=== PATIENT | female | born 1935 | race Caucasian/White ===

== ENCOUNTER 2016-12-23 20:51 | Inpatient (IN) | payer MEDICARE, OTHER ==
--- NOTE | 2016-12-23 20:57 | EDM.PDOC ---
ED HPI SEIZURE COMPLAINT - General Chief Complaint: Syncope Stated Complaint: [facility] Time Seen by Provider: 12/23/16 20:56 Source of Information: Reports: Patient History Limitations: Reports: No limitations - History of Present Illness INITIAL COMMENTS - FREE TEXT/NARRATIVE: 81-year-old female presents the ED for evaluation of sudden onset of severe dizziness which I interpret as vertigo associated with nausea. She did not vomit. This occurred sudden onset while she was outside and to the point that she was very off balance he can hardly walk. Her son aged her to the house and laid her down. She continued to feel unwell broke out in a sweat and associated nausea. She denies any changes in her bowel pattern her stool looking different color. She takes no medications after morning. She was outside a good portion a day but not enough to make her sweat. No recent falls or closed head injuries. When she lies still in bed at this time she has no dizziness or vertigo. Her pressure however is low at 95/76. She never fell or passed out completely.She was aided into the house by her son. Even sitting down she continued to feel unwell. Dizzy and nauseated. She needed to use the bathroom as soon as she got to the bathrooom. Had a large BM with no blood. Then vomited bilious material. Symptom Onset Date: 12/23/16 Symptom Onset Time: 19:50 Timing/Duration: Reports: minutes:, sudden onset, improving Event Occurred (Where): home Event (Witnessed/Unwitnessed): witnessed (Was working outside son was by her side.) Location: Reports: generalized (Generalized weak and very dizzy felt like she was going to pass out.) Severity: moderate Context: Denies: recent ETOH, new/change in medications, missed med dose(s), illness, trauma, photo stimulation, activity/exercise, other Pre Event Symptom(s): Reports: malaise, nausea/vomiting, weakness. Denies: premonition, confusion, chest pain, cough, rash (Nausea with no vomiting), shortness of breath, syncope Event Symptoms: Reports: weakness, malaise, nausea/vomiting. Denies: incontinence, tongue biting, confusion, headaches, syncope, chest pain, fever/ chills, loss of appetite, rash, shortness of breath (Nausea but no) Post Event Symptoms: Reports: lethargic. 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: Other (see below) (None.) - Related Data Allergies/ADRs: Allergies Allergy/AdvReac Type Severity Reaction Status Date / Time codeine AdvReac Vomiting Verified 12/23/16 21:35 Home Meds: Home Meds Isosorbide Mononitrate [Isosorbide Mononitrate ER] 30 mg PO DAILY 12/05/13 [ History] Losartan [Cozaar] 100 mg PO DAILY 12/05/13 [History] amLODIPine [Norvasc] 5 mg PO DAILY 08/15/15 [History] Metoprolol Succinate [Toprol XL 50mg] 50 mg PO DAILY 01/01/16 [History] Furosemide [Lasix] 20 mg PO DAILY PRN 12/07/16 [History] Past Medical History HEENT History: Reports: Hard of hearing Other HEENT History: has a hearing aid on right, weras glasses, has top plate Cardiovascular History: Reports: Cardiomyopathy, High cholesterol, Hypertension , Other (see below) Other Cardiovascular History: states needs to have a "defibrillator" AICD Respiratory History: Reports: None Gastrointestinal History: Reports: GERD, PUD Other Gastrointestinal History: states treated with antibiotics for recent gi infection. 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: Other (see below) Other OB/BYN History: hysterectomy Musculoskeletal History: Reports: Osteoporosis, Other (see below) Neurological History: Reports: None Psychiatric History: Reports: None Endocrine/Metabolic History: Reports: None Hematologic History: Reports: Iron deficiency, Other (see below) Other Hematologic History: DVT Immunologic History: Reports: None Oncologic (Cancer) History: Reports: None Dermatologic History: Reports: None - Past Surgical History Head Surgeries/Procedures: Reports: None HEENT Surgical History: Reports: Tonsillectomy Cardiovascular Surgical History: Reports: Other (see below) GI Surgical History: Reports: Other (see below) Other GI Surgeries/Procedures: gastric resection Female Surgical History: Reports: Hysterectomy Musculoskeletal Surgical History: Reports: Knee replacement Social & Family History - Family History Family Medical History: Noncontributory Cardiac: Reports: Other (see below) (brother has HTN, CHF) Neurological: Reports: Other (see below) (mother of stroke) Oncologic: Reports: Other (see below) (throat cancer in twin borther, father had stomache cancer) - Tobacco Use Smoking Status *Q: Never Smoker Used Tobacco, but Quit: No Second Hand Smoke Exposure: Yes - Alcohol Use Days Per Week of Alcohol Use: 0 - Recreational Drug Use Recreational Drug Use: No Drug Use in Last 12 Months: No - Living Situation & Occupation Living situation: Reports: , alone 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 Denies: fever, chills, decreased appetite, weight loss HEENT: Reports: No symptoms Respiratory: Reports: No Symptoms Cardiovascular: Reports: No symptoms, Blood pressure problem, Lightheadedness. Denies: Chest pain, Claudication (Usually runs normal blood pressure.), Dyspnea on exertion, Edema, Orthopnea, Palpitations Endocrine: Reports: fatigue GI/Abdominal: Reports: No symptoms : Reports: frequency Musculoskeletal: Reports: joint pain (Knees and hips sometimes.) Skin: Reports: no symptoms Neurological: Reports: Dizziness, Difficulty Walking, Gait Disturbance. Denies : Headache, Numbness, Paresthesia, Pre-Existing Deficit (Required aid of her son to help her walk.), Seizure, Syncope, Tingling, Tremors, Trouble Speaking, Weakness, Change in Speech Psychiatric: Reports: No symptoms Hematologic/Lymphatic: Reports: no symptoms Immunologic: Reports: no symptoms - Physical Exam Exam: See Below Exam Limited By: No limitations General Appearance: alert, moderate distress Eye Exam: bilateral eye: normal inspection Ears: normal TMs, other Throat/Mouth: Normal inspection, Normal lips, Normal oropharynx Head Exam: atraumatic, normocephalic Neck: normal inspection, supple, non-tender, full range of motion. No: lymphadenopathy (L), lymphadenopathy (R) Respiratory/Chest: lungs clear, normal breath sounds, no accessory muscle use, respiratory distress Cardiovascular: normal peripheral pulses, regular rate, rhythm, no edema, no gallop, no murmur, no rub. No: JVD GI/Abdominal: soft, non tender, no organomegaly, no distention, no abnormal bruit, no mass, abnormal bowel sounds:. No: rigid, rebound, tender Neuro Exam (Abbreviated): alert, oriented, CN II-XII intact, normal cognition Back Exam: normal inspection, full range of motion. No: CVA tenderness (L), CVA tenderness (R) Extremities: normal inspection, normal range of motion, non-tender, no pedal edema, normal capillary refill Psychiatric: normal affect Skin Exam: Warm, Dry, Intact, Pallor EKG INTERPRETATION EKG Date: 01/07/17 Time: 22:00 Rhythm: NSR Rate (beats/min): 82 [place]: LAD-left axis deviation P-wave: present QRS: other (ventricular hypertrophy pattern.) ST-T: other (mildly depressed lead V6.T-wave inversion in leads one aVL and the V5-V6.) Course - Vital Signs Last Recorded V/S: Last Vital Signs Temp 36.2 C 12/23/16 21:00 Pulse 84 12/23/16 23:41 Resp 18 12/23/16 23:41 BP 104/51 L 12/23/16 23:41 Pulse Ox 94 L 12/23/16 23:41 - Orders/Labs/Meds Orders: Active Orders 24 hr Category Date Time Status EKG Documentation Completion [RC] STAT Care 12/23/16 20:57 Active Chest 1V Frontal [CR] Stat Exams 12/23/16 20:57 Taken Venous Doppler Lwr Ext Bi [US] Stat Exams 12/23/16 22:23 Taken CBC W/O DIFF,HEMOGRAM [HEME] MOTH@0700 Lab 12/24/16 07:00 Ordered CBC W/O DIFF,HEMOGRAM [HEME] MOTH@0700 Lab 12/27/16 07:00 Ordered CBC W/O DIFF,HEMOGRAM [HEME] MOTH@0700 Lab 12/31/16 07:00 Ordered CBC W/O DIFF,HEMOGRAM [HEME] MOTH@0700 Lab 01/03/17 07:00 Ordered CBC W/O DIFF,HEMOGRAM [HEME] MOTH@0700 Lab 01/07/17 07:00 Ordered CBC W/O DIFF,HEMOGRAM [HEME] MOTH@0700 Lab 01/10/17 07:00 Ordered URINALYSIS W/MICROSCOPIC [UA W/MICROSCOPIC] [URIN] Stat Lab 12/23/16 21:02 Uncollected Sodium Chloride 0.9% [Normal Saline] 1,000 ml Med 12/23/16 21:00 Active IV ASDIRECTED Medication Orders Sodium Chloride (Normal Saline) 1,000 mls @ 150 mls/hr IV ASDIRECTED CHIKI Last Admin: 12/23/16 21:25 Dose: 150 mls/hr Labs: Laboratory Tests 12/23/16 12/23/16 12/23/16 Range/Units 21:29 21:29 21:29 WBC 16.15 H (3.98-10.04) K/mm3 RBC 4.05 (3.98-5.22) M/mm3 Hgb 10.0 L (11.2-15.7) gm/L Hct 32.3 L (34.1-44.9) % MCV 79.8 (79.4-94.8) fl MCH 24.7 L (25.6-32.2) pg MCHC 31.0 L (32.2-35.5) g/dl RDW Std Deviation 50.1 H (36.4-46.3) fL Plt Count 540 H (182-369) K/mm3 MPV 9.6 (9.4-12.3) fl Neutrophils % (Manual) 78 H (40-60) % Band Neutrophils % 0 (0-10) % Lymphocytes % (Manual) 19 L (20-40) % Atypical Lymphs % 0 % Monocytes % (Manual) 3 (2-10) % Eosinophils % (Manual) 0 L (0.7-5.8) % Basophils % (Manual) 0 L (0.1-1.2) Platelet Estimate Adequate Plt Morphology Comment Normal RBC Morph Comment Normal D-Dimer, Quantitative 9.54 H (0.19-0.59) mg/L Sodium 142 (136-145) mEq/L Potassium 4.3 (3.5-5.1) mEq/L Chloride 106 (98-107) mEq/L Carbon Dioxide 23 (21-32) mEq/L Anion Gap 17.3 H (5-15) BUN 34 H (7-18) mg/dL Creatinine 1.9 H (0.55-1.02) mg/dL Est Cr Clr Drug Dosing 18.68 mL/min Estimated GFR (MDRD) 25 (>60) mL/min BUN/Creatinine Ratio 17.9 (14-18) Glucose 163 H (83-115) mg/dL Calcium 9.2 (8.5-10.1) mg/dL Magnesium 1.9 (1.8-2.4) mg/dl Total Bilirubin 0.4 (0.2-1.0) mg/dL AST 14 L (15-37) U/L ALT 12 L (14-59) U/L Alkaline Phosphatase 131 H (46-116) U/L CK-MB (CK-2) 0.7 (0-3.6) ng/ml Troponin I < 0.017 (0.00-0.056) ng/mL B-Natriuretic Peptide (0-100) pg/mL Total Protein 7.3 (6.4-8.2) g/dl Albumin 2.7 L (3.4-5.0) g/dl Globulin 4.6 gm/dL Albumin/Globulin Ratio 0.6 L (1-2) 12/23/16 Range/Units 21:29 WBC (3.98-10.04) K/mm3 RBC (3.98-5.22) M/mm3 Hgb (11.2-15.7) gm/L Hct (34.1-44.9) % MCV (79.4-94.8) fl MCH (25.6-32.2) pg MCHC (32.2-35.5) g/dl RDW Std Deviation (36.4-46.3) fL Plt Count (182-369) K/mm3 MPV (9.4-12.3) fl Neutrophils % (Manual) (40-60) % Band Neutrophils % (0-10) % Lymphocytes % (Manual) (20-40) % Atypical Lymphs % % Monocytes % (Manual) (2-10) % Eosinophils % (Manual) (0.7-5.8) % Basophils % (Manual) (0.1-1.2) Platelet Estimate Plt Morphology Comment RBC Morph Comment D-Dimer, Quantitative (0.19-0.59) mg/L Sodium (136-145) mEq/L Potassium (3.5-5.1) mEq/L Chloride (98-107) mEq/L Carbon Dioxide (21-32) mEq/L Anion Gap (5-15) BUN (7-18) mg/dL Creatinine (0.55-1.02) mg/dL Est Cr Clr Drug Dosing mL/min Estimated GFR (MDRD) (>60) mL/min BUN/Creatinine Ratio (14-18) Glucose (83-115) mg/dL Calcium (8.5-10.1) mg/dL Magnesium (1.8-2.4) mg/dl Total Bilirubin (0.2-1.0) mg/dL AST (15-37) U/L ALT (14-59) U/L Alkaline Phosphatase (46-116) U/L CK-MB (CK-2) (0-3.6) ng/ml Troponin I (0.00-0.056) ng/mL B-Natriuretic Peptide 115 H (0-100) pg/mL Total Protein (6.4-8.2) g/dl Albumin (3.4-5.0) g/dl Globulin gm/dL Albumin/Globulin Ratio (1-2) Meds: Medications Generic Name Dose Route Start Last Admin Trade Name Freq PRN Reason Stop Dose Admin Sodium Chloride 1,000 mls @ 150 mls/hr 12/23/16 21:00 12/23/16 21:25 Normal Saline IV 150 mls/hr ASDIRECTED CHIKI Administration Discontinued Medications Generic Name Dose Route Start Last Admin Trade Name Freq PRN Reason Stop Dose Admin Enoxaparin Sodium 60 mg 12/23/16 22:22 12/23/16 22:35 Lovenox SUBCUT 12/23/16 22:23 60 mg ONETIME ONE Administration Metoclopramide HCl 7.5 mg 12/23/16 21:02 12/23/16 21:20 Reglan IVPUSH 12/23/16 21:03 7.5 mg ONETIME ONE Administration - Radiology Interpretation Free Text/Narrative:: 81 year old female presents to the ED with sudden onset of dizziness and feeling like she was going to pass out. Was standing when symptoms arose. Some component of vertigo. Aided into the house by her son. Continued to feel unwell while seated. Became nauseated. Did vomit in the ED. BP found to be low at 95 systolic. Minitially start an IV normal saline 150 mils per hour. Because blood pressure remained low in the 95 systolic range given 250 mils liter normal saline bolus.ild hypoxia. Placed on 02 at 2Lmin. plan ECG chest x-ray and routine labs including d-dimer to be done. Neuro exam is negative for any nystagmus to suggest vertigo.Becausea BP remained low given a 250mls bolus of normal saline then to run at 150mls per hoour. - Re-Assessments/Exams Free Text/Narrative Re-Assessment/Exam: 12/23/16 22:21chest x-ray is essentially clear with normal sized heart. No pleural effusions are evident. Labs reveal a total white count of 16.15 with 70 % neutrophils and no bands. Hemoglobin is low at 10.0 she indicated that she is taking iron supplements for anemia. MCV is 79.8. Hematocrit is 32.3. Platelets elevated at 540,000. Chemistry shows a sodium of 142 potassium of 4.3 chloride 106 bicarbonate of 23. Anion gap is elevated at 17.3 confirming that she is volume depleted. BUN is 34 creatinine is 1.9 EGFR is only 25. AST is 14 ALT of 12 and BNP is 1:15. CK-MB fraction is 0.7 troponin is less than 0.017. D-dimer is markedly elevated at 9.54 highly suggestive of likely pulmonary wasn't. Her creatinine and kidney function are too poor to allow CT pulmonary angiogram at this time. Will have Doppler ultrasound performed of both legs but I will go ahead and give her initial dose of Lovenox 1 mg per kilogram. 12/23/16 23:26Doppler ultrasound of both lower extremities did not find any blood clots. However speak to hospitalist with a view to having her admitted to the hospital as there is a high suspicion that she has a pulmonary embolism. BP remains low at 102 / 49. Heart rate is 85 and sinus. O2 sats are 94% on 2 L per minute. 12/24/16 00:13case discussed with personal care service provider hospitalist Dr. Preciado the patient will be admitted to the med surgery floor on telemetry. Would be to try and hydrate her enough so that her renal function improves to allow CT pulmonary angiogram to be carried out. Anion gap is 17.3. Departure - Departure Time of Disposition: 00:14 Disposition: Admitted As Inpatient 67 Condition: fair Clinical Impression: Near syncope, Hypoxemia, Elevated d-dimer, Chronic renal insufficiency, stage IV (severe) Hypotension Qualifiers: Hypotension type: other hypotension type Qualified Code(s): I95.89 - Other hypotension Additional Instructions: visual be admitted to the med surgery floor on telemetry. Goal is to hopefully guest relations associate enough to improve her renal function to allow a CT pulmonary injury and to be completed. Highly suspect that she has expressed a pulmonary embolism. She is of course received initial dose of Lovenox 60 mg subcutaneously in the ED. Ultrasound of both lower extremities did not identify a DVT. She does have an elevated platelet count of 540,000 and therefore concern exist to look for an underlying malignancy. - My Orders Last 24 Hours: My Active Orders 12/23/16 20:57 EKG Documentation Completion [RC] STAT Chest 1V Frontal [CR] Stat 12/23/16 21:00 Sodium Chloride 0.9% [Normal Saline] 1,000 ml IV ASDIRECTED 12/23/16 21:02 URINALYSIS W/MICROSCOPIC [UA W/MICROSCOPIC] [URIN] Stat 12/23/16 22:23 Venous Doppler Lwr Ext Bi [US] Stat 12/24/16 07:00 CBC W/O DIFF,HEMOGRAM [HEME] MOTH@0700 12/27/16 07:00 CBC W/O DIFF,HEMOGRAM [HEME] MOTH@0700 12/31/16 07:00 CBC W/O DIFF,HEMOGRAM [HEME] MOTH@0700 01/03/17 07:00 CBC W/O DIFF,HEMOGRAM [HEME] MOTH@0700 01/07/17 07:00 CBC W/O DIFF,HEMOGRAM [HEME] MOTH@0700 01/10/17 07:00 CBC W/O DIFF,HEMOGRAM [HEME] MOTH@0700 - Assessment/Plan Last 24 Hours: My Active Orders 12/23/16 20:57 EKG Documentation Completion [RC] STAT Chest 1V Frontal [CR] Stat 12/23/16 21:00 Sodium Chloride 0.9% [Normal Saline] 1,000 ml IV ASDIRECTED 12/23/16 21:02 URINALYSIS W/MICROSCOPIC [UA W/MICROSCOPIC] [URIN] Stat 12/23/16 22:23 Venous Doppler Lwr Ext Bi [US] Stat 12/24/16 07:00 CBC W/O DIFF,HEMOGRAM [HEME] MOTH@0700 12/27/16 07:00 CBC W/O DIFF,HEMOGRAM [HEME] MOTH@0700 12/31/16 07:00 CBC W/O DIFF,HEMOGRAM [HEME] MOTH@0700 01/03/17 07:00 CBC W/O DIFF,HEMOGRAM [HEME] MOTH@69901/07/17 07:00 CBC W/O DIFF,HEMOGRAM [HEME] MOTH@69901/10/17 07:00 CBC W/O DIFF,HEMOGRAM [HEME] MOTH@699
[2016-12-23] MEDS ORDERED: Sodium Chloride 0.9% 1,000 ML IV SCH (21:00)
[2016-12-23] MEDS ORDERED: Metoclopramide 10 MG/2 ML SDV IVPUSH ONE (21:02)
[2016-12-23] MEDS ORDERED: Enoxaparin 60 MG/0.6 ML Syringe SUBCUT ONE (22:22)
[2016-12-24] MEDS ORDERED: Temazepam 7.5 MG Cap PO PRN (01:21)
[2016-12-24] MEDS ORDERED: Sodium Chloride 0.9% 1,000 ML IV SCH (01:30)
--- NOTE | 2016-12-24 09:09 | PCM.HP ---
H&P History of Present Illness - General Date of Service: 12/24/16 Admit Problem/Dx: Admission Diagnosis/Problem Admission Diagnosis/Problem Hypotension Source of Information: Patient, Family, Provider History Limitations: Reports: No limitations - History of Present Illness Initial Comments - Free Text/Narative: 89 year old female who participated in her usual Saturday activities was able to attend a Confirmation became dizzy and loss strength in her lower extremities. She felt off balance and had difficulty walking. There was no change in speech , vision comprehension. She denies LOC. Admits to nausea/vomiting (bile) and generalized weakness. The patient has a cardiac history of nonischemic cardiomyopathy. 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 At this time, she has acute renal failure, a CTA will be performed after improvement of her kidney function. A post op complication after a right TKR was a DVT. She was previously taking coumadin, . Onset of Symptoms: Reports: sudden Symptom Onset Date: 12/23/16 Duration of Symptoms: Reports: Hour(s):, Getting worse Location: Reports: generalized Severity: moderate Improves with: Reports: Medication Worsens with: Reports: None Associated Symptoms: Reports: malaise, weakness Abdominal Pain Score (Numeric/FACES): 3 - Related Data Allergies/Adverse Reactions: Allergies Allergy/AdvReac Type Severity Reaction Status Date / Time codeine AdvReac Vomiting Verified 12/24/16 01:59 Home Medications: Home Meds Isosorbide Mononitrate [Isosorbide Mononitrate ER] 30 mg PO DAILY 12/05/13 [ History] Losartan [Cozaar] 100 mg PO DAILY 12/05/13 [History] amLODIPine [Norvasc] 5 mg PO DAILY 08/15/15 [History] Metoprolol Succinate [Toprol XL 50mg] 50 mg PO DAILY 01/01/16 [History] Furosemide [Lasix] 20 mg PO DAILY PRN 12/07/16 [History] Aspirin 81 mg PO DAILY 12/24/16 [History] Past Medical History HEENT History: Reports: Hard of hearing Other HEENT History: has a hearing aid on right, wears glasses, has upper denture Cardiovascular History: Reports: Arrhythmia, Cardiomyopathy, High cholesterol, Hypertension, Other (see below) Other Cardiovascular History: states NEEDS to have a "defibrillator" AICD - not received yet Respiratory History: Reports: None Gastrointestinal History: Reports: GERD, PUD Other Gastrointestinal History: Gastric ulcer Genitourinary History: Reports: Chronic renal insuffiency, Urinary incontinence Other Genitourinary History: possible cystocele, urinary frequency BUNDLE WRAPPER History: Reports: Other (see below) Other OB/BYN History: hysterectomy Musculoskeletal History: Reports: Osteoporosis Neurological History: Reports: None Psychiatric History: Reports: None Endocrine/Metabolic History: Reports: None Hematologic History: Reports: Iron deficiency, Other (see below) Other Hematologic History: DVT Immunologic History: Reports: None Oncologic (Cancer) History: Reports: None Dermatologic History: Reports: None - Infectious Disease History Infectious Disease History: Reports: Chicken pox, Measles, Mumps, Shingles - Past Surgical History Head Surgeries/Procedures: Reports: None HEENT Surgical History: Reports: Tonsillectomy GI Surgical History: Reports: Other (see below) Other GI Surgeries/Procedures: Some Hemmorrhoids removed Female Surgical History: Reports: Hysterectomy Musculoskeletal Surgical History: Reports: Knee replacement Other Musculoskeletal Surgeries/Procedures:: Right side Social & Family History - Family History Family Medical History: Noncontributory Cardiac: Reports: Other (see below) (brother has HTN, CHF) Neurological: Reports: Other (see below) (mother of stroke) Oncologic: Reports: Other (see below) (throat cancer in [place], father had stomache cancer) - Tobacco Use Smoking Status *Q: Never Smoker Used Tobacco, but Quit: No Second Hand Smoke Exposure: Yes - Caffeine Use Caffeine Use: Reports: Coffee Other Caffeine Use: a lot of regular coffee. 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[email or web address]) H&P Review of Systems - Review of Systems: Review Of Systems: See Below General: Reports: malaise, weakness HEENT: Reports: no symptoms Pulmonary: Reports: No Symptoms Cardiovascular: Reports: lightheadedness Gastrointestinal: Reports: No symptoms Genitourinary: Reports: no symptoms Musculoskeletal: Reports: no symptoms Skin: Reports: no symptoms Psychiatric: Reports: confusion Neurological: Reports: Difficulty Walking, Weakness Hematologic/Lymphatic: Reports: no symptoms Immunologic: Reports: no symptoms Exam - Exam Exam: See Below - Vital Signs Vital Signs: Last Vital Signs Temp 36.7 C 12/24/16 07:52 Pulse 72 12/24/16 07:52 Resp 16 12/24/16 07:52 BP 127/91 H 12/24/16 07:52 Pulse Ox 96 12/24/16 07:52 Weight: 61.099 kg - Exam Quality Assessment: DVT prophylaxis General: alert, oriented, cooperative, mild distress HEENT: EACs clear, EOMI, Mucosa moist & pink, Nares patent, Normal nasal septum , Pupils equal, Pupils reactive Neck: supple, trachea midline Lungs: Normal respiratory effort Cardiovascular: regular rate, regular rhythm Abdomen: Normal Bowel Sounds, Soft (Female) Exam: Deferred Rectal (Female) Exam: Deferred Back Exam: normal inspection Extremities: normal inspection Skin: warm Neurological: cranial nerves intact, reflexes equal bilateral Neuro Extensive - Mental Status: alert, oriented x3, normal mood/affect, normal cognition, memory intact Neuro Extensive - Motor, Sensory, Reflexes: CN II-XII intact, normal gait, normal reflexes Psychiatric: alert, normal affect, normal mood - Patient Data Lab Results last 24 hrs: Laboratory Results - last 24 hr 12/24/16 12/24/16 12/24/16 Range/Units 02:00 04:30 04:30 WBC 16.54 H (3.98-10.04) K/mm3 RBC 3.36 L (3.98-5.22) M/mm3 Hgb 8.2 L (11.2-15.7) gm/L Hct 26.9 L (34.1-44.9) % MCV 80.1 (79.4-94.8) fl MCH 24.4 L (25.6-32.2) pg MCHC 30.5 L (32.2-35.5) g/dl RDW Std Deviation 48.9 H (36.4-46.3) fL Plt Count 409 H (182-369) K/mm3 MPV 9.8 (9.4-12.3) fl Neut % (Auto) 83.9 H (34.0-71.1) % Lymph % (Auto) 8.2 L (19.3-51.7) % [place] % (Auto) 4.2 L (4.7-12.5) % Eos % (Auto) 3.4 (0.7-5.8) Baso % (Auto) 0.1 (0.1-1.2) % Neut # (Auto) 13.89 H (1.56-6.13) K/mm3 Lymph # (Auto) 1.35 (1.18-3.74) K/mm3 [place] # (Auto) 0.69 H (0.24-0.36) K/mm3 Eos # (Auto) 0.57 H (0.04-0.36) K/mm3 Baso # (Auto) 0.01 (0.01-0.08) K/mm3 Manual Slide Review Abnormal smear PT (8.0-13.0) SECONDS INR Sodium 142 (136-145) mEq/L Potassium 4.4 (3.5-5.1) mEq/L Chloride 109 H (98-107) mEq/L Carbon Dioxide 22 (21-32) mEq/L Anion Gap 15.4 H (5-15) BUN 35 H (7-18) mg/dL Creatinine 1.5 H (0.55-1.02) mg/dL Est Cr Clr Drug Dosing 23.66 mL/min Estimated GFR (MDRD) 33 (>60) mL/min BUN/Creatinine Ratio 23.3 H (14-18) Glucose 124 H (83-115) mg/dL Calcium 8.1 L (8.5-10.1) mg/dL Urine Color Yellow (Yellow) Urine Appearance Clear (Clear) Urine pH 5.5 (5.0-8.0) Ur Specific [place] 1.025 (1.005-1.030) Urine Protein Negative (Negative) Urine Glucose (UA) Negative (Negative) Urine Ketones Trace H (Negative) Urine Occult Blood Negative (Negative) Urine Nitrite Negative (Negative) Urine Bilirubin Negative (Negative) Urine Urobilinogen 0.2 (0.2-1.0) Ur Leukocyte Esterase Negative (Negative) Urine RBC Not seen (0-5) /hpf Urine WBC 0-5 (0-5) /hpf Urine WBC Clumps Not seen (NOT SEEN) /hpf Ur Epithelial Cells 0-5 (0-5) /hpf Ur Squamous Epith Cells 0-5 (0-5) /hpf Urine Bacteria Not seen (FEW) /hpf Urine Mucus Not seen (FEW) /hpf 12/24/16 Range/Units 04:30 WBC (3.98-10.04) K/mm3 RBC (3.98-5.22) M/mm3 Hgb (11.2-15.7) gm/L Hct (34.1-44.9) % MCV (79.4-94.8) fl MCH (25.6-32.2) pg MCHC (32.2-35.5) g/dl RDW Std Deviation (36.4-46.3) fL Plt Count (182-369) K/mm3 MPV (9.4-12.3) fl Neut % (Auto) (34.0-71.1) % Lymph % (Auto) (19.3-51.7) % [place] % (Auto) (4.7-12.5) % Eos % (Auto) (0.7-5.8) Baso % (Auto) (0.1-1.2) % Neut # (Auto) (1.56-6.13) K/mm3 Lymph # (Auto) (1.18-3.74) K/mm3 [place] # (Auto) (0.24-0.36) K/mm3 Eos # (Auto) (0.04-0.36) K/mm3 Baso # (Auto) (0.01-0.08) K/mm3 Manual Slide Review PT 10.5 (8.0-13.0) SECONDS INR 0.97 Sodium (136-145) mEq/L Potassium (3.5-5.1) mEq/L Chloride (98-107) mEq/L Carbon Dioxide (21-32) mEq/L Anion Gap (5-15) BUN (7-18) mg/dL Creatinine (0.55-1.02) mg/dL Est Cr Clr Drug Dosing mL/min Estimated GFR (MDRD) (>60) mL/min BUN/Creatinine Ratio (14-18) Glucose (83-115) mg/dL Calcium (8.5-10.1) mg/dL Urine Color (Yellow) Urine Appearance (Clear) Urine pH (5.0-8.0) Ur Specific [place] (1.005-1.030) Urine Protein (Negative) Urine Glucose (UA) (Negative) Urine Ketones (Negative) Urine Occult Blood (Negative) Urine Nitrite (Negative) Urine Bilirubin (Negative) Urine Urobilinogen (0.2-1.0) Ur Leukocyte Esterase (Negative) Urine RBC (0-5) /hpf Urine WBC (0-5) /hpf Urine WBC Clumps (NOT SEEN) /hpf Ur Epithelial Cells (0-5) /hpf Ur Squamous Epith Cells (0-5) /hpf Urine Bacteria (FEW) /hpf Urine Mucus (FEW) /hpf Result Diagrams: 12/25/16 04:40 12/25/16 04:40 *Q Meaningful Use (ADM) - VTE *Q VTE Criteria *Q: - Stroke *Q Stroke Criteria *Q: - AMI *Q AMI Criteria *Q: - Problem List (1) Chronic renal insufficiency, stage IV (severe) SNOMED Code(s): 93922852 ICD Code: N18.4 - CHRONIC KIDNEY DISEASE, STAGE 4 (SEVERE) Status: Acute Current Visit: Yes (2) Elevated d-dimer SNOMED Code(s): 911755089 ICD Code: R79.89 - OTHER SPECIFIED ABNORMAL FINDINGS OF BLOOD CHEMISTRY Status: Acute Current Visit: Yes (3) Near syncope SNOMED Code(s): 730521920 ICD Code: R55 - SYNCOPE AND COLLAPSE Status: Acute Current Visit: Yes Problem List Initiated/Reviewed/Updated: Yes Orders Last 24hrs: Active Orders 24 hr Category Date Time Status Oxygen Therapy [RC] ASDIRECTED Care 12/24/16 01:22 Active Up With Assistance [RC] QSHIFT Care 12/24/16 02:46 Active NPO Now [Nothing per Oral Now Diet] [DIET] Diet 12/24/16 Breakfast Active Sodium Chloride 0.9% [Normal Saline] 1,000 ml Med 12/24/16 07:31 Active IV ASDIRECTED Temazepam [Restoril] Med 12/24/16 01:21 Active 7.5 mg PO BEDTIME PRN Code Status [Resuscitation Status] Routine Resus Stat 12/24/16 01:27 Ordered Medication Orders Sodium Chloride (Normal Saline) 1,000 mls @ 70 mls/hr IV ASDIRECTED CHIKI Temazepam (Restoril) 7.5 mg PO BEDTIME PRN PRN Reason: Sleep Assessment/Plan Comment:: Impression: Presyncopal episode, can not exclude PE cf ischemia History of NI-CMP, NYHA I-II Acute renal failure with history of CKD stage IV Query PE, empiric Lovenox, renal dose given History of DVT with previous coumadin 01/2015 Chronic LBBB History of BOOP History of PMR HTN Hyperlipdemia Plan: IVF Decrease BB Hydrate and avoid nephrotoxins CTA of thorax for PE eval, if Cr is too elevated, will VQ scan Check cardiac enzymes CTA of Thorax after hydration DVT prophylaxis with renal dose Lovenox for PE GI prophylaxis Consult SW/PT/OT.
[2016-12-24] MEDS ORDERED: Ondansetron 4 MG/2 ML SDV IVPUSH PRN (09:27)
[2016-12-24] MEDS: Sodium Chloride 0.9% 1,000 ML IV SCH ×3 (09:40→15:14)
--- NOTE | 2016-12-24 10:33 | US ---
Bilateral lower extremity deep venous ultrasound: Duplex and color flow imaging was obtained of the right and left common femoral, proximal greater saphenous, superficial femoral, popliteal, posterior tibial and peroneal veins. Findings: Normal phasic flow, augmentation and compression is seen. Hypoechoic area identified within the left popliteal fossa measuring up to 5.7 cm which likely represents a complicated popliteal cyst. Impression: 1. No findings of deep venous thrombosis seen within either the right or left lower extremity. 2. Complicated popliteal cyst on the left side measuring up to 5.7 cm. Diagnostic code #3 I agree with preliminary report issued by [facility] (preliminary report dictated on 12/24/16, 1:12 AM Central Time)
--- NOTE | 2016-12-24 10:33 | CR ---
Chest: Portable view of the chest was obtained. Comparison: Previous chest CT of 01/17/16 and chest x-ray of 01/01/16. Heart is mildly enlarged. Upper mediastinum is within normal limits for portable technique. Sclerotic lesion is noted within the proximal right humerus which appears old and is benign. Lungs are clear with no acute infiltrates. Minimal scoliosis is noted within the spine. Bony structures are also osteopenic. Impression: 1. Mild cardiomegaly. Other incidental findings. 2. Nothing acute is identified on portable chest x-ray. Diagnostic code #2
[2016-12-24] MEDS ORDERED: Furosemide 20 MG/2 ML VIAL IVPUSH ONE (14:00)
[2016-12-24] MEDS ORDERED: Metoclopramide 10 MG/2 ML SDV IVPUSH PRN (20:42)
[2016-12-24] MEDS ORDERED: Enoxaparin 60 MG/0.6 ML Syringe SUBCUT ONE (21:00)
[2016-12-25] MEDS: Sodium Chloride 0.9% 1,000 ML IV SCH ×2 (02:54→14:28)
[2016-12-25] MEDS ORDERED: Furosemide 20 MG/2 ML VIAL IVPUSH ONE (07:00)
[2016-12-25] MEDS ORDERED: Sodium Chloride 0.9% 10 ML Syringe FLUSH PRN (08:17)
[2016-12-25] MEDS ORDERED: Iopamidol 755 Mg/ML 100 ML Bottle IVPUSH ONE (08:17)
[2016-12-25] MEDS ORDERED: Sodium Chloride 0.9% 100 ML IV SCH (08:30)
[2016-12-25] MEDS: Isosorbide Mononitrate 30 MG Tab.ER PO SCH (09:37)
[2016-12-25] MEDS: Aspirin 81 MG Tab.Chew PO SCH (09:38)
[2016-12-25] MEDS: Metoprolol Succinate 50 MG Tab.ER PO SCH (09:39)
--- NOTE | 2016-12-25 09:42 | PCM.PN ---
- General Info Date of Service: 12/25/16 Functional Status: Reports: tolerating diet, ambulating, urinating - Review of Systems General: Reports: No Symptoms HEENT: Reports: no symptoms Pulmonary: Reports: no symptoms Cardiovascular: Reports: No Symptoms Gastrointestinal: Reports: No symptoms Genitourinary: Reports: no symptoms Musculoskeletal: Reports: no symptoms Skin: Reports: no symptoms Neurological: Reports: No Symptoms Psychiatric: Reports: no symptoms - Patient Data Vitals - most recent: Last Vital Signs Temp 36.5 C 12/25/16 08:33 Pulse 75 12/25/16 09:39 Resp 16 12/25/16 08:33 BP 135/52 L 12/25/16 09:39 Pulse Ox 99 12/25/16 08:33 Weight - most recent: 60.691 kg I&O - last 24 hours: Intake & Output 12/24/16 12/25/16 12/25/16 22:59 06:59 14:59 Intake Total 1842 1434 Output Total 1300 1325 Balance 542 109 Lab Results last 24 hrs: Laboratory Results - last 24 hr 12/24/16 12/24/16 12/24/16 Range/Units 07:22 14:08 14:08 WBC 13.27 H (3.98-10.04) K/mm3 RBC 3.52 L (3.98-5.22) M/mm3 Hgb 8.7 L (11.2-15.7) gm/L Hct 28.2 L (34.1-44.9) % MCV 80.1 (79.4-94.8) fl MCH 24.7 L (25.6-32.2) pg MCHC 30.9 L (32.2-35.5) g/dl RDW Std Deviation 49.3 H (36.4-46.3) fL Plt Count 432 H (182-369) K/mm3 MPV 9.5 (9.4-12.3) fl Neut % (Auto) 66.2 (34.0-71.1) % Lymph % (Auto) 17.7 L (19.3-51.7) % [place] % (Auto) 3.0 L (4.7-12.5) % Eos % (Auto) 12.7 H (0.7-5.8) Baso % (Auto) 0.2 (0.1-1.2) % Neut # (Auto) 8.79 H (1.56-6.13) K/mm3 Lymph # (Auto) 2.35 (1.18-3.74) K/mm3 [place] # (Auto) 0.40 H (0.24-0.36) K/mm3 Eos # (Auto) 1.68 H (0.04-0.36) K/mm3 Baso # (Auto) 0.03 (0.01-0.08) K/mm3 Manual Slide Review Sodium 144 (136-145) mEq/L Potassium 4.1 (3.5-5.1) mEq/L Chloride 112 H (98-107) mEq/L Carbon Dioxide 22 (21-32) mEq/L Anion Gap 14.1 (5-15) BUN 32 H (7-18) mg/dL Creatinine 1.5 H (0.55-1.02) mg/dL Est Cr Clr Drug Dosing 23.66 mL/min Estimated GFR (MDRD) 33 (>60) mL/min BUN/Creatinine Ratio 21.3 H (14-18) Glucose 85 (83-115) mg/dL Calcium 8.7 (8.5-10.1) mg/dL Magnesium 2.0 (1.8-2.4) mg/dl Troponin I < 0.017 (0.00-0.056) ng/mL B-Natriuretic Peptide (0-100) pg/mL C.difficile [id number] Presumptive negative C. difficile Tox (PCR) Negative Mycoplasma pneumon IgM (NEGATIVE) 12/25/16 12/25/16 12/25/16 Range/Units 04:40 04:40 04:40 WBC 10.83 H (3.98-10.04) K/mm3 RBC 3.35 L (3.98-5.22) M/mm3 Hgb 8.3 L (11.2-15.7) gm/L Hct 27.0 L (34.1-44.9) % MCV 80.6 (79.4-94.8) fl MCH 24.8 L (25.6-32.2) pg MCHC 30.7 L (32.2-35.5) g/dl RDW Std Deviation 49.9 H (36.4-46.3) fL Plt Count 403 H (182-369) K/mm3 MPV 9.9 (9.4-12.3) fl Neut % (Auto) 56.4 (34.0-71.1) % Lymph % (Auto) 20.1 (19.3-51.7) % [place] % (Auto) 5.3 (4.7-12.5) % Eos % (Auto) 17.9 H (0.7-5.8) Baso % (Auto) 0.2 (0.1-1.2) % Neut # (Auto) 6.11 (1.56-6.13) K/mm3 Lymph # (Auto) 2.18 (1.18-3.74) K/mm3 [place] # (Auto) 0.57 H (0.24-0.36) K/mm3 Eos # (Auto) 1.94 H (0.04-0.36) K/mm3 Baso # (Auto) 0.02 (0.01-0.08) K/mm3 Manual Slide Review Abnormal smear Sodium 145 (136-145) mEq/L Potassium 3.6 (3.5-5.1) mEq/L Chloride 112 H (98-107) mEq/L Carbon Dioxide 21 (21-32) mEq/L Anion Gap 15.6 H (5-15) BUN 22 H (7-18) mg/dL Creatinine 1.2 H (0.55-1.02) mg/dL Est Cr Clr Drug Dosing 29.57 mL/min Estimated GFR (MDRD) 43 (>60) mL/min BUN/Creatinine Ratio 18.3 H (14-18) Glucose 83 (83-115) mg/dL Calcium 8.7 (8.5-10.1) mg/dL Magnesium 1.8 (1.8-2.4) mg/dl Troponin I < 0.017 (0.00-0.056) ng/mL B-Natriuretic Peptide 149 H (0-100) pg/mL C.difficile [id number] C. difficile Tox (PCR) Mycoplasma pneumon IgM Negative (NEGATIVE) Med Orders - Current: Current Medications Aspirin (Aspirin) 81 mg PO DAILY [facility] Last Admin: 12/25/16 09:38 Dose: 81 mg Sodium Chloride (Normal Saline) 1,000 mls @ 70 mls/hr IV ASDIRECTED [facility] Last Admin: 12/25/16 02:54 Dose: 70 mls/hr Sodium Chloride (Normal Saline) 100 mls @ 80 mls/hr IV ASDIRECTED [facility] Last Admin: 12/25/16 08:57 Dose: 80 mls/hr Isosorbide Mononitrate (Imdur) 30 mg PO DAILY [facility] Last Admin: 12/25/16 09:37 Dose: 30 mg Metoclopramide HCl (Reglan) 5 mg IVPUSH Q6H PRN PRN Reason: Nausea/Vomiting Metoprolol Succinate (Toprol Xl) 25 mg PO DAILY [facility] Last Admin: 12/25/16 09:39 Dose: 25 mg Ondansetron HCl (Zofran) 4 mg IVPUSH Q8H PRN PRN Reason: Nausea/Vomiting Sodium Chloride (Saline Flush) 10 ml FLUSH ONETIME PRN PRN Reason: IV FLUSH Last Admin: 12/25/16 08:57 Dose: 10 ml Temazepam (Restoril) 7.5 mg PO BEDTIME PRN PRN Reason: Sleep Discontinued Medications Enoxaparin Sodium (Lovenox) 60 mg SUBCUT ONETIME ONE Stop: 12/23/16 22:23 Last Admin: 12/23/16 22:35 Dose: 60 mg Enoxaparin Sodium (Lovenox) 60 mg SUBCUT ONETIME ONE Stop: 12/24/16 21:01 Last Admin: 12/24/16 21:59 Dose: 60 mg Furosemide (Lasix) 20 mg IVPUSH NOW ONE Stop: 12/24/16 14:01 Last Admin: 12/24/16 13:27 Dose: 20 mg Furosemide (Lasix) 20 mg IVPUSH ONETIME ONE Stop: 12/25/16 07:01 Last Admin: 12/25/16 06:32 Dose: 20 mg Sodium Chloride (Normal Saline) 1,000 mls @ 150 mls/hr IV ASDIRECTED [facility] Last Admin: 12/23/16 21:25 Dose: 150 mls/hr Sodium Chloride (Normal Saline) 1,000 mls @ 100 mls/hr IV ASDIRECTED [facility] Stop: 12/24/16 07:31 Last Admin: 12/24/16 02:17 Dose: 100 mls/hr Iopamidol (Isovue-370 (76%)) 100 ml IVPUSH ONETIME ONE Stop: 12/25/16 08:18 Last Admin: 12/25/16 08:57 Dose: 100 ml Metoclopramide HCl (Reglan) 7.5 mg IVPUSH ONETIME ONE Stop: 12/23/16 21:03 Last Admin: 12/23/16 21:20 Dose: 7.5 mg - Exam Quality Assessment: DVT prophylaxis General: alert, oriented, cooperative HEENT: Pupils equal, Pupils reactive, EOMI Neck: supple, trachea midline Lungs: Normal respiratory effort Cardiovascular: Regular Rate, Regular Rhythm Abdomen: bowel sounds present, soft, no tenderness, no distension (Female) Exam: Deferred Back Exam: normal inspection Extremities: normal pulses Skin: warm Neurological: no new focal deficit Psy/Mental Status: alert - Problem List & Annotations (1) Chronic renal insufficiency, stage IV (severe) SNOMED Code(s): 30197726 Code(s): N18.4 - CHRONIC KIDNEY DISEASE, STAGE 4 (SEVERE) Status: Acute Current Visit: Yes (2) Elevated d-dimer SNOMED Code(s): 474561501 Code(s): R79.89 - OTHER SPECIFIED ABNORMAL FINDINGS OF BLOOD CHEMISTRY Status: Acute Current Visit: Yes (3) Near syncope SNOMED Code(s): 476226517 Code(s): R55 - SYNCOPE AND COLLAPSE Status: Acute Current Visit: Yes - Problem List Review Problem List Initiated/Reviewed/Updated: Yes - My Orders Last 24 Hours: My Active Orders 12/24/16 09:26 Bedrest Bathroom Privileges [RC] ASDIRECTED Vital Signs [RC] Q4HR 12/24/16 09:27 Ondansetron [Zofran] 4 mg IVPUSH Q8H PRN 12/24/16 10:22 Antiembolic Devices [RC] DAILY DARWIN Hose [Antiembolic Hose] [OM.PC] Routine 12/24/16 20:42 Metoclopramide [Reglan] 5 mg IVPUSH Q6H PRN 12/24/16 Lunch Clear Liquid Diet [DIET] 12/25/16 08:17 Sodium Chloride 0.9% [Saline Flush] 10 ml FLUSH ONETIME PRN 12/25/16 08:30 Sodium Chloride 0.9% [Normal Saline] 100 ml IV ASDIRECTED 12/25/16 09:00 CTA Chest W WO Contrast [Ang Chest] [CT] Routine Aspirin 81 mg PO DAILY Isosorbide Mononitrate [Imdur] 30 mg PO DAILY Metoprolol Succinate [Toprol XL] 25 mg PO DAILY 12/26/16 05:00 B-TYPE NATRIURETIC PEPTIDE,BNP [CHEM] DAILY BASIC METABOLIC PANEL,BMP [CHEM] DAILY CBC WITH AUTO DIFF [HEME] DAILY MAGNESIUM [CHEM] DAILY 12/27/16 05:00 BASIC METABOLIC PANEL,BMP [CHEM] DAILY CBC WITH AUTO DIFF [HEME] DAILY MAGNESIUM [CHEM] DAILY 12/28/16 05:00 BASIC METABOLIC PANEL,BMP [CHEM] DAILY CBC WITH AUTO DIFF [HEME] DAILY MAGNESIUM [CHEM] DAILY 12/29/16 05:00 MAGNESIUM [CHEM] DAILY - Plan Plan:: Impression: Presyncopal episode, probable PE cf ischemia, reassessed has had negative work up. Infectious source unlikely, probable dehydration. History of NI-CMP, NYHA I-II Acute renal failure with history of CKD stage IV Query PE, empiric Lovenox, renal dose given History of DVT with previous coumadin 01/2015 Chronic LBBB History of BOOP History of PMR HTN Hyperlipdemia Plan: IVF Decrease BB Hydrate and avoid nephrotoxins CTA of thorax for PE eval, if Cr is too elevated, will VQ scan Check cardiac enzymes
[2016-12-25] MEDS ORDERED: Saccharomyces Boulardii (Probiotic) 250 MG Cap PO SCH (09:45)
--- NOTE | 2016-12-25 12:17 | CT ---
CT chest Technique: Multiple axial sections through the chest were obtained. Intravenous contrast was utilized. Study was performed as a pulmonary angiogram protocol. Comparison: Previous CT chest study of 01/01/16. Findings: Pulmonary arteries are well-opacified. No filling defects are seen to indicate pulmonary embolism. Goitrous enlargement noted of the thyroid gland. Mediastinum and hilar regions show no adenopathy or mass. Multiple axillary lymph nodes are seen which appear fairly similar to previous exam. Mild coronary artery calcification is seen. Heart is mildly enlarged. Small portion of the visualized upper abdominal structures shows several minimal cortical cysts within the right kidney. Lungs are clear. No pleural effusions are seen. Bone window settings shows scattered degenerative change within the spine. Sclerotic lesion noted within the right humeral head which appears stable from previous exam. This is felt to be benign. Impression: 1. Incidental findings as noted above. 2. No findings of pulmonary embolism. Diagnostic code #2
[2016-12-25] MEDS: Saccharomyces Boulardii (Probiotic) 250 MG Cap PO SCH (20:44)
[2016-12-26] MEDS: Sodium Chloride 0.9% 1,000 ML IV SCH (05:19)
[2016-12-26] MEDS: Saccharomyces Boulardii (Probiotic) 250 MG Cap PO SCH (08:34)
[2016-12-26] MEDS: Isosorbide Mononitrate 30 MG Tab.ER PO SCH (08:35)
[2016-12-26] MEDS: Aspirin 81 MG Tab.Chew PO SCH (08:36)
[2016-12-26] MEDS: Metoprolol Succinate 50 MG Tab.ER PO SCH (08:36)
[2016-12-26 08:46] VITALS: BP 123/46
[2016-12-26] MEDS ORDERED: Magnesium Oxide 400 MG Tab PO ONE (09:19)
[2016-12-26] MEDS ORDERED: Potassium Chloride 20 MEQ Tab.ER PO ONE (09:19)
[2016-12-26] MEDS ORDERED: Benzocaine/Cetylpyridinium/Menthol Lozenge MUCMEM PRN (09:50)
[2016-12-26] MEDS ORDERED: Furosemide 20 MG Tab PO ONE (09:50)
--- NOTE | 2016-12-26 10:15 | PCM.DCSUM1 ---
<Lynne Villalobos M - Last Filed: 12/26/16 10:05> Discharge Summary - Hospital Course Free Text/Narrative:: 89 year old female who participated in her usual Saturday activities was able to attend a Confirmation became dizzy and loss strength in her lower extremities. She felt off balance and had difficulty walking. There was no change in speech , vision comprehension. She denies LOC. Admits to nausea/vomiting (bile) and generalized weakness. The patient has a cardiac history of nonischemic cardiomyopathy. She has had a LBBB, and will be scheduled for [facility]CESSION MANAGER. At this time, she has acute renal failure, a CTA will be performed after improvement of her kidney function. A post op complication after a right TKR was a DVT. She was previously taking coumadin, . Currently not on anticoagulation. Patient is admitted to med/surg with telemetry, hydrated. Labs followed daily with improvement in creatinine and GFR. She had elevated d-dimer, venous doppler of LE was negative, CTA was performed after adequate hydration and improvement of renal functions with negative results for PE. Antihypertensive medications were adjusted, ACEI discontinued. B/P was stable, she was up ambulatory without dizziness, doing well. She will be discharged home today with follow up with follow up with PCP, Dr. Pretty within 5-7 days and with Cardiology as scheduled early next week. - Discharge Data Discharge Date: 12/26/16 (admit date 12/24/16) Discharge Disposition: Home, Self-Care 01 Condition: Good - Patient Summary/Data Operative Procedure(s) Performed: None Complications: None Consults: None Labs Pending at D/C: None Recommended Follow-up Testing/Procedures: Follow up with Dr. Pretyt in 5-7 days Follow up with Miter Operator next week as scheduled; 01/01/17 Planned Operative Procedure(s) after DC: None Hospital Course: None - Patient Instructions Diet: Heart Healthy Diet Activity: As Tolerated Showering/Bathing: December Shower Notify Provider of: Fever, Increased Pain, Swelling and Redness, Nausea and/or Vomiting - Discharge Plan Prescriptions/Med Rec: Bifidobacter. Bifidum/B.Longum [Florajen Bifidoblend] 460 mg PO DAILY #30 capsule Magnesium Oxide 400 mg PO DAILY #30 tablet Metoprolol Succinate [Toprol XL] 25 mg PO BEDTIME #30 tab.er Potassium Chloride 20 meq PO DAILY #30 tablet.er Home Medications: Home Meds Isosorbide Mononitrate [Isosorbide Mononitrate ER] 30 mg PO DAILY 12/05/13 [ History] Furosemide [Lasix] 20 mg PO DAILY PRN 12/07/16 [History] Aspirin 81 mg PO DAILY 12/24/16 [History] Bifidobacter. Bifidum/B.Longum [Florajen Bifidoblend] 460 mg PO DAILY #30 capsule 12/26/16 [Rx] Magnesium Oxide 400 mg PO DAILY #30 tablet 12/26/16 [Rx] Metoprolol Succinate [Toprol XL] 25 mg PO BEDTIME #30 tab.er 12/26/16 [Rx] Potassium Chloride 20 meq PO DAILY #30 tablet.er 12/26/16 [Rx] Patient Handouts: Hypotension, [id number], Nausea, Adult, [id number] Forms: ED Department Discharge Referrals: Ko Pretty MD [Primary Care Provider] - (Please see Dr. Pretty on Saturday at 1:15 PM 01/02/17 at [facility].) - Discharge Summary/Plan Comment DC Time >30 min.: Yes (40 min) - General Info Date of Service: 12/26/16 Admission Dx/Problem (Free Text: Admission Diagnosis/Problem Admission Diagnosis/Problem Hypotension Doing well this morning; feels stronger. Mild cough but overall denies SOB, CP, palpitations, dizziness. Voiding without problems, BM this morning, no n/v. Good appetite. Anxious for DC home with family today Functional Status: Reports: tolerating diet, ambulating, urinating. Denies: new symptoms - Review of Systems General: Reports: No Symptoms HEENT: Reports: no symptoms Pulmonary: Reports: no symptoms, cough (dry, hacky). Denies: shortness of breath, sputum Cardiovascular: Reports: No Symptoms. Denies: Chest Pain, Palpitations, Dyspnea on Exertion Gastrointestinal: Reports: No symptoms Genitourinary: Reports: no symptoms Musculoskeletal: Reports: no symptoms Skin: Reports: no symptoms Neurological: Reports: No Symptoms. Denies: Dizziness Psychiatric: Reports: no symptoms - Patient Data Vitals - Most Recent: Last Vital Signs Temp 98.1 F 12/26/16 08:05 Pulse 88 12/26/16 08:36 Resp 16 12/26/16 08:05 BP 123/46 L 12/26/16 08:36 Pulse Ox 98 12/26/16 08:05 Weight - Most Recent: 60.373 kg I&O - Last 24 hours: Intake & Output 12/25/16 12/26/16 12/26/16 22:59 06:59 14:59 Intake Total 2766 1087 Output Total 1850 1300 Balance 916 -213 Lab Results - Last 24 hrs: Laboratory Results - last 24 hr 12/26/16 12/26/16 12/26/16 Range/Units 04:20 04:20 04:20 WBC 11.83 H (3.98-10.04) K/mm3 RBC 3.46 L (3.98-5.22) M/mm3 Hgb 8.5 L (11.2-15.7) gm/L Hct 27.6 L (34.1-44.9) % MCV 79.8 (79.4-94.8) fl MCH 24.6 L (25.6-32.2) pg MCHC 30.8 L (32.2-35.5) g/dl RDW Std Deviation 48.5 H (36.4-46.3) fL Plt Count 409 H (182-369) K/mm3 MPV 9.6 (9.4-12.3) fl Neut % (Auto) 75.3 H (34.0-71.1) % Lymph % (Auto) 9.0 L (19.3-51.7) % Elk % (Auto) 4.5 L (4.7-12.5) % Eos % (Auto) 10.9 H (0.7-5.8) Baso % (Auto) 0.2 (0.1-1.2) % Neut # (Auto) 8.92 H (1.56-6.13) K/mm3 Lymph # (Auto) 1.06 L (1.18-3.74) K/mm3 Elk # (Auto) 0.53 H (0.24-0.36) K/mm3 Eos # (Auto) 1.29 H (0.04-0.36) K/mm3 Baso # (Auto) 0.02 (0.01-0.08) K/mm3 Manual Slide Review Abnormal smear Sodium 141 (136-145) mEq/L Potassium 3.3 L (3.5-5.1) mEq/L Chloride 109 H (98-107) mEq/L Carbon Dioxide 23 (21-32) mEq/L Anion Gap 12.3 (5-15) BUN 13 (7-18) mg/dL Creatinine 1.2 H (0.55-1.02) mg/dL Est Cr Clr Drug Dosing 29.57 mL/min Estimated GFR (MDRD) 43 (>60) mL/min BUN/Creatinine Ratio 10.8 L (14-18) Glucose 81 L (83-115) mg/dL Calcium 8.7 (8.5-10.1) mg/dL Magnesium 1.7 L (1.8-2.4) mg/dl B-Natriuretic Peptide 212 H (0-100) pg/mL ROBERT Results - Last 24 hrs: Microbiology 12/24/16 07:30 Streptococcus pneumoniae Antigen (M - Final Urine Med Orders - Current: Current Medications Aspirin (Aspirin) 81 mg PO DAILY [facility] Last Admin: 12/26/16 08:36 Dose: 81 mg Benzocaine/Menthol (Cepacol Sore Throat) 1 lozenge MUCMEM Q2H PRN PRN Reason: Cough Sodium Chloride (Normal Saline) 1,000 mls @ 70 mls/hr IV ASDIRECTED [facility] Last Admin: 12/26/16 05:19 Dose: 70 mls/hr Isosorbide Mononitrate (Imdur) 30 mg PO DAILY [facility] Last Admin: 12/26/16 08:35 Dose: 30 mg Metoclopramide HCl (Reglan) 5 mg IVPUSH Q6H PRN PRN Reason: Nausea/Vomiting Metoprolol Succinate (Toprol Xl) 25 mg PO DAILY [facility] Last Admin: 12/26/16 08:36 Dose: 25 mg Ondansetron HCl (Zofran) 4 mg IVPUSH Q8H PRN PRN Reason: Nausea/Vomiting Saccharomyces Boulardii (Florastor) 250 mg PO BID [facility] Last Admin: 12/26/16 08:34 Dose: 250 mg Sodium Chloride (Saline Flush) 10 ml FLUSH ONETIME PRN PRN Reason: IV FLUSH Last Admin: 12/25/16 08:57 Dose: 10 ml Temazepam (Restoril) 7.5 mg PO BEDTIME PRN PRN Reason: Sleep Discontinued Medications Enoxaparin Sodium (Lovenox) 60 mg SUBCUT ONETIME ONE Stop: 12/23/16 22:23 Last Admin: 12/23/16 22:35 Dose: 60 mg Enoxaparin Sodium (Lovenox) 60 mg SUBCUT ONETIME ONE Stop: 12/24/16 21:01 Last Admin: 12/24/16 21:59 Dose: 60 mg Furosemide (Lasix) 20 mg IVPUSH NOW ONE Stop: 12/24/16 14:01 Last Admin: 12/24/16 13:27 Dose: 20 mg Furosemide (Lasix) 20 mg IVPUSH ONETIME ONE Stop: 12/25/16 07:01 Last Admin: 12/25/16 06:32 Dose: 20 mg Furosemide (Lasix) 20 mg PO ONETIME ONE Stop: 12/26/16 09:51 Sodium Chloride (Normal Saline) 1,000 mls @ 150 mls/hr IV ASDIRECTED [facility] Last Admin: 12/23/16 21:25 Dose: 150 mls/hr Sodium Chloride (Normal Saline) 1,000 mls @ 100 mls/hr IV ASDIRECTED [facility] Stop: 12/24/16 07:31 Last Admin: 12/24/16 02:17 Dose: 100 mls/hr Sodium Chloride (Normal Saline) 100 mls @ 80 mls/hr IV ASDIRECTED [facility] Last Admin: 12/25/16 08:57 Dose: 80 mls/hr Iopamidol (Isovue-370 (76%)) 100 ml IVPUSH ONETIME ONE Stop: 12/25/16 08:18 Last Admin: 12/25/16 08:57 Dose: 100 ml Magnesium Oxide (Magnesium Oxide) 400 mg PO ONETIME ONE Stop: 12/26/16 09:20 Metoclopramide HCl (Reglan) 7.5 mg IVPUSH ONETIME ONE Stop: 12/23/16 21:03 Last Admin: 12/23/16 21:20 Dose: 7.5 mg Potassium Chloride (Klor-Con M20) 40 meq PO ONETIME ONE Stop: 12/26/16 09:20 Saccharomyces Boulardii (Florastor) 500 mg PO BID [facility] Last Admin: 12/25/16 11:44 Dose: 500 mg - Exam Quality Assessment: Reports: DVT prophylaxis General: Reports: alert, oriented, cooperative, no acute distress (very pleasant , talkative) HEENT: Reports: Pupils equal, Pupils reactive, EOMI, Mucous membr. moist/pink Neck: Reports: supple Lungs: Reports: Clear to auscultation, Normal respiratory effort, Other (dry hacky cough but no adventitious lung sounds) Cardiovascular: Reports: Regular Rate, Regular Rhythm Abdomen: Reports: bowel sounds present, soft, no tenderness, no distension (Female) Exam: Deferred Rectal (Female) Exam: Deferred Back Exam: Reports: Normal Inspection Extremities: Reports: no calf tenderness, other (varicosities noted to LE; bilat scars to knees from prior TKA's) Neurological: Reports: no new focal deficit Psy/Mental Status: Reports: alert, normal affect, normal mood *Q Meaningful Use (DIS) - VTE *Q VTE Criteria *Q: - Stroke *Q Stroke Criteria *Q: - AMI *Q AMI Criteria *Q: <Brenda Preciado - Last Filed: 12/27/16 19:49> Discharge Summary - Hospital Course Free Text/Narrative:: See above, negative PE work up. - Discharge Diagnosis/Problem(s) (1) Chronic renal insufficiency, stage IV (severe) SNOMED Code(s): 74503821 ICD Code: N18.4 - CHRONIC KIDNEY DISEASE, STAGE 4 (SEVERE) Status: Acute (2) Elevated d-dimer SNOMED Code(s): 571452503 ICD Code: R79.89 - OTHER SPECIFIED ABNORMAL FINDINGS OF BLOOD CHEMISTRY Status: Acute (3) Near syncope SNOMED Code(s): 334506762 ICD Code: R55 - SYNCOPE AND COLLAPSE Status: Acute - Patient Data Vitals - Most Recent: Last Vital Signs Temp 36.7 C 12/26/16 08:05 Pulse 88 12/26/16 08:36 Resp 16 12/26/16 08:05 BP 123/46 L 12/26/16 08:36 Pulse Ox 98 12/26/16 08:05 Med Orders - Current: Current Medications Discontinued Medications Aspirin (Aspirin) 81 mg PO DAILY [facility] Last Admin: 12/26/16 08:36 Dose: 81 mg Benzocaine/Menthol (Cepacol Sore Throat) 1 lozenge MUCMEM Q2H PRN PRN Reason: Cough Last Admin: 12/26/16 11:29 Dose: 1 lozenge Enoxaparin Sodium (Lovenox) 60 mg SUBCUT ONETIME ONE Stop: 12/23/16 22:23 Last Admin: 12/23/16 22:35 Dose: 60 mg Enoxaparin Sodium (Lovenox) 60 mg SUBCUT ONETIME ONE Stop: 12/24/16 21:01 Last Admin: 12/24/16 21:59 Dose: 60 mg Furosemide (Lasix) 20 mg IVPUSH NOW ONE Stop: 12/24/16 14:01 Last Admin: 12/24/16 13:27 Dose: 20 mg Furosemide (Lasix) 20 mg IVPUSH ONETIME ONE Stop: 12/25/16 07:01 Last Admin: 12/25/16 06:32 Dose: 20 mg Furosemide (Lasix) 20 mg PO ONETIME ONE Stop: 12/26/16 09:51 Last Admin: 12/26/16 11:23 Dose: 20 mg Sodium Chloride (Normal Saline) 1,000 mls @ 150 mls/hr IV ASDIRECTED [facility] Last Admin: 12/23/16 21:25 Dose: 150 mls/hr Sodium Chloride (Normal Saline) 1,000 mls @ 100 mls/hr IV ASDIRECTED [facility] Stop: 12/24/16 07:31 Last Admin: 12/24/16 02:17 Dose: 100 mls/hr Sodium Chloride (Normal Saline) 1,000 mls @ 70 mls/hr IV ASDIRECTED [facility] Last Admin: 12/26/16 05:19 Dose: 70 mls/hr Sodium Chloride (Normal Saline) 100 mls @ 80 mls/hr IV ASDIRECTED [facility] Last Admin: 12/25/16 08:57 Dose: 80 mls/hr Iopamidol (Isovue-370 (76%)) 100 ml IVPUSH ONETIME ONE Stop: 12/25/16 08:18 Last Admin: 12/25/16 08:57 Dose: 100 ml Isosorbide Mononitrate (Imdur) 30 mg PO DAILY [facility] Last Admin: 12/26/16 08:35 Dose: 30 mg Magnesium Oxide (Magnesium Oxide) 400 mg PO ONETIME ONE Stop: 12/26/16 09:20 Last Admin: 12/26/16 11:24 Dose: 400 mg Metoclopramide HCl (Reglan) 7.5 mg IVPUSH ONETIME ONE Stop: 12/23/16 21:03 Last Admin: 12/23/16 21:20 Dose: 7.5 mg Metoclopramide HCl (Reglan) 5 mg IVPUSH Q6H PRN PRN Reason: Nausea/Vomiting Metoprolol Succinate (Toprol Xl) 25 mg PO DAILY [facility] Last Admin: 12/26/16 08:36 Dose: 25 mg Ondansetron HCl (Zofran) 4 mg IVPUSH Q8H PRN PRN Reason: Nausea/Vomiting Potassium Chloride (Klor-Con M20) 40 meq PO ONETIME ONE Stop: 12/26/16 09:20 Last Admin: 12/26/16 11:23 Dose: 40 meq Saccharomyces Boulardii (Florastor) 500 mg PO BID [facility] Last Admin: 12/25/16 11:44 Dose: 500 mg Saccharomyces Boulardii (Florastor) 250 mg PO BID [facility] Last Admin: 12/26/16 08:34 Dose: 250 mg Sodium Chloride (Saline Flush) 10 ml FLUSH ONETIME PRN PRN Reason: IV FLUSH Last Admin: 12/25/16 08:57 Dose: 10 ml Temazepam (Restoril) 7.5 mg PO BEDTIME PRN PRN Reason: Sleep *Q Meaningful Use (DIS) - VTE *Q VTE Criteria *Q: - Stroke *Q Stroke Criteria *Q: - AMI *Q AMI Criteria *Q:
== END 2016-12-26 11:55 | disposition home or self-care (01) | DRG 312 ==
LOC: JD.ED 20:51 → JD.MS 12-24 00:34
PROVIDERS: ADMIT Internal Medicine Cardiovascular Disease; ATTEND Internal Medicine Cardiovascular Disease
DX: R55 Syncope and collapse (principal); I95.89 Other hypotension; R09.02 Hypoxemia; Z79.1 Long term (current) use of non-steroidal anti-inflammatories (NSAID); N18.4 Chronic kidney disease, stage 4 (severe); N17.9 Acute kidney failure, unspecified; I13.10 Hypertensive heart and chronic kidney disease without heart failure, with stage 1 through stage 4 chronic kidney disease, or unspecified chronic kidney disease; E78.5 Hyperlipidemia, unspecified; R79.1 Abnormal coagulation profile; Z86.718 Personal history of other venous thrombosis and embolism; K21.9 Gastro-esophageal reflux disease without esophagitis; R32 Unspecified urinary incontinence; M81.0 Age-related osteoporosis without current pathological fracture; Z96.659 Presence of unspecified artificial knee joint; E61.1 Iron deficiency; Z95.810 Presence of automatic (implantable) cardiac defibrillator; Z96.651 Presence of right artificial knee joint; H91.91 Unspecified hearing loss, right ear; Z79.899 Other long term (current) drug therapy; Z88.8 Allergy status to other drugs, medicaments and biological substances; I44.7 Left bundle-branch block, unspecified; R53.1 Weakness
CPT/HCPCS: 36415; 71010; 80053; 82553; 83735; 83880; 84484; 85025; 85379; 93005; 93970; 96361; 96372; 96374; 99285; J1650; J2765; J7040; 71275; 71275-26; 80048; 81001; 85610; 86738; 87493; 87899; A9270-GY; J7030; J7050; Q9967

== ENCOUNTER 2017-01-21 17:29 | Inpatient (IN) | payer MEDICARE, OTHER ==
--- NOTE | 2017-01-21 17:55 | EDM.PDOC ---
<Louis Neal - Last Filed: 01/21/17 19:27> ED HPI GENERAL MEDICAL PROBLEM - General Chief Complaint: Abdominal Pain Stated Complaint: ABDOMINAL PAIN Time Seen by Provider: 01/21/17 17:45 Source of Information: Reports: Patient History Limitations: Reports: No Limitations - History of Present Illness INITIAL COMMENTS - FREE TEXT/NARRATIVE: 81-year-old female presents the ED due to gradually increasing diffuse lower bowel pain particularly left lower quadrant and suprapubically over the last 3-1 /2 days. Patient was started on Saturday, January 18 and seemed to be somewhat better the following day January 19. Yesterday was intermittent but much worse this morning when she awoke. It has persisted throughout the day today. She's not aware of any fever or chills. She thought she might be constipated has been taking large portions of prune juice without any effect. She's not eating all that well. No definitive chills. Has had a history of diverticulitis. She's had laparotomy for perforated duodenal ulcer and she's had total abdominal hysterectomy she believes her appendix was left intact. She is unsure about her ovaries. No blood per rectum. . Intermittent her lower abdominal cramping pain. No nausea or vomiting. pain remains in her lower abdomen and is not referred to her back. No dysuria urgency or frequency. Onset: Gradual Onset Date: 01/18/17 Duration: Day(s): Location: Reports: Abdomen Quality: Reports: Ache (See history of present illness), Sharp, Stabbing Severity: Moderate Improves with: Reports: Rest Worsens with: Reports: Other (Eating), Movement Context: Denies: Activity, Exercise, Lifting, Sick Contact, Trauma, Other Associated Symptoms: Reports: Loss of Appetite, Malaise. Denies: No Other Symptoms, Confusion, Chest Pain, Cough, cough w sputum, Diaphoresis, Fever/ Chills, Headaches, Nausea/Vomiting, Rash, Seizure, Shortness of Breath (Poor appetite), Syncope, Weakness Treatments PREVOCATIONAL/REHABILITATION COUNSELOR: Reports: Other (see below) (None) Lower Abdominal Pain Score (Numeric/FACES): 5 - Related Data Allergies Allergy/AdvReac Type Severity Reaction Status Date / Time codeine AdvReac Vomiting Verified 12/24/16 01:59 Home Meds: Home Meds Isosorbide Mononitrate [Isosorbide Mononitrate ER] 30 mg PO DAILY 12/05/13 [ History] Furosemide [Lasix] 20 mg PO DAILY PRN 12/07/16 [History] Aspirin 81 mg PO DAILY 12/24/16 [History] Bifidobacter. Bifidum/B.Longum [Florajen Bifidoblend] 460 mg PO DAILY #30 capsule 12/26/16 [Rx] Magnesium Oxide 400 mg PO DAILY #30 tablet 12/26/16 [Rx] Acetaminophen 500 mg PO Q4H PRN 01/21/17 [History] Ascorbic Acid [Vitamin C] 1,000 mg PO DAILY 01/21/17 [History] Calcium Carbonate [Calcium] 600 mg PO DAILY 01/21/17 [History] Cholecalciferol (Vitamin D3) [Vitamin D3] 5,000 units PO DAILY 01/21/17 [History ] Cyanocobalamin (Vitamin B-12) [Vitamin B-12] 1,000 mcg PO DAILY 01/21/17 [ History] Losartan [Cozaar] 50 mg PO DAILY 01/21/17 [History] Metoprolol Succinate [Toprol XL] 50 mg PO DAILY 01/21/17 [History] Past Medical History HEENT History: Reports: Hard of Hearing Other HEENT History: has a hearing aid on right, wears glasses, has upper denture Cardiovascular History: Reports: Arrhythmia, Cardiomyopathy, High Cholesterol, Hypertension, Other (See Below) Other Cardiovascular History: states NEEDS to have a "defibrillator" AICD - not received yet Respiratory History: Reports: None Gastrointestinal History: Reports: GERD, PUD Other Gastrointestinal History: Gastric ulcer Genitourinary History: Reports: Chronic Renal Insuffiency, Urinary Incontinence Other Genitourinary History: possible cystocele, urinary frequency HIDE INSPECTOR History: Reports: Other (See Below) Other OB/BYN History: hysterectomy Musculoskeletal History: Reports: Osteoporosis Neurological History: Reports: None Psychiatric History: Reports: None Endocrine/Metabolic History: Reports: None Hematologic History: Reports: Iron Deficiency, Other (See Below) Other Hematologic History: DVT Immunologic History: Reports: None Oncologic (Cancer) History: Reports: None Dermatologic History: Reports: None - Infectious Disease History Infectious Disease History: Reports: Chicken Pox, Measles, Mumps, Shingles - Past Surgical History Cardiovascular Surgical History: Reports: Other (See Below) GI Surgical History: Reports: Other (See Below) (Laparotomy for a ruptured duodenal ulcer.) Female Surgical History: Reports: Hysterectomy (Sure if her ovaries are arrived at the same time) Musculoskeletal Surgical History: Reports: Knee Replacement (Right) Social & Family History - Family History Family Medical History: Noncontributory Cardiac: Reports: Other (See Below) Neurological: Reports: Other (See Below) Oncologic: Reports: Other (See Below) - Tobacco Use Smoking Status *Q: Never Smoker Used Tobacco, but Quit: No Second Hand Smoke Exposure: Yes - Caffeine Use Caffeine Use: Reports: Coffee Other Caffeine Use: a lot of regular coffee. Caffeine Use Comment: "i drink 4 cups in the morning and then 2 in afternoon" - Alcohol Use Days Per Week of Alcohol Use: 0 - Recreational Drug Use Recreational Drug Use: No Drug Use in Last 12 Months: No - Living Situation & Occupation Living situation: Reports: , Alone Occupation: Retired ED ROS GENERAL - Review of Systems Review Of Systems: See Below Constitutional: Reports: Malaise, Weakness, Fatigue, Decreased Appetite. Denies : Fever, Chills, Weight Loss HEENT: Reports: No Symptoms, Glasses Respiratory: Reports: No Symptoms Cardiovascular: Reports: Blood Pressure Problem, Dyspnea on Exertion. Denies: Chest Pain, Claudication, Edema, Lightheadedness, Orthopnea (Controlled with medication), Palpitations (chronically) Endocrine: Reports: Fatigue GI/Abdominal: Reports: Abdominal Pain (See history present illness), Decreased Appetite. Denies: Black Stool, Bloody Stool, Difficulty Swallowing, Distension , Hematemesis, Hematochezia, Melena, Mucous in Stool, Nausea, Stool Incontinence : Reports: Frequency. Denies: Dysuria, Urgency Musculoskeletal: Reports: Neck Pain, Shoulder Pain, Back Pain, Joint Pain (Pain and hip pain.) Skin: Reports: Pallor (Tends to be anemic.) Neurological: Reports: Dizziness (At times.) Psychiatric: Reports: No Symptoms Hematologic/Lymphatic: Reports: Anemia (Fairly is scheduled for an iron dextran infusion in the next week or so.) Immunologic: Reports: No Symptoms ED EXAM, GI/ABD - Physical Exam Exam: See Below Exam Limited By: No Limitations General Appearance: Alert, Mild Distress Eyes: Bilateral: Pale Conjunctiva (Mild bilaterally.) Throat/Mouth: Normal Inspection, Normal Lips, Normal Oropharynx Head: Atraumatic, Normocephalic Neck: Normal Inspection, Supple, Non-Tender, Full Range of Motion. No: Lymphadenopathy (L), Lymphadenopathy (R) Respiratory/Chest: Lungs Clear, Normal Breath Sounds (Mildly decreased to the lower 20% of lung hester bilaterally.), Decreased Breath Sounds. No: Chest Non- Tender, Respiratory Distress Cardiovascular: Normal Peripheral Pulses, Regular Rate, Rhythm, No Edema, No Murmur GI/Abdominal: Normal Bowel Sounds, Soft, Non-Tender, No Organomegaly, No Distention, No Abnormal Bruit, No Mass, Pelvis Stable, Tenderness (Particularly left lower quadrant to percussion and palpation with mild guarding. No rebound tenderness. She's also tender to palpation suprapubically with guarding.). No: Distention, Psoas Sign, Obturator Sign, Rovsing's Sign Back Exam: Normal Inspection, Decreased Range of Motion (Both hips have decreased range of motion as do her lower back.). 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 R-wave progression with development of Q waves in V3 V4 S1 anteroseptal myocardial infarction in the past. It will left ventricular hypertrophy pattern) QT: prolonged Course - Vital Signs Last Recorded V/S: Last Vital Signs Temp 97.8 F 01/21/17 17:30 Pulse 89 01/21/17 17:30 Resp 18 01/21/17 17:30 BP 140/61 01/21/17 17:30 Pulse Ox 98 01/21/17 17:30 - Orders/Labs/Meds Orders: Active Orders 24 hr Category Date Time Status EKG 12 Lead [EKG Documentation Completion] [RC] STAT Care 01/21/17 20:47 Active EKG Documentation Completion [RC] STAT Care 01/21/17 17:55 Active CULTURE BLOOD [BC] Stat Lab 01/21/17 18:08 Received CULTURE BLOOD [BC] Stat Lab 01/21/17 18:33 Received Dextrose 5%-0.45% NaCl [Dextrose 5%-1/2 NS] 500 ml Med 01/21/17 20:45 Active IV ASDIRECTED Dextrose 5%-0.9% NaCl [Dextrose 5%-Normal Saline] 1,000 Med 01/21/17 18:00 Active ml IV ASDIRECTED Diltiazem 125 mg Med 01/21/17 21:15 Active Sodium Chloride 0.9% [Normal Saline] 100 ml IV TITRATE Sodium Chloride 0.9% [Normal Saline] 500 ml Med 01/21/17 21:18 Active IV .BOLUS Sodium Chloride 0.9% [Saline Flush] Med 01/21/17 19:20 Active 10 ml FLUSH ONETIME PRN metroNIDAZOLE/Normal Saline [Flagyl 500 MG in NS 100 ML Med 01/21/17 21:18 Active ] 500 mg Premix Bag 1 bag IV ONETIME Blood Culture x2 Reflex Set [OM.PC] Stat Oth 01/21/17 17:55 Ordered Medication Orders Dextrose/Sodium Chloride (Dextrose 5%-Normal Saline) 1,000 mls @ 250 mls/hr IV ASDIRECTED CHIKI Last Infusion: 01/21/17 19:37 Dose: 250 mls/hr Admin: 01/21/17 18:43 Dose: 100 mls/hr Dextrose/Sodium Chloride (Dextrose 5%-1/2 Ns) 500 mls @ 1,000 mls/hr IV ASDIRECTED CHIKI Last Admin: 01/21/17 20:47 Dose: 1,000 mls/hr Diltiazem HCl 125 mg/ Sodium (Chloride) 125 mls @ 5 mls/hr IV TITRATE CHIKI; 5 MG /HR PRN Reason: Protocol Last Admin: 01/21/17 21:19 Dose: 5 mg/hr, 5 mls/hr Sodium Chloride (Normal Saline) 500 mls @ 1,000 mls/hr IV .BOLUS ONE Stop: 01/21/17 21:47 Last Admin: 01/21/17 21:29 Dose: 1,000 mls/hr Metronidazole 500 mg/ Premix 100 mls @ 100 mls/hr IV ONETIME ONE Stop: 01/21/17 22:17 Last Admin: 01/21/17 21:27 Dose: 100 mls/hr Sodium Chloride (Saline Flush) 10 ml FLUSH ONETIME PRN PRN Reason: IV FLUSH Last Admin: 01/21/17 20:15 Dose: 10 ml Labs: Laboratory Tests 01/21/17 01/21/17 01/21/17 Range/Units 18:08 18:08 18:08 WBC 11.62 H (3.98-10.04) K/mm3 RBC 3.33 L (3.98-5.22) M/mm3 Hgb 8.2 L (11.2-15.7) gm/L Hct 26.4 L (34.1-44.9) % MCV 79.3 L (79.4-94.8) fl MCH 24.6 L (25.6-32.2) pg MCHC 31.1 L (32.2-35.5) g/dl RDW Std Deviation 48.0 H (36.4-46.3) fL Plt Count 305 (182-369) K/mm3 MPV 10.2 (9.4-12.3) fl Neutrophils % (Manual) 68 H (40-60) % Band Neutrophils % 0 (0-10) % Lymphocytes % (Manual) 23 (20-40) % Atypical Lymphs % 0 % Monocytes % (Manual) 5 (2-10) % Eosinophils % (Manual) 2 (0.7-5.8) % Basophils % (Manual) 2 H (0.1-1.2) Platelet Estimate Adequate Plt Morphology Comment Normal RBC Morph Comment Normal PT 10.0 (8.0-13.0) SECONDS INR 0.92 Sodium 133 L (136-145) mEq/L Potassium 3.9 (3.5-5.1) mEq/L Chloride 101 (98-107) mEq/L Carbon Dioxide 19 L (21-32) mEq/L Anion Gap 16.9 H (5-15) BUN 26 H (7-18) mg/dL Creatinine 1.3 H (0.55-1.02) mg/dL Est Cr Clr Drug Dosing 27.30 mL/min Estimated GFR (MDRD) 39 (>60) mL/min BUN/Creatinine Ratio 20.0 H (14-18) Glucose 167 H (83-115) mg/dL Lactic Acid (0.4-2.0) mmol/L Calcium 8.8 (8.5-10.1) mg/dL Magnesium 1.8 (1.8-2.4) mg/dl Total Bilirubin 0.2 (0.2-1.0) mg/dL AST 21 (15-37) U/L ALT 16 (14-59) U/L Alkaline Phosphatase 145 H (46-116) U/L Troponin I 0.036 (0.00-0.056) ng/mL C-Reactive Protein 11.1 H* (<1.0) mg/dL B-Natriuretic Peptide (0-100) pg/mL Total Protein 6.8 (6.4-8.2) g/dl Albumin 2.5 L (3.4-5.0) g/dl Globulin 4.3 gm/dL Albumin/Globulin Ratio 0.6 L (1-2) Lipase (73-393) U/L Urine Color (Yellow) Urine Appearance (Clear) Urine pH (5.0-8.0) Ur Specific [place] (1.005-1.030) Urine Protein (Negative) Urine Glucose (UA) (Negative) Urine Ketones (Negative) Urine Occult Blood (Negative) Urine Nitrite (Negative) Urine Bilirubin (Negative) Urine Urobilinogen (0.2-1.0) Ur Leukocyte Esterase (Negative) Urine RBC (0-5) /hpf Urine WBC (0-5) /hpf Ur Epithelial Cells (0-5) /hpf Urine Bacteria (FEW) /hpf Hyaline Casts (0-5) /lpf Urine Mucus (FEW) /hpf 01/21/17 01/21/17 01/21/17 Range/Units 18:08 18:08 18:08 WBC (3.98-10.04) K/mm3 RBC (3.98-5.22) M/mm3 Hgb (11.2-15.7) gm/L Hct (34.1-44.9) % MCV (79.4-94.8) fl MCH (25.6-32.2) pg MCHC (32.2-35.5) g/dl RDW Std Deviation (36.4-46.3) fL Plt Count (182-369) K/mm3 MPV (9.4-12.3) fl Neutrophils % (Manual) (40-60) % Band Neutrophils % (0-10) % Lymphocytes % (Manual) (20-40) % Atypical Lymphs % % Monocytes % (Manual) (2-10) % Eosinophils % (Manual) (0.7-5.8) % Basophils % (Manual) (0.1-1.2) Platelet Estimate Plt Morphology Comment RBC Morph Comment PT (8.0-13.0) SECONDS INR Sodium (136-145) mEq/L Potassium (3.5-5.1) mEq/L Chloride (98-107) mEq/L Carbon Dioxide (21-32) mEq/L Anion Gap (5-15) BUN (7-18) mg/dL Creatinine (0.55-1.02) mg/dL Est Cr Clr Drug Dosing mL/min Estimated GFR (MDRD) (>60) mL/min BUN/Creatinine Ratio (14-18) Glucose (83-115) mg/dL Lactic Acid 1.5 (0.4-2.0) mmol/L Calcium (8.5-10.1) mg/dL Magnesium (1.8-2.4) mg/dl Total Bilirubin (0.2-1.0) mg/dL AST (15-37) U/L ALT (14-59) U/L Alkaline Phosphatase (46-116) U/L Troponin I (0.00-0.056) ng/mL C-Reactive Protein (<1.0) mg/dL B-Natriuretic Peptide 149 H (0-100) pg/mL Total Protein (6.4-8.2) g/dl Albumin (3.4-5.0) g/dl Globulin gm/dL Albumin/Globulin Ratio (1-2) Lipase 94 (73-393) U/L Urine Color (Yellow) Urine Appearance (Clear) Urine pH (5.0-8.0) Ur Specific [place] (1.005-1.030) Urine Protein (Negative) Urine Glucose (UA) (Negative) Urine Ketones (Negative) Urine Occult Blood (Negative) Urine Nitrite (Negative) Urine Bilirubin (Negative) Urine Urobilinogen (0.2-1.0) Ur Leukocyte Esterase (Negative) Urine RBC (0-5) /hpf Urine WBC (0-5) /hpf Ur Epithelial Cells (0-5) /hpf Urine Bacteria (FEW) /hpf Hyaline Casts (0-5) /lpf Urine Mucus (FEW) /hpf 01/21/ Range/Units 18:20 WBC (3.98-10.04) K/mm3 RBC (3.98-5.22) M/mm3 Hgb (11.2-15.7) gm/L Hct (34.1-44.9) % MCV (79.4-94.8) fl MCH (25.6-32.2) pg MCHC (32.2-35.5) g/dl RDW Std Deviation (36.4-46.3) fL Plt Count (182-369) K/mm3 MPV (9.4-12.3) fl Neutrophils % (Manual) (40-60) % Band Neutrophils % (0-10) % Lymphocytes % (Manual) (20-40) % Atypical Lymphs % % Monocytes % (Manual) (2-10) % Eosinophils % (Manual) (0.7-5.8) % Basophils % (Manual) (0.1-1.2) Platelet Estimate Plt Morphology Comment RBC Morph Comment PT (8.0-13.0) SECONDS INR Sodium (136-145) mEq/L Potassium (3.5-5.1) mEq/L Chloride (98-107) mEq/L Carbon Dioxide (21-32) mEq/L Anion Gap (5-15) BUN (7-18) mg/dL Creatinine (0.55-1.02) mg/dL Est Cr Clr Drug Dosing mL/min Estimated GFR (MDRD) (>60) mL/min BUN/Creatinine Ratio (14-18) Glucose (83-115) mg/dL Lactic Acid (0.4-2.0) mmol/L Calcium (8.5-10.1) mg/dL Magnesium (1.8-2.4) mg/dl Total Bilirubin (0.2-1.0) mg/dL AST (15-37) U/L ALT (14-59) U/L Alkaline Phosphatase (46-116) U/L Troponin I (0.00-0.056) ng/mL C-Reactive Protein (<1.0) mg/dL B-Natriuretic Peptide (0-100) pg/mL Total Protein (6.4-8.2) g/dl Albumin (3.4-5.0) g/dl Globulin gm/dL Albumin/Globulin Ratio (1-2) Lipase (73-393) U/L Urine Color Yellow (Yellow) Urine Appearance Clear (Clear) Urine pH 6.0 (5.0-8.0) Ur Specific [place] 1.015 (1.005-1.030) Urine Protein Negative (Negative) Urine Glucose (UA) Negative (Negative) Urine Ketones Negative (Negative) Urine Occult Blood Negative (Negative) Urine Nitrite Negative (Negative) Urine Bilirubin Negative (Negative) Urine Urobilinogen 0.2 (0.2-1.0) Ur Leukocyte Esterase Negative (Negative) Urine RBC 0-5 (0-5) /hpf Urine WBC 0-5 (0-5) /hpf Ur Epithelial Cells 5-10 H (0-5) /hpf Urine Bacteria Few (FEW) /hpf Hyaline Casts 0-5 (0-5) /lpf Urine Mucus Not seen (FEW) /hpf Meds: Medications Generic Name Dose Route Start Last Admin Trade Name Freq PRN Reason Stop Dose Admin Dextrose/Sodium Chloride 1,000 mls @ 250 mls/hr 01/21/17 18:00 01/21/17 19:37 Dextrose 5%-Normal Saline IV 250 mls/hr ASDIRECTED CHIKI Infusion Dextrose/Sodium Chloride 500 mls @ 1,000 mls/hr 01/21/17 20:45 01/21/17 20:47 Dextrose 5%-1/2 Ns IV 1,000 mls/hr ASDIRECTED CHIKI Administration Diltiazem HCl 125 mg/ Sodium 125 mls @ 5 mls/hr 01/21/17 21:15 01/21/17 21:19 Chloride IV 5 mg/hr TITRATE CHIKI 5 mls/hr Protocol Administration 5 MG/HR Sodium Chloride 500 mls @ 1,000 mls/hr 01/21/17 21:18 01/21/17 21:29 Normal Saline IV 01/21/17 21:47 1,000 mls/hr .BOLUS ONE Administration Metronidazole 500 mg/ Premix 100 mls @ 100 mls/hr 01/21/17 21:18 01/21/17 21: 27 IV 01/21/17 22:17 100 mls/hr ONETIME ONE Administration Sodium Chloride 10 ml 01/21/17 19:20 01/21/17 20:15 Saline Flush FLUSH 10 ml ONETIME PRN Administration IV FLUSH Discontinued Medications Generic Name Dose Route Start Last Admin Trade Name Mona PRN Reason Stop Dose Admin Diatrizoate Meglum/Diatrizoate Sod 90 ml 01/21/17 19:24 01/21/17 20:15 Gastrografin 37% PO 01/21/17 19:25 90 ml ONETIME ONE Administration Diltiazem HCl Confirm 01/21/17 21:08 01/21/17 21:28 Diltiazem Administered 01/21/17 21:09 Not Given Dose 25 mg .ROUTE .STK-MED ONE Hydromorphone HCl 0.5 mg 01/21/17 17:58 01/21/17 18:41 Dilaudid IVPUSH 01/21/17 17:59 0.5 mg ONETIME ONE Administration Levofloxacin/Dextrose 750 mg/ 150 mls @ 100 mls/hr 01/21/17 19:34 01/21/17 19 :44 Premix IV 01/21/17 21:03 100 mls/hr ONETIME ONE Administration Sodium Chloride 500 mls @ 1,000 mls/hr 01/21/17 21:03 01/21/17 21:08 Normal Saline IV 01/21/17 21:32 1,000 mls/hr .BOLUS ONE Administration Sodium Chloride Confirm 01/21/17 21:07 01/21/17 21:28 Normal Saline Administered 01/21/17 21:08 Not Given Dose 1,000 mls @ as directed .ROUTE .STK-MED ONE Iopamidol 100 ml 01/21/17 19:20 01/21/17 20:15 Isovue-370 (76%) IVPUSH 01/21/17 19:21 100 ml ONETIME ONE Administration Metoclopramide HCl 10 mg 01/21/17 20:28 01/21/17 20:32 Reglan IVPUSH 01/21/17 20:29 10 mg ONETIME ONE Administration Ondansetron HCl 4 mg 01/21/17 17:58 01/21/17 18:39 Zofran IVPUSH 01/21/17 17:59 4 mg ONETIME ONE Administration - Radiology Interpretation Free Text/Narrative:: 81-year-old female presents the ED with diffuse lower abdominal pain that is gradually getting worse over the last 3 days. No associated nausea vomiting or diarrhea. She been taking good deal prune juice in hopes that this would relieve her abdominal pain and she felt might be constipated but to no avail. Unaware of any fever or chills. She does have a history of diverticulitis in the past. Does not report any blood noted per rectum. Examination reveals marked tenderness to palpation left lower quadrant and suprapubically with guarding suspicious for diverticular disease. Previous abdominal surgery has been laparotomy for perforated duodenal ulcer and also for total abdominal hysterectomy. Suspect diverticulitis. Plan routine labs including blood cultures x2 and a urinalysis. I did order CT of abdomen with contrast she can start oral contrast will see how her kidney function is whether or not she would be up to take IV contrast. She is known to have poor cardiac function with known coronary disease previous NV. She has a pacemaker defibrillator as well left upper anterior chest - Re-Assessments/Exams Free Text/Narrative Re-Assessment/Exam: 01/21/17 19:27 Ирина back. White count is elevated at 11.62 with a 60% neutrophils differential and normal red cell hemoglobin is low at 8.2. Hematocrit is 26.4 MCV is low at 79.3 apparently she has known iron deficiency anemia chronically. Platelets are 305,000. Coags are normal. Sodium is low at 133 potassium normal 3.9. Chloride 101 bicarbonate 19. Anion gap is elevated at 16.9 BUN is 26. Protein is 1.3 within the GFR of 39. Glucose 167 CRP is markedly elevated at 11.1 BP was 149 troponin 0.036. Urine shows 5-10 epithelial cells only no signs of infection. Therefore it will be okay for her to have IV contrast with CT exam of the abdomen to try and confirm diverticulitis. She is receiving fluids and we will ensure that she remains hydrated. I will bump her current IV rate up to 250 mils per hour. She is feeling quite nauseated this time it but she has managed to both bottles of contrast. I will turn her care over to Dr. Mccartney as it is change of shift. She will be going to CT in about a half an hour. I strongly suspect she has diverticulitis and I will start her on Levaquin 750 mg IV at this time. Departure - Departure Disposition: Admitted As Inpatient 67 Clinical Impression: Chronic renal insufficiency, stage IV (severe) Diverticulitis Qualifiers: Diverticulitis site: large intestine Diverticulitis bleeding: without bleeding Diverticulitis complication: without perforation or abscess Qualified Code(s): K57.32 - Diverticulitis of large intestine without perforation or abscess without bleeding Atrial fibrillation Qualifiers: Atrial fibrillation type: unspecified Qualified Code(s): I48.91 - Unspecified atrial fibrillation - Discharge Information Forms: ED Department Discharge - My Orders Last 24 Hours: My Active Orders 01/21/17 20:45 Dextrose 5%-0.45% NaCl [Dextrose 5%-1/2 NS] 500 ml IV ASDIRECTED 01/21/17 20:47 EKG 12 Lead [EKG Documentation Completion] [RC] STAT 01/21/17 21:15 Diltiazem 125 mg Sodium Chloride 0.9% [Normal Saline] 100 ml IV TITRATE 01/21/17 21:18 Sodium Chloride 0.9% [Normal Saline] 500 ml IV .BOLUS metroNIDAZOLE/Normal Saline [Flagyl 500 MG in NS 100 ML] 500 mg Premix Bag 1 bag IV ONETIME - Assessment/Plan Last 24 Hours: My Active Orders 01/21/17 20:45 Dextrose 5%-0.45% NaCl [Dextrose 5%-1/2 NS] 500 ml IV ASDIRECTED 01/21/17 20:47 EKG 12 Lead [EKG Documentation Completion] [RC] STAT 01/21/17 21:15 Diltiazem 125 mg Sodium Chloride 0.9% [Normal Saline] 100 ml IV TITRATE 01/21/17 21:18 Sodium Chloride 0.9% [Normal Saline] 500 ml IV .BOLUS metroNIDAZOLE/Normal Saline [Flagyl 500 MG in NS 100 ML] 500 mg Premix Bag 1 bag IV ONETIME <Marc Mccartney A - Last Filed: 01/21/17 21:49> Course - Re-Assessments/Exams Free Text/Narrative Re-Assessment/Exam: 01/21/17 21:[address] shows diverticuli within the colon most prominent within the sigmoid region. Bowel wall thickening is seen within the sigmoid colon as well as surrounding inflammatory change compatible with moderately severe diverticulitis. No fluid collections of abscess are seen at this time. When she came back from CT her heart rate went up into the 140s and it was irregular. I ordered an EKG and it showed new onset A-fib. I ordered a fluid bolus of 500mg IV and a low dose cardizem drip at 5mg/hr. I called Dr Preciado and she agreed to the admission. She waned another bolus of 500ml. I also ordered some flagyl 500mg IV. She was nauseated again so I gave her some reglan 10mg IV. Departure - Departure Time of Disposition: 21:50 Condition: fair
[2017-01-21] MEDS ORDERED: HYDROmorphone 0.5 MG/0.5 ML Syringe IVPUSH ONE (17:58)
[2017-01-21] MEDS ORDERED: Ondansetron 4 MG/2 ML SDV IVPUSH ONE (17:58)
[2017-01-21] MEDS ORDERED: Dextrose 5%-0.9% NaCl 1,000 ML IV SCH (18:00)
[2017-01-21] MEDS ORDERED: Sodium Chloride 0.9% 10 ML Syringe FLUSH PRN (19:20)
[2017-01-21] MEDS ORDERED: Iopamidol 755 Mg/ML 100 ML Bottle IVPUSH ONE (19:20)
[2017-01-21] MEDS ORDERED: Diatrizoate Meglumine/Diatrizoate Sodium 37% 120 ML Bottle PO ONE (19:24)
[2017-01-21] MEDS ORDERED: Levofloxacin/Dextrose 5%-Water 750 MG in Premix Bag 1 BAG IV ONE (19:34)
[2017-01-21] MEDS ORDERED: Metoclopramide 10 MG/2 ML SDV IVPUSH ONE (20:28)
[2017-01-21] MEDS ORDERED: Dextrose 5%-0.45% NaCl 500 ML IV SCH (20:45)
--- NOTE | 2017-01-21 20:45 | CT ---
CT abdomen and pelvis Technique: Multiple axial sections were obtained from above the dome of the diaphragm inferiorly through the pubic symphysis. Intravenous and oral contrast was utilized. Delayed images were also obtained through the bladder. Comparison: Previous CT abdomen and pelvis exam of 12/23/12 is available. Findings: Visualized lung bases shows nothing acute. Heart is mildly enlarged. Liver shows no focal abnormality. Gallbladder shows several small calcified gallstones. Spleen appears within normal limits. Small hiatal hernia is seen. Kidneys show symmetric contrast enhancement. Multiple small cortical lesions are seen within the right kidney as well as single cortical lesion within the left kidney which are felt compatible with minimal cysts. Adrenal glands on the left side shows a minimal nodule within the mark which is stable from prior exam and therefore incidental. Pancreas is within normal limits. Aorta shows no aneurysmal dilatation. No retroperitoneal adenopathy or mesenteric abnormalities are seen. Inflammatory change is seen around the sigmoid colon. Bowel wall thickening is seen within the sigmoid colon. Diverticuli are also seen involving the sigmoid colon and descending colon. Findings are compatible with moderately severe diverticulitis. No focal fluid collection is seen at this time to indicate discrete abscess. Delayed images shows contrast within the distal ureters and within the bladder. Bone window settings were reviewed which appear within normal limits for the patient's age. Impression: 1. Diverticuli within the colon most prominent within the sigmoid region. Bowel wall thickening is seen within the sigmoid colon as well as surrounding inflammatory change compatible with moderately severe diverticulitis. No fluid collections of abscess are seen at this time. 2. Other incidental findings as noted above. Diagnostic code #3
[2017-01-21] MEDS ORDERED: Sodium Chloride 0.9% 500 ML IV ONE ×2 (21:03→21:18)
[2017-01-21] MEDS ORDERED: Sodium Chloride 0.9% 1,000 ML ONE (21:07)
[2017-01-21] MEDS ORDERED: Diltiazem 25 MG/5 ML SDV ONE (21:08)
[2017-01-21] MEDS ORDERED: Diltiazem 125 MG in Sodium Chloride 0.9% 100 ML IV SCH (21:15)
[2017-01-21] MEDS ORDERED: metroNIDAZOLE/Normal Saline 500 MG in Premix Bag 1 BAG IV ONE (21:18)
[2017-01-21] MEDS ORDERED: Metoprolol Tartrate 5 MG/5 ML SDV IVPUSH PRN (22:37)
[2017-01-21] MEDS ORDERED: Morphine 2 MG/ML Syringe IVPUSH PRN (22:37)
[2017-01-21] MEDS: Sodium Chloride 0.9% 1,000 ML IV SCH (23:11)
[2017-01-22] MEDS: Ondansetron 4 MG/2 ML SDV IVPUSH PRN ×2 (04:18→17:28)
[2017-01-22] MEDS ORDERED: Haloperidol Lactate 5 MG/ML SDV IVPUSH PRN (06:55)
[2017-01-22] MEDS ORDERED: Metoprolol Tartrate 5 MG/5 ML SDV IVPUSH PRN (06:55)
[2017-01-22] MEDS ORDERED: LORazepam 2 MG/ML MDV IVPUSH PRN (06:55)
[2017-01-22] MEDS ORDERED: cloNIDine 0.1 MG Tab PO SCH (07:00)
[2017-01-22] MEDS: Metoprolol Succinate 50 MG Tab.ER PO SCH ×2 (08:36→20:45)
[2017-01-22] MEDS ORDERED: chlordiazePOXIDE 25 MG Cap PO SCH (09:00)
--- NOTE | 2017-01-22 10:24 | PCM.HP ---
H&P History of Present Illness - General Date of Service: 01/21/17 Admit Problem/Dx: Admission Diagnosis/Problem Admission Diagnosis/Problem Atrial fibrillation Source of Information: Patient, Family, Provider History Limitations: Reports: No Limitations - History of Present Illness Initial Comments - Free Text/Narative: 81 year old female who developed abdominal discomfort associated without N/V. It has been intermittent, not associated with fever or chills. There has been a decrease in appetite. She has had previous abdominal surgery including a laparotomy for a perforated duodenum. A CT of abdomen/pelvis was performed; the CT documented diverticuli predominately in the sigmoid colon. The patient went into A Fib with RVR, IVF as well as Cardizem was started before transfer to the ICU. Onset of Symptoms: Reports: Sudden Symptom Onset Date: 01/21/17 Duration of Symptoms: Reports: Hour(s):, Getting Worse Location: Reports: Generalized Quality: Reports: Same as Previous Episode Severity: Moderate Improves with: Reports: Medication Worsens with: Reports: None Associated Symptoms: Reports: Loss of Appetite, Nausea/Vomiting, Weakness Lower Abdominal Pain Score (Numeric/FACES): 5 - Related Data Allergies/Adverse Reactions: Allergies Allergy/AdvReac Type Severity Reaction Status Date / Time codeine AdvReac Vomiting Verified 12/24/16 01:59 Home Medications: Home Meds Isosorbide Mononitrate [Isosorbide Mononitrate ER] 30 mg PO DAILY 12/05/13 [ History] Furosemide [Lasix] 20 mg PO DAILY PRN 12/07/16 [History] Aspirin 81 mg PO DAILY 12/24/16 [History] Bifidobacter. Bifidum/B.Longum [Florajen Bifidoblend] 460 mg PO DAILY #30 capsule 12/26/16 [Rx] Magnesium Oxide 400 mg PO DAILY #30 tablet 12/26/16 [Rx] Acetaminophen 500 mg PO Q4H PRN 01/21/17 [History] Ascorbic Acid [Vitamin C] 1,000 mg PO DAILY 01/21/17 [History] Calcium Carbonate [Calcium] 600 mg PO DAILY 01/21/17 [History] Cholecalciferol (Vitamin D3) [Vitamin D3] 5,000 units PO DAILY 01/21/17 [History ] Cyanocobalamin (Vitamin B-12) [Vitamin B-12] 1,000 mcg PO DAILY 01/21/17 [ History] Losartan [Cozaar] 50 mg PO DAILY 01/21/17 [History] Metoprolol Succinate [Toprol XL] 50 mg PO DAILY 01/21/17 [History] Past Medical History HEENT History: Reports: Hard of Hearing Other HEENT History: has a hearing aid on right, wears glasses, has upper denture Cardiovascular History: Reports: Arrhythmia, Cardiomyopathy, High Cholesterol, Hypertension, Other (See Below) Other Cardiovascular History: pacer and AICD placed 01/08/17 Respiratory History: Reports: None Gastrointestinal History: Reports: GERD, PUD Other Gastrointestinal History: Gastric ulcer Genitourinary History: Reports: Chronic Renal Insuffiency, Urinary Incontinence Other Genitourinary History: possible cystocele, urinary frequency 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 (See Below) Other OB/BYN History: hysterectomy Musculoskeletal History: Reports: Osteoporosis Neurological History: Reports: None Psychiatric History: Reports: None Endocrine/Metabolic History: Reports: None Hematologic History: Reports: Iron Deficiency, Other (See Below) Other Hematologic History: DVT Immunologic History: Reports: None Oncologic (Cancer) History: Reports: None Dermatologic History: Reports: None - Infectious Disease History Infectious Disease History: Reports: Chicken Pox, Measles, Mumps, Shingles - Past Surgical History Head Surgeries/Procedures: Reports: None Cardiovascular Surgical History: Reports: AICD, Pacer, Other (See Below) GI Surgical History: Reports: Other (See Below) Female Surgical History: Reports: Hysterectomy Musculoskeletal Surgical History: Reports: Knee Replacement Social & Family History - Family History Family Medical History: Noncontributory Cardiac: Reports: Other (See Below) Neurological: Reports: Other (See Below) Oncologic: Reports: Other (See Below) - Tobacco Use Smoking Status *Q: Never Smoker Used Tobacco, but Quit: No Second Hand Smoke Exposure: No - Caffeine Use Caffeine Use: Reports: Coffee Other Caffeine Use: a lot of regular coffee. Caffeine Use Comment: "i drink 4 cups in the morning and then 2 in afternoon" - Alcohol Use Days Per Week of Alcohol Use: 0 - Recreational Drug Use Recreational Drug Use: No Drug Use in Last 12 Months: No - Living Situation & Occupation Living situation: Reports: , Alone Occupation: Retired H&P Review of Systems - Review of Systems: Review Of Systems: See Below General: Reports: Weakness, Decreased Appetite HEENT: Reports: No Symptoms Pulmonary: Reports: No Symptoms Cardiovascular: Reports: Palpitations Gastrointestinal: Reports: Abdominal Pain, Decreased Appetite, Nausea Genitourinary: Reports: No Symptoms Musculoskeletal: Reports: No Symptoms Skin: Reports: No Symptoms Psychiatric: Reports: No Symptoms Neurological: Reports: No Symptoms Hematologic/Lymphatic: Reports: No Symptoms Immunologic: Reports: No Symptoms Exam - Exam Exam: See Below - Vital Signs Vital Signs: Last Vital Signs Temp 37.1 C 01/22/17 07:54 Pulse 67 01/22/17 09:00 Resp 20 01/22/17 09:00 BP 115/43 L 01/22/17 09:00 Pulse Ox 100 01/22/17 07:54 Weight: 63.684 kg - Exam Quality Assessment: Supplemental Oxygen, DVT Prophylaxis General: Alert, Oriented, Cooperative, Mild Distress HEENT: Conjunctiva Clear, EACs Clear, EOMI, Nares Patent, Normal Nasal Septum, Pupils Equal, Pupils Reactive, PERRLA Neck: Supple, Trachea Midline Lungs: Normal Respiratory Effort Cardiovascular: Regular Rate, Tachycardia Abdomen: Normal Bowel Sounds, Soft, Rebound, Tenderness (Female) Exam: Deferred Rectal (Female) Exam: Deferred Back Exam: Normal Inspection Extremities: Normal Inspection Skin: Warm Neurological: Cranial Nerves Intact, Normal Speech Neuro Extensive - Mental Status: Alert, Oriented x3, Normal Mood/Affect, Normal Cognition, Memory Intact Neuro Extensive - Motor, Sensory, Reflexes: CN II-XII Intact Psychiatric: Alert, Normal Affect, Normal Mood - Patient Data Lab Results last 24 hrs: Laboratory Results - last 24 hr 01/22/17 01/22/17 Range/Units 07:07 07:07 WBC 20.68 H (3.98-10.04) K/mm3 RBC 3.42 L (3.98-5.22) M/mm3 Hgb 8.7 L (11.2-15.7) gm/L Hct 26.9 L (34.1-44.9) % MCV 78.7 L (79.4-94.8) fl MCH 25.4 L (25.6-32.2) pg MCHC 32.3 (32.2-35.5) g/dl RDW Std Deviation 46.7 H (36.4-46.3) fL Plt Count 288 (182-369) K/mm3 MPV 10.1 (9.4-12.3) fl Neut % (Auto) 94.8 H (34.0-71.1) % Lymph % (Auto) 1.9 L (19.3-51.7) % [place] % (Auto) 2.6 L (4.7-12.5) % Eos % (Auto) 0.4 L (0.7-5.8) Baso % (Auto) 0.1 (0.1-1.2) % Neut # (Auto) 19.61 H (1.56-6.13) K/mm3 Lymph # (Auto) 0.39 L (1.18-3.74) K/mm3 [place] # (Auto) 0.53 H (0.24-0.36) K/mm3 Eos # (Auto) 0.08 (0.04-0.36) K/mm3 Baso # (Auto) 0.02 (0.01-0.08) K/mm3 Manual Slide Review Abnormal smear Sodium 134 L (136-145) mEq/L Potassium 3.9 (3.5-5.1) mEq/L Chloride 103 (98-107) mEq/L Carbon Dioxide 18 L (21-32) mEq/L Anion Gap 16.9 H (5-15) BUN 16 (7-18) mg/dL Creatinine 1.1 H (0.55-1.02) mg/dL Est Cr Clr Drug Dosing 32.26 mL/min Estimated GFR (MDRD) 48 (>60) mL/min BUN/Creatinine Ratio 14.5 (14-18) Glucose 104 (83-115) mg/dL Calcium 8.4 L (8.5-10.1) mg/dL Magnesium 1.4 L (1.8-2.4) mg/dl Troponin I 0.092 H* (0.00-0.056) ng/mL Result Diagrams: 01/22/17 07:07 01/22/17 07:07 *Q Meaningful Use (ADM) - VTE *Q VTE Criteria *Q: - Stroke *Q Stroke Criteria *Q: - AMI *Q AMI Criteria *Q: - Problem List (1) Atrial fibrillation SNOMED Code(s): 99344079 ICD Code: I48.91 - UNSPECIFIED ATRIAL FIBRILLATION Status: Acute Current Visit: Yes Qualifiers: Atrial fibrillation type: unspecified Qualified Code(s): I48.91 - Unspecified atrial fibrillation (2) Chronic renal insufficiency, stage IV (severe) SNOMED Code(s): 22867313 ICD Code: N18.4 - CHRONIC KIDNEY DISEASE, STAGE 4 (SEVERE) Status: Acute Current Visit: Yes (3) Diverticulitis SNOMED Code(s): 596936435 ICD Code: K57.92 - DVTRCLI OF INTEST, PART UNSP, W/O PERF OR ABSCESS W/O BLEED Status: Acute Current Visit: Yes Qualifiers: Diverticulitis site: large intestine Diverticulitis bleeding: without bleeding Diverticulitis complication: without perforation or abscess Qualified Code(s): K57.32 - Diverticulitis of large intestine without perforation or abscess without bleeding (4) Abdominal pain SNOMED Code(s): 45007026 ICD Code: R10.9 - UNSPECIFIED ABDOMINAL PAIN Status: Acute Current Visit : No Problem List Initiated/Reviewed/Updated: Yes Orders Last 24hrs: Active Orders 24 hr Category Date Time Status Bedrest Bathroom Privileges [RC] ASDIRECTED Care 01/21/17 22:37 Active Notify Provider Consults [RC] ASDIRECTED Care 01/22/17 07:02 Inactive NPO [Nothing Per Oral Diet] [DIET] Diet 01/22/17 Breakfast Active Chest 2V [CR] Routine Exams 01/22/17 08:00 Taken BASIC METABOLIC PANEL,BMP [CHEM] Routine Lab 01/22/17 07:07 Received CBC WITH AUTO DIFF [HEME] Routine Lab 01/22/17 07:07 Received MAGNESIUM [CHEM] Routine Lab 01/22/17 07:07 Received Metoprolol Succinate [Toprol XL] Med 01/22/17 09:00 Active 50 mg PO BID Morphine Med 01/21/17 22:37 Active 1 mg IVPUSH Q4H PRN Ondansetron [Zofran] Med 01/21/17 22:37 Active 4 mg IVPUSH Q8H PRN Sodium Chloride 0.9% [Normal Saline] 1,000 ml Med 01/21/17 22:30 Active IV ASDIRECTED Code Status [Resuscitation Status] Routine Resus Stat 01/21/17 22:41 Ordered Medication Orders Diltiazem HCl 125 mg/ Sodium (Chloride) 125 mls @ 5 mls/hr IV TITRATE CHIKI; 5 MG /HR PRN Reason: Protocol Last Admin: 01/21/17 21:19 Dose: 5 mg/hr, 5 mls/hr Sodium Chloride (Normal Saline) 1,000 mls @ 70 mls/hr IV ASDIRECTED CHIKI Last Admin: 01/21/17 23:11 Dose: 70 mls/hr Metoprolol Succinate (Toprol Xl) 50 mg PO BID CHIKI Last Admin: 01/22/17 08:36 Dose: 50 mg Morphine Sulfate (Morphine) 1 mg IVPUSH Q4H PRN PRN Reason: Pain Ondansetron HCl (Zofran) 4 mg IVPUSH Q8H PRN PRN Reason: Nausea Last Admin: 01/22/17 04:18 Dose: 4 mg Assessment/Plan Comment:: Impression: S/P BiV AICD, 10 days 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 Diverticulitis with abdominal pain, received Levoquin/Flagyl Chronic HTN CKD IV Hyperlipidemia GERD Anemia Plan: NPO except meds/ice chips IV ATBs Pain meds Antiemetics IV hydration GI/DVT prophylaxis
[2017-01-22] MEDS ORDERED: Magnesium Sulfate/Water 2 GM in Premix Bag 1 BAG IV ONE (10:40)
[2017-01-22] MEDS ORDERED: Promethazine 12.5 MG in Sodium Chloride 0.9% 50 ML IV PRN (10:43)
--- NOTE | 2017-01-22 10:48 | CR ---
Chest: Two views of the chest were obtained. Comparison: Previous chest x-ray of 12/23/16. Heart size is mildly enlarged. Upper mediastinum is within normal limits. Lungs are clear. AICD is present. Scattered degenerative change within the spine. Several mild compression deformities are seen within the spine which are felt to be chronic. Mild scoliosis is also seen. Impression: 1. Findings as noted above. Nothing acute is appreciated on two-view chest x-ray. Diagnostic code #2
[2017-01-22] MEDS: metroNIDAZOLE/Normal Saline 500 MG in Premix Bag 1 BAG IV SCH ×2 (11:57→20:44)
[2017-01-22] MEDS: Losartan 25 MG Tab PO SCH (17:00)
[2017-01-22] MEDS: Sodium Chloride 0.9% 1,000 ML IV SCH (17:03)
[2017-01-22] MEDS ORDERED: Temazepam 7.5 MG Cap PO PRN (18:04)
[2017-01-22] MEDS ORDERED: Morphine 2 MG/ML Syringe IVPUSH PRN (18:19)
[2017-01-23] MEDS: metroNIDAZOLE/Normal Saline 500 MG in Premix Bag 1 BAG IV SCH ×3 (04:22→21:21)
[2017-01-23] MEDS ORDERED: Temazepam 15 MG Cap PO PRN (06:49)
[2017-01-23] MEDS: Isosorbide Mononitrate 30 MG Tab.ER PO SCH (08:43)
[2017-01-23] MEDS: Aspirin 81 MG Tab.Chew PO SCH (08:43)
[2017-01-23] MEDS: Metoprolol Succinate 50 MG Tab.ER PO SCH ×2 (08:44→21:21)
[2017-01-23] MEDS: Enoxaparin 30 MG/0.3 ML Syringe SUBCUT SCH (08:44)
[2017-01-23] MEDS: Losartan 25 MG Tab PO SCH ×2 (08:44→17:42)
[2017-01-23] MEDS: Pantoprazole 40 MG Vial IVPUSH SCH (08:44)
[2017-01-23] MEDS: Sodium Chloride 0.9% 1,000 ML IV SCH (08:48)
[2017-01-23] MEDS ORDERED: Dexamethasone 4 MG Tab PO ONE (11:15)
[2017-01-23] MEDS ORDERED: diphenhydrAMINE 12.5 MG/5 ML Liquid 5 ML UD Cup PO ONE (11:15)
[2017-01-23] MEDS: Dicyclomine 10 MG Cap PO SCH ×3 (11:55→21:22)
--- NOTE | 2017-01-23 11:57 | PCM.PN ---
- General Info Date of Service: 01/23/17 Admission Dx/Problem (Free Text): Admission Diagnosis/Problem Admission Diagnosis/Problem Atrial fibrillation Subjective Update: Follow Up Functional Status: Reports: pain controlled, ambulating, urinating. Denies: tolerating diet, new symptoms - Review of Systems General: Denies: Fever, Chills HEENT: Reports: no symptoms Pulmonary: Reports: shortness of breath Cardiovascular: Denies: Chest Pain Gastrointestinal: Reports: Abdominal pain, Flatus. Denies: Difficulty swallowing, Nausea, Vomiting Genitourinary: Reports: no symptoms Musculoskeletal: Reports: no symptoms Skin: Reports: no symptoms Neurological: Denies: Confusion, Difficulty Walking, Weakness, Gait Disturbance Psychiatric: Denies: confusion, depression, anxiety, agitation, hallucinations Systems Review Comment:: No overnight or acute issues. She seems to be doing just fine. She is still on clear liquids. She gets abdominal cramps with each meal. She is afebrile w/o leukocytosis this am. She has no new complaints. - Patient Data Vitals - most recent: Last Vital Signs Temp 36.7 C 01/23/17 07:26 Pulse 70 01/23/17 08:44 Resp 20 01/23/17 07:26 BP 145/71 H 01/23/17 08:44 Pulse Ox 98 01/23/17 07:26 Weight - most recent: 61.915 kg I&O - last 24 hours: Intake & Output 01/22/17 01/23/17 01/23/17 22:59 06:59 14:59 Intake Total 963 1738 Output Total 600 1050 Balance 363 688 Lab Results last 24 hrs: Laboratory Results - last 24 hr 01/23/17 01/23/17 Range/Units 05:23 05:23 WBC 8.56 (3.98-10.04) K/mm3 RBC 3.20 L (3.98-5.22) M/mm3 Hgb 8.1 L (11.2-15.7) gm/L Hct 25.6 L (34.1-44.9) % MCV 80.0 (79.4-94.8) fl MCH 25.3 L (25.6-32.2) pg MCHC 31.6 L (32.2-35.5) g/dl RDW Std Deviation 48.9 H (36.4-46.3) fL Plt Count 305 (182-369) K/mm3 MPV 9.9 (9.4-12.3) fl Neut % (Auto) 75.8 H (34.0-71.1) % Lymph % (Auto) 11.2 L (19.3-51.7) % [place] % (Auto) 5.3 (4.7-12.5) % Eos % (Auto) 7.2 H (0.7-5.8) Baso % (Auto) 0.4 (0.1-1.2) % Neut # (Auto) 6.49 H (1.56-6.13) K/mm3 Lymph # (Auto) 0.96 L (1.18-3.74) K/mm3 [place] # (Auto) 0.45 H (0.24-0.36) K/mm3 Eos # (Auto) 0.62 H (0.04-0.36) K/mm3 Baso # (Auto) 0.03 (0.01-0.08) K/mm3 Sodium 143 (136-145) mEq/L Potassium 3.8 (3.5-5.1) mEq/L Chloride 111 H (98-107) mEq/L Carbon Dioxide 21 (21-32) mEq/L Anion Gap 14.8 (5-15) BUN 12 (7-18) mg/dL Creatinine 1.2 H (0.55-1.02) mg/dL Est Cr Clr Drug Dosing 29.57 mL/min Estimated GFR (MDRD) 43 (>60) mL/min BUN/Creatinine Ratio 10.0 L (14-18) Glucose 91 (83-115) mg/dL Calcium 8.5 (8.5-10.1) mg/dL Magnesium 1.9 (1.8-2.4) mg/dl C-Reactive Protein 11.0 H* (<1.0) mg/dL Med Orders - Current: Current Medications Aspirin (Aspirin) 81 mg PO DAILY [facility] Last Admin: 01/23/17 08:43 Dose: 81 mg Dicyclomine HCl (Bentyl) 10 mg PO QIDACANDBED [facility] Last Admin: 01/23/17 11:55 Dose: 10 mg Enoxaparin Sodium (Lovenox) 30 mg SUBCUT DAILY [facility] Last Admin: 01/23/17 08:44 Dose: 30 mg Sodium Chloride (Normal Saline) 1,000 mls @ 70 mls/hr IV ASDIRECTED [facility] Last Admin: 01/23/17 08:48 Dose: 70 mls/hr Levofloxacin/Dextrose 750 mg/ (Premix) 150 mls @ 100 mls/hr IV Q48H [facility] Promethazine HCl 12.5 mg/ (Sodium Chloride) 50.5 mls @ 100 mls/hr IV Q6H PRN PRN Reason: Nausea/Vomiting Metronidazole 500 mg/ Premix 100 mls @ 100 mls/hr IV Q8H [facility] Last Admin: 01/23/17 11:54 Dose: 100 mls/hr Sodium Ferric Gluconat/Sucrose (250 mg/ Sodium Chloride) 120 mls @ 60 mls/hr IV ONETIME ONE Stop: 01/23/17 13:14 Isosorbide Mononitrate (Imdur) 30 mg PO DAILY [facility] Last Admin: 01/23/17 08:43 Dose: 30 mg Losartan [facility]) [facility] Admin: 01/23/17 08:44 Dose: 25 mg Metoprolol Succinate (Toprol Xl) 50 mg PO BID [facility] Last Admin: 01/23/17 08:44 Dose: 50 mg Morphine Sulfate (Morphine) 1 mg IVPUSH Q4H PRN PRN Reason: Pain Ondansetron HCl (Zofran) 4 mg IVPUSH Q8H PRN PRN Reason: Nausea Last Admin: 01/22/17 17:28 Dose: 4 mg Pantoprazole Sodium (Protonix Iv) 40 mg IVPUSH DAILY [facility] Last Admin: 01/23/17 08:44 Dose: 40 mg Saccharomyces Boulardii (Florastor) 250 mg PO DAILY@1999 [facility] Temazepam (Restoril) 15 mg PO BEDTIME PRN PRN Reason: Sleep Discontinued Medications Chlordiazepoxide HCl (Librium) 25 mg PO TID [facility] Clonidine HCl (Catapres) 0.1 mg PO Q8H [facility] Last Admin: 01/22/17 19:55 Dose: Not Given Dexamethasone (Dexamethasone) 4 mg PO ONETIME ONE Stop: 01/23/17 11:16 Diatrizoate Meglum/Diatrizoate Sod (Gastrografin 37%) 90 ml PO ONETIME ONE Stop: 01/21/17 19:25 Last Admin: 01/21/17 20:15 Dose: 90 ml Diltiazem HCl (Diltiazem) Confirm Administered Dose 25 mg .ROUTE .STK-MED ONE Stop: 01/21/17 21:09 Last Admin: 01/21/17 21:28 Dose: Not Given Diphenhydramine HCl (Benadryl) 12.5 mg PO ONETIME ONE Stop: 01/23/17 11:16 Haloperidol Lactate (Haldol) 1 mg IVPUSH Q8H PRN PRN Reason: restless Hydromorphone HCl (Dilaudid) 0.5 mg IVPUSH ONETIME ONE Stop: 01/21/17 17:59 Last Admin: 01/21/17 18:41 Dose: 0.5 mg Dextrose/Sodium Chloride (Dextrose 5%-Normal Saline) 1,000 mls @ 250 mls/hr IV ASDIRECTED CHIKI Last Infusion: 01/21/17 19:37 Dose: 250 mls/hr Levofloxacin/Dextrose 750 mg/ (Premix) 150 mls @ 100 mls/hr IV ONETIME ONE Stop: 01/21/17 21:03 Last Admin: 01/21/17 19:44 Dose: 100 mls/hr Dextrose/Sodium Chloride (Dextrose 5%-1/2 Ns) 500 mls @ 1,000 mls/hr IV ASDIRECTED [facility] Last Admin: 01/21/17 20:47 Dose: 1,000 mls/hr Diltiazem HCl 125 mg/ Sodium (Chloride) 125 mls @ 5 mls/hr IV TITRATE CHIKI; 5 MG /HR PRN Reason: Protocol Last Admin: 01/21/17 21:19 Dose: 5 mg/hr, 5 mls/hr Sodium Chloride (Normal Saline) 500 mls @ 1,000 mls/hr IV .BOLUS ONE Stop: 01/21/17 21:32 Last Admin: 01/21/17 21:08 Dose: 1,000 mls/hr Sodium Chloride (Normal Saline) Confirm Administered Dose 1,000 mls @ as directed .ROUTE .STK-MED ONE Stop: 01/21/17 21:08 Last Admin: 01/21/17 21:28 Dose: Not Given Sodium Chloride (Normal Saline) 500 mls @ 1,000 mls/hr IV .BOLUS ONE Stop: 01/21/17 21:47 Last Admin: 01/21/17 21:29 Dose: 1,000 mls/hr Metronidazole 500 mg/ Premix 100 mls @ 100 mls/hr IV ONETIME ONE Stop: 01/21/17 22:17 Last Admin: 01/21/17 21:27 Dose: 100 mls/hr Magnesium Sulfate 2 gm/ Premix 50 mls @ 25 mls/hr IV ONETIME ONE Stop: 01/22/17 12:39 Last Admin: 01/22/17 11:48 Dose: 25 mls/hr Iopamidol (Isovue-370 (76%)) 100 ml IVPUSH ONETIME ONE Stop: 01/21/17 19:21 Last Admin: 01/21/17 20:15 Dose: 100 ml Lorazepam (Ativan) 2 mg IVPUSH Q2H PRN PRN Reason: Anxiety Metoclopramide HCl (Reglan) 10 mg IVPUSH ONETIME ONE Stop: 01/21/17 20:29 Last Admin: 01/21/17 20:32 Dose: 10 mg Metoprolol Tartrate (Lopressor) 5 mg IVPUSH Q6H PRN PRN Reason: Tachycardia Morphine Sulfate (Morphine) 1 mg IVPUSH Q4H PRN PRN Reason: Pain Ondansetron HCl (Zofran) 4 mg IVPUSH ONETIME ONE Stop: 01/21/17 17:59 Last Admin: 01/21/17 18:39 Dose: 4 mg Sodium Chloride (Saline Flush) 10 ml FLUSH ONETIME PRN PRN Reason: IV FLUSH Last Admin: 01/21/17 20:15 Dose: 10 ml Temazepam (Restoril) 7.5 mg PO BEDTIME PRN PRN Reason: Anxiety Last Admin: 01/22/17 20:46 Dose: 7.5 mg - Exam General: alert, oriented, cooperative, no acute distress HEENT: Pupils equal, Pupils reactive, EOMI, Mucous membr. moist/pink Neck: supple, trachea midline, no JVD, no thyromegaly Lungs: Clear to auscultation, Normal respiratory effort Cardiovascular: Regular Rate, Regular Rhythm Abdomen: bowel sounds present, soft, no tenderness, no distension (Female) Exam: Deferred Back Exam: Normal Inspection, Decreased Range of Motion Extremities: no edema, normal pulses, no tenderness/swelling, no clubbing, no cyanosis, no calf tenderness Peripheral Pulses: 2+: Dorsalis Pedis (L), Dorsalis Pedis (R) Skin: warm, dry, intact Neurological: no new focal deficit Psy/Mental Status: alert, normal affect, normal mood - Problem List Review Problem List Initiated/Reviewed/Updated: Yes - My Orders Last 24 Hours: My Active Orders 01/23/17 10:15 EKG Documentation Completion [RC] STAT 01/23/17 11:00 Dicyclomine [Bentyl] 10 mg PO QIDACANDBED 01/23/17 11:15 Sodium Ferric Gluconat/Sucrose [Sodium Ferric Gluc Cplx 62.5 MG/5 ML] 250 mg Sodium Chloride 0.9% [Normal Saline] 100 ml IV ONETIME 01/23/17 Lunch Full Liquid Diet [DIET] - Plan Plan:: Assessment/Plan: Acute: Abdominal Cramps after Eating - Consider Intestinal Angina vs Hypersensitivity - Trial of low dose Bentyl po with meals - Advanced diet (non-greasy) as tolerated Moderately Severe Diverticulitis with Abdominal Pain - She is scheduled to see Dr. Abbott outpatient for colonoscopy - Last colonoscopy long time ago - WBC resolved, CRP unchanged at 11 - Continue IV Levaquin/Flagyl Iron Deficiency Anemia - Hgb today 8.1 - She is scheduled to received IV infusion at [place] - Patient agreeable to receive it here, pharmacy to dose, - Resume oral iron pills - Guaiac test negative at the clinic per daughter Paroxysmal Atrial Fibrillation - History of previous PAF, roughly 10 days ago when she was getting her AICD - Would defer anticoagulation after discharge since she is scheduled for outpatient colonoscopy - Also may worsen her Anemia if she has an underlying GI abnormality e.g PUD - She is Sinus Rhythm at this time - Consider calling her Nursery Supervisor, Dr. 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
[2017-01-23] MEDS: Levofloxacin/Dextrose 5%-Water 750 MG in Premix Bag 1 BAG IV SCH (17:43)
[2017-01-23] MEDS: Saccharomyces Boulardii (Probiotic) 250 MG Cap PO SCH (21:21)
[2017-01-24] MEDS: metroNIDAZOLE/Normal Saline 500 MG in Premix Bag 1 BAG IV SCH ×3 (03:58→21:01)
--- NOTE | 2017-01-24 05:10 | PCM.PN ---
- General Info Date of Service: 01/24/17 Admission Dx/Problem (Free Text): Admission Diagnosis/Problem Admission Diagnosis/Problem Atrial fibrillation Subjective Update: Follow Up Functional Status: Reports: pain controlled, tolerating diet, ambulating, urinating. Denies: new symptoms - Review of Systems General: Denies: Fever, Weakness, Fatigue, Malaise, Chills HEENT: Reports: no symptoms Pulmonary: Denies: shortness of breath Cardiovascular: Denies: Chest Pain, Dyspnea on Exertion Gastrointestinal: Denies: Abdominal pain, Decreased appetite, Difficulty swallowing, Nausea, Vomiting Genitourinary: Reports: no symptoms Musculoskeletal: Reports: no symptoms Skin: Reports: no symptoms Neurological: Reports: Gait Disturbance Psychiatric: Denies: confusion, depression, anxiety, agitation, hallucinations Systems Review Comment:: No overnight or acute issues. She is tolerating her diet. She had a small bowel movement this am that is loose and dark in color. She reports not new complaints. - Patient Data Vitals - most recent: Last Vital Signs Temp 36.7 C 01/24/17 03:59 Pulse 71 01/24/17 03:59 Resp 18 01/24/17 03:59 BP 141/79 H 01/24/17 03:59 Pulse Ox 97 01/24/17 03:59 Weight - most recent: 60.98 kg I&O - last 24 hours: Intake & Output 01/23/17 01/23/17 01/24/17 14:59 22:59 06:59 Intake Total 075 983 1990 Output Total 1500 Balance 620 570 -240 Lab Results last 24 hrs: Laboratory Results - last 24 hr 01/23/17 01/23/17 Range/Units 05:23 05:23 WBC 8.56 (3.98-10.04) K/mm3 RBC 3.20 L (3.98-5.22) M/mm3 Hgb 8.1 L (11.2-15.7) gm/L Hct 25.6 L (34.1-44.9) % MCV 80.0 (79.4-94.8) fl MCH 25.3 L (25.6-32.2) pg MCHC 31.6 L (32.2-35.5) g/dl RDW Std Deviation 48.9 H (36.4-46.3) fL Plt Count 305 (182-369) K/mm3 MPV 9.9 (9.4-12.3) fl Neut % (Auto) 75.8 H (34.0-71.1) % Lymph % (Auto) 11.2 L (19.3-51.7) % [place] % (Auto) 5.3 (4.7-12.5) % Eos % (Auto) 7.2 H (0.7-5.8) Baso % (Auto) 0.4 (0.1-1.2) % Neut # (Auto) 6.49 H (1.56-6.13) K/mm3 Lymph # (Auto) 0.96 L (1.18-3.74) K/mm3 [place] # (Auto) 0.45 H (0.24-0.36) K/mm3 Eos # (Auto) 0.62 H (0.04-0.36) K/mm3 Baso # (Auto) 0.03 (0.01-0.08) K/mm3 Sodium 143 (136-145) mEq/L Potassium 3.8 (3.5-5.1) mEq/L Chloride 111 H (98-107) mEq/L Carbon Dioxide 21 (21-32) mEq/L Anion Gap 14.8 (5-15) BUN 12 (7-18) mg/dL Creatinine 1.2 H (0.55-1.02) mg/dL Est Cr Clr Drug Dosing 29.57 mL/min Estimated GFR (MDRD) 43 (>60) mL/min BUN/Creatinine Ratio 10.0 L (14-18) Glucose 91 (83-115) mg/dL Calcium 8.5 (8.5-10.1) mg/dL Magnesium 1.9 (1.8-2.4) mg/dl C-Reactive Protein 11.0 H* (<1.0) mg/dL Med Orders - Current: Current Medications Aspirin (Aspirin) 81 mg PO DAILY [facility] Last Admin: 01/23/17 08:43 Dose: 81 mg Dicyclomine HCl (Bentyl) 10 mg PO QIDACANDBED [facility] Last Admin: 01/23/17 21:22 Dose: 10 mg Enoxaparin Sodium (Lovenox) 30 mg SUBCUT DAILY [facility] Last Admin: 01/23/17 08:44 Dose: 30 mg Sodium Chloride (Normal Saline) 1,000 mls @ 70 mls/hr IV ASDIRECTED [facility] Last Admin: 01/23/17 08:48 Dose: 70 mls/hr Levofloxacin/Dextrose 750 mg/ (Premix) 150 mls @ 100 mls/hr IV Q48H [facility] Last Admin: 01/23/17 17:43 Dose: 100 mls/hr Promethazine HCl 12.5 mg/ (Sodium Chloride) 50.5 mls @ 100 mls/hr IV Q6H PRN PRN Reason: Nausea/Vomiting Metronidazole 500 mg/ Premix 100 mls @ 100 mls/hr IV Q8H [facility] Last Admin: 01/24/17 03:58 Dose: 100 mls/hr Isosorbide Mononitrate (Imdur) 30 mg PO DAILY [facility] Last Admin: 01/23/17 08:43 Dose: 30 mg Losartan [facility]) [facility] Last Admin: 01/23/17 17:42 Dose: 25 mg Metoprolol Succinate (Toprol Xl) 50 mg PO BID [facility] Last Admin: 01/23/17 21:21 Dose: 50 mg Morphine Sulfate (Morphine) 1 mg IVPUSH Q4H PRN PRN Reason: Pain Ondansetron HCl (Zofran) 4 mg IVPUSH Q8H PRN PRN Reason: Nausea Last Admin: 01/22/17 17:28 Dose: 4 mg Pantoprazole Sodium (Protonix Iv) 40 mg IVPUSH DAILY [facility] Last Admin: 01/23/17 08:44 Dose: 40 mg Saccharomyces Boulardii (Florastor) 250 mg PO DAILY@1999 [facility] Last Admin: 01/23/17 21:21 Dose: 250 mg Temazepam (Restoril) 15 mg PO BEDTIME PRN PRN Reason: Sleep Discontinued Medications Chlordiazepoxide HCl (Librium) 25 mg PO TID [facility] Clonidine HCl (Catapres) 0.1 mg PO Q8H [facility] Last Admin: 01/22/17 19:55 Dose: Not Given Dexamethasone (Dexamethasone) 4 mg PO ONETIME ONE Stop: 01/23/17 11:16 Last Admin: 01/23/17 12:58 Dose: 4 mg Diatrizoate Meglum/Diatrizoate Sod (Gastrografin 37%) 90 ml PO ONETIME ONE Stop: 01/21/17 19:25 Last Admin: 01/21/17 20:15 Dose: 90 ml Diltiazem HCl (Diltiazem) Confirm Administered Dose 25 mg .ROUTE .STK-MED ONE Stop: 01/21/17 21:09 Last Admin: 01/21/17 21:28 Dose: Not Given Diphenhydramine HCl (Benadryl) 12.5 mg PO ONETIME ONE Stop: 01/23/17 11:16 Last Admin: 01/23/17 12:58 Dose: 12.5 mg Haloperidol Lactate (Haldol) 1 mg IVPUSH Q8H PRN PRN Reason: restless Hydromorphone HCl (Dilaudid) 0.5 mg IVPUSH ONETIME ONE Stop: 01/21/17 17:59 Last Admin: 01/21/17 18:41 Dose: 0.5 mg Dextrose/Sodium Chloride (Dextrose 5%-Normal Saline) 1,000 mls @ 250 mls/hr IV ASDIRECTED [facility] Last Infusion: 01/21/17 19:37 Dose: 250 mls/hr Levofloxacin/Dextrose 750 mg/ (Premix) 150 mls @ 100 mls/hr IV ONETIME ONE Stop: 01/21/17 21:03 Last Admin: 01/21/17 19:44 Dose: 100 mls/hr Dextrose/Sodium Chloride (Dextrose 5%-1/2 Ns) 500 mls @ 1,000 mls/hr IV ASDIRECTED [facility] Last Admin: 01/21/17 20:47 Dose: 1,000 mls/hr Diltiazem HCl 125 mg/ Sodium (Chloride) 125 mls @ 5 mls/hr IV TITRATE [facility]; 5 MG /HR PRN Reason: Protocol Last Admin: 01/21/17 21:19 Dose: 5 mg/hr, 5 mls/hr Sodium Chloride (Normal Saline) 500 mls @ 1,000 mls/hr IV .BOLUS ONE Stop: 01/21/17 21:32 Last Admin: 01/21/17 21:08 Dose: 1,000 mls/hr Sodium Chloride (Normal Saline) Confirm Administered Dose 1,000 mls @ as directed .ROUTE .STK-MED ONE Stop: 01/21/17 21:08 Last Admin: 01/21/17 21:28 Dose: Not Given Sodium Chloride (Normal Saline) 500 mls @ 1,000 mls/hr IV .BOLUS ONE Stop: 01/21/17 21:47 Last Admin: 01/21/17 21:29 Dose: 1,000 mls/hr Metronidazole 500 mg/ Premix 100 mls @ 100 mls/hr IV ONETIME ONE Stop: 01/21/17 22:17 Last Admin: 01/21/17 21:27 Dose: 100 mls/hr Magnesium Sulfate 2 gm/ Premix 50 mls @ 25 mls/hr IV ONETIME ONE Stop: 01/22/17 12:39 Last Admin: 01/22/17 11:48 Dose: 25 mls/hr Sodium Ferric Gluconat/Sucrose (250 mg/ Sodium Chloride) 120 mls @ 60 mls/hr IV ONETIME ONE Stop: 01/23/17 13:14 Last Admin: 01/23/17 13:02 Dose: 60 mls/hr Iopamidol (Isovue-370 (76%)) 100 ml IVPUSH ONETIME ONE Stop: 01/21/17 19:21 Last Admin: 01/21/17 20:15 Dose: 100 ml Lorazepam (Ativan) 2 mg IVPUSH Q2H PRN PRN Reason: Anxiety Metoclopramide HCl (Reglan) 10 mg IVPUSH ONETIME ONE Stop: 01/21/17 20:29 Last Admin: 01/21/17 20:32 Dose: 10 mg Metoprolol Tartrate (Lopressor) 5 mg IVPUSH Q6H PRN PRN Reason: Tachycardia Morphine Sulfate (Morphine) 1 mg IVPUSH Q4H PRN PRN Reason: Pain Ondansetron HCl (Zofran) 4 mg IVPUSH ONETIME ONE Stop: 01/21/17 17:59 Last Admin: 01/21/17 18:39 Dose: 4 mg Sodium Chloride (Saline Flush) 10 ml FLUSH ONETIME PRN PRN Reason: IV FLUSH Last Admin: 01/21/17 20:15 Dose: 10 ml Temazepam (Restoril) 7.5 mg PO BEDTIME PRN PRN Reason: Anxiety Last Admin: 01/22/17 20:46 Dose: 7.5 mg - Exam General: alert, oriented, cooperative, no acute distress HEENT: Pupils equal, Pupils reactive, EOMI, Mucous membr. moist/pink Neck: supple, trachea midline, no JVD, no thyromegaly Lungs: Clear to auscultation, Normal respiratory effort Cardiovascular: Irregular Rhythm Abdomen: bowel sounds present, soft, no tenderness, no distension (Female) Exam: Deferred Back Exam: Normal Inspection, Decreased Range of Motion Extremities: normal pulses, no tenderness/swelling, no clubbing, no cyanosis, no calf tenderness Peripheral Pulses: 2+: Dorsalis Pedis (L), Dorsalis Pedis (R) Skin: warm, dry, intact Neurological: no new focal deficit Psy/Mental Status: alert, normal affect, normal mood - Problem List Review Problem List Initiated/Reviewed/Updated: Yes - My Orders Last 24 Hours: My Active Orders 01/23/17 11:00 Dicyclomine [Bentyl] 10 mg PO QIDACANDBED 01/23/17 12:18 Ambulate [RC] PER UNIT ROUTINE 01/23/17 Dinner Soft Diet [DIET] - Plan Plan:: Assessment/Plan: Acute: S/p Abdominal Cramps after Eating - Consider Intestinal Angina vs Hypersensitivity - Trial of low dose Bentyl po with meals - Advanced diet (non-greasy) as tolerated - She is now tolerating regular diet Moderately Severe Diverticulitis with Abdominal Pain, Improving - She is scheduled to see Dr. Abbott outpatient for colonoscopy - Last colonoscopy long time ago - WBC resolved, CRP 11---> 6 - Continue IV Levaquin/Flagyl - Consulted Dr. Abbott, spoke with him personally - Plan for EGD in am - Will hold blood thinner Anemia with Chronic Iron Deficiency Anemia - Hgb today 8.1 ---> 7.9 (not indicated for blood transfusion at this time) - S/p Iron Infusion - Continue oral iron pills - Hgb in the 9 range when she went and got her A1C per Dr. Velazquez Paroxysmal Atrial Fibrillation - History of previous PAF, roughly 10 days ago when she was getting her AICD - Would defer anticoagulation after discharge since she is scheduled for outpatient colonoscopy - Also may worsen her Anemia if she has an underlying GI abnormality e.g PUD - She is Sinus Rhythm at this time - Her CHA2D2 VASc Score is 4+. She carries 6.7% risk of stroke yearly w/o anticoagulation - Was able to get a hold of Dr. Velazquez today, he confirmed patient developed a-fib during her AICD procedure and that she was cardioverted out of it - Expressed my concern with him about patient being on anticoags in the setting of active anemia. He agreed just to keep her on ASA for now then start anticoags once Anemia work up is over - Info relayed to family - Hold Lovenox SubQ daily tonight for planned EGD in AM Hypomagnesemia - Mg is 1.6 - Pharmacy to replete and monitor Chronic: HTN CKD IV Hyperlipidemia GERD Anemia S/P BiV AICD, 10 days [employer] LVEF, unknown, Probable ICMP Plan: She remains clinically stable SCDs for DVT ppx for now Routine AM Labs Continue PT/OT Ambulate TID-QID as tolerated Repeat H/H at 1800 today GI/DVT prophylaxis Code status:1 Additional orders as above LOS anticipate > 96 hrs due to slow response to treatment
[2017-01-24] MEDS: Dicyclomine 10 MG Cap PO SCH ×4 (06:36→21:03)
[2017-01-24] MEDS: Losartan 25 MG Tab PO SCH ×2 (08:19→17:46)
[2017-01-24] MEDS: Aspirin 81 MG Tab.Chew PO SCH (08:20)
[2017-01-24] MEDS: Isosorbide Mononitrate 30 MG Tab.ER PO SCH (08:20)
[2017-01-24] MEDS: Pantoprazole 40 MG Vial IVPUSH SCH (08:20)
[2017-01-24] MEDS: Metoprolol Succinate 50 MG Tab.ER PO SCH ×2 (08:21→21:02)
[2017-01-24] MEDS: Enoxaparin 30 MG/0.3 ML Syringe SUBCUT SCH ×2 (08:22→10:03)
[2017-01-24] MEDS ORDERED: Magnesium Sulfate/Water 2 GM in Premix Bag 1 BAG IV ONE (09:00)
--- NOTE | 2017-01-24 13:15 | PCM.CONSN ---
- General Info Date of Service: 01/24/17 - Patient Data Vitals - most recent: Last Vital Signs Temp 98.6 F 01/24/17 07:58 Pulse 85 01/24/17 08:21 Resp 16 01/24/17 07:58 BP 119/78 01/24/17 08:21 Pulse Ox 100 01/24/17 07:58 Weight - most recent: 60.98 kg I&O - last 24 hours: Intake & Output 01/23/17 01/24/17 01/24/17 23:59 07:59 15:59 Intake Total 570 1260 0 Output Total 1500 Balance 570 -240 0 Lab Results last 24 hrs: Laboratory Results - last 24 hr 01/24/17 01/24/17 Range/Units 05:54 05:54 WBC 6.44 (3.98-10.04) K/mm3 RBC 3.25 L (3.98-5.22) M/mm3 Hgb 7.9 L (11.2-15.7) gm/L Hct 25.6 L (34.1-44.9) % MCV 78.8 L (79.4-94.8) fl MCH 24.3 L (25.6-32.2) pg MCHC 30.9 L (32.2-35.5) g/dl RDW Std Deviation 47.3 H (36.4-46.3) fL Plt Count 329 (182-369) K/mm3 MPV 10.0 (9.4-12.3) fl Neut % (Auto) 79.5 H (34.0-71.1) % Lymph % (Auto) 15.2 L (19.3-51.7) % [place] % (Auto) 4.8 (4.7-12.5) % Eos % (Auto) 0 L (0.7-5.8) Baso % (Auto) 0.2 (0.1-1.2) % Neut # (Auto) 5.12 (1.56-6.13) K/mm3 Lymph # (Auto) 0.98 L (1.18-3.74) K/mm3 [place] # (Auto) 0.31 (0.24-0.36) K/mm3 Eos # (Auto) 0.00 L (0.04-0.36) K/mm3 Baso # (Auto) 0.01 (0.01-0.08) K/mm3 Manual Slide Review Abnormal smear Sodium 143 (136-145) mEq/L Potassium 3.8 (3.5-5.1) mEq/L Chloride 111 H (98-107) mEq/L Carbon Dioxide 20 L (21-32) mEq/L Anion Gap 15.8 H (5-15) BUN 14 (7-18) mg/dL Creatinine 1.2 H (0.55-1.02) mg/dL Est Cr Clr Drug Dosing 29.57 mL/min Estimated GFR (MDRD) 43 (>60) mL/min BUN/Creatinine Ratio 11.7 L (14-18) Glucose 111 (83-115) mg/dL Calcium 8.9 (8.5-10.1) mg/dL Magnesium 1.6 L (1.8-2.4) mg/dl C-Reactive Protein 6.0 H* (<1.0) mg/dL Med Orders - Current: Current Medications Aspirin (Aspirin) 81 mg PO DAILY [facility] Last Admin: 01/24/17 08:20 Dose: 81 mg Dicyclomine HCl (Bentyl) 10 mg PO QIDACANDBED [facility] Last Admin: 01/24/17 10:03 Dose: 10 mg Enoxaparin Sodium (Lovenox) 30 mg SUBCUT DAILY [facility] Last Admin: 01/24/17 10:03 Dose: 30 mg Levofloxacin/Dextrose 750 mg/ (Premix) 150 mls @ 100 mls/hr IV Q48H [facility] Last Admin: 01/23/17 17:43 Dose: 100 mls/hr Promethazine HCl 12.5 mg/ (Sodium Chloride) 50.5 mls @ 100 mls/hr IV Q6H PRN PRN Reason: Nausea/Vomiting Metronidazole 500 mg/ Premix 100 mls @ 100 mls/hr IV Q8H [facility] Last Admin: 01/24/17 03:58 Dose: 100 mls/hr Isosorbide Mononitrate (Imdur) 30 mg PO DAILY [facility] Last Admin: 01/24/17 08:20 Dose: 30 mg Losartan Potassium (Cozaar) 25 mg PO BIDPC [facility] Last Admin: 01/24/17 08:19 Dose: 25 mg Magnesium Sulfate (Pharmacy To Dose - Magnesium Replacement) 1 dose .XX ASDIRECTED [facility] Metoprolol Succinate (Toprol Xl) 50 mg PO BID [facility] Last Admin: 01/24/17 08:21 Dose: 50 mg Morphine Sulfate (Morphine) 1 mg IVPUSH Q4H PRN PRN Reason: Pain Ondansetron HCl (Zofran) 4 mg IVPUSH Q8H PRN PRN Reason: Nausea Last Admin: 01/22/17 17:28 Dose: 4 mg Pantoprazole Sodium (Protonix Iv) 40 mg IVPUSH DAILY [facility] Last Admin: 01/24/17 08:20 Dose: 40 mg Potassium Chloride (Pharmacy To Dose - Potassium Replacement) 1 dose .XX ASDIRECTED [facility] Saccharomyces Boulardii (Florastor) 250 mg PO DAILY@1999 [facility] Last Admin: 01/23/17 21:21 Dose: 250 mg Temazepam (Restoril) 15 mg PO BEDTIME PRN PRN Reason: Sleep Discontinued Medications Chlordiazepoxide HCl (Librium) 25 mg PO TID [facility] Clonidine HCl (Catapres) 0.1 mg PO Q8H [facility] Last Admin: 01/22/17 19:55 Dose: Not Given Dexamethasone (Dexamethasone) 4 mg PO ONETIME ONE Stop: 01/23/17 11:16 Last Admin: 01/23/17 12:58 Dose: 4 mg Diatrizoate Meglum/Diatrizoate Sod (Gastrografin 37%) 90 ml PO ONETIME ONE Stop: 01/21/17 19:25 Last Admin: 01/21/17 20:15 Dose: 90 ml Diltiazem HCl (Diltiazem) Confirm Administered Dose 25 mg .ROUTE .STK-MED ONE Stop: 01/21/17 21:09 Last Admin: 01/21/17 21:28 Dose: Not Given Diphenhydramine HCl (Benadryl) 12.5 mg PO ONETIME ONE Stop: 01/23/17 11:16 Last Admin: 01/23/17 12:58 Dose: 12.5 mg Haloperidol Lactate (Haldol) 1 mg IVPUSH Q8H PRN PRN Reason: restless Hydromorphone HCl (Dilaudid) 0.5 mg IVPUSH ONETIME ONE Stop: 01/21/17 17:59 Last Admin: 01/21/17 18:41 Dose: 0.5 mg Dextrose/Sodium Chloride (Dextrose 5%-Normal Saline) 1,000 mls @ 250 mls/hr IV ASDIRECTED [facility] Last Infusion: 01/21/17 19:37 Dose: 250 mls/hr Levofloxacin/Dextrose 750 mg/ (Premix) 150 mls @ 100 mls/hr IV ONETIME ONE Stop: 01/21/17 21:03 Last Admin: 01/21/17 19:44 Dose: 100 mls/hr Dextrose/Sodium Chloride (Dextrose 5%-1/2 Ns) 500 mls @ 1,000 mls/hr IV ASDIRECTED [facility] Last Admin: 01/21/17 20:47 Dose: 1,000 mls/hr Diltiazem HCl 125 mg/ Sodium (Chloride) 125 mls @ 5 mls/hr IV TITRATE [facility]; 5 MG /HR PRN Reason: Protocol Last Admin: 01/21/17 21:19 Dose: 5 mg/hr, 5 mls/hr Sodium Chloride (Normal Saline) 500 mls @ 1,000 mls/hr IV .BOLUS ONE Stop: 01/21/17 21:32 Last Admin: 01/21/17 21:08 Dose: 1,000 mls/hr Sodium Chloride (Normal Saline) Confirm Administered Dose 1,000 mls @ as directed .ROUTE .STK-MED ONE Stop: 01/21/17 21:08 Last Admin: 01/21/17 21:28 Dose: Not Given Sodium Chloride (Normal Saline) 500 mls @ 1,000 mls/hr IV .BOLUS ONE Stop: 01/21/17 21:47 Last Admin: 01/21/17 21:29 Dose: 1,000 mls/hr Metronidazole 500 mg/ Premix 100 mls @ 100 mls/hr IV ONETIME ONE Stop: 01/21/17 22:17 Last Admin: 01/21/17 21:27 Dose: 100 mls/hr Sodium Chloride (Normal Saline) 1,000 mls @ 70 mls/hr IV ASDIRECTED [facility] Last Admin: 01/23/17 08:48 Dose: 70 mls/hr Magnesium Sulfate 2 gm/ Premix 50 mls @ 25 mls/hr IV ONETIME ONE Stop: 01/22/17 12:39 Last Admin: 01/22/17 11:48 Dose: 25 mls/hr Sodium Ferric Gluconat/Sucrose (250 mg/ Sodium Chloride) 120 mls @ 60 mls/hr IV ONETIME ONE Stop: 01/23/17 13:14 Last Admin: 01/23/17 13:02 Dose: 60 mls/hr Magnesium Sulfate 2 gm/ Premix 50 mls @ 25 mls/hr IV ONETIME ONE Stop: 01/24/17 10:59 Last Admin: 01/24/17 10:01 Dose: 25 mls/hr Iopamidol (Isovue-370 (76%)) 100 ml IVPUSH ONETIME ONE Stop: 01/21/17 19:21 Last Admin: 01/21/17 20:15 Dose: 100 ml Lorazepam (Ativan) 2 mg IVPUSH Q2H PRN PRN Reason: Anxiety Metoclopramide HCl (Reglan) 10 mg IVPUSH ONETIME ONE Stop: 01/21/17 20:29 Last Admin: 01/21/17 20:32 Dose: 10 mg Metoprolol Tartrate (Lopressor) 5 mg IVPUSH Q6H PRN PRN Reason: Tachycardia Morphine Sulfate (Morphine) 1 mg IVPUSH Q4H PRN PRN Reason: Pain Ondansetron HCl (Zofran) 4 mg IVPUSH ONETIME ONE Stop: 01/21/17 17:59 Last Admin: 01/21/17 18:39 Dose: 4 mg Sodium Chloride (Saline Flush) 10 ml FLUSH ONETIME PRN PRN Reason: IV FLUSH Last Admin: 01/21/17 20:15 Dose: 10 ml Temazepam (Restoril) 7.5 mg PO BEDTIME PRN PRN Reason: Anxiety Last Admin: 01/22/17 20:46 Dose: 7.5 mg Consult PN Assessment/Plan Procedures: Procedures AGENT NOS ASSAY W/OPTIC (12/24/16) ANTINUCLEAR ANTIBODIES (11/24/13) ASSAY OF FERRITIN (12/05/13) ASSAY OF IRON (12/05/13) ASSAY OF MAGNESIUM (12/24/16) ASSAY OF NATRIURETIC PEPTIDE (12/24/16) ASSAY OF PARATHORMONE (11/17/13) ASSAY OF PHOSPHORUS (08/16/15) ASSAY OF TROPONIN QUANT (12/24/16) ASSAY THYROID STIM HORMONE (12/05/13) AUTOMATED RETICULOCYTE COUNT (12/05/13) BLOOD CULTURE FOR BACTERIA (08/16/15) BLOOD TYPING SEROLOGIC ABO (02/07/15) BLOOD TYPING SEROLOGIC RH(D) (02/07/15) C DIFF AMPLIFIED PROBE (12/24/16) C-REACTIVE PROTEIN (03/17/15) CARDIOVASCULAR STRESS TEST (12/22/13) CHEST X-RAY 1 VIEW FRONTAL (12/24/16) CHEST X-RAY 2VW FRONTAL&LATL (01/01/16) COMPLETE CBC AUTOMATED (02/07/15) COMPLETE CBC W/AUTO DIFF WBC (12/24/16) COMPREHEN METABOLIC PANEL (12/24/16) CREATINE MB FRACTION (12/24/16) CT ABD & PELVIS W/O CONTRAST (12/23/14) CT ANGIOGRAPHY CHEST (12/24/16) CT THORAX W/O DYE (01/17/16) DXA BONE DENSITY AXIAL (11/17/13) ELECTROCARDIOGRAM TRACING (12/24/16) EMERGENCY DEPT VISIT (12/24/16) EMERGENCY DEPT VISIT (03/06/15) EMERGENCY DEPT VISIT (12/05/13) EXTREMITY STUDY (12/24/16) EXTREMITY STUDY (08/16/15) FIBRIN DEGRADATION QUANT (12/24/16) GAIT TRAINING THERAPY (02/11/15) HT MUSCLE IMAGE SPECT MULT (12/22/13) HYDRATE IV INFUSION ADD-ON (12/24/16) HYDRATION IV INFUSION INIT (01/01/16) LACTATE (LD) (LDH) ENZYME (12/05/13) LIPID PANEL (12/05/13) MEASURE BLOOD OXYGEN LEVEL (02/07/15) METABOLIC PANEL TOTAL CA (12/24/16) MR-STAPH DNA AMP PROBE (05/23/16) MYCOPLASMA ANTIBODY (12/24/16) NEUROMUSCULAR REEDUCATION (03/10/15) OT EVALUATION (02/11/15) PROTHROMBIN TIME (12/24/16) PT EVALUATION (03/10/15) RBC ANTIBODY SCREEN (02/07/15) RBC SED RATE AUTOMATED (03/17/15) ROUTINE VENIPUNCTURE (12/24/16) SELF CARE MNGMENT TRAINING (02/11/15) THER/PROPH/DIAG INJ IV PUSH (12/24/16) THER/PROPH/DIAG INJ SC/IM (12/24/16) THER/PROPH/DIAG IV INF INIT (08/16/15) THERAPEUTIC ACTIVITIES (02/07/15) THERAPEUTIC EXERCISES (03/10/15) THROMBOPLASTIN TIME PARTIAL (01/01/16) TX/PRO/DX INJ NEW DRUG ADDON (08/16/15) TX/PRO/DX INJ SAME DRUG MOLD TOOLING TECHNICIAN (08/16/15) URINALYSIS AUTO W/SCOPE (12/24/16) VANOMYCIN DNA AMP PROBE (03/06/15) VITAMIN B-12 (02/07/15) VITAMIN D 25 HYDROXY (11/17/13) X-RAY EXAM OF ABDOMEN (02/19/15) X-RAY EXAM OF ANKLE (08/16/15) X-RAY EXAM OF KNEE 1 OR 2 (02/07/15) X-RAY EXAM OF LOWER LEG (08/16/15) Problem List Initiated/Reviewed/Updated: Yes My Orders last 24 hours: My Active Orders 01/24/17 13:14 Verify Patient Consent Obtain [RC] ASDIRECTED 01/25/17 13:14 Schedule Procedure [COMM] Urgent Plan: consent dictated NIXON
[2017-01-24] MEDS: Saccharomyces Boulardii (Probiotic) 250 MG Cap PO SCH (21:03)
[2017-01-25] MEDS: metroNIDAZOLE/Normal Saline 500 MG in Premix Bag 1 BAG IV SCH ×3 (04:58→22:47)
[2017-01-25] MEDS: Dicyclomine 10 MG Cap PO SCH ×4 (06:04→22:49)
--- NOTE | 2017-01-25 07:05 | CONS ---
CONSULTING PHYSICIAN: Jonh Abbott MD DATE OF CONSULTATION: 01/24/2017 HISTORY OF PRESENT ILLNESS: This is an 81-year-old, who had abdominal pain in the lower abdomen especially in the left lower quadrant on Saturday. She came in on Saturday to the hospital where CT scan documented inflammation in the diverticulum of the sigmoid colon. She was placed on antibiotics and the pain has resolved. She also was noted on coming into the hospital that she had a hemoglobin that was 8.2. It is associated with a high white count. The white count has gone down to normal, but the hemoglobin has continued to slowly drift down to about 7.9. She states that she has had an ulcer in the stomach in the past and has had a gastric resection by years ago. 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 The patient at the moment says that the pain in the stomach is gone and she is feeling good. Her microbiology from the venous cultures does not show any growth. I was asked to see the patient concerning workup for anemia. PAST MEDICAL HISTORY: Need for pacer and AICD placed on 01/08/2017, she states it has not gone off, history of peptic ulcer disease and gastric ulcer. Chronic renal failure with a creatinine of 1.3 and a BUN of 26, estimated glomerular filtration rate is about 39. She has intermittent atrial fib. MEDICATIONS: Reviewed. REVIEW OF SYSTEMS: No chest pain, shortness of breath, cough, hoarseness, wheezing, fainting, weakness, numbness, convulsions, nausea, vomiting, indigestion, has a little abdominal distention in the left lower quadrant with palpation. FAMILY HISTORY: Negative. SOCIAL HISTORY: The patient never smoked. No use of drugs or alcohol. PHYSICAL EXAMINATION: GENERAL: Reveals an alert cooperative female. HEENT: Eyes, sclerae white. Extraocular muscle motion normal. Oral cavity, healthy mucous membrane with mouth and tongue. NECK: Supple. No nodes. No thyromegaly. Trachea midline. LUNGS: Clear. No rales, rhonchi, fremitus, or dullness. HEART: Tones are regular rate. No S3, S4, jugular venous distention. ABDOMEN: Shows a lower midline scar and upper midline scar. Abdomen shows mild tenderness on deep palpation in the left lower quadrant. EXTREMITIES: Upper and lower extremities, no angulation deformities. SKIN: Normal. NEUROLOGIC: Normal. Alert. No sensorineural deficit. Moves all 4 extremities. ASSESSMENT: 1. Diverticulitis recovery. 2. Anemia. 3. History of gastric resection. 4. History of recent placement of an ICD pacer. PLAN: Proceed with upper GI endoscopy and wait 2 weeks before doing a colonoscopy. We will see her in the clinic for that because of the risk of perforation. Discussed the risks, and complications of EGD. She understands and consents. We will schedule her. MMODAL /[id number]
[2017-01-25] MEDS: Pantoprazole 40 MG Vial IVPUSH SCH (08:20)
[2017-01-25] MEDS: Metoprolol Succinate 50 MG Tab.ER PO SCH ×2 (08:20→22:48)
[2017-01-25] MEDS ORDERED: Magnesium Oxide 400 MG Tab PO ONE ×2 (08:30→14:00)
--- NOTE | 2017-01-25 10:14 | PCM.PREANE ---
Preanesthetic Assessment - Anesthesia/Transfusion/Family Hx Anesthesia History: Prior Anesthesia Without Reaction Family History of Anesthesia Reaction: No Transfusion History: No Prior Transfusion(s) Type of Transfusion Reactions: Reports: Unknown - Review of Systems General: No Symptoms Pulmonary: No Symptoms Cardiovascular: Other (afib, pacer placed 2 weeks ago, hyperlipidemia, HTN, ) Gastrointestinal: No symptoms Neurological: No Symptoms Other: Reports: Easy Bleeding (takes baby aspirin), Easy Bruising - Physical Assessment NPO Status Date: 01/24/17 NPO Status Time: 22:00 Pulse: 62 O2 Sat by Pulse Oximetry: 97 Respiratory Rate: 20 Blood Pressure: 146/71 Temperature: 37.1 C Vital Signs: Last Vital Signs Temp 37.1 C 01/25/17 02:44 Pulse 62 01/25/17 08:20 Resp 20 01/25/17 02:44 BP 146/71 H 01/25/17 08:20 Pulse Ox 97 01/25/17 02:44 Height: 1.57 m Weight: 61.054 kg Mental Status: Alert & Oriented x3 Airway Class: Mallampati = 1 Dentition: Reports: Dentures (upper) Thyro-Mental Finger Breadths: 3 Mouth Opening Finger Breadths: 3 ROM/Head Extension: Full Lungs: Clear to auscultation, Normal respiratory effort Cardiovascular: Regular Rate (paced 60), Regular Rhythm - Lab Values: Laboratory Last Values WBC 9.92 K/mm3 (3.98-10.04) 01/25/17 05:24 RBC 3.38 M/mm3 (3.98-5.22) L 01/25/17 05:24 Hgb 8.5 gm/L (11.2-15.7) L 01/25/17 05:24 Hct 26.7 % (34.1-44.9) L 01/25/17 05:24 MCV 79.0 fl (79.4-94.8) L 01/25/17 05:24 MCH 25.1 pg (25.6-32.2) L 01/25/17 05:24 MCHC 31.8 g/dl (32.2-35.5) L 01/25/17 05:24 RDW Std Deviation 48.2 fL (36.4-46.3) H 01/25/17 05:24 Plt Count 344 K/mm3 (182-369) 01/25/17 05:24 MPV 10.1 fl (9.4-12.3) 01/25/17 05:24 Neut % (Auto) 63.1 % (34.0-71.1) 01/25/17 05:24 Lymph % (Auto) 26.1 % (19.3-51.7) 01/25/17 05:24 [place] % (Auto) 7.2 % (4.7-12.5) 01/25/17 05:24 Eos % (Auto) 2.8 (0.7-5.8) 01/25/17 05:24 Baso % (Auto) 0.6 % (0.1-1.2) 01/25/17 05:24 Neut # (Auto) 6.26 K/mm3 (1.56-6.13) H 01/25/17 05:24 Lymph # (Auto) 2.59 K/mm3 (1.18-3.74) 01/25/17 05:24 Morton # (Auto) 0.71 K/mm3 (0.24-0.36) H 01/25/17 05:24 Eos # (Auto) 0.28 K/mm3 (0.04-0.36) 01/25/17 05:24 Baso # (Auto) 0.06 K/mm3 (0.01-0.08) 01/25/17 05:24 Neutrophils % (Manual) 68 % (40-60) H 01/21/17 18:08 Band Neutrophils % 0 % (0-10) 01/21/17 18:08 Lymphocytes % (Manual) 23 % (20-40) 01/21/17 18:08 Atypical Lymphs % 0 % 01/21/17 18:08 Monocytes % (Manual) 5 % (2-10) 01/21/17 18:08 Eosinophils % (Manual) 2 % (0.7-5.8) 01/21/17 18:08 Basophils % (Manual) 2 (0.1-1.2) H 01/21/17 18:08 Manual Slide Review Abnormal smear 01/24/17 05:54 Platelet Estimate Adequate 01/21/17 18:08 Plt Morphology Comment Normal 01/21/17 18:08 RBC Morph Comment Normal 01/21/17 18:08 PT 10.0 SECONDS (8.0-13.0) 01/21/17 18:08 INR 0.92 01/21/17 18:08 Sodium 142 mEq/L (136-145) 01/25/17 05:24 Potassium 3.8 mEq/L (3.5-5.1) 01/25/17 05:24 Chloride 110 mEq/L (98-107) H 01/25/17 05:24 Carbon Dioxide 21 mEq/L (21-32) 01/25/17 05:24 Anion Gap 14.8 (5-15) 01/25/17 05:24 BUN 18 mg/dL (7-18) 01/25/17 05:24 Creatinine 1.5 mg/dL (0.55-1.02) H 01/25/17 05:24 Est Cr Clr Drug Dosing 23.66 mL/min 01/25/17 05:24 Estimated GFR (MDRD) 33 mL/min (>60) 01/25/17 05:24 BUN/Creatinine Ratio 12.0 (14-18) L 01/25/17 05:24 Glucose 85 mg/dL (83-115) 01/25/17 05:24 Lactic Acid 1.5 mmol/L (0.4-2.0) 01/21/17 18:08 Calcium 9.0 mg/dL (8.5-10.1) 01/25/17 05:24 Magnesium 1.8 mg/dl (1.8-2.4) 01/25/17 05:24 Total Bilirubin 0.2 mg/dL (0.2-1.0) 01/21/17 18:08 AST 21 U/L (15-37) 01/21/17 18:08 ALT 16 U/L (14-59) 01/21/17 18:08 Alkaline Phosphatase 145 U/L (46-116) H 01/21/17 18:08 Troponin I 0.092 ng/mL (0.00-0.056) H* 01/22/17 07:07 C-Reactive Protein 3.4 mg/dL (<1.0) H* 01/25/17 05:24 B-Natriuretic Peptide 149 pg/mL (0-100) H 01/21/17 18:08 Total Protein 6.8 g/dl (6.4-8.2) 01/21/17 18:08 Albumin 2.5 g/dl (3.4-5.0) L 01/21/17 18:08 Globulin 4.3 gm/dL 01/21/17 18:08 Albumin/Globulin Ratio 0.6 (1-2) L 01/21/17 18:08 Lipase 94 U/L (73-393) 01/21/17 18:08 Urine Color Yellow (Yellow) 01/21/17 18:20 Urine Appearance Clear (Clear) 01/21/17 18:20 Urine pH 6.0 (5.0-8.0) 01/21/17 18:20 Ur Specific [place] 1.015 (1.005-1.030) 01/21/17 18:20 Urine Protein Negative (Negative) 01/21/17 18:20 Urine Glucose (UA) Negative (Negative) 01/21/17 18:20 Urine Ketones Negative (Negative) 01/21/17 18:20 Urine Occult Blood Negative (Negative) 01/21/17 18:20 Urine Nitrite Negative (Negative) 01/21/17 18:20 Urine Bilirubin Negative (Negative) 01/21/17 18:20 Urine Urobilinogen 0.2 (0.2-1.0) 01/21/17 18:20 Ur Leukocyte Esterase Negative (Negative) 01/21/17 18:20 Urine RBC 0-5 /hpf (0-5) 01/21/17 18:20 Urine WBC 0-5 /hpf (0-5) 01/21/17 18:20 Ur Epithelial Cells 5-10 /hpf (0-5) H 01/21/17 18:20 Urine Bacteria Few /hpf (FEW) 01/21/17 18:20 Hyaline Casts 0-5 /lpf (0-5) 01/21/17 18:20 Urine Mucus Not seen /hpf (FEW) 01/21/17 18:20 - Allergies Allergies/Adverse Reactions: Allergies Allergy/AdvReac Type Severity Reaction Status Date / Time codeine AdvReac Vomiting Verified 12/24/16 01:59 - Blood Blood Available: No Product(s) Available: None - Anesthesia Plan Pre-Op Medication Ordered: None Beta Alessia: Metoprolol Med Last Dose Date: 01/25/17 Med Last Dose Time: 08:30 - Acknowledgements Anesthesia Type Planned: MAC Pt an Appropriate Candidate for the Planned Anesthesia: Yes Alternatives and Risks of Anesthesia Discussed w Pt/Guardian: Yes Pt/Guardian Understands and Agrees with Anesthesia Plan: Yes PreAnesthesia Questionnaire HEENT History: Reports: Hard of Hearing Other HEENT History: has a hearing aid on right, wears glasses, has upper denture Cardiovascular History: Reports: Arrhythmia, Cardiomyopathy, High Cholesterol, Hypertension, Other (See Below) Other Cardiovascular History: pacer and AICD placed 01/08/17 Respiratory History: Reports: None Gastrointestinal History: Reports: GERD, PUD Other Gastrointestinal History: Gastric ulcer Genitourinary History: Reports: Chronic Renal Insuffiency, Urinary Incontinence Other Genitourinary History: possible cystocele, urinary frequency [employer] History: Reports: Other (See Below) Other OB/BYN History: hysterectomy Musculoskeletal History: Reports: Osteoporosis Neurological History: Reports: None Psychiatric History: Reports: None Endocrine/Metabolic History: Reports: None Hematologic History: Reports: Iron Deficiency, Other (See Below) Other Hematologic History: DVT Immunologic History: Reports: None Oncologic (Cancer) History: Reports: None Dermatologic History: Reports: None - Infectious Disease History Infectious Disease History: Reports: Chicken Pox, Measles, Mumps, Shingles - Past Surgical History Head Surgeries/Procedures: Reports: None Cardiovascular Surgical History: Reports: AICD, Pacer, Other (See Below) GI Surgical History: Reports: Other (See Below) Female Surgical History: Reports: Hysterectomy Musculoskeletal Surgical History: Reports: Knee Replacement - SUBSTANCE USE Smoking Status *Q: Never Smoker Tobacco Use Within Last Twelve Months: No Second Hand Smoke Exposure: No Days Per Week of Alcohol Use: 0 Recreational Drug Use History: No - HOME MEDS Home Medications: Home Meds Isosorbide Mononitrate [Isosorbide Mononitrate ER] 30 mg PO DAILY 12/05/13 [ History] Furosemide [Lasix] 20 mg PO DAILY PRN 12/07/16 [History] Aspirin 81 mg PO DAILY 12/24/16 [History] Bifidobacter. Bifidum/B.Longum [Florajen Bifidoblend] 460 mg PO DAILY #30 capsule 12/26/16 [Rx] Magnesium Oxide 400 mg PO DAILY #30 tablet 12/26/16 [Rx] Acetaminophen 500 mg PO Q4H PRN 01/21/17 [History] Ascorbic Acid [Vitamin C] 1,000 mg PO DAILY 01/21/17 [History] Calcium Carbonate [Calcium] 600 mg PO DAILY 01/21/17 [History] Cholecalciferol (Vitamin D3) [Vitamin D3] 5,000 units PO DAILY 01/21/17 [History ] Cyanocobalamin (Vitamin B-12) [Vitamin B-12] 1,000 mcg PO DAILY 01/21/17 [ History] Losartan [Cozaar] 50 mg PO DAILY 01/21/17 [History] Metoprolol Succinate [Toprol XL] 50 mg PO DAILY 01/21/17 [History] - CURRENT (IN HOUSE) MEDS Current Meds: Current Medications Aspirin (Aspirin) 81 mg PO DAILY [facility] Dicyclomine HCl (Bentyl) 10 mg PO QIDACANDBED [facility] Last Admin: 01/25/17 06:04 Dose: Not Given Enoxaparin Sodium (Lovenox) 30 mg SUBCUT DAILY [facility] Levofloxacin/Dextrose 750 mg/ (Premix) 150 mls @ 100 mls/hr IV Q48H [facility] Last Admin: 01/23/17 17:43 Dose: 100 mls/hr Promethazine HCl 12.5 mg/ (Sodium Chloride) 50.5 mls @ 100 mls/hr IV Q6H PRN PRN Reason: Nausea/Vomiting Metronidazole 500 mg/ Premix 100 mls @ 100 mls/hr IV Q8H [facility] Last Admin: 01/25/17 04:58 Dose: 100 mls/hr Isosorbide Mononitrate (Imdur) 30 mg PO DAILY [facility] Last Admin: 01/24/17 08:20 Dose: 30 mg Losartan Potassium (Cozaar) 25 mg PO BIDPC [facility] Last Admin: 01/24/17 17:46 Dose: 25 mg Magnesium Oxide (Magnesium Oxide) 400 mg PO ONETIME ONE Stop: 01/25/17 14:01 Magnesium Sulfate (Pharmacy To Dose - Magnesium Replacement) 1 dose .XX ASDIRECTED [facility] Metoprolol Succinate (Toprol Xl) 50 mg PO BID [facility] Last Admin: 01/25/17 08:20 Dose: 50 mg Morphine Sulfate (Morphine) 1 mg IVPUSH Q4H PRN PRN Reason: Pain Ondansetron HCl (Zofran) 4 mg IVPUSH Q8H PRN PRN Reason: Nausea Last Admin: 01/22/17 17:28 Dose: 4 mg Pantoprazole Sodium (Protonix Iv) 40 mg IVPUSH DAILY [facility] Last Admin: 01/25/17 08:20 Dose: 40 mg Potassium Chloride (Pharmacy To Dose - Potassium Replacement) 1 dose .XX ASDIRECTED [facility] Saccharomyces Boulardii (Florastor) 250 mg PO DAILY@1999 [facility] Last Admin: 01/24/17 21:03 Dose: 250 mg Temazepam (Restoril) 15 mg PO BEDTIME PRN PRN Reason: Sleep Discontinued Medications Aspirin (Aspirin) 81 mg PO DAILY [facility] Last Admin: 01/24/17 08:20 Dose: 81 mg Chlordiazepoxide HCl (Librium) 25 mg PO TID [facility] Clonidine HCl (Catapres) 0.1 mg PO Q8H [facility] Last Admin: 01/22/17 19:55 Dose: Not Given Dexamethasone (Dexamethasone) 4 mg PO ONETIME ONE Stop: 01/23/17 11:16 Last Admin: 01/23/17 12:58 Dose: 4 mg Diatrizoate Meglum/Diatrizoate Sod (Gastrografin 37%) 90 ml PO ONETIME ONE Stop: 01/21/17 19:25 Last Admin: 01/21/17 20:15 Dose: 90 ml Diltiazem HCl (Diltiazem) Confirm Administered Dose 25 mg .ROUTE .STK-MED ONE Stop: 01/21/17 21:09 Last Admin: 01/21/17 21:28 Dose: Not Given Diphenhydramine HCl (Benadryl) 12.5 mg PO ONETIME ONE Stop: 01/23/17 11:16 Last Admin: 01/23/17 12:58 Dose: 12.5 mg Enoxaparin Sodium (Lovenox) 30 mg SUBCUT DAILY [facility] Last Admin: 01/24/17 10:03 Dose: 30 mg Haloperidol Lactate (Haldol) 1 mg IVPUSH Q8H PRN PRN Reason: restless Hydromorphone HCl (Dilaudid) 0.5 mg IVPUSH ONETIME ONE Stop: 01/21/17 17:59 Last Admin: 01/21/17 18:41 Dose: 0.5 mg Dextrose/Sodium Chloride (Dextrose 5%-Normal Saline) 1,000 mls @ 250 mls/hr IV ASDIRECTED [facility] Last Infusion: 01/21/17 19:37 Dose: 250 mls/hr Levofloxacin/Dextrose 750 mg/ (Premix) 150 mls @ 100 mls/hr IV ONETIME ONE Stop: 01/21/17 21:03 Last Admin: 01/21/17 19:44 Dose: 100 mls/hr Dextrose/Sodium Chloride (Dextrose 5%-1/2 Ns) 500 mls @ 1,000 mls/hr IV ASDIRECTED [facility] Last Admin: 01/21/17 20:47 Dose: 1,000 mls/hr Diltiazem HCl 125 mg/ Sodium (Chloride) 125 mls @ 5 mls/hr IV TITRATE [facility]; 5 MG /HR PRN Reason: Protocol Last Admin: 01/21/17 21:19 Dose: 5 mg/hr, 5 mls/hr Sodium Chloride (Normal Saline) 500 mls @ 1,000 mls/hr IV .BOLUS ONE Stop: 01/21/17 21:32 Last Admin: 01/21/17 21:08 Dose: 1,000 mls/hr Sodium Chloride (Normal Saline) Confirm Administered Dose 1,000 mls @ as directed .ROUTE .STK-MED ONE Stop: 01/21/17 21:08 Last Admin: 01/21/17 21:28 Dose: Not Given Sodium Chloride (Normal Saline) 500 mls @ 1,000 mls/hr IV .BOLUS ONE Stop: 01/21/17 21:47 Last Admin: 01/21/17 21:29 Dose: 1,000 mls/hr Metronidazole 500 mg/ Premix 100 mls @ 100 mls/hr IV ONETIME ONE Stop: 01/21/17 22:17 Last Admin: 01/21/17 21:27 Dose: 100 mls/hr Sodium Chloride (Normal Saline) 1,000 mls @ 70 mls/hr IV ASDIRECTED [facility] Last Admin: 01/23/17 08:48 Dose: 70 mls/hr Magnesium Sulfate 2 gm/ Premix 50 mls @ 25 mls/hr IV ONETIME ONE Stop: 01/22/17 12:39 Last Admin: 01/22/17 11:48 Dose: 25 mls/hr Sodium Ferric Gluconat/Sucrose (250 mg/ Sodium Chloride) 120 mls @ 60 mls/hr IV ONETIME ONE Stop: 01/23/17 13:14 Last Admin: 01/23/17 13:02 Dose: 60 mls/hr Magnesium Sulfate 2 gm/ Premix 50 mls @ 25 mls/hr IV ONETIME ONE Stop: 01/24/17 10:59 Last Admin: 01/24/17 10:01 Dose: 25 mls/hr Iopamidol (Isovue-370 (76%)) 100 ml IVPUSH ONETIME ONE Stop: 01/21/17 19:21 Last Admin: 01/21/17 20:15 Dose: 100 ml Lorazepam (Ativan) 2 mg IVPUSH Q2H PRN PRN Reason: Anxiety Magnesium Oxide (Magnesium Oxide) 400 mg PO ONETIME ONE Stop: 01/25/17 08:31 Metoclopramide HCl (Reglan) 10 mg IVPUSH ONETIME ONE Stop: 01/21/17 20:29 Last Admin: 01/21/17 20:32 Dose: 10 mg Metoprolol Tartrate (Lopressor) 5 mg IVPUSH Q6H PRN PRN Reason: Tachycardia Morphine Sulfate (Morphine) 1 mg IVPUSH Q4H PRN PRN Reason: Pain Ondansetron HCl (Zofran) 4 mg IVPUSH ONETIME ONE Stop: 01/21/17 17:59 Last Admin: 01/21/17 18:39 Dose: 4 mg Sodium Chloride (Saline Flush) 10 ml FLUSH ONETIME PRN PRN Reason: IV FLUSH Last Admin: 01/21/17 20:15 Dose: 10 ml Temazepam (Restoril) 7.5 mg PO BEDTIME PRN PRN Reason: Anxiety Last Admin: 01/22/17 20:46 Dose: 7.5 mg
--- NOTE | 2017-01-25 10:25 | PCM.PN ---
- General Info Date of Service: 01/25/17 Admission Dx/Problem (Free Text): Admission Diagnosis/Problem Admission Diagnosis/Problem Atrial fibrillation Subjective Update: Follow Up Functional Status: Reports: pain controlled, tolerating diet, ambulating, urinating. Denies: new symptoms - Review of Systems General: Denies: Fever, Weakness, Fatigue, Malaise, Chills HEENT: Reports: no symptoms Pulmonary: Denies: shortness of breath Cardiovascular: Denies: Chest Pain Gastrointestinal: Denies: Abdominal pain, Nausea, Vomiting Genitourinary: Reports: no symptoms Musculoskeletal: Reports: no symptoms Skin: Reports: no symptoms Neurological: Denies: Confusion, Difficulty Walking, Weakness Psychiatric: Denies: depression, anxiety, agitation, hallucinations Systems Review Comment:: No overnight or acute issues. She is doing relatively well. No active bleeding reported. Her Hgb is 8.5 this morning. She is scheduled for EGD sometime this afternoon. - Patient Data Vitals - most recent: Last Vital Signs Temp 36.7 C 01/25/17 10:17 Pulse 56 L 01/25/17 10:17 Resp 12 01/25/17 10:17 BP 154/60 H 01/25/17 10:17 Pulse Ox 100 01/25/17 10:17 Weight - most recent: 61.054 kg I&O - last 24 hours: Intake & Output 01/24/17 01/25/17 01/25/17 22:59 06:59 14:59 Intake Total 1120 1000 Output Total 400 Balance 720 1000 Lab Results last 24 hrs: Laboratory Results - last 24 hr 01/24/17 01/25/17 01/25/17 Range/Units 17:59 05:24 05:24 WBC 9.92 (3.98-10.04) K/mm3 RBC 3.38 L (3.98-5.22) M/mm3 Hgb 8.4 L 8.5 L (11.2-15.7) gm/L Hct 26.6 L 26.7 L (34.1-44.9) % MCV 79.0 L (79.4-94.8) fl MCH 25.1 L (25.6-32.2) pg MCHC 31.8 L (32.2-35.5) g/dl RDW Std Deviation 48.2 H (36.4-46.3) fL Plt Count 344 (182-369) K/mm3 MPV 10.1 (9.4-12.3) fl Neut % (Auto) 63.1 (34.0-71.1) % Lymph % (Auto) 26.1 (19.3-51.7) % Glascock % (Auto) 7.2 (4.7-12.5) % Eos % (Auto) 2.8 (0.7-5.8) Baso % (Auto) 0.6 (0.1-1.2) % Neut # (Auto) 6.26 H (1.56-6.13) K/mm3 Lymph # (Auto) 2.59 (1.18-3.74) K/mm3 [place]ascock # (Auto) 0.71 H (0.24-0.36) K/mm3 Eos # (Auto) 0.28 (0.04-0.36) K/mm3 Baso # (Auto) 0.06 (0.01-0.08) K/mm3 Sodium 142 (136-145) mEq/L Potassium 3.8 (3.5-5.1) mEq/L Chloride 110 H (98-107) mEq/L Carbon Dioxide 21 (21-32) mEq/L Anion Gap 14.8 (5-15) BUN 18 (7-18) mg/dL Creatinine 1.5 H (0.55-1.02) mg/dL Est Cr Clr Drug Dosing 23.66 mL/min Estimated GFR (MDRD) 33 (>60) mL/min BUN/Creatinine Ratio 12.0 L (14-18) Glucose 85 (83-115) mg/dL Calcium 9.0 (8.5-10.1) mg/dL Magnesium 1.8 (1.8-2.4) mg/dl C-Reactive Protein 3.4 H* (<1.0) mg/dL Med Orders - Current: Current Medications Aspirin (Aspirin) 81 mg PO DAILY [facility] Dicyclomine HCl (Bentyl) 10 mg PO QIDACANDBED [facility] Last Admin: 01/25/17 06:04 Dose: Not Given Enoxaparin Sodium (Lovenox) 30 mg SUBCUT DAILY [facility] Levofloxacin/Dextrose 750 mg/ (Premix) 150 mls @ 100 mls/hr IV Q48H [facility] Last Admin: 01/23/17 17:43 Dose: 100 mls/hr Promethazine HCl 12.5 mg/ (Sodium Chloride) 50.5 mls @ 100 mls/hr IV Q6H PRN PRN Reason: Nausea/Vomiting Metronidazole 500 mg/ Premix 100 mls @ 100 mls/hr IV Q8H [facility] Last Admin: 01/25/17 04:58 Dose: 100 mls/hr Isosorbide Mononitrate (Imdur) 30 mg PO DAILY [facility] Last Admin: 01/24/17 08:20 Dose: 30 mg [facility] Last Admin: 01/24/17 17:46 Dose: 25 mg Magnesium Oxide (Magnesium Oxide) 400 mg PO ONETIME ONE Stop: 01/25/17 14:01 Magnesium Sulfate (Pharmacy To Dose - Magnesium Replacement) 1 dose .XX ASDIRECTED [facility] Metoprolol Succinate (Toprol Xl) 50 mg PO BID [facility] Last Admin: 01/25/17 08:20 Dose: 50 mg Morphine Sulfate (Morphine) 1 mg IVPUSH Q4H PRN PRN Reason: Pain Ondansetron HCl (Zofran) 4 mg IVPUSH Q8H PRN PRN Reason: Nausea Last Admin: 01/22/17 17:28 Dose: 4 mg Pantoprazole Sodium (Protonix Iv) 40 mg IVPUSH DAILY [facility] Last Admin: 01/25/17 08:20 Dose: 40 mg Potassium Chloride (Pharmacy To Dose - Potassium Replacement) 1 dose .XX ASDIRECTED [facility] Saccharomyces Boulardii (Florastor) 250 mg PO DAILY@1999 [facility] Last Admin: 01/24/17 21:03 Dose: 250 mg Temazepam (Restoril) 15 mg PO BEDTIME PRN PRN Reason: Sleep Discontinued Medications Aspirin (Aspirin) 81 mg PO DAILY [facility] Last Admin: 01/24/17 08:20 Dose: 81 mg Chlordiazepoxide HCl (Librium) 25 mg PO TID [facility] Clonidine HCl (Catapres) 0.1 mg PO Q8H [facility] Last Admin: 01/22/17 19:55 Dose: Not Given Dexamethasone (Dexamethasone) 4 mg PO ONETIME ONE Stop: 01/23/17 11:16 Last Admin: 01/23/17 12:58 Dose: 4 mg Diatrizoate Meglum/Diatrizoate Sod (Gastrografin 37%) 90 ml PO ONETIME ONE Stop: 01/21/17 19:25 Last Admin: 01/21/17 20:15 Dose: 90 ml Diltiazem HCl (Diltiazem) Confirm Administered Dose 25 mg .ROUTE .STK-MED ONE Stop: 01/21/17 21:09 Last Admin: 01/21/17 21:28 Dose: Not Given Diphenhydramine HCl (Benadryl) 12.5 mg PO ONETIME ONE Stop: 01/23/17 11:16 Last Admin: 01/23/17 12:58 Dose: 12.5 mg Enoxaparin Sodium (Lovenox) 30 mg SUBCUT DAILY [facility] Last Admin: 01/24/17 10:03 Dose: 30 mg Haloperidol Lactate (Haldol) 1 mg IVPUSH Q8H PRN PRN Reason: restless Hydromorphone HCl (Dilaudid) 0.5 mg IVPUSH ONETIME ONE Stop: 01/21/17 17:59 Last Admin: 01/21/17 18:41 Dose: 0.5 mg Dextrose/Sodium Chloride (Dextrose 5%-Normal Saline) 1,000 mls @ 250 mls/hr IV ASDIRECTED [facility] Last Infusion: 01/21/17 19:37 Dose: 250 mls/hr Levofloxacin/Dextrose 750 mg/ (Premix) 150 mls @ 100 mls/hr IV ONETIME ONE Stop: 01/21/17 21:03 Last Admin: 01/21/17 19:44 Dose: 100 mls/hr Dextrose/Sodium Chloride (Dextrose 5%-1/2 Ns) 500 mls @ 1,000 mls/hr IV ASDIRECTED [facility] Last Admin: 01/21/17 20:47 Dose: 1,000 mls/hr Diltiazem HCl 125 mg/ Sodium (Chloride) 125 mls @ 5 mls/hr IV TITRATE [facility]; 5 MG /HR PRN Reason: Protocol Last Admin: 01/21/17 21:19 Dose: 5 mg/hr, 5 mls/hr Sodium Chloride (Normal Saline) 500 mls @ 1,000 mls/hr IV .BOLUS ONE Stop: 01/21/17 21:32 Last Admin: 01/21/17 21:08 Dose: 1,000 mls/hr Sodium Chloride (Normal Saline) Confirm Administered Dose 1,000 mls @ as directed .ROUTE .STK-MED ONE Stop: 01/21/17 21:08 Last Admin: 01/21/17 21:28 Dose: Not Given Sodium Chloride (Normal Saline) 500 mls @ 1,000 mls/hr IV .BOLUS ONE Stop: 01/21/17 21:47 Last Admin: 01/21/17 21:29 Dose: 1,000 mls/hr Metronidazole 500 mg/ Premix 100 mls @ 100 mls/hr IV ONETIME ONE Stop: 01/21/17 22:17 Last Admin: 01/21/17 21:27 Dose: 100 mls/hr Sodium Chloride (Normal Saline) 1,000 mls @ 70 mls/hr IV ASDIRECTED [facility] Last Admin: 01/23/17 08:48 Dose: 70 mls/hr Magnesium Sulfate 2 gm/ Premix 50 mls @ 25 mls/hr IV ONETIME ONE Stop: 01/22/17 12:39 Last Admin: 01/22/17 11:48 Dose: 25 mls/hr Sodium Ferric Gluconat/Sucrose (250 mg/ Sodium Chloride) 120 mls @ 60 mls/hr IV ONETIME ONE Stop: 01/23/17 13:14 Last Admin: 01/23/17 13:02 Dose: 60 mls/hr Magnesium Sulfate 2 gm/ Premix 50 mls @ 25 mls/hr IV ONETIME ONE Stop: 01/24/17 10:59 Last Admin: 01/24/17 10:01 Dose: 25 mls/hr Iopamidol (Isovue-370 (76%)) 100 ml IVPUSH ONETIME ONE Stop: 01/21/17 19:21 Last Admin: 01/21/17 20:15 Dose: 100 ml Lorazepam (Ativan) 2 mg IVPUSH Q2H PRN PRN Reason: Anxiety Magnesium Oxide (Magnesium Oxide) 400 mg PO ONETIME ONE Stop: 01/25/17 08:31 Metoclopramide HCl (Reglan) 10 mg IVPUSH ONETIME ONE Stop: 01/21/17 20:29 Last Admin: 01/21/17 20:32 Dose: 10 mg Metoprolol Tartrate (Lopressor) 5 mg IVPUSH Q6H PRN PRN Reason: Tachycardia Morphine Sulfate (Morphine) 1 mg IVPUSH Q4H PRN PRN Reason: Pain Ondansetron HCl (Zofran) 4 mg IVPUSH ONETIME ONE Stop: 01/21/17 17:59 Last Admin: 01/21/17 18:39 Dose: 4 mg Sodium Chloride (Saline Flush) 10 ml FLUSH ONETIME PRN PRN Reason: IV FLUSH Last Admin: 01/21/17 20:15 Dose: 10 ml Temazepam (Restoril) 7.5 mg PO BEDTIME PRN PRN Reason: Anxiety Last Admin: 01/22/17 20:46 Dose: 7.5 mg - Exam General: alert, oriented, cooperative, no acute distress HEENT: Pupils equal, Pupils reactive, EOMI, Mucous membr. moist/pink Neck: supple, trachea midline, no JVD, no thyromegaly Lungs: Clear to auscultation, Normal respiratory effort Cardiovascular: Regular Rate, Regular Rhythm Abdomen: bowel sounds present, soft, no tenderness, no distension (Female) Exam: Deferred Back Exam: Normal Inspection, Decreased Range of Motion Extremities: no edema, normal pulses, no tenderness/swelling, no clubbing, no cyanosis, no calf tenderness Peripheral Pulses: 2+: Dorsalis Pedis (L), Dorsalis Pedis (R) Skin: warm, dry, intact Neurological: no new focal deficit Psy/Mental Status: alert, normal affect, normal mood - Problem List Review Problem List Initiated/Reviewed/Updated: Yes - My Orders Last 24 Hours: My Active Orders 01/25/17 14:00 Magnesium Oxide 400 mg PO ONETIME ONE - Plan Plan:: Assessment/Plan: Acute: Moderately Severe Diverticulitis with Abdominal Pain, Continues to Improve - She is scheduled to see Dr. Abbott outpatient for colonoscopy - Last colonoscopy long time ago - WBC resolved, CRP 11---> 6 ---> 3.4 - Continue IV Levaquin/Flagyl - Dr. Abbott following Anemia with Chronic Iron Deficiency Anemia - Hgb today 8.1 ---> 7.9 ---> 8.5 - S/p Iron Infusion - Continue oral iron pill - Hgb in the 9 range when she went and got her AICD per Dr. Velazquez - EGD sometime this after with Dr. Abbott Paroxysmal Atrial Fibrillation, HR controlled - History of previous PAF, roughly 10 days ago when she was getting her AICD - Would defer anticoagulation after discharge since she is scheduled for outpatient colonoscopy - Also may worsen her Anemia if she has an underlying GI abnormality e.g PUD - She is Sinus Rhythm at this time - Her CHA2D2 VASc Score is 4+. She carries 6.7% risk of stroke yearly w/o anticoagulation - Was able to get a hold of Dr. Velazquez today, he confirmed patient developed a-fib during her AICD procedure and that she was cardioverted out of it - Expressed my concern with him about patient being on anticoags in the setting of active anemia. He agreed just to keep her on ASA for now then start anticoags once Anemia work up is over - Info relayed to family - Hold Lovenox SubQ daily tonight for planned EGD in AM Resolved: Hypomagnesemia - Mg is 1.6 ---> 1.8 - Pharmacy to replete and monitor Abdominal Cramps after Eating - Consider Intestinal Angina vs Hypersensitivity - Trial of low dose Bentyl po with meals - Advanced diet (non-greasy) as tolerated - She is now tolerating regular diet Chronic: HTN CKD IV Hyperlipidemia GERD Anemia S/P BiV AICD, 10 days [employer] LVEF, unknown, Probable ICMP Plan: She remains clinically stable SCDs for DVT ppx for now Routine AM Labs Continue PT/OT Ambulate TID-QID as tolerated GI/DVT prophylaxis Code status:1 Additional orders as above LOS anticipate > 96 hrs due to slow response to treatment
[2017-01-25] MEDS ORDERED: Propofol 200 MG/20 ML SDV ONE (10:54)
[2017-01-25] MEDS ORDERED: Lidocaine 1% 2 ML ONE (10:55)
[2017-01-25] MEDS: Losartan 25 MG Tab PO SCH ×2 (11:33→17:11)
[2017-01-25] MEDS ORDERED: Pantoprazole 40 MG Tab.CR PO SCH (11:33)
[2017-01-25] MEDS: Isosorbide Mononitrate 30 MG Tab.ER PO SCH (11:34)
--- NOTE | 2017-01-25 13:49 | PCM.OPNOTE ---
- General Post-Op/Procedure Note Date of Surgery/Procedure: 01/25/17 Operative Procedure(s): EGD Findings: no source of anemia found Post-Op Diagnosis: anemia Anesthesia Technique: MAC Primary Surgeon: Jonh Abbott EBL in mLs: 0 Complications: None Condition: Good Free Text/Narrative:: Intake & Output 01/24/17 01/25/17 01/25/17 23:59 07:59 15:59 Intake Total 870 1000 Balance 870 1000
--- NOTE | 2017-01-25 14:06 | PCM48HPAN ---
Post Anesthesia Note - EVALUATION WITHIN 48HRS OF ANESTHETIC Vital Signs in Normal Range: Yes Patient Participated in Evaluation: Yes Respiratory Function Stable: Yes Airway Patent: Yes Cardiovascular Function Stable: Yes Hydration Status Stable: Yes Pain Control Satisfactory: Yes Nausea and Vomiting Control Satisfactory: Yes Mental Status Recovered: Yes
[2017-01-25] MEDS: Enoxaparin 30 MG/0.3 ML Syringe SUBCUT SCH (15:08)
[2017-01-25] MEDS: Aspirin 81 MG Tab.Chew PO SCH (15:08)
[2017-01-25] MEDS: Levofloxacin/Dextrose 5%-Water 750 MG in Premix Bag 1 BAG IV SCH (17:10)
[2017-01-25] MEDS: Saccharomyces Boulardii (Probiotic) 250 MG Cap PO SCH (22:47)
[2017-01-26] MEDS: metroNIDAZOLE/Normal Saline 500 MG in Premix Bag 1 BAG IV SCH ×2 (04:45→08:04)
[2017-01-26] MEDS: Dicyclomine 10 MG Cap PO SCH (06:57)
[2017-01-26] MEDS: Enoxaparin 30 MG/0.3 ML Syringe SUBCUT SCH (08:04)
[2017-01-26] MEDS: Losartan 25 MG Tab PO SCH (08:04)
[2017-01-26] MEDS: Isosorbide Mononitrate 30 MG Tab.ER PO SCH (08:05)
[2017-01-26] MEDS: Metoprolol Succinate 50 MG Tab.ER PO SCH (08:05)
[2017-01-26 08:06] VITALS: BP 119/55
[2017-01-26] MEDS: Aspirin 81 MG Tab.Chew PO SCH (08:11)
[2017-01-26] MEDS ORDERED: Magnesium Sulfate/Water 2 GM in Premix Bag 1 BAG IV ONE (08:54)
--- NOTE | 2017-01-26 09:13 | PCM.DCSUM1 ---
Discharge Summary - Hospital Course Brief History: This is an 81 year old elderly pleasant white female with past medical history of impaired hearing, history of arrhythmia, history of cardiomyopathy status post AICD placement on 01/08/2017, GERD, PUD, chronic renal insufficiency, urinary incontinence, osteoporosis, iron deficiency anemia and history of DVT who comes in for evaluation of increasing abdominal pain and was admitted for medical management of colonic diverticulitis and paroxysmal atrial fibrillations with RVR. - Discharge Data Discharge Date: 01/26/17 Discharge Disposition: Home, Self-Care 01 Condition: Good - Discharge Diagnosis/Problem(s) (1) Diverticulitis SNOMED Code(s): 848607309 ICD Code: K57.92 - DVTRCLI OF INTEST, PART UNSP, W/O PERF OR ABSCESS W/O BLEED Status: Acute Qualifiers: Diverticulitis site: large intestine Diverticulitis bleeding: without bleeding Diverticulitis complication: without perforation or abscess Qualified Code(s): K57.32 - Diverticulitis of large intestine without perforation or abscess without bleeding (2) Paroxysmal atrial fibrillation with RVR SNOMED Code(s): 262145156, 581520866764920 ICD Code: I48.0 - PAROXYSMAL ATRIAL FIBRILLATION Status: Resolved (3) EVELYN (iron deficiency anemia) SNOMED Code(s): 65216595 ICD Code: D50.9 - IRON DEFICIENCY ANEMIA, UNSPECIFIED Status: Chronic Qualifiers: Iron deficiency anemia type: chronic blood loss Qualified Code(s): D50.0 - Iron deficiency anemia secondary to blood loss (chronic) (4) Hypomagnesemia syndrome SNOMED Code(s): 679277315 ICD Code: E83.42 - HYPOMAGNESEMIA Status: Acute (5) Abdominal pain SNOMED Code(s): 67284024 ICD Code: R10.9 - UNSPECIFIED ABDOMINAL PAIN Status: Acute - Patient Summary/Data Operative Procedure(s) Performed: EGD Complications: None Consults: Consultations 01/23/17 07:46 OT Evaluation and Treatment [CONS] Routine PT Evaluation and Treatment [CONS] Routine 01/24/17 08:12 Consult to Physician [CONS] Routine Recommended Follow-up Testing/Procedures: CBC, BMP and Mg next week Hospital Course: Discharge summary per problem list: Colonic Diverticulitis: Patient was primarily admitted for medical management of moderately severe diverticulitis. She had a history of it in the past. She was provided supportive care along with intravenous Levaquin and Flagyl for antibiotic treatment. She slowly improved on this regimen. Dr. Browne was consulted for further evaluation. He recommended resolution of her ongoing diverticulitis before further invasive workup can be done. Patient has an scheduled appointment to see Dr. Abbott next couple weeks. She was advised to keep this appointment as already scheduled. She will have non-greasy/fatty/ fried diet for a week and she is to take additional course of oral antibiotics to complete her treatment. Iron Deficiency Anemia: Acute on Chronic. She presented on admission with a hemoglobin level of 8.1. She was 9.7 at that time she had her AICD in [facility]. On this admission, she received iron infusion and underwent EGD performed by Dr. Abbott. The procedure revealed no abnormal findings. Her hemoglobin remained stable (9 today) until the day of discharge. No active bleeding noted or reported during this admission. Patient is to continue her oral iron pill and her low-dose aspirin per her welfare investigator, Dr. Lior Velazquez. Paroxysmal atrial fibrillation with history of RVR. Patient developed atrial fibrillation at the time was she had her AICD placed in [facility]. However she was cardioverted out of it according to Dr. Velazquez, electro-nursery teacher. On this admission, she again developed atrial fibrillation with RVR but she chemically converted to sinus rhythm. Patient carried a high CHA2Ds VASc Score which would warrant anticoagulation. However after discussing my concerns with Dr. Velazquez, he agreed with me that it would be in her best interest to hold off on anticoagulation until she completes anemia workup. For now, low-dose aspirin would be sufficient for stroke prophylaxis. This plan was communicated to the patient along with her family and they all agreed with it. This information was also relayed to her primary care doctor at the time of discharge. Overall Mrs. oTwnsend has done well since admission. Her hospital course was fairly uncomplicated. The rest of her chronic medical illness remained stable during admission. Patient is now ready for discharge. She is now able to eat regular meal without any GI symptoms. Again, no GI bleed noted since admission. She is to take additional course of oral antibiotics to complete her treatment. She is to follow up with Dr. Browne as scheduled. She was advised to avoid non-greasy, fried and fatty meal for a week. And lastly, she was advised to come back or seek immediate care should her symptoms persist or get worse. The patient expressed understanding and in agreement with the plans as discussed above. All questions were answered. - Patient Instructions Diet: Usual Diet as Tolerated Activity: As Tolerated Driving: Do Not Drive Showering/Bathing: May Shower Notify Provider of: Fever, Increased Pain, Nausea and/or Vomiting Other/Special Instructions: - Please take all medications as directed. - Avoid greasy meal for at least one week. - Keep all your follow up appointments as scheduled. - If your symptoms persist or get worse, call your family doctor or seek immediate care at the nearest medical facility - Discharge Plan Prescriptions/Med Rec: Levofloxacin [Levaquin] 750 mg PO ASDIRECTED #5 tablet metroNIDAZOLE [Flagyl] 500 mg PO Q8H #15 tablet Home Medications: Home Meds Isosorbide Mononitrate [Isosorbide Mononitrate ER] 30 mg PO DAILY 12/05/13 [ History] Furosemide [Lasix] 20 mg PO DAILY PRN 12/07/16 [History] Aspirin 81 mg PO DAILY 12/24/16 [History] Bifidobacter. Bifidum/B.Longum [Florajen Bifidoblend] 460 mg PO DAILY #30 capsule 12/26/16 [Rx] Acetaminophen 500 mg PO Q4H PRN 01/21/17 [History] Ascorbic Acid [Vitamin C] 1,000 mg PO DAILY 01/21/17 [History] Calcium Carbonate [Calcium] 600 mg PO DAILY 01/21/17 [History] Cholecalciferol (Vitamin D3) [Vitamin D3] 5,000 units PO DAILY 01/21/17 [History ] Cyanocobalamin (Vitamin B-12) [Vitamin B-12] 1,000 mcg PO DAILY 01/21/17 [ History] Losartan [Cozaar] 50 mg PO DAILY 01/21/17 [History] Metoprolol Succinate [Toprol XL] 50 mg PO DAILY 01/21/17 [History] Levofloxacin [Levaquin] 750 mg PO ASDIRECTED #5 tablet 01/26/17 [Rx] Magnesium Oxide 400 mg PO BID #30 tablet 01/26/17 [Rx] metroNIDAZOLE [Flagyl] 500 mg PO Q8H #15 tablet 01/26/17 [Rx] Patient Handouts: Diverticulitis, [id number], Atrial Fibrillation, Easy-to- Read Referrals: Ko Pretty MD [Primary Care Provider] - - Discharge Summary/Plan Comment DC Time >30 min.: Yes (45 mins) Discharge Summary/Plan Comment: Discharge to Home - General Info Date of Service: 01/26/17 Admission Dx/Problem (Free Text: Admission Diagnosis/Problem Admission Diagnosis/Problem Atrial fibrillation Subjective Update: Follow Up Functional Status: Reports: pain controlled, tolerating diet, ambulating, urinating. Denies: new symptoms - Review of Systems General: Denies: Fever, Weakness, Fatigue, Malaise, Chills HEENT: Reports: no symptoms Pulmonary: Denies: shortness of breath Cardiovascular: Denies: Chest Pain, Dyspnea on Exertion, Edema, Lightheadedness Gastrointestinal: Denies: Abdominal pain, Nausea, Vomiting Genitourinary: Reports: no symptoms Musculoskeletal: Reports: no symptoms Skin: Denies: cyanosis, pruritis Neurological: Denies: Confusion, Weakness Psychiatric: Denies: depression, anxiety, agitation, hallucinations Systems Review Comment: No overnight or acute issues. She is doing relatively well. She is very excited to go home today. She has no new complaints. - Patient Data Vitals - Most Recent: Last Vital Signs Temp 36.4 C 01/26/17 04:47 Pulse 66 01/26/17 08:05 Resp 16 01/26/17 04:47 BP 119/55 L 01/26/17 08:05 Pulse Ox 98 01/26/17 04:47 Weight - Most Recent: 59.511 kg I&O - Last 24 hours: Intake & Output 01/25/17 01/26/17 01/26/17 22:59 06:59 14:59 Intake Total 320 1050 Output Total 800 Balance -480 1050 Lab Results - Last 24 hrs: Laboratory Results - last 24 hr 01/26/17 01/26/17 Range/Units 05:38 05:58 WBC 7.39 (3.98-10.04) K/mm3 RBC 3.53 L (3.98-5.22) M/mm3 Hgb 9.0 L (11.2-15.7) gm/L Hct 27.9 L (34.1-44.9) % MCV 79.0 L (79.4-94.8) fl MCH 25.5 L (25.6-32.2) pg MCHC 32.3 (32.2-35.5) g/dl RDW Std Deviation 48.6 H (36.4-46.3) fL Plt Count 327 (182-369) K/mm3 MPV 9.5 (9.4-12.3) fl Neut % (Auto) 64.3 (34.0-71.1) % Lymph % (Auto) 23.1 (19.3-51.7) % Gaines % (Auto) 8.7 (4.7-12.5) % Eos % (Auto) 2.8 (0.7-5.8) Baso % (Auto) 0.7 (0.1-1.2) % Neut # (Auto) 4.75 (1.56-6.13) K/mm3 Lymph # (Auto) 1.71 (1.18-3.74) K/mm3 Gaines # (Auto) 0.64 H (0.24-0.36) K/mm3 Eos # (Auto) 0.21 (0.04-0.36) K/mm3 Baso # (Auto) 0.05 (0.01-0.08) K/mm3 Manual Slide Review Abnormal smear Sodium 143 (136-145) mEq/L Potassium 3.5 (3.5-5.1) mEq/L Chloride 109 H (98-107) mEq/L Carbon Dioxide 22 (21-32) mEq/L Anion Gap 15.5 H (5-15) BUN 19 H (7-18) mg/dL Creatinine 1.3 H (0.55-1.02) mg/dL Est Cr Clr Drug Dosing 27.30 mL/min Estimated GFR (MDRD) 39 (>60) mL/min BUN/Creatinine Ratio 14.6 (14-18) Glucose 90 (83-115) mg/dL Calcium 8.9 (8.5-10.1) mg/dL Magnesium 1.6 L (1.8-2.4) mg/dl C-Reactive Protein 3.0 H* (<1.0) mg/dL Med Orders - Current: Current Medications Aspirin (Aspirin) 81 mg PO DAILY [facility] Last Admin: 01/26/17 08:11 Dose: 81 mg Dicyclomine HCl (Bentyl) 10 mg PO QIDACANDBED [facility] Last Admin: 01/26/17 06:57 Dose: 10 mg Enoxaparin Sodium (Lovenox) 30 mg SUBCUT DAILY [facility] Last Admin: 01/26/17 08:04 Dose: 30 mg Levofloxacin/Dextrose 750 mg/ (Premix) 150 mls @ 100 mls/hr IV Q48H [facility] Last Admin: 01/25/17 17:10 Dose: 100 mls/hr Promethazine HCl 12.5 mg/ (Sodium Chloride) 50.5 mls @ 100 mls/hr IV Q6H PRN PRN Reason: Nausea/Vomiting Metronidazole 500 mg/ Premix 100 mls @ 100 mls/hr IV Q8H [facility] Last Admin: 01/26/17 08:04 Dose: 100 mls/hr Magnesium Sulfate 2 gm/ Premix 50 mls @ 25 mls/hr IV ONETIME ONE Stop: 01/26/17 10:53 Isosorbide Mononitrate (Imdur) 30 mg PO DAILY [facility] Last Admin: 01/26/17 08:05 Dose: 30 mg Losartan [facility]) [facility] Last Admin: 01/26/17 08:04 Dose: 25 mg Magnesium Sulfate (Pharmacy To Dose - Magnesium Replacement) 1 dose .XX ASDIRECTED [facility] Metoprolol Succinate (Toprol Xl) 50 mg PO BID [facility] Last Admin: 01/26/17 08:05 Dose: 50 mg Morphine Sulfate (Morphine) 1 mg IVPUSH Q4H PRN PRN Reason: Pain Ondansetron HCl (Zofran) 4 mg IVPUSH Q8H PRN PRN Reason: Nausea Last Admin: 01/22/17 17:28 Dose: 4 mg Pantoprazole Sodium (Protonix) 40 mg PO DAILY [facility] Last Admin: 01/26/17 08:04 Dose: 40 mg Potassium Chloride (Pharmacy To Dose - Potassium Replacement) 1 dose .XX ASDIRECTED [facility] Saccharomyces Boulardii (Florastor) 250 mg PO DAILY@1999 [facility] Last Admin: 01/25/17 22:47 Dose: 250 mg Temazepam (Restoril) 15 mg PO BEDTIME PRN PRN Reason: Sleep Discontinued Medications Aspirin (Aspirin) 81 mg PO DAILY [facility] Last Admin: 01/24/17 08:20 Dose: 81 mg Chlordiazepoxide HCl (Librium) 25 mg PO TID [facility] Clonidine HCl (Catapres) 0.1 mg PO Q8H [facility] Last Admin: 01/22/17 19:55 Dose: Not Given Dexamethasone (Dexamethasone) 4 mg PO ONETIME ONE Stop: 01/23/17 11:16 Last Admin: 01/23/17 12:58 Dose: 4 mg Diatrizoate Meglum/Diatrizoate Sod (Gastrografin 37%) 90 ml PO ONETIME ONE Stop: 01/21/17 19:25 Last Admin: 01/21/17 20:15 Dose: 90 ml Diltiazem HCl (Diltiazem) Confirm Administered Dose 25 mg .ROUTE .STK-MED ONE Stop: 01/21/17 21:09 Last Admin: 01/21/17 21:28 Dose: Not Given Diphenhydramine HCl (Benadryl) 12.5 mg PO ONETIME ONE Stop: 01/23/17 11:16 Last Admin: 01/23/17 12:58 Dose: 12.5 mg Enoxaparin Sodium (Lovenox) 30 mg SUBCUT DAILY [facility] Last Admin: 01/24/17 10:03 Dose: 30 mg Haloperidol Lactate (Haldol) 1 mg IVPUSH Q8H PRN PRN Reason: restless Hydromorphone HCl (Dilaudid) 0.5 mg IVPUSH ONETIME ONE Stop: 01/21/17 17:59 Last Admin: 01/21/17 18:41 Dose: 0.5 mg Dextrose/Sodium Chloride (Dextrose 5%-Normal Saline) 1,000 mls @ 250 mls/hr IV ASDIRECTED [facility] Last Infusion: 01/21/17 19:37 Dose: 250 mls/hr Levofloxacin/Dextrose 750 mg/ (Premix) 150 mls @ 100 mls/hr IV ONETIME ONE Stop: 01/21/17 21:03 Last Admin: 01/21/17 19:44 Dose: 100 mls/hr Dextrose/Sodium Chloride (Dextrose 5%-1/2 Ns) 500 mls @ 1,000 mls/hr IV ASDIRECTED [facility] Last Admin: 01/21/17 20:47 Dose: 1,000 mls/hr Diltiazem HCl 125 mg/ Sodium (Chloride) 125 mls @ 5 mls/hr IV TITRATE [facility]; 5 MG /HR PRN Reason: Protocol Last Admin: 01/21/17 21:19 Dose: 5 mg/hr, 5 mls/hr Sodium Chloride (Normal Saline) 500 mls @ 1,000 mls/hr IV .BOLUS ONE Stop: 01/21/17 21:32 Last Admin: 01/21/17 21:08 Dose: 1,000 mls/hr Sodium Chloride (Normal Saline) Confirm Administered Dose 1,000 mls @ as directed .ROUTE .STK-MED ONE Stop: 01/21/17 21:08 Last Admin: 01/21/17 21:28 Dose: Not Given Sodium Chloride (Normal Saline) 500 mls @ 1,000 mls/hr IV .BOLUS ONE Stop: 01/21/17 21:47 Last Admin: 01/21/17 21:29 Dose: 1,000 mls/hr Metronidazole 500 mg/ Premix 100 mls @ 100 mls/hr IV ONETIME ONE Stop: 01/21/17 22:17 Last Admin: 01/21/17 21:27 Dose: 100 mls/hr Sodium Chloride (Normal Saline) 1,000 mls @ 70 mls/hr IV ASDIRECTED [facility] Last Admin: 01/23/17 08:48 Dose: 70 mls/hr Magnesium Sulfate 2 gm/ Premix 50 mls @ 25 mls/hr IV ONETIME ONE Stop: 01/22/17 12:39 Last Admin: 01/22/17 11:48 Dose: 25 mls/hr Sodium Ferric Gluconat/Sucrose (250 mg/ Sodium Chloride) 120 mls @ 60 mls/hr IV ONETIME ONE Stop: 01/23/17 13:14 Last Admin: 01/23/17 13:02 Dose: 60 mls/hr Magnesium Sulfate 2 gm/ Premix 50 mls @ 25 mls/hr IV ONETIME ONE Stop: 01/24/17 10:59 Last Admin: 01/24/17 10:01 Dose: 25 mls/hr Lidocaine HCl (Xylocaine-Mpf 1%) Confirm Administered Dose 2 mls @ as directed .ROUTE .STK-MED ONE Stop: 01/25/17 10:56 Iopamidol (Isovue-370 (76%)) 100 ml IVPUSH ONETIME ONE Stop: 01/21/17 19:21 Last Admin: 01/21/17 20:15 Dose: 100 ml Lorazepam (Ativan) 2 mg IVPUSH Q2H PRN PRN Reason: Anxiety Magnesium Oxide (Magnesium Oxide) 400 mg PO ONETIME ONE Stop: 01/25/17 08:31 Last Admin: 01/25/17 10:57 Dose: Not Given Magnesium Oxide (Magnesium Oxide) 400 mg PO ONETIME ONE Stop: 01/25/17 14:01 Last Admin: 01/25/17 15:08 Dose: 400 mg Metoclopramide HCl (Reglan) 10 mg IVPUSH ONETIME ONE Stop: 01/21/17 20:29 Last Admin: 01/21/17 20:32 Dose: 10 mg Metoprolol Tartrate (Lopressor) 5 mg IVPUSH Q6H PRN PRN Reason: Tachycardia Morphine Sulfate (Morphine) 1 mg IVPUSH Q4H PRN PRN Reason: Pain Ondansetron HCl (Zofran) 4 mg IVPUSH ONETIME ONE Stop: 01/21/17 17:59 Last Admin: 01/21/17 18:39 Dose: 4 mg Pantoprazole Sodium (Protonix Iv) 40 mg IVPUSH DAILY [facility] Last Admin: 01/25/17 08:20 Dose: 40 mg Propofol (Diprivan 20 Ml) Confirm Administered Dose 200 mg .ROUTE .STK-MED ONE Stop: 01/25/17 10:55 Sodium Chloride (Saline Flush) 10 ml FLUSH ONETIME PRN PRN Reason: IV FLUSH Last Admin: 01/21/17 20:15 Dose: 10 ml Temazepam (Restoril) 7.5 mg PO BEDTIME PRN PRN Reason: Anxiety Last Admin: 01/22/17 20:46 Dose: 7.5 mg - Exam General: Reports: alert, oriented, cooperative, no acute distress HEENT: Reports: Pupils equal, Pupils reactive, EOMI, Mucous membr. moist/pink Neck: Reports: supple, trachea midline, no JVD, no thyromegaly Lungs: Reports: Clear to auscultation, Normal respiratory effort Cardiovascular: Reports: Regular Rate, Regular Rhythm Abdomen: Reports: bowel sounds present, soft, no tenderness, no distension (Female) Exam: Deferred Rectal (Female) Exam: Deferred Back Exam: Reports: Normal Inspection, Decreased Range of Motion Extremities: Reports: no edema, normal pulses, no tenderness/swelling, no clubbing, no cyanosis, no calf tenderness, edema Skin: Reports: warm, dry, intact Neurological: Reports: no new focal deficit Psy/Mental Status: Reports: alert, normal affect, normal mood *Q Meaningful Use (DIS) - VTE *Q VTE Criteria *Q: - Stroke *Q Stroke Criteria *Q: - AMI *Q AMI Criteria *Q:
--- NOTE | 2017-01-28 08:44 | OR ---
DATE OF OPERATION: 01/25/2017 SURGEON: Jonh Abbott MD PREOPERATIVE DIAGNOSIS: Anemia. POSTOPERATIVE DIAGNOSIS: Anemia. OPERATION PERFORMED: Esophagogastroduodenoscopy. FINDINGS: Agastric resection, Billroth 1 anastomosis of the duodenum. Remaining portion of the duodenum, antrum body, fundus, and stomach is unremarkable. There is permanent hiatal hernia with GE junction located 35 cm in the presence of a Schatzki's ring. Some evidence of chronic esophagitis. The rest of the esophagus was free of any acute disease. ANESTHESIA: Procedure done under IV sedation EGD. DESCRIPTION OF PROCEDURE: The patient was taken to the operating room, placed in a supine position, connected to monitoring equipment, given IV sedation. Bite block was inserted and video Olympus gastroscope placed in a posterior oropharynx under direct vision, threaded past the cricopharyngeus, down the esophagus and into the stomach. The gastric remnant was insufflated and the scope passed through into the duodenum and it was slowly withdrawn showing no specific pathology. The gastroduodenal anastomosis was intact and the antrum portion of the stomach above this was unremarkable. There were no marginal ulcers. J-maneuver showed hiatal hernia which appeared to be fixed. Fundus was unremarkable as was the body. Scope withdrawn to the GE junction which showed a Schatzki's ring, located 35 cm, did not see any acute pathology or ulcerations. Rest of the esophagus was viewed, the scope withdrawn was normal. The patient tolerated the procedure, sent to recovery room in a stable condition to be followed up as needed in the clinic. ESTIMATED BLOOD LOSS: MMODAL /[id number]
== END 2017-01-26 11:50 | disposition home or self-care (01) | DRG 392 ==
LOC: JD.ED 17:29 → JD.ICU 21:54 → JD.MS 01-23 14:23
PROVIDERS: ADMIT Internal Medicine Cardiovascular Disease; ATTEND Internal Medicine Cardiovascular Disease
PROC: 0DJ08ZZ Inspection of Upper Intestinal Tract, Via Natural or Artificial Opening Endoscopic (ICD-10-PCS; principal; 2017-01-25)
DX: K57.32 Diverticulitis of large intestine without perforation or abscess without bleeding (principal); I42.9 Cardiomyopathy, unspecified; I48.91 Unspecified atrial fibrillation; N18.4 Chronic kidney disease, stage 4 (severe); I48.0 Paroxysmal atrial fibrillation; D50.0 Iron deficiency anemia secondary to blood loss (chronic); E83.42 Hypomagnesemia; Z95.810 Presence of automatic (implantable) cardiac defibrillator; K21.9 Gastro-esophageal reflux disease without esophagitis; R32 Unspecified urinary incontinence; M81.0 Age-related osteoporosis without current pathological fracture; Z86.718 Personal history of other venous thrombosis and embolism; Z79.82 Long term (current) use of aspirin; E78.5 Hyperlipidemia, unspecified; Z87.11 Personal history of peptic ulcer disease
CPT/HCPCS: 36415; 74177; 80053; 81001; 83605; 83690; 83735; 83880; 84484; 85025; 85610; 86140; 87040 ×2; 93005 ×2; 96361; 96365; 96366; 96367; 96368; 96375; 99285; J1170; J1956; J2405; J2765; J7030; J7040 ×2; J7042 ×2; J7050; Q9963; Q9967; 71020; 71020-26; 80048; 85014; 85018; 97110-GP; 97161-GP; 97165-GO; 97530-GO; A9270-GY; C9113; J1650; J2704; J2916; J3475; J8540

== ENCOUNTER 2017-04-02 19:46 | Emergency (ER) | payer MEDICARE, OTHER ==
[2017-04-02 19:58] VITALS: BP 162/58
[2017-04-02] MEDS ORDERED: Sodium Chloride 0.9% 10 ML Syringe FLUSH PRN (20:24)
[2017-04-02] MEDS ORDERED: Aspirin 81 MG Tab.Chew PO ONE (20:25)
[2017-04-02] MEDS ORDERED: Cyclobenzaprine 10 MG Tab PO ONE (20:26)
--- NOTE | 2017-04-02 20:27 | EDM.PDOC ---
ED HPI GENERAL MEDICAL PROBLEM - General Chief Complaint: Chest Pain Stated Complaint: SOB Time Seen by Provider: 04/02/17 20:00 Source of Information: Reports: Patient History Limitations: Reports: No Limitations - History of Present Illness INITIAL COMMENTS - FREE TEXT/NARRATIVE: Patient is a 82 y/o female who presents to the E.D. complaining pain to her back. Patient states this morning she was awokened to bilateral lateral rib pain that localized to the right mid back over the course of the day. Pain is constant in nature worsened with palpation, deep breathing, and moving. She has had similar pain in the past that self resolved. At rest pain is a 2/10. She has history of cardiomyopathy with pacemaker in place due to paroxymal A-fib. She is not anticoagulated. Has no history of cardiac stent placement and or bypass. States she has a history of DVT following surgery. Denies any history of PE. Denies any increased swelling to her lower legs, increased weight, PND, orthopnea, abdominal pain, nausea vomiting, diaphoresis, dysuria, or any additional complaints. Chest Pain Score (Numeric/FACES): 9 - Related Data Allergies Allergy/AdvReac Type Severity Reaction Status Date / Time codeine AdvReac Vomiting Verified 12/24/16 01:59 Home Meds: Home Meds Isosorbide Mononitrate [Isosorbide Mononitrate ER] 30 mg PO DAILY 12/05/13 [ History] Furosemide [Lasix] 20 mg PO DAILY PRN 12/07/16 [History] Aspirin 81 mg PO DAILY 12/24/16 [History] Bifidobacter. Bifidum/B.Longum [Florajen Bifidoblend] 460 mg PO DAILY #30 capsule 12/26/16 [Rx] Acetaminophen 500 mg PO Q4H PRN 01/21/17 [History] Ascorbic Acid [Vitamin C] 1,000 mg PO DAILY 01/21/17 [History] Calcium Carbonate [Calcium] 600 mg PO DAILY 01/21/17 [History] Cholecalciferol (Vitamin D3) [Vitamin D3] 5,000 units PO DAILY 01/21/17 [History ] Cyanocobalamin (Vitamin B-12) [Vitamin B-12] 1,000 mcg PO DAILY 01/21/17 [ History] Losartan [Cozaar] 50 mg PO DAILY 01/21/17 [History] Metoprolol Succinate [Toprol XL] 50 mg PO DAILY 01/21/17 [History] Levofloxacin [Levaquin] 750 mg PO ASDIRECTED #5 tablet 01/26/17 [Rx] Magnesium Oxide 400 mg PO BID #30 tablet 01/26/17 [Rx] metroNIDAZOLE [Flagyl] 500 mg PO Q8H #15 tablet 01/26/17 [Rx] Past Medical History HEENT History: Reports: Hard of Hearing Other HEENT History: has a hearing aid on right, wears glasses, has upper denture Cardiovascular History: Reports: Arrhythmia, Cardiomyopathy, High Cholesterol, Hypertension, Other (See Below) Other Cardiovascular History: pacer and AICD placed 01/08/17 Respiratory History: Reports: None Gastrointestinal History: Reports: GERD, PUD Other Gastrointestinal History: Gastric ulcer Genitourinary History: Reports: Chronic Renal Insuffiency, Urinary Incontinence Other Genitourinary History: possible cystocele, urinary frequency EDGE CUTTER History: Reports: Other (See Below) Other OB/BYN History: hysterectomy Musculoskeletal History: Reports: Osteoporosis Neurological History: Reports: None Psychiatric History: Reports: None Endocrine/Metabolic History: Reports: None Hematologic History: Reports: Iron Deficiency, Other (See Below) Other Hematologic History: DVT Immunologic History: Reports: None Oncologic (Cancer) History: Reports: None Dermatologic History: Reports: None - Infectious Disease History Infectious Disease History: Reports: Chicken Pox, Measles, Mumps, Shingles - Past Surgical History Head Surgeries/Procedures: Reports: None Cardiovascular Surgical History: Reports: AICD, Pacer GI Surgical History: Reports: Other (See Below) Female Surgical History: Reports: Hysterectomy Musculoskeletal Surgical History: Reports: Knee Replacement Social & Family History - Family History Family Medical History: Noncontributory Cardiac: Reports: Other (See Below) Neurological: Reports: Other (See Below) Oncologic: Reports: Other (See Below) - Tobacco Use Smoking Status *Q: Never Smoker Used Tobacco, but Quit: No Second Hand Smoke Exposure: No - Caffeine Use Caffeine Use: Reports: Coffee Other Caffeine Use: a lot of regular coffee. Caffeine Use Comment: "i drink 4 cups in the morning and then 2 in afternoon" - Alcohol Use Days Per Week of Alcohol Use: 0 - Recreational Drug Use Recreational Drug Use: No Drug Use in Last 12 Months: No - Living Situation & Occupation Living situation: Reports: , Alone Occupation: Retired ED ROS GENERAL - Review of Systems Review Of Systems: ROS reveals no pertinent complaints other than HPI. ED EXAM, GENERAL - Physical Exam Exam: See Below Exam Limited By: No Limitations General Appearance: Alert, WD/WN, No Apparent Distress Ears: Hearing Grossly Normal Nose: Normal Inspection Throat/Mouth: Normal Voice, No Airway Compromise Head: Atraumatic, Normocephalic Neck: Normal Inspection, Supple Respiratory/Chest: No Respiratory Distress, Lungs Clear, Normal Breath Sounds, No Accessory Muscle Use, Chest Non-Tender Cardiovascular: Normal Peripheral Pulses, Regular Rate, Rhythm, Systolic Murmur Peripheral Pulses: 2+: Radial (L), Radial (R) GI/Abdominal: Normal Bowel Sounds, Soft, Non-Tender, No Organomegaly, No Distention Back Exam: Normal Inspection, Full Range of Motion, Other (Pin point tenderness along the inferior border of the right scapula. no bruising, bony abnormalities , swelling, rash, or wounds present. ). No: Vertebral Tenderness Extremities: Normal Inspection, Normal Range of Motion, Non-Tender, Normal Capillary Refill, Pedal Edema (trace bilaterally) Neurological: Alert, Oriented, CN II-XII Intact, Normal Cognition Psychiatric: Normal Affect, Normal Mood Skin Exam: Warm, Dry, Intact, Normal Color Course - Vital Signs Last Recorded V/S: Last Vital Signs Temp 97.4 F 04/02/17 19:54 Pulse 75 04/02/17 19:54 Resp 25 H 04/02/17 19:54 BP 162/58 H 04/02/17 19:54 Pulse Ox 100 04/02/17 19:54 - Orders/Labs/Meds Labs: Laboratory Tests 04/02/17 04/02/17 04/02/17 Range/Units 20:28 20:28 20:28 WBC 9.34 (3.98-10.04) K/mm3 RBC 4.16 (3.98-5.22) M/mm3 Hgb 11.2 (11.2-15.7) gm/L Hct 34.9 (34.1-44.9) % MCV 83.9 (79.4-94.8) fl MCH 26.9 (25.6-32.2) pg MCHC 32.1 L (32.2-35.5) g/dl RDW Std Deviation 54.2 H (36.4-46.3) fL Plt Count 328 (182-369) K/mm3 MPV 10.4 (9.4-12.3) fl Neut % (Auto) 64.6 (34.0-71.1) % Lymph % (Auto) 25.4 (19.3-51.7) % [place] % (Auto) 7.4 (4.7-12.5) % Eos % (Auto) 2.2 (0.7-5.8) Baso % (Auto) 0.3 (0.1-1.2) % Neut # (Auto) 6.03 (1.56-6.13) K/mm3 Lymph # (Auto) 2.37 (1.18-3.74) K/mm3 [place] # (Auto) 0.69 H (0.24-0.36) K/mm3 Eos # (Auto) 0.21 (0.04-0.36) K/mm3 Baso # (Auto) 0.03 (0.01-0.08) K/mm3 D-Dimer, Quantitative 3.87 H (0.19-0.59) mg/L Sodium 141 (136-145) mEq/L Potassium 4.0 (3.5-5.1) mEq/L Chloride 107 (98-107) mEq/L Carbon Dioxide 22 (21-32) mEq/L Anion Gap 16.0 H (5-15) BUN 29 H (7-18) mg/dL Creatinine 1.5 H (0.55-1.02) mg/dL Est Cr Clr Drug Dosing 23.26 mL/min Estimated GFR (MDRD) 33 (>60) mL/min BUN/Creatinine Ratio 19.3 H (14-18) Glucose 129 H (83-115) mg/dL Calcium 9.4 (8.5-10.1) mg/dL Total Bilirubin 0.2 (0.2-1.0) mg/dL AST 15 (15-37) U/L ALT 12 L (14-59) U/L Alkaline Phosphatase 134 H (46-116) U/L Troponin I < 0.017 (0.00-0.056) ng/mL C-Reactive Protein 6.8 H* (<1.0) mg/dL Total Protein 7.7 (6.4-8.2) g/dl Albumin 3.3 L (3.4-5.0) g/dl Globulin 4.4 gm/dL Albumin/Globulin Ratio 0.8 L (1-2) Meds: Medications Discontinued Medications Generic Name Dose Route Start Last Admin Trade Name Juanq PRN Reason Stop Dose Admin Aspirin 243 mg 04/02/17 20:25 04/02/17 20:31 Aspirin PO 04/02/17 20:26 243 mg ONETIME ONE Administration Cyclobenzaprine HCl 10 mg 04/02/17 20:26 04/02/17 20:31 Flexeril PO 04/02/17 20:27 10 mg ONETIME ONE Administration Sodium Chloride 1,000 mls @ 250 mls/hr 04/02/17 20:49 04/02/17 21:17 Normal Saline IV 04/03/17 00:48 250 mls/hr ONETIME ONE Administration Sodium Chloride 10 ml 04/02/17 20:24 04/02/17 20:32 Saline Flush FLUSH 10 ml ASDIRECTED PRN Administration Keep Vein Open - Re-Assessments/Exams Free Text/Narrative Re-Assessment/Exam: IV established. Initial labs and studies include CBC, chem 14, CRP, d-dimer, troponin 1, chest x-ray one view. Ordered aspirin to 243 mg by mouth and also Flexeril 10 mg by mouth. EKG: Sinus rhythm at a rate of 76 with IVCD and LAD. No acute ST changes noted. Compared with previous EKG obtained 01/23/2017. CXR revealed: AICD in place. Cardiomegaly. No acute findings noted. Reviewed with Dr. Mccartney. Labs reviewed: White blood cell count 9.34, hemoglobin 11.2, d-dimer elevated at 3.7, potassium 4.0, sodium 141, creatinine 1.5, glucose 129, alk phosphatase 134, troponin less than 0.017, CRP is 6.8. Ordered NS 250 mls/hr to prehydrate for CTA Chest PE protocol. 04/02/17 23:27 CTA chest impression: Minimal dependent atelectasis. Otherwise no acute findings. No evidence of pulmonary emboli. Reassessment, has no pain to her lower legs with palpation, redness, increased warmth, or swelling. Unknown etilogy of elevated D-Dimer. Will have patient followup with PCP within the next week for reevaluation. Patient will be discharged home with instructions as documented. Departure - Departure Time of Disposition: 23:29 Disposition: Home, Self-Care 01 Condition: Good Clinical Impression: Elevated d-dimer, Chest wall pain Back pain Qualifiers: Back pain location: thoracic back pain Chronicity: acute Back pain laterality: right Qualified Code(s): M54.6 - Pain in thoracic spine Instructions: Back Pain, Adult, Nonspecific Chest Pain, [id number], D-Dimer Test Referrals: Ko Pretty MD [Primary Care Provider] - Forms: ED Department Discharge Additional Instructions: Followup with PCP within the next week. Apply warm compresses and utilize gentle massage as needed to the affected area. Can apply biofreeze OTC topical pain control as well. For pain take tylenol as needed for pain. Refrain from any activities that cause worsening pain. Return to the E.D. as needed for any new or worsening symptoms. Continue to take all home medications as prescribed.
[2017-04-02] MEDS ORDERED: Sodium Chloride 0.9% 1,000 ML IV ONE (20:49)
--- NOTE | 2017-04-03 07:01 | CR ---
Chest: Portable view of the chest was obtained. Comparison: Previous chest x-ray of 01/22/17. Heart is enlarged. Pacemaker is noted. Lungs are clear. Bony structures are osteopenic. Mild scoliosis is incidentally noted. Impression: 1. Findings as noted above. Nothing acute is seen. Diagnostic code #2
--- NOTE | 2017-04-03 07:01 | CT ---
CT chest Technique: Multiple axial sections through the chest were obtained. Intravenous contrast was utilized. Study has been performed as a pulmonary angiogram protocol. Comparison: Previous chest CT study of 01/04/17. Findings: Goitrous enlargement again noted within the thyroid gland mostly on the left side. Mediastinum and hilar regions show no adenopathy or mass. Pulmonary arteries are well-opacified. No filling defects are identified to indicate pulmonary embolism. Heart shows generalized enlargement. No pericardial effusion is seen. Artifact noted from AICD. Visualized upper abdominal structures appear within normal limits. Mild basilar atelectasis is seen. No acute infiltrates are noted. No pleural effusions are seen. Bone window settings were reviewed which show degenerative spurring within the spine. Small sclerotic lesion noted within the right humerus compatible with incidental bone island. Impression: 1. No findings of pulmonary embolism. 2. Other incidental findings as noted above which are stable from prior exam. Diagnostic code #2 I agree with preliminary report issued by [facility] ([facility] preliminary report dictated on 04/03/17, 12:24 AM Central Time)
== END 2017-04-02 23:45 | disposition home or self-care (01) ==
LOC: JD.ED 19:46
DX: R07.89 Other chest pain (principal); M54.6 Pain in thoracic spine; R79.1 Abnormal coagulation profile; I13.10 Hypertensive heart and chronic kidney disease without heart failure, with stage 1 through stage 4 chronic kidney disease, or unspecified chronic kidney disease; N18.9 Chronic kidney disease, unspecified; K21.9 Gastro-esophageal reflux disease without esophagitis; M81.0 Age-related osteoporosis without current pathological fracture; Z86.718 Personal history of other venous thrombosis and embolism; Z95.0 Presence of cardiac pacemaker; Z95.810 Presence of automatic (implantable) cardiac defibrillator; Z90.710 Acquired absence of both cervix and uterus; Z96.659 Presence of unspecified artificial knee joint; Z79.899 Other long term (current) drug therapy; Z79.82 Long term (current) use of aspirin; Z88.5 Allergy status to narcotic agent
CPT/HCPCS: 36415; 71010; 71275; 80053; 84484; 85025; 85379; 86140; 93005; 96360; 96361; 99285; A9270; J7040; J7050; 99284

== ENCOUNTER 2017-05-13 07:01 | Day surgery (SDC) | payer MEDICARE, OTHER ==
[~2017-05-13 07:01] MED LIST: Lactated Ringers 1,000 ML IV SCH; Lidocaine 1%/Sod Bicarbonate in NS 8.4% 1 ML Syringe PRN; Sodium Chloride 0.9% 10 ML Syringe FLUSH PRN
[2017-05-13] MEDS ORDERED: Propofol 200 MG/20 ML SDV ONE (07:05)
[2017-05-13] MEDS ORDERED: fentaNYL 100 MCG/2 ML SDV ONE (07:05)
[2017-05-13] MEDS ORDERED: Lidocaine 1% 4 ML ONE (07:05)
--- NOTE | 2017-05-13 07:13 | PCM.PREANE ---
Preanesthetic Assessment - Procedure Proposed Procedure: Colonoscopy. - Anesthesia/Transfusion/Family Hx Anesthesia History: Prior Anesthesia Without Reaction Family History of Anesthesia Reaction: No Transfusion History: No Prior Transfusion(s) Type of Transfusion Reactions: Reports: Unknown Intubation History: Unknown - Review of Systems General: No Symptoms Pulmonary: Shortness of Breath (Exertional) Cardiovascular: No Symptoms Gastrointestinal: No Symptoms (GERD once in a while.) Neurological: Tingling (Patients states her legs are tingling at night sometimes.) Other: Reports: None - Physical Assessment NPO Status Date: 05/13/17 NPO Status Time: 19:30 Pulse: 80 O2 Sat by Pulse Oximetry: 99 Respiratory Rate: 16 Blood Pressure: 144/44 Temperature: 36.6 C Vital Signs: Entered. Height: 1.57 m Weight: 57.153 kg ASA Class: 3 Mental Status: Alert & Oriented x3 Airway Class: Mallampati = 2 Dentition: Reports: Dentures (Top dentures.) Thyro-Mental Finger Breadths: 3 Mouth Opening Finger Breadths: 3 ROM/Head Extension: Full Lungs: Clear to Auscultation, Normal Respiratory Effort Cardiovascular: Regular Rate, Regular Rhythm - Lab Values: Reviewed from 05/06/17. - Imaging/EKG Impressions: Reviewed from 04/02/17. - Allergies Allergies/Adverse Reactions: Allergies Allergy/AdvReac Type Severity Reaction Status Date / Time codeine AdvReac Vomiting Verified 05/12/17 15:14 - Blood Blood Available: No - Anesthesia Plan Pre-Op Medication Ordered: Beta Alessia Beta Alessia: Metoprolol Med Last Dose Date: 05/13/17 Med Last Dose Time: 06:30 - Acknowledgements Anesthesia Type Planned: MAC Pt an Appropriate Candidate for the Planned Anesthesia: Yes Alternatives and Risks of Anesthesia Discussed w Pt/Guardian: Yes Pt/Guardian Understands and Agrees with Anesthesia Plan: Yes PreAnesthesia Questionnaire HEENT History: Reports: Hard of Hearing Other HEENT History: has a hearing aid on right, wears glasses, has upper denture Cardiovascular History: Reports: Afib, Arrhythmia, Cardiomyopathy, High Cholesterol, Hypertension, Other (See Below) Other Cardiovascular History: pacer and AICD placed 01/08/17 Respiratory History: Reports: None, SOB Gastrointestinal History: Reports: GERD, PUD Other Gastrointestinal History: Gastric ulcer Genitourinary History: Reports: Chronic Renal Insuffiency, Urinary Incontinence Other Genitourinary History: possible cystocele, urinary frequency [employer]RA[employer]IER History: Reports: Other (See Below) Other OB/BYN History: hysterectomy Musculoskeletal History: Reports: Osteoporosis Neurological History: Reports: None Psychiatric History: Reports: None Endocrine/Metabolic History: Reports: None Hematologic History: Reports: Anemia, Iron Deficiency, Other (See Below) Other Hematologic History: DVT Immunologic History: Reports: None Oncologic (Cancer) History: Reports: None Dermatologic History: Reports: None - Infectious Disease History Infectious Disease History: Reports: Chicken Pox, Measles, Mumps, Shingles - Past Surgical History Head Surgeries/Procedures: Reports: None HEENT Surgical History: Reports: Tonsillectomy Cardiovascular Surgical History: Reports: AICD, Pacer GI Surgical History: Reports: Colonoscopy, EGD, Other (See Below) Other GI Surgeries/Procedures: Some Hemmorrhoids removed, gastric resection Female Surgical History: Reports: Hysterectomy Endocrine Surgical History: Reports: None Neurological Surgical History: Reports: None Musculoskeletal Surgical History: Reports: Knee Replacement Other Musculoskeletal Surgeries/Procedures:: right total knee replacement Dermatological Surgical History: Reports: None - SUBSTANCE USE Smoking Status *Q: Never Smoker Tobacco Use Within Last Twelve Months: No Second Hand Smoke Exposure: No Days Per Week of Alcohol Use: 0 Recreational Drug Use History: No - HOME MEDS Home Medications: Home Meds Isosorbide Mononitrate [Isosorbide Mononitrate ER] 30 mg PO DAILY 12/05/13 [ History] Furosemide [Lasix] 20 mg PO DAILY PRN 12/07/16 [History] Aspirin 81 mg PO DAILY 12/24/16 [History] Bifidobacter. Bifidum/B.Longum [Florajen Bifidoblend] 460 mg PO DAILY #30 capsule 12/26/16 [Rx] Ascorbic Acid [Vitamin C] 1,000 mg PO DAILY 01/21/17 [History] Calcium Carbonate [Calcium] 600 mg PO DAILY 01/21/17 [History] Cholecalciferol (Vitamin D3) [Vitamin D3] 5,000 units PO DAILY 01/21/17 [History ] Cyanocobalamin (Vitamin B-12) [Vitamin B-12] 1,000 mcg PO DAILY 01/21/17 [ History] Metoprolol Succinate [Toprol XL] 50 mg PO DAILY 01/21/17 [History] Magnesium Oxide 400 mg PO BID #30 tablet 01/26/17 [Rx] Potassium Chloride 20 meq PO DAILY 05/12/17 [History] - CURRENT (IN HOUSE) MEDS Current Meds: Current Medications Lactated Ringer's (Ringers, Lactated) 1,000 mls @ 125 mls/hr IV ASDIRECTED CHIKI Stop: 05/13/17 23:00 Lidocaine/Sodium Bicarbonate (Buffered Lidocaine 1% In Ns 8.4%) 0.25 ml .XX ONETIME PRN PRN Reason: Prior to IV Start Stop: 05/13/17 18:00 Sodium Chloride (Saline Flush) 10 ml FLUSH ASDIRECTED PRN PRN Reason: Keep Vein Open Stop: 05/13/17 18:00 Discontinued Medications Fentanyl (Sublimaze) Confirm Administered Dose 100 mcg .ROUTE .STK-MED ONE Stop: 05/13/17 07:06 Lidocaine HCl (Xylocaine-Mpf 1%) Confirm Administered Dose 4 mls @ as directed .ROUTE .STK-MED ONE Stop: 05/13/17 07:06 Propofol (Diprivan 20 Ml) Confirm Administered Dose 200 mg .ROUTE .STK-MED ONE Stop: 05/13/17 07:06
[2017-05-13 08:35] VITALS: BP 144/54
--- NOTE | 2017-05-13 08:35 | PCM.OPNOTE ---
- General Post-Op/Procedure Note Date of Surgery/Procedure: 05/13/17 Operative Procedure(s): colonoscopy to cecum Findings: internal hemorrhoids and diverticulosis in the sigmoind Pre Op Diagnosis: rectal bleeding Post-Op Diagnosis: Same Anesthesia Technique: MAC Primary Surgeon: Jonh Abbott EBL in mLs: 0 Complications: None Condition: Good
--- NOTE | 2017-05-13 09:58 | PCM.OPNOTE ---
- General Post-Op/Procedure Note Date of Surgery/Procedure: 05/13/17 Operative Procedure(s): colonosocopy to cecum Findings: sigmoid diverticulosis and internal hemorrhoids Pre Op Diagnosis: anemai Post-Op Diagnosis: Same Anesthesia Technique: MAC Primary Surgeon: Jonh Abbott EBL in mLs: 0 Complications: None Condition: Good
--- NOTE | 2017-05-14 08:34 | OR ---
DATE OF OPERATION: 05/13/2017 SURGEON: Jonh Abbott MD PREOPERATIVE DIAGNOSIS: Rectal bleeding. POSTOPERATIVE DIAGNOSIS: Rectal bleeding. OPERATION PERFORMED: Colonoscopy to cecum. FINDINGS: Sigmoid diverticulosis moderate in number and internal hemorrhoid source of bleeding. There were no angiodysplasias, neoplasias, large tumor, masses or ulcerations noted. ANESTHESIA: Procedure done under IV sedation. DESCRIPTION OF PROCEDURE: The patient was taken to the operating room, placed in a supine position, connected to monitoring equipment, given IV sedation, placed in left lateral position. Perianal area was inspected and was normal outside of pouting hemorrhoids. Rectal exam showed good sphincter tone. A video Olympus colonoscope was then introduced into the rectum and threaded up without problem to the cecum, where the appendicular orifice, ileocecal valve was noted. Prep was excellent. [place] cleansing score grade A and the scope was slowly withdrawn showing the cecum, ascending colon, transverse colon, descending colon, sigmoid colon, and the rectum. Retroflexed view demonstrated hemorrhoids. The patient tolerated the procedure and sent to recovery room in a stable condition and will be followed up as needed in the clinic. ESTIMATED BLOOD LOSS: MMODAL /[id number]
== END 2017-05-13 09:19 | disposition home or self-care (01) ==
LOC: JD.SDS 07:01
PROVIDERS: ATTEND Surgery
DX: K57.30 Diverticulosis of large intestine without perforation or abscess without bleeding (principal); K64.8 Other hemorrhoids; D50.9 Iron deficiency anemia, unspecified; K21.9 Gastro-esophageal reflux disease without esophagitis; I42.9 Cardiomyopathy, unspecified; I48.91 Unspecified atrial fibrillation; E78.00 Pure hypercholesterolemia, unspecified; I12.9 Hypertensive chronic kidney disease with stage 1 through stage 4 chronic kidney disease, or unspecified chronic kidney disease; N18.9 Chronic kidney disease, unspecified; M81.0 Age-related osteoporosis without current pathological fracture; Z96.651 Presence of right artificial knee joint; Z98.0 Intestinal bypass and anastomosis status; Z90.710 Acquired absence of both cervix and uterus; Z90.89 Acquired absence of other organs; Z98.890 Other specified postprocedural states; Z79.82 Long term (current) use of aspirin; Z79.899 Other long term (current) drug therapy; Z88.5 Allergy status to narcotic agent; Z95.810 Presence of automatic (implantable) cardiac defibrillator; Z86.718 Personal history of other venous thrombosis and embolism
CPT/HCPCS: 45378; J7120; 00810; J2704; J3010

== ENCOUNTER 2017-05-15 07:36 | Emergency (ER) | payer MEDICARE, OTHER ==
[2017-05-15] MEDS ORDERED: Sodium Chloride 0.9% 10 ML Syringe FLUSH PRN (07:47)
[2017-05-15 07:53] VITALS: BP 158/67
[2017-05-15] MEDS ORDERED: Amiodarone 150 MG in Dextrose 5% in Water 100 ML IV ONE ×2 (07:59)
--- NOTE | 2017-05-15 08:11 | EDM.PDOC ---
ED HPI GENERAL MEDICAL PROBLEM - General Chief Complaint: Chest Pain Stated Complaint: [facility] Time Seen by Provider: 05/15/17 07:47 Source of Information: Reports: Patient, EMS, Family, RN Notes Reviewed - History of Present Illness INITIAL COMMENTS - FREE TEXT/NARRATIVE: 82-year-old female has been brought here by [place] ambulance after her internal defibrillator discharged about 10 times this morning in the past 1-1/2- 2 hours. Patient was awake most of the night due to left flank discomfort that made it difficult for her to sleep. she's been having left flank and left lower abdominal discomfort for the past 2 days since having colonoscopy performed outpatient clinic 2 days ago. She did get up to go to the bathroom about 2 hours ago and then felt a strong shock of her internal defibrillator discharging. It went off again very short time later. There was somewhat of a pause and then it went off about 7 more times over a very short period of time. There than was some delay and then it did go off one more time. She has had the internal pacer defibrillator for about 8 months. The internal defibrillator has never discharged before to the best of her knowledge. She states she was having some mild anterior chest discomfort prior to discharge. She was having moderate chest discomfort upon EMS arrival and is reported to have been mildly diaphoretic with a good BP, regular paced rythm. She was given 50 g fentanyl, 4 mg Zofran and 1 mg Versed IV. On arrival her chest discomfort is very mild. When the pain was more severe there was radiation to the left shoulder and left arm. She continues to have mild left lower abdominal and flank discomfort. She currently does not feel short of breath. She has not been running fever and also has not been vomiting. Treatments [employer] OFFICER: Reports: Aspirin, IV/IO, Other Medication(s), Oxygen Middle Chest Pain Score (Numeric/FACES): 5 - Related Data Allergies Allergy/AdvReac Type Severity Reaction Status Date / Time codeine AdvReac Vomiting Verified 05/15/17 07:43 Home Meds: Home Meds Furosemide [Lasix] 20 mg PO DAILY PRN 12/07/16 [History] Aspirin 81 mg PO DAILY 12/24/16 [History] Bifidobacter. Bifidum/B.Longum [Florajen Bifidoblend] 460 mg PO DAILY #30 capsule 12/26/16 [Rx] Ascorbic Acid [Vitamin C] 1,000 mg PO DAILY 01/21/17 [History] Calcium Carbonate [Calcium] 600 mg PO DAILY 01/21/17 [History] Cholecalciferol (Vitamin D3) [Vitamin D3] 5,000 units PO DAILY 01/21/17 [History ] Cyanocobalamin (Vitamin B-12) [Vitamin B-12] 1,000 mcg PO DAILY 01/21/17 [ History] Metoprolol Succinate [Toprol XL] 50 mg PO DAILY 01/21/17 [History] Magnesium Oxide 400 mg PO BID #30 tablet 01/26/17 [Rx] Potassium Chloride 20 meq PO DAILY 05/12/17 [History] Past Medical History HEENT History: Reports: Hard of Hearing, Impaired Vision Other HEENT History: has a hearing aid on right, wears glasses, has upper denture Cardiovascular History: Reports: Afib, Arrhythmia, Cardiomyopathy, High Cholesterol, Hypertension, Other (See Below) Other Cardiovascular History: pacer and AICD placed 01/08/17 Respiratory History: Reports: None, SOB Gastrointestinal History: Reports: GERD, PUD Other Gastrointestinal History: Gastric ulcer Genitourinary History: Reports: Chronic Renal Insuffiency, Urinary Incontinence Other Genitourinary History: possible cystocele, 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: Other (See Below) Other OB/BYN History: hysterectomy Musculoskeletal History: Reports: Osteoporosis Neurological History: Reports: None Psychiatric History: Reports: None Endocrine/Metabolic History: Reports: None Hematologic History: Reports: Anemia, Iron Deficiency, Other (See Below) Other Hematologic History: DVT Immunologic History: Reports: None Oncologic (Cancer) History: Reports: None Dermatologic History: Reports: None - Infectious Disease History Infectious Disease History: Reports: Chicken Pox, Measles, Mumps, Shingles - Past Surgical History Head Surgeries/Procedures: Reports: None HEENT Surgical History: Reports: Tonsillectomy Cardiovascular Surgical History: Reports: AICD, Pacer GI Surgical History: Reports: Colonoscopy, EGD, Other (See Below) Other GI Surgeries/Procedures: Some Hemmorrhoids removed, gastric resection Female Surgical History: Reports: Hysterectomy Endocrine Surgical History: Reports: None Neurological Surgical History: Reports: None Musculoskeletal Surgical History: Reports: Knee Replacement Other Musculoskeletal Surgeries/Procedures:: right total knee replacement Dermatological Surgical History: Reports: None Social & Family History - Family History Family Medical History: Noncontributory Cardiac: Reports: Other (See Below) Neurological: Reports: Other (See Below) Oncologic: Reports: Other (See Below) - Tobacco Use Smoking Status *Q: Never Smoker Used Tobacco, but Quit: No Second Hand Smoke Exposure: No - Caffeine Use Caffeine Use: Reports: Coffee Other Caffeine Use: a lot of regular coffee. Caffeine Use Comment: "i drink 4 cups in the morning and then 2 in afternoon" - Alcohol Use Days Per Week of Alcohol Use: 0 - Recreational Drug Use Recreational Drug Use: No Drug Use in Last 12 Months: No - Living Situation & Occupation Living situation: Reports: , Alone Occupation: Retired ED ROS GENERAL - Review of Systems Review Of Systems: See Below Constitutional: Reports: Chills. Denies: Fever HEENT: Denies: Throat Pain, Vision Change Respiratory: Reports: Shortness of Breath (patient feels she may have been short of breath during these episodes but no longer short of breath). Denies: Pleuritic Chest Pain, Cough Cardiovascular: Reports: Chest Pain (she was having moderately severe chest discomfort during the time the defibrillator was discharging and for a period of time thereafter until fentanyl given IV), Lightheadedness. Denies: Syncope ( patient does not believe that she ever did "pass out") GI/Abdominal: Denies: Abdominal Pain, Nausea, Vomiting Musculoskeletal: Reports: Shoulder Pain, Arm Pain (gonegone). Denies: Neck Pain , Back Pain Skin: Reports: Diaphoresis (gone) Neurological: Reports: Dizziness (now better) ED EXAM, GENERAL - Physical Exam Exam: See Below General Appearance: Alert, No Apparent Distress Eye Exam: Bilateral Eye: PERRL Throat/Mouth: Normal Inspection, Normal Oropharynx Head: Atraumatic. No: Facial Swelling Neck: Supple, Other (no JVD) Respiratory/Chest: No Respiratory Distress, Lungs Clear, Normal Breath Sounds Cardiovascular: Regular Rate, Rhythm GI/Abdominal: Soft, Non-Tender. No: Guarding Back Exam: No: CVA Tenderness (L), CVA Tenderness (R) Extremities: Normal Inspection, Normal Range of Motion. No: Pedal Edema, Leg Pain Neurological: Alert, Oriented, No Motor/Sensory Deficits Skin Exam: Warm, Dry, Normal Color EKG INTERPRETATION EKG Date: 05/15/17 Rhythm: Other (paced rhythm, rate 104) Course - Vital Signs Last Recorded V/S: Last Vital Signs Temp 97.2 F 05/15/17 07:51 Pulse 103 H 05/15/17 07:51 Resp 13 05/15/17 07:51 BP 158/67 H 05/15/17 07:51 Pulse Ox 97 05/15/17 07:51 - Orders/Labs/Meds Orders: Active Orders 24 hr Category Date Time Status EKG 12 Lead [EKG Documentation Completion] [RC] STAT Care 05/15/17 07:48 Active Peripheral IV Care [RC] . DIRECTED Care 05/15/17 07:48 Active Peripheral IV Insertion Adult [OM.PC] Stat Oth 05/15/17 07:48 Ordered Labs: Laboratory Tests 05/15/17 05/15/17 05/15/17 Range/Units 08:07 08:07 08:07 WBC 8.56 (3.98-10.04) K/mm3 RBC 3.87 L (3.98-5.22) M/mm3 Hgb 11.0 L (11.2-15.7) gm/L Hct 33.5 L (34.1-44.9) % MCV 86.6 (79.4-94.8) fl MCH 28.4 (25.6-32.2) pg MCHC 32.8 (32.2-35.5) g/dl RDW Std Deviation 51.8 H (36.4-46.3) fL Plt Count 256 (182-369) K/mm3 MPV 10.5 (9.4-12.3) fl Neut % (Auto) 72.2 H (34.0-71.1) % Lymph % (Auto) 18.2 L (19.3-51.7) % [place] % (Auto) 7.5 (4.7-12.5) % Eos % (Auto) 1.5 (0.7-5.8) Baso % (Auto) 0.5 (0.1-1.2) % Neut # (Auto) 6.18 H (1.56-6.13) K/mm3 Lymph # (Auto) 1.56 (1.18-3.74) K/mm3 [place] # (Auto) 0.64 H (0.24-0.36) K/mm3 Eos # (Auto) 0.13 (0.04-0.36) K/mm3 Baso # (Auto) 0.04 (0.01-0.08) K/mm3 Sodium 143 (136-145) mEq/L Potassium 4.1 (3.5-5.1) mEq/L Chloride 108 H (98-107) mEq/L Carbon Dioxide 25 (21-32) mEq/L Anion Gap 14.1 (5-15) BUN 22 H (7-18) mg/dL Creatinine 1.3 H (0.55-1.02) mg/dL Est Cr Clr Drug Dosing 26.84 mL/min Estimated GFR (MDRD) 39 (>60) mL/min BUN/Creatinine Ratio 16.9 (14-18) Glucose 107 (83-115) mg/dL Calcium 9.1 (8.5-10.1) mg/dL Magnesium 1.9 (1.8-2.4) mg/dl Total Bilirubin 0.4 (0.2-1.0) mg/dL AST 20 (15-37) U/L ALT 12 L (14-59) U/L Alkaline Phosphatase 117 H (46-116) U/L Troponin I (0.00-0.056) ng/mL C-Reactive Protein 4.7 H* (<1.0) mg/dL Total Protein 7.0 (6.4-8.2) g/dl Albumin 3.0 L (3.4-5.0) g/dl Globulin 4.0 gm/dL Albumin/Globulin Ratio 0.8 L (1-2) 05/15/17 Range/Units 08:57 WBC (3.98-10.04) K/mm3 RBC (3.98-5.22) M/mm3 Hgb (11.2-15.7) gm/L Hct (34.1-44.9) % MCV (79.4-94.8) fl MCH (25.6-32.2) pg MCHC (32.2-35.5) g/dl RDW Std Deviation (36.4-46.3) fL Plt Count (182-369) K/mm3 MPV (9.4-12.3) fl Neut % (Auto) (34.0-71.1) % Lymph % (Auto) (19.3-51.7) % [place] % (Auto) (4.7-12.5) % Eos % (Auto) (0.7-5.8) Baso % (Auto) (0.1-1.2) % Neut # (Auto) (1.56-6.13) K/mm3 Lymph # (Auto) (1.18-3.74) K/mm3 [place] # (Auto) (0.24-0.36) K/mm3 Eos # (Auto) (0.04-0.36) K/mm3 Baso # (Auto) (0.01-0.08) K/mm3 Sodium (136-145) mEq/L Potassium (3.5-5.1) mEq/L Chloride (98-107) mEq/L Carbon Dioxide (21-32) mEq/L Anion Gap (5-15) BUN (7-18) mg/dL Creatinine (0.55-1.02) mg/dL Est Cr Clr Drug Dosing mL/min Estimated GFR (MDRD) (>60) mL/min BUN/Creatinine Ratio (14-18) Glucose (83-115) mg/dL Calcium (8.5-10.1) mg/dL Magnesium (1.8-2.4) mg/dl Total Bilirubin (0.2-1.0) mg/dL AST (15-37) U/L ALT (14-59) U/L Alkaline Phosphatase (46-116) U/L Troponin I 0.411 H* (0.00-0.056) ng/mL C-Reactive Protein (<1.0) mg/dL Total Protein (6.4-8.2) g/dl Albumin (3.4-5.0) g/dl Globulin gm/dL Albumin/Globulin Ratio (1-2) Meds: Medications Discontinued Medications Generic Name Dose Route Start Last Admin Trade Name Freq PRN Reason Stop Dose Admin Amiodarone HCl 150 mg/ 103 mls @ 600 mls/hr 05/15/17 07:59 05/15/17 08:20 Dextrose/Water IV 05/15/17 08:09 Not Given .[facility] ONE Amiodarone HCl/Dextrose Confirm 05/15/17 08:03 05/15/17 08:11 Nexterone In Dextrose 150 Mg/100 Ml Administered 05/15/17 08:04 150 mg Dose Administration 100 mls @ as directed IV .[facility] ONE Amiodarone HCl/Dextrose Confirm 05/15/17 08:03 05/15/17 08:19 Nexterone In Dextrose 360 Mg/200 Ml Administered 05/15/17 08:04 Not Given Dose 360 mg in 200 mls @ as directed .R[facility]TE .[facility] ONE Sodium Chloride 10 ml 05/15/17 07:47 05/15/17 08:11 Saline Flush FLUSH 10 ml ASDIRECTED PRN Administration Keep Vein Open - Re-Assessments/Exams Free Text/Narrative Re-Assessment/Exam: 05/15/17 08:30. No further defibrillator discharge since time of EMS arrival and transport about 1 hr [employer] OFFICER. she continues to have very mild achy discomfort left anterior chest and also continues to have mild to moderate left lower abdominal and flank discomfort. The fentanyl, Zofran and Versed given by EMS continues to help her. Monitor continues to show paced rhythm, rate running about 105. Blood pressure has been good in the 140-150 systolic range. Family expressed their desire very early on for rapid transfer and transport to [facility]. That is very reasonable with consideration of what has happened over the past 2 hours. Being a resident of [facility] there is [facility] coverage for emergency transport by [facility] helicopter service. I have discussed transfer with Dr Schwab, resolution manager for Cardiology, [facility] who does accept patient in transfer. We have given amiodarone 150 mg over 10 minutes and started her on a amiodarone drip 1 mg/minute. Vitals and rythm remainded stable up to time of transport by [facility]. Departure - Departure Time of Disposition: 08:30 Disposition: DC/Tfer to Acute Hospital 02 Reason for Transfer *Q: Other Condition: Fair Clinical Impression: Cardiac arrhythmia Qualifiers: Arrhythmia type: ventricular tachycardia Qualified Code(s): I47.2 - Ventricular tachycardia Referrals: Ko Pretty MD [Primary Care Provider] - Forms: ED Department Discharge - My Orders Last 24 Hours: My Active Orders 05/15/17 07:48 EKG 12 Lead [EKG Documentation Completion] [RC] STAT Peripheral IV Care [RC] . DIRECTED Peripheral IV Insertion Adult [OM.PC] Stat - Assessment/Plan Last 24 Hours: My Active Orders 05/15/17 07:48 EKG 12 Lead [EKG Documentation Completion] [RC] STAT Peripheral IV Care [RC] . DIRECTED Peripheral IV Insertion Adult [OM.PC] Stat
--- NOTE | 2017-05-15 10:26 | CR ---
Chest: Frontal view of the chest was obtained. Comparison: Previous chest CT of 04/02/17 and chest x-ray of 04/02/17. Heart size is slightly enlarged. Upper mediastinum is normal. AICD is present. Lungs are clear. Scoliosis is noted within the spine. Stable sclerotic lesion is seen within the proximal right humerus. Bony structures are osteopenic. Impression: 1. Incidental findings. Nothing acute is appreciated on frontal chest x-ray. Diagnostic code #2
== END 2017-05-15 08:30 ==
LOC: JD.ED 07:36
DX: I47.2 Ventricular tachycardia (principal); I48.91 Unspecified atrial fibrillation; I13.10 Hypertensive heart and chronic kidney disease without heart failure, with stage 1 through stage 4 chronic kidney disease, or unspecified chronic kidney disease; N18.9 Chronic kidney disease, unspecified; E78.00 Pure hypercholesterolemia, unspecified; K21.9 Gastro-esophageal reflux disease without esophagitis; M81.0 Age-related osteoporosis without current pathological fracture; Z90.710 Acquired absence of both cervix and uterus; Z86.2 Personal history of diseases of the blood and blood-forming organs and certain disorders involving the immune mechanism; Z86.718 Personal history of other venous thrombosis and embolism; Z98.890 Other specified postprocedural states; Z96.651 Presence of right artificial knee joint; Z79.82 Long term (current) use of aspirin; Z79.899 Other long term (current) drug therapy; Z95.810 Presence of automatic (implantable) cardiac defibrillator; Z88.5 Allergy status to narcotic agent
CPT/HCPCS: 36415; 71010; 80053; 83735; 84484; 85025; 86140; 93005; 96374; 99285; J0282; J7050

== ENCOUNTER 2017-05-18 10:31 | Emergency (ER) | payer MEDICARE, OTHER ==
[2017-05-18] MEDS ORDERED: Sodium Chloride 0.9% 10 ML Syringe FLUSH PRN (10:55)
[2017-05-18] MEDS ORDERED: Sodium Chloride 0.9% 1,000 ML IV SCH (11:00)
[2017-05-18] MEDS: Ondansetron 4 MG/2 ML SDV IVPUSH ONE ×2 (11:15→16:16)
--- NOTE | 2017-05-18 13:56 | EDM.PDOC ---
ED HPI GENERAL MEDICAL PROBLEM - General Chief Complaint: Cardiovascular Problem Stated Complaint: VOMITING/RACING HEART/WEAK Time Seen by Provider: 05/18/17 10:36 Source of Information: Reports: Patient, RN Notes Reviewed - History of Present Illness INITIAL COMMENTS - FREE TEXT/NARRATIVE: 82-year-old female comes in by ambulance with history of abdominal cramps, nausea, vomiting, generalized weakness. she was just released from a [facility] last evening after having been sent there with episodes of V. tach and possible internal defibrillator oversensitivity. Shocked 10 or 11 times Saturday morning 3 days ago. She was evaluated briefly here at this ED and then transferred to [facility]. Her daughter tells me that she was having episodes of V. tach but that they also reduce the sensitivity of the internal defibrillator and lower the pacemaker rate sensitivity as well. Patient was feeling well yesterday not having any unusual symptoms. She had a hamburger last evening along with the rest of the family and then eggs and toast for breakfast. Shortly after eating breakfast this morning she became nauseated, had some abdominal cramps and then vomited and also had an episode or 2 of watery diarrhea. No major abdominal discomfort on arrival to ED. She still feels nauseated, weak, tired and dizzy. No chest pain or difficulty breathing. Abdominal Pain Score (Numeric/FACES): 6 - Related Data Allergies Allergy/AdvReac Type Severity Reaction Status Date / Time codeine AdvReac Vomiting Verified 05/18/17 10:42 Home Meds: Home Meds Furosemide [Lasix] 20 mg PO DAILY PRN 12/07/16 [History] Aspirin 81 mg PO DAILY 12/24/16 [History] Ascorbic Acid [Vitamin C] 500 mg PO DAILY 01/21/17 [History] Calcium Carbonate [Calcium] 600 mg PO DAILY 01/21/17 [History] Cholecalciferol (Vitamin D3) [Vitamin D3] 5,000 units PO DAILY 01/21/17 [History ] Cyanocobalamin (Vitamin B-12) [Vitamin B-12] 1,000 mcg PO DAILY 01/21/17 [ History] Metoprolol Succinate [Toprol XL] 50 mg PO DAILY 01/21/17 [History] Magnesium Oxide 400 mg PO BID #30 tablet 01/26/17 [Rx] Potassium Chloride 20 meq PO DAILY 05/12/17 [History] Acetaminophen [Tylenol Extra Strength] 500 mg PO Q6H PRN 05/18/17 [History] Amiodarone [Cordarone] 400 mg PO BID 05/18/17 [History] Isosorbide Mononitrate [Imdur] 30 mg PO DAILY 05/18/17 [History] L. Acidophilus/Pectin, [place] [Acidophilus Capsule] 1 tab PO DAILY 05/18/17 [ History] Losartan [Cozaar] 50 mg PO DAILY 05/18/17 [History] Metoprolol Succinate 25 mg PO BEDTIME 05/18/17 [History] Past Medical History HEENT History: Reports: Hard of Hearing, Impaired Vision Other HEENT History: has a hearing aid on right, wears glasses, has upper denture Cardiovascular History: Reports: Afib, Arrhythmia, Cardiomyopathy, High Cholesterol, Hypertension, Other (See Below) Other Cardiovascular History: pacer and AICD placed 01/08/17 Respiratory History: Reports: None, SOB Gastrointestinal History: Reports: GERD, PUD Other Gastrointestinal History: Gastric ulcer Genitourinary History: Reports: Chronic Renal Insuffiency, Urinary Incontinence Other Genitourinary History: possible cystocele, urinary frequency 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 (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) Other OB/BYN History: hysterectomy Musculoskeletal History: Reports: Osteoporosis Neurological History: Reports: None Psychiatric History: Reports: None Endocrine/Metabolic History: Reports: None Hematologic History: Reports: Anemia, Iron Deficiency, Other (See Below) Other Hematologic History: DVT Immunologic History: Reports: None Oncologic (Cancer) History: Reports: None Dermatologic History: Reports: None - Infectious Disease History Infectious Disease History: Reports: Chicken Pox, Measles, Mumps, Shingles - Past Surgical History Head Surgeries/Procedures: Reports: None HEENT Surgical History: Reports: Tonsillectomy Cardiovascular Surgical History: Reports: AICD, Pacer GI Surgical History: Reports: Colonoscopy, EGD, Other (See Below) Other GI Surgeries/Procedures: Some Hemmorrhoids removed, gastric resection Female Surgical History: Reports: Hysterectomy Endocrine Surgical History: Reports: None Neurological Surgical History: Reports: None Musculoskeletal Surgical History: Reports: Knee Replacement Other Musculoskeletal Surgeries/Procedures:: right total knee replacement Dermatological Surgical History: Reports: None Social & Family History - Family History Family Medical History: Noncontributory Cardiac: Reports: Other (See Below) Neurological: Reports: Other (See Below) Oncologic: Reports: Other (See Below) - Tobacco Use Smoking Status *Q: Never Smoker Used Tobacco, but Quit: No Second Hand Smoke Exposure: No - Caffeine Use Caffeine Use: Reports: Coffee Other Caffeine Use: a lot of regular coffee. Caffeine Use Comment: "i drink 4 cups in the morning and then 2 in afternoon" - Alcohol Use Days Per Week of Alcohol Use: 0 - Recreational Drug Use Recreational Drug Use: No Drug Use in Last 12 Months: No - Living Situation & Occupation Living situation: Reports: , Alone Occupation: Retired ED ROS GENERAL - Review of Systems Review Of Systems: See Below Constitutional: Denies: Fever, Chills, Diaphoresis HEENT: Denies: Throat Pain Respiratory: Denies: Shortness of Breath, Wheezing, Pleuritic Chest Pain Cardiovascular: Denies: Chest Pain Endocrine: Reports: Fatigue GI/Abdominal: Reports: Abdominal Pain (intermittent upper abdominal cramps), Diarrhea (watery), Nausea, Vomiting (at least one set home prior to arrival) Musculoskeletal: Reports: Other (generalized achiness) Skin: Denies: Rash Neurological: Reports: Weakness (mild generalized). Denies: Trouble Speaking ED EXAM, GENERAL - Physical Exam Exam: See Below General Appearance: Alert, Mild Distress Eye Exam: Bilateral Eye: PERRL Throat/Mouth: Normal Inspection, Normal Oropharynx, Other (oral mucosa is mildly dry) Head: Atraumatic. No: Facial Swelling Neck: Supple, Full Range of Motion Respiratory/Chest: No Respiratory Distress, Lungs Clear, Normal Breath Sounds Cardiovascular: Regular Rate, Rhythm GI/Abdominal: Soft, Non-Tender. No: Guarding, Rebound Back Exam: No: CVA Tenderness (L), CVA Tenderness (R) Extremities: Normal Inspection. No: Pedal Edema, Leg Pain Neurological: Alert, Oriented, No Motor/Sensory Deficits Skin Exam: Warm, Dry, Normal Color Course - Vital Signs Last Recorded V/S: Last Vital Signs Temp 97.3 F 05/18/17 10:36 Pulse 64 05/18/17 16:19 Resp 20 05/18/17 16:19 BP 162/71 H 05/18/17 16:19 Pulse Ox 98 05/18/17 16:19 - Orders/Labs/Meds Orders: Active Orders 24 hr Category Date Time Status EKG 12 Lead [EKG Documentation Completion] [RC] STAT Care 05/18/17 10:55 Active Peripheral IV Care [RC] . DIRECTED Care 05/18/17 10:56 Active Abdomen 2V AP Flat Upright [CR] Stat Exams 05/18/17 11:31 Taken Chest 1V Frontal [CR] Stat Exams 05/18/17 11:33 Taken Peripheral IV Insertion Adult [OM.PC] Stat Oth 05/18/17 10:55 Ordered Labs: Laboratory Tests 05/18/17 05/18/17 05/18/17 Range/Units 11:05 11:05 13:10 WBC 11.57 H (3.98-10.04) K/mm3 RBC 4.21 (3.98-5.22) M/mm3 Hgb 11.8 (11.2-15.7) gm/L Hct 36.6 (34.1-44.9) % MCV 86.9 (79.4-94.8) fl MCH 28.0 (25.6-32.2) pg MCHC 32.2 (32.2-35.5) g/dl RDW Std Deviation 52.1 H (36.4-46.3) fL Plt Count 295 (182-369) K/mm3 MPV 10.4 (9.4-12.3) fl Neut % (Auto) 85.0 H (34.0-71.1) % Lymph % (Auto) 8.4 L (19.3-51.7) % [place] % (Auto) 5.5 (4.7-12.5) % Eos % (Auto) 0.6 L (0.7-5.8) Baso % (Auto) 0.2 (0.1-1.2) % Neut # (Auto) 9.84 H (1.56-6.13) K/mm3 Lymph # (Auto) 0.97 L (1.18-3.74) K/mm3 [place] # (Auto) 0.64 H (0.24-0.36) K/mm3 Eos # (Auto) 0.07 (0.04-0.36) K/mm3 Baso # (Auto) 0.02 (0.01-0.08) K/mm3 Sodium 143 (136-145) mEq/L Potassium 4.0 (3.5-5.1) mEq/L Chloride 107 (98-107) mEq/L Carbon Dioxide 27 (21-32) mEq/L Anion Gap 13.0 (5-15) BUN 27 H (7-18) mg/dL Creatinine 1.4 H (0.55-1.02) mg/dL Est Cr Clr Drug Dosing TNP Estimated GFR (MDRD) 36 (>60) mL/min BUN/Creatinine Ratio 19.3 H (14-18) Glucose 139 H (83-115) mg/dL Calcium 9.6 (8.5-10.1) mg/dL Total Bilirubin 0.6 (0.2-1.0) mg/dL AST 33 (15-37) U/L ALT 13 L (14-59) U/L Alkaline Phosphatase 111 (46-116) U/L Troponin I 0.109 H* 0.089 H* (0.00-0.056) ng/mL Total Protein 7.1 (6.4-8.2) g/dl Albumin 3.0 L (3.4-5.0) g/dl Globulin 4.1 gm/dL Albumin/Globulin Ratio 0.7 L (1-2) Meds: Medications Discontinued Medications Generic Name Dose Route Start Last Admin Trade Name Freq PRN Reason Stop Dose Admin Sodium Chloride 1,000 mls @ 150 mls/hr 05/18/17 11:00 05/18/17 15:46 Normal Saline IV 999 mls/hr ASDIRECTED CHIKI Infusion Sodium Chloride 500 mls @ 999 mls/hr 05/18/17 15:39 05/18/17 16:15 Normal Saline IV 05/18/17 16:09 999 mls/hr .BOLUS ONE Administration Ondansetron HCl 4 mg 05/18/17 10:58 05/18/17 16:16 Zofran IVPUSH 05/18/17 10:59 Not Given ONETIME ONE Sodium Chloride 10 ml 05/18/17 10:55 05/18/17 11:24 Saline Flush FLUSH 10 ml ASDIRECTED PRN Administration Keep Vein Open - Re-Assessments/Exams Free Text/Narrative Re-Assessment/Exam: 05/18/17 15:43. Her initial trop was mildly elevated, likely relatedto sx of tachycardia and internal defibrillater discharging multiple times 3 days ago. Repeat trop has come lower than the initial. patient had multiple episodes of diarrhea shortly after arrival to the ED. She also did have at least one episode of watery diarrhea at home prior to arrival. She also vomited at least once prior to arrival. Intermittent abdominal cramps fairly well gone at time of initial exam. Family ate the same food as her last evening and again this morning. No one else is ill. We've treated her with IV fluid and also IV Zofran. She did sleep for a while resulting in prolonged length of stay. Family wanted to give her some time to see how her sx progressed. She did eat some Jell -O a short time ago after awakening and then had diarrhea fairly quickly after that. However in general she feels and looks much improvedfrom arrival. she does feel Up to going home on clear liquids. Her daughter will run right now, fill a prescription for Zofran and get probiotic. We then will discharge her home on clear liquids. Departure - Departure Time of Disposition: 16:30 Disposition: Home, Self-Care 01 Condition: Fair Clinical Impression: Vomiting Qualifiers: Vomiting type: unspecified Vomiting Intractability: non-intractable Nausea presence: with nausea Qualified Code(s): R11.2 - Nausea with vomiting, unspecified Diarrhea Qualifiers: Diarrhea type: unspecified type Qualified Code(s): R19.7 - Diarrhea, unspecified Instructions: Nausea and Vomiting, Adult Referrals: Ko Pretty MD [Primary Care Provider] - Forms: ED Department Discharge Additional Instructions: rest, clear liquids only until tomorrow afternoon then very careful bland diet as tolerated if diarrhea and vomiting resolving as expected, Zofran every 6-8 hours if needed for severe nausea or vomiting, probiotic 2-3 times daily until after diarrhea has completely resolved, the diarrhea may take 1-3 days or longer to completely resolve. However symptoms should gradually be getting better a by day. Return to ED if you feel that you're becoming dehydrated or if symptoms otherwise worsening in any way. Follow-up clinic next week as needed. - My Orders Last 24 Hours: My Active Orders 05/18/17 10:55 EKG 12 Lead [EKG Documentation Completion] [RC] STAT Peripheral IV Insertion Adult [OM.PC] Stat 05/18/17 10:56 Peripheral IV Care [] . DIRECTED 05/18/17 11:31 Abdomen 2V AP Flat Upright [CR] Stat 05/18/17 11:33 Chest 1V Frontal [CR] Stat - Assessment/Plan Last 24 Hours: My Active Orders 05/18/17 10:55 EKG 12 Lead [EKG Documentation Completion] [RC] STAT Peripheral IV Insertion Adult [OM.PC] Stat 05/18/17 10:56 Peripheral IV Care [RC] . DIRECTED 05/18/17 11:31 Abdomen 2V AP Flat Upright [CR] Stat 05/18/17 11:33 Chest 1V Frontal [CR] Stat
[2017-05-18] MEDS ORDERED: Sodium Chloride 0.9% 500 ML IV ONE (15:39)
[2017-05-18 16:19] VITALS: BP 162/71
--- NOTE | 2017-05-19 18:06 | CR ---
Abdomen: Supine and upright views of the abdomen were obtained. Comparison: Previous CT abdomen and pelvis exam of 01/21/17 and abdominal x-ray of 02/19/15. Calcifications noted within the upper right abdomen. This most likely represents gallstones. These are seen on prior CT exam. Bowel gas pattern appears within normal limits. Bony structures appear within normal limits for the patient's age. No free air is identified. Impression: 1. Gallstones. 2. Other portions of the abdominal x-ray show nothing acute. Diagnostic code #2
--- NOTE | 2017-05-19 18:06 | CR ---
Chest: Frontal view of the chest was obtained. Comparison: Previous chest x-ray of 05/15/17. Heart size is slightly enlarged. AICD is noted. Lungs are clear. Mild scoliosis and degenerative change are seen within the spine. Sclerotic lesion is seen within the proximal right humerus which is incidental. Impression: 1. Stable findings as described above. Nothing acute is identified. Diagnostic code #2
== END 2017-05-18 16:40 | disposition home or self-care (01) ==
LOC: JD.ED 10:31
DX: R11.2 Nausea with vomiting, unspecified (principal); R19.7 Diarrhea, unspecified; E78.00 Pure hypercholesterolemia, unspecified; K21.9 Gastro-esophageal reflux disease without esophagitis; Z88.5 Allergy status to narcotic agent; Z79.899 Other long term (current) drug therapy; Z79.82 Long term (current) use of aspirin; Z86.2 Personal history of diseases of the blood and blood-forming organs and certain disorders involving the immune mechanism
CPT/HCPCS: 36415; 71010; 74020; 80053; 84484; 85025; 93005; 96361; 96374; 99284; J2405; J7040; J7050

== ENCOUNTER 2017-06-03 19:58 | Emergency (ER) | payer MEDICARE, OTHER ==
[2017-06-03] MEDS ORDERED: Sodium Chloride 0.9% 10 ML Syringe FLUSH PRN (20:07)
[2017-06-03] MEDS ORDERED: Nitroglycerin 2% Oint 1 GM UD Packet TOP ONE (20:14)
[2017-06-03] MEDS ORDERED: Ondansetron 4 MG/2 ML SDV IVPUSH ONE (20:14)
[2017-06-03] MEDS ORDERED: Aspirin 81 MG Tab.Chew PO ONE (20:15)
--- NOTE | 2017-06-03 21:00 | EDM.PDOC ---
ED HPI GENERAL MEDICAL PROBLEM - General Chief Complaint: Chest Pain Stated Complaint: BOTH OF ARMS NUMB Time Seen by Provider: 06/03/17 20:07 Source of Information: Reports: Patient, RN Notes Reviewed - History of Present Illness INITIAL COMMENTS - FREE TEXT/NARRATIVE: 82-year-old female comes in with anterior chest discomfort. This started about 1 -1/2 hours ago. She feels an achiness and tightness across her anterior chest with radiation to both arms. She feels very mildly short of breath. She does have history of known coronary artery disease, has an internal defibrillator that discharged a total of 11 times about 3 weeks ago. Initially seen in our ED and then transferred to [facility]. I've been told by family that some of the settings were changed on her defibrillator at that time, there may have been increased sensitivity. She has had some nausea but that is now better. In vomiting. Not been coughing any more than usual and no fever or chills. She was feeling fine earlier today. Bilateral Chest Pain Score (Numeric/FACES): 5 - Related Data Allergies Allergy/AdvReac Type Severity Reaction Status Date / Time codeine AdvReac Vomiting Verified 06/03/17 20:05 Home Meds: Home Meds Furosemide [Lasix] 20 mg PO DAILY PRN 12/07/16 [History] Aspirin 81 mg PO DAILY 12/24/16 [History] Ascorbic Acid [Vitamin C] 500 mg PO DAILY 01/21/17 [History] Cholecalciferol (Vitamin D3) [Vitamin D3] 5,000 units PO DAILY 01/21/17 [History ] Cyanocobalamin (Vitamin B-12) [Vitamin B-12] 1,000 mcg PO DAILY 01/21/17 [ History] Metoprolol Succinate [Toprol XL] 25 mg PO DAILY 01/21/17 [History] Magnesium Oxide 400 mg PO BID #30 tablet 01/26/17 [Rx] Potassium Chloride 20 meq PO DAILY 05/12/17 [History] Acetaminophen [Tylenol Extra Strength] 500 mg PO Q6H PRN 05/18/17 [History] Amiodarone [Cordarone] 200 mg PO DAILY 05/18/17 [History] Isosorbide Mononitrate [Imdur] 30 mg PO DAILY 05/18/17 [History] L. Acidophilus/Pectin, [place] [Acidophilus Capsule] 1 tab PO DAILY 05/18/17 [ History] Losartan [Cozaar] 50 mg PO DAILY 05/18/17 [History] Past Medical History HEENT History: Reports: Hard of Hearing, Impaired Vision Other HEENT History: has a hearing aid on right, wears glasses, has upper denture Cardiovascular History: Reports: Afib, Arrhythmia, Blood Clots/VTE/DVT, Cardiomyopathy, High Cholesterol, Hypertension, Other (See Below) Other Cardiovascular History: pacer and AICD placed 01/08/17 Respiratory History: Reports: None, SOB Gastrointestinal History: Reports: Diverticulosis, GERD, PUD Other Gastrointestinal History: Gastric ulcer Genitourinary History: Reports: Chronic Renal Insuffiency, Urinary Incontinence Other Genitourinary History: possible cystocele, urinary frequency 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 (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) Other OB/BYN History: hysterectomy Musculoskeletal History: Reports: Osteoporosis Neurological History: Reports: None Psychiatric History: Reports: None Endocrine/Metabolic History: Reports: None Hematologic History: Reports: Anemia, Iron Deficiency, Other (See Below) Other Hematologic History: DVT Immunologic History: Reports: None Oncologic (Cancer) History: Reports: None Dermatologic History: Reports: None - Infectious Disease History Infectious Disease History: Reports: Chicken Pox, Measles, Mumps, Shingles - Past Surgical History Head Surgeries/Procedures: Reports: None HEENT Surgical History: Reports: Tonsillectomy Cardiovascular Surgical History: Reports: AICD, Pacer GI Surgical History: Reports: Colonoscopy, EGD, Other (See Below) Other GI Surgeries/Procedures: Some Hemmorrhoids removed, gastric resection Female Surgical History: Reports: Hysterectomy Endocrine Surgical History: Reports: None Neurological Surgical History: Reports: None Musculoskeletal Surgical History: Reports: Knee Replacement Other Musculoskeletal Surgeries/Procedures:: right total knee replacement Dermatological Surgical History: Reports: None Social & Family History - Family History Family Medical History: Noncontributory Cardiac: Reports: Other (See Below) Neurological: Reports: Other (See Below) Oncologic: Reports: Other (See Below) - Tobacco Use Smoking Status *Q: Never Smoker Used Tobacco, but Quit: No Second Hand Smoke Exposure: No - Caffeine Use Caffeine Use: Reports: Coffee Other Caffeine Use: a lot of regular coffee. Caffeine Use Comment: "i drink 4 cups in the morning and then 2 in afternoon" - Alcohol Use Days Per Week of Alcohol Use: 0 - Recreational Drug Use Recreational Drug Use: No Drug Use in Last 12 Months: No - Living Situation & Occupation Living situation: Reports: , Alone Occupation: Retired ED ROS GENERAL - Review of Systems Review Of Systems: See Below HEENT: Denies: Sinus Problem, Throat Pain Respiratory: Reports: Shortness of Breath. Denies: Wheezing (Mild), Cough Cardiovascular: Reports: Chest Pain, Lightheadedness (Anterior chest) GI/Abdominal: Reports: Nausea. Denies: Abdominal Pain, Vomiting (Now better) Musculoskeletal: Reports: Shoulder Pain, Arm Pain. Denies: Neck Pain, Back Pain Skin: Denies: Rash Neurological: Reports: Weakness (Mild generalized). Denies: Numbness, Tingling ED EXAM, GENERAL - Physical Exam Exam: See Below General Appearance: Alert, Mild Distress Eye Exam: Bilateral Eye: PERRL Throat/Mouth: Normal Inspection, Normal Oropharynx Head: Atraumatic. No: Facial Swelling Neck: Supple, Full Range of Motion, Other Respiratory/Chest: No Respiratory Distress (No JVD visible), Lungs Clear, Normal Breath Sounds. No: Rales, Rhonchi, Wheezing Cardiovascular: Regular Rate, Rhythm GI/Abdominal: Soft, Non-Tender Back Exam: No: CVA Tenderness (L), CVA Tenderness (R) Extremities: Normal Inspection. No: Pedal Edema, Leg Pain Neurological: Alert, Oriented, No Motor/Sensory Deficits Skin Exam: Warm, Dry, Normal Color EKG INTERPRETATION EKG Date: 06/03/17 Rhythm: NSR Rate (Beats/Min): 66 [place]: LAD-Left [place] Deviation P-Wave: Present QRS: Other (IVCD,q waves inf. and anterior leads) Course - Vital Signs Last Recorded V/S: Last Vital Signs Temp 97.6 F 06/03/17 20:05 Pulse 60 06/03/17 23:30 Resp 15 06/03/17 23:30 BP 155/66 H 06/03/17 23:30 Pulse Ox 96 06/03/17 23:30 - Orders/Labs/Meds Orders: Active Orders 24 hr Category Date Time Status EKG 12 Lead [EKG Documentation Completion] [RC] STAT Care 06/03/17 20:07 Active Peripheral IV Care [RC] . DIRECTED Care 06/03/17 20:08 Active Chest 1V Frontal [CR] Stat Exams 06/03/17 20:14 Taken Peripheral IV Insertion Adult [OM.PC] Stat Oth 06/03/17 20:07 Ordered Labs: Laboratory Tests 06/03/17 06/03/17 06/03/17 Range/Units 20:20 20:20 22:15 WBC 9.57 (3.98-10.04) K/mm3 RBC 3.97 L (3.98-5.22) M/mm3 Hgb 11.5 (11.2-15.7) gm/L Hct 34.9 (34.1-44.9) % MCV 87.9 (79.4-94.8) fl MCH 29.0 (25.6-32.2) pg MCHC 33.0 (32.2-35.5) g/dl RDW Std Deviation 55.5 H (36.4-46.3) fL Plt Count 254 (182-369) K/mm3 MPV 10.9 (9.4-12.3) fl Neut % (Auto) 69.8 (34.0-71.1) % Lymph % (Auto) 20.9 (19.3-51.7) % [place] % (Auto) 6.8 (4.7-12.5) % Eos % (Auto) 2.0 (0.7-5.8) Baso % (Auto) 0.4 (0.1-1.2) % Neut # (Auto) 6.68 H (1.56-6.13) K/mm3 Lymph # (Auto) 2.00 (1.18-3.74) K/mm3 [place] # (Auto) 0.65 H (0.24-0.36) K/mm3 Eos # (Auto) 0.19 (0.04-0.36) K/mm3 Baso # (Auto) 0.04 (0.01-0.08) K/mm3 Sodium 138 (136-145) mEq/L Potassium 4.1 (3.5-5.1) mEq/L Chloride 104 (98-107) mEq/L Carbon Dioxide 21 (21-32) mEq/L Anion Gap 17.1 H (5-15) BUN 33 H (7-18) mg/dL Creatinine 1.6 H (0.55-1.02) mg/dL Est Cr Clr Drug Dosing 21.81 mL/min Estimated GFR (MDRD) 31 (>60) mL/min BUN/Creatinine Ratio 20.6 H (14-18) Glucose 204 H (83-115) mg/dL Calcium 8.9 (8.5-10.1) mg/dL Total Bilirubin 0.3 (0.2-1.0) mg/dL AST 16 (15-37) U/L ALT 11 L (14-59) U/L Alkaline Phosphatase 143 H (46-116) U/L Troponin I < 0.017 < 0.017 (0.00-0.056) ng/mL NT-Pro-B Natriuret Pep 2395 H (0-450) pg/mL Total Protein 6.9 (6.4-8.2) g/dl Albumin 3.3 L (3.4-5.0) g/dl Globulin 3.6 gm/dL Albumin/Globulin Ratio 0.9 L (1-2) Meds: Medications Discontinued Medications Generic Name Dose Route Start Last Admin Trade Name Freq PRN Reason Stop Dose Admin Aspirin 324 mg 06/03/17 20:15 06/03/17 20:41 Aspirin PO 06/03/17 20:16 324 mg ONETIME ONE Administration Nitroglycerin 1 gm 06/03/17 20:14 06/03/17 20:42 Nitro-Bid 2% TOP 06/03/17 20:15 1 gm ONETIME ONE Administration Ondansetron HCl 4 mg 06/03/17 20:14 06/03/17 20:45 Zofran IVPUSH 06/03/17 20:15 4 mg ONETIME ONE Administration Sodium Chloride 10 ml 06/03/17 20:07 06/03/17 20:20 Saline Flush FLUSH 10 ml ASDIRECTED PRN Administration Keep Vein Open - Re-Assessments/Exams Free Text/Narrative Re-Assessment/Exam: 06/04/17 02:01. Patient was treated with ASA 324 by mouth and also nitroglycerin paste. Her discomfort went away almost immediately after arrival to ED. Initial troponin came back normal. Chest x-ray did not show acute abnormality. Lab work otherwise fairly unremarkable. BNP somewhat elevated but not extremely high. O2 sats continued to run 98-100% room air. She alternated between paced rhythm and sinus rhythm rate running in the 60s. We did do a repeat 2 hour troponin that also came back negative. She looked well and felt well enough to go home. Discharge instructions as documented. Departure - Departure Time of Disposition: 23:34 Disposition: Home, Self-Care 01 Condition: Fair Clinical Impression: Atypical chest pain Instructions: Nonspecific Chest Pain Referrals: Ko Pretty MD [Primary Care Provider] - Forms: ED Department Discharge Additional Instructions: Rest, drink plenty of water to maintain hydration, continue current medications as prescribed, see Dr. Cheema early June as planned, if you have further episodes of chest discomfort than see him in follow-up as soon as possible, return to ED if symptoms worsening in any way. - My Orders Last 24 Hours: My Active Orders 06/03/17 20:07 EKG 12 Lead [EKG Documentation Completion] [RC] STAT Peripheral IV Insertion Adult [OM.PC] Stat 06/03/17 20:08 Peripheral IV Care [RC] . DIRECTED 06/03/17 20:14 Chest 1V Frontal [CR] Stat - Assessment/Plan Last 24 Hours: My Active Orders 06/03/17 20:07 EKG 12 Lead [EKG Documentation Completion] [RC] STAT Peripheral IV Insertion Adult [OM.PC] Stat 06/03/17 20:08 Peripheral IV Care [RC] . DIRECTED 06/03/17 20:14 Chest 1V Frontal [CR] Stat
[2017-06-03 23:35] VITALS: BP 155/66
--- NOTE | 2017-06-04 06:57 | CR ---
Chest: Portable view of the chest was obtained. Comparison: Previous chest x-ray of 05/18/17. Heart is mildly enlarged. AICD is noted. Upper mediastinum is within normal limits. Lungs are clear. Bony structures are osteopenic. Mild scoliosis is present within the spine. Impression: 1. Incidental findings. Nothing acute is identified on portable chest x-ray. Diagnostic code #2
== END 2017-06-03 23:40 | disposition home or self-care (01) ==
LOC: JD.ED 19:58
DX: R07.89 Other chest pain (principal); I12.9 Hypertensive chronic kidney disease with stage 1 through stage 4 chronic kidney disease, or unspecified chronic kidney disease; N18.9 Chronic kidney disease, unspecified; Z88.5 Allergy status to narcotic agent; Z79.82 Long term (current) use of aspirin; Z79.899 Other long term (current) drug therapy; I48.91 Unspecified atrial fibrillation; E78.00 Pure hypercholesterolemia, unspecified; K21.9 Gastro-esophageal reflux disease without esophagitis; I25.10 Atherosclerotic heart disease of native coronary artery without angina pectoris
CPT/HCPCS: 36415; 71010; 80053; 83880; 84484; 85025; 93005; 96374; 99285; A9270; J2405; J7050; 93010

== ENCOUNTER 2017-09-10 08:40 | Emergency (ER) | payer MEDICARE, OTHER ==
[2017-09-10] MEDS ORDERED: Sodium Chloride 0.9% 10 ML Syringe FLUSH ONE (09:39)
--- NOTE | 2017-09-10 09:42 | EDM.PDOC ---
ED HPI GENERAL MEDICAL PROBLEM - General Chief Complaint: Chest Pain Stated Complaint: CHEST PAIN Time Seen by Provider: 09/10/17 09:42 Source of Information: Reports: Patient History Limitations: Reports: No Limitations - History of Present Illness INITIAL COMMENTS - FREE TEXT/NARRATIVE: 82-year-old female attends the ED due to persistent right anterior chest pain which is quite sharp and stabbing eye pleuritic component to the pain. She has a mild cough with fracture for the most part is been nonproductive. No hemoptysis. No associated fever chills. Pain is worsened by deep inspiration. No recent travel history is already on Eliquis is unlikely to be able to form a clot. Pain is worsened by certain movements suggesting chest wall origin. It's been present off and on for the last 2 days. When the pain comes it makes her feel short of breath but otherwise she does not feel she is any worse than normal. She still on amoxicillin that she started a week ago for suspect diverticulitis and she feels this is getting better. No diarrhea has occurred from the amoxicillin. Onset: Sudden Onset Date: 09/08/17 Duration: Day(s):, Intermittent, Waxing/Waning Location: Reports: Chest (Right precordial chest.) Quality: Reports: Ache, Sharp (Pleuritic), Stabbing, Other Severity: Moderate Improves with: Reports: Rest Worsens with: Reports: Other, Movement (Deep breathing or coughing certain movements will set off as well.) Context: Denies: Activity, Exercise, Lifting, Sick Contact, Trauma, Other Associated Symptoms: Reports: Chest Pain (Patient is able to localize the pain quite well to her right anterior chest particularly ribs 4 and 5.), Cough, Malaise. Denies: cough w sputum (Mild with minimal sputum production.), Diaphoresis, Fever/Chills, Headaches, Loss of Appetite, Nausea/Vomiting, Rash, Seizure, Shortness of Breath, Syncope Treatments TRIMMER MEAT: Reports: Acetaminophen Right Chest Pain Score (Numeric/FACES): 4 - Related Data Allergies Allergy/AdvReac Type Severity Reaction Status Date / Time codeine AdvReac Vomiting Verified 06/03/17 20:05 Home Meds: Home Meds Aspirin 81 mg PO DAILY 12/24/16 [History] Metoprolol Succinate [Toprol XL] 25 mg PO DAILY 01/21/17 [History] Magnesium Oxide 400 mg PO BID #30 tablet 01/26/17 [Rx] Amiodarone [Cordarone] 200 mg PO DAILY 05/18/17 [History] Isosorbide Mononitrate [Imdur] 30 mg PO DAILY 05/18/17 [History] L. Acidophilus/Pectin, [place] [Acidophilus Capsule] 1 tab PO DAILY 05/18/17 [ History] Losartan [Cozaar] 50 mg PO DAILY 05/18/17 [History] Amoxicillin/Potassium Clav [Amox-Clav 500-125 mg Tablet] 1 tab PO BID 09/10/17 [ History] Apixaban [Eliquis] 2.5 mg PO BID 09/10/17 [History] Levofloxacin [Levaquin] 500 mg PO DAILY #7 tab 09/10/17 [Rx] Linaclotide [Linzess] 145 mcg PO DAILY 09/10/17 [History] Prednisone [IJD: predniSONE] 20 mg PO BID #10 tab 09/10/17 [Rx] Past Medical History HEENT History: Reports: Hard of Hearing, Impaired Vision Other HEENT History: has a hearing aid on right, wears glasses, has upper denture Cardiovascular History: Reports: Afib, Arrhythmia, Blood Clots/VTE/DVT, Cardiomyopathy, High Cholesterol, Hypertension, Other (See Below) Other Cardiovascular History: pacer and AICD placed 01/08/17 Respiratory History: Reports: None, SOB Gastrointestinal History: Reports: Diverticulosis, GERD, PUD Other Gastrointestinal History: Gastric ulcer Genitourinary History: Reports: Chronic Renal Insuffiency, Urinary Incontinence Other Genitourinary History: possible cystocele, urinary frequency [employer]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 (See Below) Other OB/BYN History: hysterectomy Musculoskeletal History: Reports: Osteoporosis Neurological History: Reports: None Psychiatric History: Reports: None Endocrine/Metabolic History: Reports: None Hematologic History: Reports: Anemia, Iron Deficiency, Other (See Below) Other Hematologic History: DVT Immunologic History: Reports: None Oncologic (Cancer) History: Reports: None Dermatologic History: Reports: None - Infectious Disease History Infectious Disease History: Reports: Chicken Pox, Measles, Mumps, Shingles - Past Surgical History Head Surgeries/Procedures: Reports: None HEENT Surgical History: Reports: Tonsillectomy Cardiovascular Surgical History: Reports: AICD, Pacer GI Surgical History: Reports: Colonoscopy, EGD, Other (See Below) Other GI Surgeries/Procedures: Some Hemmorrhoids removed, gastric resection Female Surgical History: Reports: Hysterectomy Endocrine Surgical History: Reports: None Neurological Surgical History: Reports: None Musculoskeletal Surgical History: Reports: Knee Replacement Other Musculoskeletal Surgeries/Procedures:: right total knee replacement Dermatological Surgical History: Reports: None Social & Family History - Family History Family Medical History: Noncontributory Cardiac: Reports: Other (See Below) Neurological: Reports: Other (See Below) Oncologic: Reports: Other (See Below) - Tobacco Use Smoking Status *Q: Never Smoker Used Tobacco, but Quit: No Second Hand Smoke Exposure: No - Caffeine Use Caffeine Use: Reports: Coffee Other Caffeine Use: a lot of regular coffee. Caffeine Use Comment: "i drink 4 cups in the morning and then 2 in afternoon" - Alcohol Use Days Per Week of Alcohol Use: 0 - Recreational Drug Use Recreational Drug Use: No Drug Use in Last 12 Months: No - Living Situation & Occupation Living situation: Reports: , Alone Occupation: Retired ED ROS GENERAL - Review of Systems Review Of Systems: See Below Constitutional: Reports: Malaise, Decreased Appetite (Last week but better this week.). Denies: Fever, Chills, Weakness, Fatigue, Weight Loss HEENT: Reports: Glasses Respiratory: Reports: Shortness of Breath, Pleuritic Chest Pain, Cough (Only when the pain is present.). Denies: Wheezing (Right anterior chest.), Sputum, Hemoptysis Cardiovascular: Reports: Chest Pain, Blood Pressure Problem (See history of present illness), Dyspnea on Exertion (Chronically). Denies: Claudication, Edema, Lightheadedness, Orthopnea ( chronic hypertension) Endocrine: Reports: Fatigue GI/Abdominal: Reports: Abdominal Pain. Denies: Hematemesis, Hematochezia, Melena, Nausea (Had left lower quadrant dull pain last week which is resolving. Stools are normal.), Stool Incontinence, Vomiting : Reports: Incontinence (Some stress and urge incontinence.) Musculoskeletal: Reports: Back Pain, Joint Pain (Knees hips neck sometimes.) Skin: Reports: Bruising Neurological: Reports: No Symptoms Psychiatric: Reports: No Symptoms Hematologic/Lymphatic: Reports: No Symptoms ED EXAM, GENERAL - Physical Exam Exam: See Below Exam Limited By: No Limitations General Appearance: Alert, WD/WN, No Apparent Distress Eye Exam: Bilateral Eye: Normal Inspection (No jaundice.) Throat/Mouth: Normal Inspection, Normal Lips, Normal Teeth, Normal Oropharynx Head: Atraumatic, Normocephalic Neck: Normal Inspection, Supple, Non-Tender, Full Range of Motion. No: Lymphadenopathy (L), Lymphadenopathy (R) Respiratory/Chest: No Accessory Muscle Use, Rhonchi (Rhonchi heard throughout the right anterior and posterior lung hester. There is almost a pleural rub as well anteriorly right chest.), Other ( Patient is tender to palpation over fourth and fifth ribs right anterior chest wall. ). No: Lungs Clear, Normal Breath Sounds, Respiratory Distress Cardiovascular: Regular Rate, Rhythm, No Edema EKG INTERPRETATION EKG Date: 09/10/17 Time: 08:55 Rhythm: Other (100% atrial paced rhythm at 60 bpm.) Rate (Beats/Min): 60 [place]: LAD-Left [place] Deviation (Left axis deviation of -64.) P-Wave: Absent QRS: Other (There are Q waves basically from V3 to the 6 suggesting an old anteroseptal myocardial infarction. There are Q waves II, III, and F aVF again suggesting an old inferior wall myocardial infarction. There is deep T-wave inversion in leads 1 and aVL which by themselves are nonspecific but may represent ischemic change-a may represent a anterolateral infarct..) Course - Vital Signs Last Recorded V/S: Last Vital Signs Temp 36.8 C 09/10/17 09:12 Pulse 60 09/10/17 12:25 Resp 17 09/10/17 12:25 BP 159/57 H 09/10/17 12:25 Pulse Ox 100 09/10/17 12:25 - Orders/Labs/Meds Orders: Active Orders 24 hr Category Date Time Status Cardiac Monitoring [RC] . DIRECTED Care 09/10/17 09:35 Active EKG 12 Lead [EKG Documentation Completion] [RC] STAT Care 09/10/17 09:36 Active Labs: Laboratory Tests 09/10/17 09/10/17 09/10/17 Range/Units 09:00 09:00 09:00 WBC 9.71 (3.98-10.04) K/mm3 RBC 4.17 (3.98-5.22) M/mm3 Hgb 12.7 (11.2-15.7) gm/L Hct 38.8 (34.1-44.9) % MCV 93.0 (79.4-94.8) fl MCH 30.5 (25.6-32.2) pg MCHC 32.7 (32.2-35.5) g/dl RDW Std Deviation 50.0 H (36.4-46.3) fL Plt Count 283 (182-369) K/mm3 MPV 10.7 (9.4-12.3) fl Neut % (Auto) 74.6 H (34.0-71.1) % Lymph % (Auto) 16.8 L (19.3-51.7) % [place] % (Auto) 6.2 (4.7-12.5) % Eos % (Auto) 1.8 (0.7-5.8) Baso % (Auto) 0.4 (0.1-1.2) % Neut # (Auto) 7.25 H (1.56-6.13) K/mm3 Lymph # (Auto) 1.63 (1.18-3.74) K/mm3 [place] # (Auto) 0.60 H (0.24-0.36) K/mm3 Eos # (Auto) 0.17 (0.04-0.36) K/mm3 Baso # (Auto) 0.04 (0.01-0.08) K/mm3 PT 10.4 (8.0-13.0) SECONDS INR 0.96 D-Dimer, Quantitative (0.19-0.59) mg/L Sodium (136-145) mEq/L Potassium (3.5-5.1) mEq/L Chloride (98-107) mEq/L Carbon Dioxide (21-32) mEq/L Anion Gap (5-15) BUN (7-18) mg/dL Creatinine (0.55-1.02) mg/dL Est Cr Clr Drug Dosing Estimated GFR (MDRD) (>60) mL/min BUN/Creatinine Ratio (14-18) Glucose (83-115) mg/dL Calcium (8.5-10.1) mg/dL Magnesium (1.8-2.4) mg/dl Total Bilirubin (0.2-1.0) mg/dL AST (15-37) U/L ALT (14-59) U/L Alkaline Phosphatase (46-116) U/L CK-MB (CK-2) 1.0 (0-3.6) ng/ml Troponin I < 0.017 (0.00-0.056) ng/mL C-Reactive Protein (<1.0) mg/dL Total Protein (6.4-8.2) g/dl Albumin (3.4-5.0) g/dl Globulin gm/dL Albumin/Globulin Ratio (1-2) Urine Color (Yellow) Urine Appearance (Clear) Urine pH (5.0-8.0) Ur Specific [place] (1.005-1.030) Urine Protein (Negative) Urine Glucose (UA) (Negative) Urine Ketones (Negative) Urine Occult Blood (Negative) Urine Nitrite (Negative) Urine Bilirubin (Negative) Urine Urobilinogen (0.2-1.0) Ur Leukocyte Esterase (Negative) Urine RBC (0-5) /hpf Urine WBC (0-5) /hpf Ur Epithelial Cells (0-5) /hpf Urine Bacteria (FEW) /hpf Urine Mucus (FEW) /hpf Mycoplasma pneumon IgM (NEGATIVE) 09/10/17 09/10/17 09/10/17 Range/Units 09:00 09:00 09:45 WBC (3.98-10.04) K/mm3 RBC (3.98-5.22) M/mm3 Hgb (11.2-15.7) gm/L Hct (34.1-44.9) % MCV (79.4-94.8) fl MCH (25.6-32.2) pg MCHC (32.2-35.5) g/dl RDW Std Deviation (36.4-46.3) fL Plt Count (182-369) K/mm3 MPV (9.4-12.3) fl Neut % (Auto) (34.0-71.1) % Lymph % (Auto) (19.3-51.7) % [place] % (Auto) (4.7-12.5) % Eos % (Auto) (0.7-5.8) Baso % (Auto) (0.1-1.2) % Neut # (Auto) (1.56-6.13) K/mm3 Lymph # (Auto) (1.18-3.74) K/mm3 [place] # (Auto) (0.24-0.36) K/mm3 Eos # (Auto) (0.04-0.36) K/mm3 Baso # (Auto) (0.01-0.08) K/mm3 PT (8.0-13.0) SECONDS INR D-Dimer, Quantitative 0.55 (0.19-0.59) mg/L Sodium 143 (136-145) mEq/L Potassium 4.3 (3.5-5.1) mEq/L Chloride 108 H (98-107) mEq/L Carbon Dioxide 25 (21-32) mEq/L Anion Gap 14.3 (5-15) BUN 26 H (7-18) mg/dL Creatinine 1.6 H (0.55-1.02) mg/dL Est Cr Clr Drug Dosing TNP Estimated GFR (MDRD) 31 (>60) mL/min BUN/Creatinine Ratio 16.3 (14-18) Glucose 102 (83-115) mg/dL Calcium 9.7 (8.5-10.1) mg/dL Magnesium 2.2 (1.8-2.4) mg/dl Total Bilirubin 0.3 (0.2-1.0) mg/dL AST 14 L (15-37) U/L ALT 17 (14-59) U/L Alkaline Phosphatase 98 (46-116) U/L CK-MB (CK-2) (0-3.6) ng/ml Troponin I (0.00-0.056) ng/mL C-Reactive Protein 1.3 H* (<1.0) mg/dL Total Protein 7.1 (6.4-8.2) g/dl Albumin 3.2 L (3.4-5.0) g/dl Globulin 3.9 gm/dL Albumin/Globulin Ratio 0.8 L (1-2) Urine Color Yellow (Yellow) Urine Appearance Clear (Clear) Urine pH 6.0 (5.0-8.0) Ur Specific [place] 1.020 (1.005-1.030) Urine Protein Negative (Negative) Urine Glucose (UA) Negative (Negative) Urine Ketones Negative (Negative) Urine Occult Blood Negative (Negative) Urine Nitrite Negative (Negative) Urine Bilirubin Negative (Negative) Urine Urobilinogen 0.2 (0.2-1.0) Ur Leukocyte Esterase Negative (Negative) Urine RBC Not seen (0-5) /hpf Urine WBC 0-5 (0-5) /hpf Ur Epithelial Cells 0-5 (0-5) /hpf Urine Bacteria Few (FEW) /hpf Urine Mucus Not seen (FEW) /hpf Mycoplasma pneumon IgM Negative (NEGATIVE) Meds: Medications Discontinued Medications Generic Name Dose Route Start Last Admin Trade Name Mona PRN Reason Stop Dose Admin Sodium Chloride 10 ml 09/10/17 09:39 09/10/17 09:00 Saline Flush FLUSH 09/10/17 09:40 10 ml ONETIME ONE Administration - Radiology Interpretation Free Text/Narrative:: 82-year-old female brought to the ED for evaluation of right-sided precordial chest pain which has a strong pleuritic component. Hurts to breathe and on examination there are rhonchi throughout the posterior and anterior right chest . I feel there is a bit of a pleural rub anterior right chest as well. Chest wall pain elicited on palpation of ribs 3 form 5 on the right side adjacent to the costal cartilage. Patient is on Eliquis 2.5 twice a day chronically due to atrial fibrillation. She has a atrial paced rhythm on ECG at 60/m. 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 I suspect an infective process likely viral as the patient is afebrile but she is on amoxicillin 500 mg 3 times a day for suspected diverticulitis for the last week. Minimal sputum production. No hemoptysis. Plan routine labs to include cardiac markers. Two- view chest x-ray to be done. - Re-Assessments/Exams Free Text/Narrative Re-Assessment/Exam: 09/10/17 11:48 Labs reveal a white count of 9.71 with 75% neutrophils on auto differential. Hemoglobin is 12.7 with hematocrit of 38.8. Platelet count is 283, 000. PT is 10.4 with an INR of 0.96. D-dimer is 0.55. Sodium is 143 with a potassium of 4.3. Chloride 108 bicarbonate is 25. Anion gap is 14.3. BUNs 26. Creatinine is 1.6. GFR is 31 i.e. stage III chronic kidney disease. Glucose 102. Calcium 9.7 magnesium 2.2. Troponin 0.3. Liver function otherwise normal troponin I is less than 0.017. CK-MB is 1.0. No evidence of heart related illness. C-reactive protein is 1.3. Urinalysis is normal. Mycoplasma pneumonia titer is normal. Chest x-ray revealed no infiltrates. No obvious abnormalities of the ribs or pleura identified. Cardiac silhouette shows a prominent thoracic aorta and perhaps mild cardiomegaly. Her current chest pain therefore his chest wall in origin. 09/10/17 12:20: Patient advised of the findings on lab work. Due to the amount of rhonchi and special pleural rub with pleuritic chest pain I'm going to change her antibiotic. I will discontinue the amoxicillin and replace it with Levaquin 500 mg once daily for another [address] her on prednisone 20 mg with breakfast and supper for 5 days to relieve inflammation and pain she cannot use NSAIDs due to being on Eliquis. She will follow-up in clinic if not markedly improved in 3-5 days time. Departure - Departure Time of Disposition: 11:57 Disposition: Home, Self-Care 01 Condition: Fair Clinical Impression: Pleurisy without effusion, Right-sided chest wall pain Prescriptions: Levofloxacin [Levaquin] 500 mg PO DAILY #7 tab Prednisone [IJD: predniSONE] 20 mg PO BID #10 tab Instructions: Chest Wall Pain, [id number], Pleurisy, [id number] Referrals: Ko Pretty MD [Primary Care Provider] - Forms: ED Department Discharge Additional Instructions: Evaluation the emergency room this morning in regards to development of right- sided chest pain for the last several days which is quite sharp and stabbing and pleuritic meaning that it gets worse with deep breathing. Minimal associated cough. On examination I can hear rhonchi and a pleural rub on the right side that suggests that there is an active infection or inflammation in this area. Chest x-ray proved to be negative for any pneumonia at this time. It also did not reveal any obvious abnormalities of the pleura. There are calcifications in lymph nodes in your right armpit. Lab work was done and reveals no serious signs of infection and no evidence of heart related disease or blood clot in the lung. Therefore it appears that you have a developing infection in your right anterior chest wall which could be viral in origin. However I will change her antibiotic to Levaquin 500 mg once a day and you are to stop your current amoxicillin tablet that you're taking at this time. Also to take Tylenol as needed for pain relief. Also suggest use of prednisone 20 mg with breakfast and supper for 5 days to reduce inflammation and pain in the right chest wall. Follow-up with her normal normal care provider. Not markedly improved in 3-5 days time. - My Orders Last 24 Hours: My Active Orders 09/10/17 09:35 Cardiac Monitoring [RC] . DIRECTED 09/10/17 09:36 EKG 12 Lead [EKG Documentation Completion] [RC] STAT - Assessment/Plan Last 24 Hours: My Active Orders 09/10/17 09:35 Cardiac Monitoring [RC] . DIRECTED 09/10/17 09:36 EKG 12 Lead [EKG Documentation Completion] [RC] STAT
--- NOTE | 2017-09-10 11:16 | CR ---
Chest: Portable view of the chest is obtained. Comparison: Prior chest x-ray of 06/03/17. Heart size and mediastinum are within normal limits for portable technique. AICD is seen. Lungs are clear. Sclerotic lesion is noted within the right proximal humerus which is stable. Calcification is seen within the soft tissues of the right axillary region which most likely represents an incidental calcified lymph node. Impression: 1. Nothing acute is seen on portable chest x-ray. Diagnostic code #2
[2017-09-10 14:32] VITALS: BP 159/57
== END 2017-09-10 12:40 | disposition home or self-care (01) ==
LOC: JD.ED 08:40
DX: R09.1 Pleurisy (principal); Z88.5 Allergy status to narcotic agent; Z79.82 Long term (current) use of aspirin; Z79.899 Other long term (current) drug therapy
CPT/HCPCS: 36415; 71045; 80053; 81001; 82553; 83735; 84484; 85025; 85379; 85610; 86140; 86738; 93005; 99285; J7050

== ENCOUNTER 2017-12-04 20:07 | Emergency (ER) | payer MEDICARE, OTHER ==
[2017-12-04 20:20] VITALS: BP 175/76
--- NOTE | 2017-12-04 20:34 | EDM.PDOC ---
ED HPI GENERAL MEDICAL PROBLEM - General Chief Complaint: Back Pain or Injury Stated Complaint: LEFT SIDE/BACK PAIN Time Seen by Provider: 12/04/17 20:29 Source of Information: Reports: Patient, Family (daughter) History Limitations: Reports: No Limitations - History of Present Illness INITIAL COMMENTS - FREE TEXT/NARRATIVE: 82-year-old female presents to the ED with diffuse low back pain particularly along the lower part of her rib cage bilaterally worse on the left as compared to the right. Does hurt at times take a deep breath. She denies cough or sputum production no fever or chills. She states that she was little constipated after having the stomach flu 6 weeks ago and had to take a laxative for a period of time but now feels her bowels are pretty well back to normal. She is aware of a gurgling bubbling sensation in her left upper quadrant of her abdomen which is most likely coming from the bowel. Her appetite is fair. She denies any falls or recent injuries to hurt her back. She has received a massage today which seemed to help somewhat. She states she is having difficulty getting in and out of bed and a note of the easy chair. Has no history of compression fracture in her thoracic spine. She is in chronic atrial fibrillation and is on Eliquis 2.5 mg twice a day. Denies any genitourinary complaints. Onset: Gradual Onset Date: 11/27/17 Duration: Day(s):, Getting Worse, Intermittent Location: Reports: Abdomen (Feels along her left lower rib cage.), Back ( Diffuse pain across the lower back mostly on the left side.) Quality: Reports: Ache, Other Severity: Moderate (Worse with certain movements. Rates it as 3 or 4 out of 10 at rest but goes up to 5 or 6 with movement.) Worsens with: Reports: Other, Movement Context: Denies: Activity, Exercise (Occasionally deep breathing no make it hurt worse as well.), Lifting, Sick Contact, Trauma Associated Symptoms: Reports: Chest Pain, Other (Has noticed her legs are a little bit more swollen than normal.). 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 Chest Pain Score (Numeric/FACES): 6 - Related Data Allergies Allergy/AdvReac Type Severity Reaction Status Date / Time codeine AdvReac Vomiting Verified 12/04/17 20:20 Home Meds: Home Meds Aspirin 81 mg PO DAILY 12/24/16 [History] Metoprolol Succinate [Toprol XL] 25 mg PO BEDTIME 01/21/17 [History] Magnesium Oxide 400 mg PO BID #30 tablet 01/26/17 [Rx] Amiodarone [Cordarone] 200 mg PO DAILY 05/18/17 [History] Isosorbide Mononitrate [Imdur] 30 mg PO DAILY 05/18/17 [History] Losartan [Cozaar] 50 mg PO DAILY 05/18/17 [History] Apixaban [Eliquis] 2.5 mg PO BID 09/10/17 [History] Cholecalciferol (Vitamin D3) [Vitamin D3] 1 tab PO DAILY 12/04/17 [History] Cyanocobalamin (Vitamin B12) [Vitamin B12] 1 tab PO DAILY 12/04/17 [History] Furosemide [Lasix] 40 mg PO DAILY #30 tablet 12/04/17 [Rx] Metoprolol Succinate [Toprol XL 50mg] 50 mg PO DAILY 12/04/17 [History] Past Medical History HEENT History: Reports: Hard of Hearing, Impaired Vision Other HEENT History: has a hearing aid on right, wears glasses, has upper denture Cardiovascular History: Reports: Afib, Arrhythmia, Blood Clots/VTE/DVT, Cardiomyopathy, High Cholesterol, Hypertension, Other (See Below) Other Cardiovascular History: pacer and AICD placed 01/08/17 Respiratory History: Reports: None, SOB Gastrointestinal History: Reports: Diverticulosis, GERD, PUD Other Gastrointestinal History: Gastric ulcer Genitourinary History: Reports: Chronic Renal Insuffiency, Urinary Incontinence Other Genitourinary History: possible cystocele, urinary frequency 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 (See Below) Other OB/BYN History: hysterectomy Musculoskeletal History: Reports: Osteoporosis Neurological History: Reports: None Psychiatric History: Reports: None Endocrine/Metabolic History: Reports: None Hematologic History: Reports: Anemia, Iron Deficiency, Other (See Below) Other Hematologic History: DVT Immunologic History: Reports: None Oncologic (Cancer) History: Reports: None Dermatologic History: Reports: None - Infectious Disease History Infectious Disease History: Reports: Chicken Pox, Measles, Mumps, Shingles - Past Surgical History Head Surgeries/Procedures: Reports: None HEENT Surgical History: Reports: Tonsillectomy Cardiovascular Surgical History: Reports: AICD, Pacer GI Surgical History: Reports: Colonoscopy, EGD, Other (See Below) Other GI Surgeries/Procedures: Some Hemmorrhoids removed, gastric resection Female Surgical History: Reports: Hysterectomy Endocrine Surgical History: Reports: None Neurological Surgical History: Reports: None Musculoskeletal Surgical History: Reports: Knee Replacement Other Musculoskeletal Surgeries/Procedures:: right total knee replacement Dermatological Surgical History: Reports: None Social & Family History - Family History Family Medical History: Noncontributory Cardiac: Reports: Other (See Below) Neurological: Reports: Other (See Below) Oncologic: Reports: Other (See Below) - Tobacco Use Smoking Status *Q: Never Smoker Used Tobacco, but Quit: No Second Hand Smoke Exposure: No - Caffeine Use Caffeine Use: Reports: Coffee Other Caffeine Use: a lot of regular coffee. Caffeine Use Comment: "i drink 4 cups in the morning and then 2 in afternoon" - Alcohol Use Days Per Week of Alcohol Use: 0 - Recreational Drug Use Recreational Drug Use: No Drug Use in Last 12 Months: No - Living Situation & Occupation Living situation: Reports: , Alone Occupation: Retired ED ROS GENERAL - Review of Systems Review Of Systems: See Below Constitutional: Denies: Fever, Chills, Malaise, Weakness, Fatigue, Decreased Appetite, Weight Loss HEENT: Reports: Glasses Respiratory: Denies: Shortness of Breath, Wheezing, Pleuritic Chest Pain, Cough , Sputum, Hemoptysis Cardiovascular: Reports: Chest Pain, Blood Pressure Problem (Along the lower costal margin particular in the left as compared to the right. Pain originates in her lower back left flank area.), Dyspnea on Exertion (Trace edema both lower extremities), Edema. Denies: Claudication, Lightheadedness, Orthopnea ( For medication), Palpitations ( chronically) Endocrine: Reports: No Symptoms GI/Abdominal: Reports: Abdominal Pain (Fused upper abdominal discomfort underneath her rib cage. Worse on the left as compared to the right.), Constipation ( He was to be moving and changing sides.). Denies: Diarrhea ( with constipation a few weeks ago but no longer on medication for this. ), Decreased Appetite, Difficulty Swallowing, Distension, Flatus, Hematemesis, Hematochezia, Melena, Mucous in Stool, Nausea, Stool Incontinence : Reports: Frequency. Denies: Dysuria, Urgency Musculoskeletal: Reports: Neck Pain, Back Pain, Joint Pain (Knees and hips at times.) Skin: Reports: No Symptoms Neurological: Reports: No Symptoms Psychiatric: Reports: No Symptoms Hematologic/Lymphatic: Reports: No Symptoms Immunologic: Reports: No Symptoms ED EXAM,LOWER BACK PAIN/INJURY - Physical Exam Exam: See Below Exam Limited By: No Limitations General Appearance: Alert, WD/WN, No Apparent Distress, Other (Slightly pallid.) Eye Exam: Bilateral Eye: Normal Inspection Throat/Mouth: Normal Inspection, Normal Lips, Normal Oropharynx Head: Atraumatic, Normocephalic Neck: Normal Inspection, Supple, Non-Tender, Full Range of Motion. No: Carotid Bruit, Lymphadenopathy (L), Lymphadenopathy (R) Respiratory/Chest: No Respiratory Distress, Lungs Clear, Normal Breath Sounds, Chest Non-Tender. No: Crackles, Rales, Rhonchi, Wheezing Cardiovascular: No Gallop, No JVD, No Murmur, No Rub, Irregularly Irregular ( Irregular regular at 65-75/m monitor reveals atrial fibrillation.), Other (A smoker present left upper anterior chest.) GI/Abdominal: Soft (Mildly hyperactive bowel sounds in all 4 quadrants.), Non- Tender, No Organomegaly, Distended (Slightly distended upper abdomen and tympany to percussion.), Abnormal Bowel Sounds. No: No Distention, No Abnormal Bruit, No Mass, Pelvis Stable ( No palpable masses.), Guarding, Rebound, Tender Back Exam: Normal Inspection, Full Range of Motion, Other. No: Muscle Spasm ( No rib head subluxation. No muscle spasm.), Vertebral Tenderness Extremities: Pedal Edema (Trace edema lower extremities a little worse in the left as compared to the right.), Limited Range of Motion (Of her back and knees. ) Neurological: Alert, Normal Mood/Affect, Normal Dorsiflexion, CN II-XII Intact, Oriented x 3, Other (He is a cane to aid her ambulation.) Psychiatric: Normal Affect, Normal Mood Skin Exam: Warm, Dry, Intact, Normal Color, Pallor (Slight pallor.) Course - Vital Signs Last Recorded V/S: Last Vital Signs Temp 36.4 C 12/04/17 20:15 Pulse 65 12/04/17 20:15 Resp 16 12/04/17 20:15 BP 175/76 H 12/04/17 20:15 Pulse Ox 100 12/04/17 20:15 - Orders/Labs/Meds Orders: Active Orders 24 hr Category Date Time Status Abdomen 1V Flat [CR] Stat Exams 12/04/17 20:32 Taken Chest 2V [CR] Stat Exams 12/04/17 20:31 Taken URINALYSIS W/MICROSCOPIC [UA W/MICROSCOPIC] [URIN] Stat Lab 12/04/17 21:21 Ordered Labs: Laboratory Tests 12/04/17 12/04/17 12/04/17 Range/Units 20:50 20:50 20:50 WBC 9.47 (3.98-10.04) K/mm3 RBC 3.71 L (3.98-5.22) M/mm3 Hgb 11.4 (11.2-15.7) gm/L Hct 35.4 (34.1-44.9) % MCV 95.4 H (79.4-94.8) fl MCH 30.7 (25.6-32.2) pg MCHC 32.2 (32.2-35.5) g/dl RDW Std Deviation 47.4 H (36.4-46.3) fL Plt Count 225 (182-369) K/mm3 MPV 10.8 (9.4-12.3) fl Neutrophils % (Manual) 74 H (40-60) % Band Neutrophils % 0 (0-10) % Lymphocytes % (Manual) 21 (20-40) % Atypical Lymphs % 0 % Monocytes % (Manual) 3 (2-10) % Eosinophils % (Manual) 2 (0.7-5.8) % Basophils % (Manual) 0 L (0.1-1.2) Platelet Estimate Adequate RBC Morph Comment Normal Sodium 141 (136-145) mEq/L Potassium 4.1 (3.5-5.1) mEq/L Chloride 107 (98-107) mEq/L Carbon Dioxide 26 (21-32) mEq/L Anion Gap 12.1 (5-15) BUN 31 H (7-18) mg/dL Creatinine 1.7 H (0.55-1.02) mg/dL Est Cr Clr Drug Dosing 20.53 mL/min Estimated GFR (MDRD) 29 (>60) mL/min BUN/Creatinine Ratio 18.2 H (14-18) Glucose 113 (83-115) mg/dL Calcium 9.0 (8.5-10.1) mg/dL Magnesium (1.8-2.4) mg/dl Total Bilirubin 0.3 (0.2-1.0) mg/dL AST 21 (15-37) U/L ALT 20 (14-59) U/L Alkaline Phosphatase 107 (46-116) U/L Lactate Dehydrogenase 185 (81-234) U/L Troponin I < 0.017 (0.00-0.056) ng/mL C-Reactive Protein 1.6 H* (<1.0) mg/dL NT-Pro-B Natriuret Pep 2047 H (0-450) pg/mL Total Protein 6.4 (6.4-8.2) g/dl Albumin 3.1 L (3.4-5.0) g/dl Globulin 3.3 gm/dL Albumin/Globulin Ratio 0.9 L (1-2) Urine Color (Yellow) Urine Appearance (Clear) Urine pH (5.0-8.0) Ur Specific [place] (1.005-1.030) Urine Protein (Negative) Urine Glucose (UA) (Negative) Urine Ketones (Negative) Urine Occult Blood (Negative) Urine Nitrite (Negative) Urine Bilirubin (Negative) Urine Urobilinogen (0.2-1.0) Ur Leukocyte Esterase (Negative) Urine RBC (0-5) /hpf Urine WBC (0-5) /hpf Ur Epithelial Cells (0-5) /hpf Urine Bacteria (FEW) /hpf Urine Mucus (FEW) /hpf 18 12/04/17 Range/Units 20:50 21:21 WBC (3.98-10.04) K/mm3 RBC (3.98-5.22) M/mm3 Hgb (11.2-15.7) gm/L Hct (34.1-44.9) % MCV (79.4-94.8) fl MCH (25.6-32.2) pg MCHC (32.2-35.5) g/dl RDW Std Deviation (36.4-46.3) fL Plt Count (182-369) K/mm3 MPV (9.4-12.3) fl Neutrophils % (Manual) (40-60) % Band Neutrophils % (0-10) % Lymphocytes % (Manual) (20-40) % Atypical Lymphs % % Monocytes % (Manual) (2-10) % Eosinophils % (Manual) (0.7-5.8) % Basophils % (Manual) (0.1-1.2) Platelet Estimate RBC Morph Comment Sodium (136-145) mEq/L Potassium (3.5-5.1) mEq/L Chloride (98-107) mEq/L Carbon Dioxide (21-32) mEq/L Anion Gap (5-15) BUN (7-18) mg/dL Creatinine (0.55-1.02) mg/dL Est Cr Clr Drug Dosing mL/min Estimated GFR (MDRD) (>60) mL/min BUN/Creatinine Ratio (14-18) Glucose (83-115) mg/dL Calcium (8.5-10.1) mg/dL Magnesium 2.1 (1.8-2.4) mg/dl Total Bilirubin (0.2-1.0) mg/dL AST (15-37) U/L ALT (14-59) U/L Alkaline Phosphatase (46-116) U/L Lactate Dehydrogenase (81-234) U/L Troponin I (0.00-0.056) ng/mL C-Reactive Protein (<1.0) mg/dL NT-Pro-B Natriuret Pep (0-450) pg/mL Total Protein (6.4-8.2) g/dl Albumin (3.4-5.0) g/dl Globulin gm/dL Albumin/Globulin Ratio (1-2) Urine Color Yellow (Yellow) Urine Appearance Clear (Clear) Urine pH 6.0 (5.0-8.0) Ur Specific [place] 1.010 (1.005-1.030) Urine Protein Negative (Negative) Urine Glucose (UA) Negative (Negative) Urine Ketones Negative (Negative) Urine Occult Blood Negative (Negative) Urine Nitrite Negative (Negative) Urine Bilirubin Negative (Negative) Urine Urobilinogen 0.2 (0.2-1.0) Ur Leukocyte Esterase Negative (Negative) Urine RBC Not seen (0-5) /hpf Urine WBC 0-5 (0-5) /hpf Ur Epithelial Cells 0-5 (0-5) /hpf Urine Bacteria Not seen (FEW) /hpf Urine Mucus Not seen (FEW) /hpf - Radiology Interpretation Free Text/Narrative:: 82-year-old female presents to the ED with diffuse low back pain for the last week gradually worsening. It seems to start in her left flank area and then radiated along the lower costal margin. She's workup gurgling bubbling sensation in left upper quadrant abdomen. Has no nausea or vomiting. Appetite is good. No associated fever chills nausea or vomiting. Bowel function has been pretty good since she got over the flu bug 6 weeks ago which caused quite severe diarrhea and then transient constipation for a while. Chronic atrial fibrillation and she is on Eliquis 2.5 mg twice a day. Rate is controlled at 65/ m on the monitor. Lungs are clear to auscultation percussion. I suspect her pain is likely that of upper abdominal pain from the transverse colon. Does have slightly hyperactive bowel sounds in examination and slight tympany across the upper abdomen. Damon be obtained routine labs including a troponin and BNP. - Re-Assessments/Exams Free Text/Narrative Re-Assessment/Exam: 12/04/17 21:24 two-view chest x-ray completed. It reveals a pacemaker left upper quadrant of the abdomen which is an AV pacemaker. Visualized lungs are clear. Cardiac silhouette within normal limits. There is no pleural effusion no signs of congestive failure. The lateral x-ray does show severe osteopenia of her thoracic spine with old compression fractures in the mid thoracic spine I believes T5-T6. I cannot visualize anything acute. There is marked degenerative arthritic changes with anterior lipping throughout the lower thoracic spine and lumbar spine. Venous compression fractures are evident. KUB reveals increased stool throughout the colon in the left upper: Does live right upper underneath her diaphragm and I think that's where she can appreciate bubbling gurgling noises. Labs are not yet back. 12/04/17 22:11 Labs reveal a normal white count at 9.47. 74% neutrophils no bands. Hemoglobin is slightly low 11.4 with hematocrit of 35.4. MCV slightly elevated at 95.4. Platelet count is 225,000. Sodium was 141 with a potassium of 4.1. Chloride is 107 with a bicarbonate of 26. Anion gap is 12.1. BUNs 31 slightly elevated with a creatinine of 1.7. GFR is 29 i.e. stage III kidney disease borderline stage IV kidney disease. Glucose is 113 with a calcium of 9.0. Magnesium is normal at 2.1. Liver function normal. LDH is 185 normal troponin I is less than 0.017. C-reactive protein is mildly elevated at 1.6. BNP is elevated at 2047 this comes a bit of a surprise it is does not show up on chest x-ray or examination. Albumin fraction slightly low at 3.1. Urinalysis proved to be completely normal. Plan she will use Tylenol for back pain. I'm suspicious that the fluid in her lungs may be accumulating in the lung bases and causing some of her atypical chest pain as it travels along the costal margins. This is the case after 3 days of Lasix use the pain should go away. She has no family see Dr. Guzman next Saturday which have encouraged her to keep for lab check up. Departure - Departure Time of Disposition: 22:21 Disposition: Home, Self-Care 01 Condition: Fair Clinical Impression: Constipation by delayed colonic transit Congestive heart failure Qualifiers: Heart failure type: unspecified Heart failure chronicity: unspecified Qualified Code(s): I50.9 - Heart failure, unspecified Acute thoracic back pain Qualifiers: Back pain laterality: bilateral Qualified Code(s): M54.6 - Pain in thoracic spine - Discharge Information Prescriptions: Furosemide [Lasix] 40 mg PO DAILY #30 tablet Referrals: Ko Pretty MD [Primary Care Provider] - Forms: ED Department Discharge Additional Instructions: Evaluation in the emergency room today in regards to diffuse low back pain rating along the lower rib margins bilaterally. No real associated shortness of breath or cough. Pain started about a week ago and seems to be getting gradually worse. The x-ray of the chest is completely normal x-ray of the abdomen shows increased stool and gas throughout the colon particularly the transverse colon which runs across the left upper quadrant and right upper quadrant of the abdomen were you're having your his comfort. The x-ray of the back shows marked osteoporosis bones are very thin on calcium. There are old compression fractions in the upper mid back. There are degenerative arthritic changes in the lower mid back in the lumbar back. Lab work reveals that there is a little extra fluid in your lungs that is not visible on x-ray and therefore is likely chronic. However fluid usually collects in the lower part of the lungs and may be contributing to some of your back pain. It appears that you do need to start a water pill once daily every morning to get rid of extra fluid that is accumulating in your lungs. This is considered mild congestive heart failure. I therefore wrote a prescription for Lasix 40 mg once daily every morning. He will need your serum potassium level checked in about 10 days time at the clinic to make sure that you're not losing too much potassium in the urine from the water pill. I would suggest Tylenol for your back pain. I would suggest MiraLAX powder 1 scoop every day for the next week to ensure that her bowels return to normal function and clear up mild constipation that is visible on x-ray. - My Orders Last 24 Hours: My Active Orders 12/04/17 20:31 Chest 2V [CR] Stat 12/04/17 20:32 Abdomen 1V Flat [CR] Stat 12/04/17 21:21 URINALYSIS W/MICROSCOPIC [UA W/MICROSCOPIC] [URIN] Stat - Assessment/Plan Last 24 Hours: My Active Orders 12/04/17 20:31 Chest 2V [CR] Stat 12/04/17 20:32 Abdomen 1V Flat [CR] Stat 12/04/17 21:21 URINALYSIS W/MICROSCOPIC [UA W/MICROSCOPIC] [URIN] Stat
[2017-12-04] MEDS ORDERED: Furosemide 40 MG Tab PO ONE (22:21)
--- NOTE | 2017-12-05 06:59 | CR ---
Chest: Two views of the chest are obtained. Comparison: Prior chest x-ray of 09/10/17. Heart is slightly enlarged. AICD is present. Lungs are clear. Slight scoliosis is present within the spine. Sclerotic lesion within the proximal right humerus remains stable. Calcification within the right axillary region is seen and most likely due to calcified lymph node. Impression: 1. Cardiomegaly and AICD. 2. Other incidental findings. 3. Nothing acute is seen. Diagnostic code #2
--- NOTE | 2017-12-05 06:59 | CR ---
Abdomen: Supine view of the abdomen was obtained. Comparison: Previous abdominal x-ray of 05/18/17. Calcification is seen within the upper right abdomen which most likely represents a gallstone. Bowel gas pattern is normal. Small calcifications are seen within the pelvis most likely due to phleboliths. Bony structures are osteopenic. Minimal degenerative change is scattered within the spine. Impression: 1. Incidental findings as noted above. Diagnostic code #2
== END 2017-12-04 22:39 | disposition home or self-care (01) ==
LOC: JD.ED 20:07
DX: I13.0 Hypertensive heart and chronic kidney disease with heart failure and stage 1 through stage 4 chronic kidney disease, or unspecified chronic kidney disease (principal); I50.9 Heart failure, unspecified; M54.6 Pain in thoracic spine; K59.01 Slow transit constipation; N18.9 Chronic kidney disease, unspecified; D63.1 Anemia in chronic kidney disease; Z88.5 Allergy status to narcotic agent; Z79.899 Other long term (current) drug therapy; Z79.82 Long term (current) use of aspirin
CPT/HCPCS: 36415; 71046; 74018; 80053; 81001; 83615; 83735; 83880; 84484; 85025; 86140; 99284; A9270

== ENCOUNTER 2018-02-15 00:24 | Emergency (ER) | payer MEDICARE, OTHER ==
[2018-02-15] MEDS ORDERED: Nitroglycerin 0.4 MG Tab.SL ONE (00:47)
[2018-02-15] MEDS: Nitroglycerin 0.4 MG Tab.SL SL PRN ×2 (00:50→00:57)
[2018-02-15] MEDS ORDERED: Nitroglycerin 0.3 MG Tab.SL SL PRN (00:55)
--- NOTE | 2018-02-15 01:15 | EDM.PDOC ---
ED HPI GENERAL MEDICAL PROBLEM - General Chief Complaint: Chest Pain Stated Complaint: [facility] Time Seen by Provider: 02/15/18 00:29 Source of Information: Reports: Patient, Family History Limitations: Reports: No Limitations - History of Present Illness INITIAL COMMENTS - FREE TEXT/NARRATIVE: This is an 83-year-old female. Around 11 PM this evening she awoke with shortness of breath and a sharp/dull pain in her left chest seem to go down her left arm to her elbow. She states she had some mild nausea but no vomiting and no sweating. She called the ambulance and she comes to the ER for evaluation. When she arrived she was still complaining of some dullness in her chest but not so much down her arm and then when asked by the nurse whether she had pain or she just felt like her heart was pounding she said it felt like her heart was pounding not the pain. She does have a history of a pacer defibrillator implant that was recently checked and was found to be working correctly. She denies any defibrillation events. She does not appear to be in distress at this time. She states she's has chest pain at home and she does not take nitroglycerin but she just sits down and has some coffee and weights for the chest pain to go away. She says the chest pain usually resolves within 15-30 minutes. I am not certain at this time what she means by chest pain. She's had no recent illnesses no fever no chills no cough no congestion. She is not short of breath presently. Left Chest Pain Score (Numeric/FACES): 5 - Related Data Allergies Allergy/AdvReac Type Severity Reaction Status Date / Time codeine AdvReac Vomiting Verified 02/15/18 00:40 Home Meds: Home Meds Aspirin 81 mg PO DAILY 12/24/16 [History] Metoprolol Succinate [Toprol XL] 25 mg PO BEDTIME 01/21/17 [History] Magnesium Oxide 400 mg PO BID #30 tablet 01/26/17 [Rx] Amiodarone [Cordarone] 200 mg PO DAILY 05/18/17 [History] Isosorbide Mononitrate [Imdur] 30 mg PO DAILY 05/18/17 [History] Losartan [Cozaar] 50 mg PO DAILY 05/18/17 [History] Apixaban [Eliquis] 2.5 mg PO BID 09/10/17 [History] Furosemide [Lasix] 40 mg PO DAILY #30 tablet 12/04/17 [Rx] Metoprolol Succinate [Toprol XL 50mg] 50 mg PO DAILY 12/04/17 [History] Past Medical History HEENT History: Reports: Hard of Hearing, Impaired Vision Other HEENT History: has a hearing aid on right, wears glasses, has upper denture Cardiovascular History: Reports: Afib, Arrhythmia, Blood Clots/VTE/DVT, Cardiomyopathy, High Cholesterol, Hypertension, Pacemaker, Other (See Below) Other Cardiovascular History: pacer and AICD placed 01/08/17 Respiratory History: Reports: SOB Gastrointestinal History: Reports: Diverticulosis, GERD, PUD Other Gastrointestinal History: Gastric ulcer Genitourinary History: Reports: Chronic Renal Insuffiency, Urinary Incontinence Other Genitourinary History: possible cystocele, urinary frequency SHOP GIRL History: Reports: Other (See Below) Other SHOP GIRL History: hysterectomy Musculoskeletal History: Reports: Osteoporosis Neurological History: Reports: None Psychiatric History: Reports: None Endocrine/Metabolic History: Reports: None Hematologic History: Reports: Anemia, Iron Deficiency, Other (See Below) Other Hematologic History: DVT Immunologic History: Reports: None Oncologic (Cancer) History: Reports: None Dermatologic History: Reports: None - Infectious Disease History Infectious Disease History: Reports: Chicken Pox, Measles, Mumps, Shingles - Past Surgical History Head Surgeries/Procedures: Reports: None HEENT Surgical History: Reports: Tonsillectomy Cardiovascular Surgical History: Reports: AICD GI Surgical History: Reports: Colonoscopy, EGD, Other (See Below) Other GI Surgeries/Procedures: Some Hemmorrhoids removed, gastric resection Female Surgical History: Reports: Hysterectomy Endocrine Surgical History: Reports: None Neurological Surgical History: Reports: None Musculoskeletal Surgical History: Reports: Knee Replacement Other Musculoskeletal Surgeries/Procedures:: right total knee replacement Dermatological Surgical History: Reports: None Social & Family History - Family History Family Medical History: Noncontributory Cardiac: Reports: Other (See Below) Neurological: Reports: Other (See Below) Oncologic: Reports: Other (See Below) - Tobacco Use Smoking Status *Q: Never Smoker - Caffeine Use Caffeine Use: Reports: Coffee Other Caffeine Use: daily Caffeine Use Comment: "i drink 4 cups in the morning and then 2 in afternoon" - Recreational Drug Use Recreational Drug Use: No - Living Situation & Occupation Living situation: Reports: , Alone Occupation: Retired ED ROS GENERAL - Review of Systems Review Of Systems: See Below Constitutional: Denies: Fever, Chills HEENT: Reports: No Symptoms Respiratory: Reports: Shortness of Breath. Denies: Wheezing, Cough Cardiovascular: Reports: Chest Pain. Denies: Edema Endocrine: Reports: No Symptoms GI/Abdominal: Reports: Nausea. Denies: Vomiting : Reports: No Symptoms Musculoskeletal: Reports: No Symptoms Skin: Reports: No Symptoms Neurological: Reports: No Symptoms Psychiatric: Reports: No Symptoms Hematologic/Lymphatic: Reports: No Symptoms ED EXAM, GENERAL - Physical Exam Exam: See Below Exam Limited By: No Limitations General Appearance: Alert, WD/WN, No Apparent Distress Eye Exam: Bilateral Eye: Normal Inspection Ears: Normal External Exam, Other (She has a hearing aid in the right ear, the left TM is normal) Nose: Normal Inspection Throat/Mouth: Normal Inspection, Normal Lips, Normal Voice, No Airway Compromise Head: Normocephalic Neck: Supple Respiratory/Chest: No Respiratory Distress, Lungs Clear, Normal Breath Sounds Cardiovascular: Regular Rate, Rhythm, No Murmur GI/Abdominal: Soft, Non-Tender Back Exam: Full Range of Motion Extremities: Normal Inspection, Normal Range of Motion, No Pedal Edema Neurological: Alert, Oriented Psychiatric: Normal Affect, Normal Mood Skin Exam: Warm, Dry EKG INTERPRETATION EKG Date: 02/15/18 Time: 00:30 EKG Interpretation Comments: The first EKG showed a sinus rhythm with a left bundle branch block, and 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 I do not suspect an acute MN at this time. Course - Vital Signs Last Recorded V/S: Last Vital Signs Temp 98 F 02/15/18 00:34 Pulse 60 02/15/18 00:34 Resp 15 02/15/18 00:34 BP 147/62 H 02/15/18 00:57 Pulse Ox 100 02/15/18 00:34 - Orders/Labs/Meds Orders: Active Orders 24 hr Category Date Time Status EKG 12 Lead [EKG Documentation Completion] [RC] STAT Care 02/15/18 00:57 Active EKG 12 Lead [EKG Documentation Completion] [RC] STAT Care 02/15/18 01:10 Active CXR [Chest 1V Frontal] [CR] Stat Exams 02/15/18 00:57 Taken Nitroglycerin [Nitrostat] Med 02/15/18 00:56 Active 0.4 mg SL Q5M PRN Medication Orders Nitroglycerin (Nitrostat) 0.4 mg SL Q5M PRN PRN Reason: Chest Pain Last Admin: 02/15/18 00:57 Dose: 0.4 mg Admin: 02/15/18 00:50 Dose: 0.4 mg Labs: Laboratory Tests 02/15/18 02/15/18 02/15/18 Range/Units 00:54 00:54 02:45 WBC 9.54 (3.98-10.04) K/mm3 RBC 3.73 L (3.98-5.22) M/mm3 Hgb 11.5 (11.2-15.7) gm/L Hct 35.1 (34.1-44.9) % MCV 94.1 (79.4-94.8) fl MCH 30.8 (25.6-32.2) pg MCHC 32.8 (32.2-35.5) g/dl RDW Std Deviation 48.6 H (36.4-46.3) fL Plt Count 207 (182-369) K/mm3 MPV 10.7 (9.4-12.3) fl Neut % (Auto) 66.6 (34.0-71.1) % Lymph % (Auto) 22.6 (19.3-51.7) % [place] % (Auto) 7.1 (4.7-12.5) % Eos % (Auto) 3.1 (0.7-5.8) Baso % (Auto) 0.3 (0.1-1.2) % Neut # (Auto) 6.34 H (1.56-6.13) K/mm3 Lymph # (Auto) 2.16 (1.18-3.74) K/mm3 [place] # (Auto) 0.68 H (0.24-0.36) K/mm3 Eos # (Auto) 0.30 (0.04-0.36) K/mm3 Baso # (Auto) 0.03 (0.01-0.08) K/mm3 Sodium 141 (136-145) mEq/L Potassium 3.7 (3.5-5.1) mEq/L Chloride 107 (98-107) mEq/L Carbon Dioxide 23 (21-32) mEq/L Anion Gap 14.7 (5-15) BUN 37 H (7-18) mg/dL Creatinine 1.6 H (0.55-1.02) mg/dL Est Cr Clr Drug Dosing 21.81 mL/min Estimated GFR (MDRD) 31 (>60) mL/min BUN/Creatinine Ratio 23.1 H (14-18) Glucose 88 (83-115) mg/dL Calcium 8.9 (8.5-10.1) mg/dL Total Bilirubin 0.3 (0.2-1.0) mg/dL AST 13 L (15-37) U/L ALT 17 (14-59) U/L Alkaline Phosphatase 114 (46-116) U/L Troponin I < 0.017 < 0.017 (0.00-0.056) ng/mL Total Protein 6.4 (6.4-8.2) g/dl Albumin 3.0 L (3.4-5.0) g/dl Globulin 3.4 gm/dL Albumin/Globulin Ratio 0.9 L (1-2) Meds: Medications Generic Name Dose Route Start Last Admin Trade Name Freq PRN Reason Stop Dose Admin Nitroglycerin 0.4 mg 02/15/18 00:56 02/15/18 00:57 Nitrostat SL 0.4 mg Q5M PRN Administration Chest Pain Discontinued Medications Generic Name Dose Route Start Last Admin Trade Name Freq PRN Reason Stop Dose Admin Nitroglycerin Confirm 02/15/18 00:47 02/15/18 00:57 Nitrostat Administered 02/15/18 00:48 Not Given Dose 0.4 mg .ROUTE .STK-MED ONE Nitroglycerin 0.3 mg 02/15/18 00:55 Nitrostat SL Q5M PRN Chest Pain - Radiology Interpretation Free Text/Narrative:: Chest x-ray shows a left chest pacemaker defibrillator, the chest hester appear to be clear with no evidence of congestive heart failure, the heart itself appears to be fairly normal size with no acute changes. - Re-Assessments/Exams Free Text/Narrative Re-Assessment/Exam: 02/15/18 03:34 The patient is feeling good. No longer has the pounding in her chest or any sort of chest pain. Both of her troponins were negative. I spoke to the family as well as the patient regarding the tests. I encouraged her to follow up with her family doctor this coming week and if she starts experiencing these symptoms again she does need to return to the ER for reevaluation. 02/15/18 03:36 It is interesting to note that when she is not paced she doesn't seem to have the symptoms of palpitations but as soon as her heart rate dropped below 60 and she becomes paced she will feel the palpitations at times but then it begins to resolve and she feels okay again. So I am thinking that it times she is feeling the pacemaker kick in when her heart rate drops and that makes her feel like her heart is pounding and perhaps it does give her some mild chest discomfort. Departure - Departure Time of Disposition: 03:34 Disposition: Home, Self-Care 01 Condition: Good Clinical Impression: Palpitations Chest pain Qualifiers: Chest pain type: unspecified Qualified Code(s): R07.9 - Chest pain, unspecified Referrals: Ko Pretty MD [Primary Care Provider] - Forms: ED Department Discharge Additional Instructions: Continue with your medications as prescribed, if you again have these symptoms of chest tightness or palpitations and shortness of breath return to the ER for reevaluation, follow up with your family doctor this week for recheck - My Orders Last 24 Hours: My Active Orders 02/15/18 00:56 Nitroglycerin [Nitrostat] 0.4 mg SL Q5M PRN 02/15/18 00:57 EKG 12 Lead [EKG Documentation Completion] [RC] STAT CXR [Chest 1V Frontal] [CR] Stat 02/15/18 01:10 EKG 12 Lead [EKG Documentation Completion] [RC] STAT - Assessment/Plan Last 24 Hours: My Active Orders 02/15/18 00:56 Nitroglycerin [Nitrostat] 0.4 mg SL Q5M PRN 02/15/18 00:57 EKG 12 Lead [EKG Documentation Completion] [RC] STAT CXR [Chest 1V Frontal] [CR] Stat 02/15/18 01:10 EKG 12 Lead [EKG Documentation Completion] [RC] STAT
[2018-02-15 03:51] VITALS: BP 156/55
--- NOTE | 2018-02-17 07:29 | CR ---
Chest: Portable view of the chest was obtained. Comparison: Prior chest x-ray of 12/04/17. Heart is slightly enlarged. Slight scarring is seen within the lateral left costophrenic angle. AICD is noted. Lungs are clear with no acute parenchymal densities. Bony structures are osteopenic. Stable sclerotic bone island is noted within the proximal right humerus. Impression: 1. Stable findings as noted above. Nothing acute is seen. Diagnostic code #2
== END 2018-02-15 03:51 | disposition home or self-care (01) ==
LOC: JD.ED 00:24
DX: R07.9 Chest pain, unspecified (principal); R00.2 Palpitations; Z88.5 Allergy status to narcotic agent; Z79.899 Other long term (current) drug therapy; Z79.82 Long term (current) use of aspirin; Z95.810 Presence of automatic (implantable) cardiac defibrillator
CPT/HCPCS: 36415; 71045; 71045-26; 80053; 84484; 85025; 93005; 93010; 99284-25; 99285-25

== ENCOUNTER 2018-05-14 00:03 | Emergency (ER) | payer MEDICARE, OTHER ==
[2018-05-14 00:14] VITALS: BP 148/52
[2018-05-14] MEDS ORDERED: Sodium Chloride 0.9% 1,000 ML IV SCH (00:45)
--- NOTE | 2018-05-14 00:45 | EDM.PDOC ---
ED HPI GENERAL MEDICAL PROBLEM - General Chief Complaint: Cardiovascular Problem Stated Complaint: [facility] Time Seen by Provider: 05/14/18 00:24 Source of Information: Reports: Patient, EMS History Limitations: Reports: No Limitations - History of Present Illness INITIAL COMMENTS - FREE TEXT/NARRATIVE: 83-year-old female attends the ED from [place] where she arrives per ambulance. She states about a half an hour after going to bed tonight she woke with sudden blood in her chest which shot down her leg and she has a defibrillator pacemaker in place. By history it difficult tonight. It has done in the past about 3 years ago she reports about 12 times in a row. Not much is changed recently except that she went to the dentist 2 days ago to have a tooth removed. She did not require antibiotics for an abscess. She was taken off her Eliquis for 2 days and started back on again today. By history she has chronic atrial fibrillation. At present she states she feels a little weak and tired but has no pain in her chest. Onset: Today, Sudden Onset Date: 05/13/18 Onset Time: 23:30 Duration: Minutes: Location: Reports: Chest (75 in her chest that woke her from sleep) Quality: Reports: Ache Severity: Moderate Improves with: Reports: Other Worsens with: Reports: None (No pain now.) Context: Reports: Other (Was asleep for about half an hour when she awoke due to sudden thud in her chest feel like she's been punched hard in the chest with pain that shot down her left leg.). Denies: Activity, Exercise, Lifting, Sick Contact, Trauma Associated Symptoms: Reports: No Other Symptoms. 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 (see below) (No changes to her medicines) - Related Data Allergies Allergy/AdvReac Type Severity Reaction Status Date / Time codeine AdvReac Vomiting Verified 05/14/18 00:14 Home Meds: Home Meds Aspirin 81 mg PO DAILY 12/24/16 [History] Metoprolol Succinate [Toprol XL] 25 mg PO BEDTIME 01/21/17 [History] Magnesium Oxide 400 mg PO BID #30 tablet 01/26/17 [Rx] Amiodarone [Cordarone] 200 mg PO DAILY 05/18/17 [History] Isosorbide Mononitrate [Imdur] 30 mg PO DAILY 05/18/17 [History] Losartan [Cozaar] 50 mg PO DAILY 05/18/17 [History] Apixaban [Eliquis] 2.5 mg PO BID 09/10/17 [History] Metoprolol Succinate [Toprol XL 50mg] 50 mg PO DAILY 12/04/17 [History] Ascorbate Calcium [Vitamin C] 1 tab PO DAILY 05/14/18 [History] Cholecalciferol (Vitamin D3) [Vitamin D] 1 tab PO DAILY 05/14/18 [History] Furosemide [Lasix] 40 mg PO DAILY PRN 05/14/18 [History] Past Medical History HEENT History: Reports: Hard of Hearing, Impaired Vision Other HEENT History: has a hearing aid on right, wears glasses, has upper denture Cardiovascular History: Reports: Afib (He is on amiodarone for this. By history has chronic atrial fibrillation and is on Eliquis 2.5 mg once daily), Angina, Arrhythmia, Blood Clots/VTE/DVT, Cardiomyopathy, High Cholesterol, Hypertension , Pacemaker, Other (See Below) Other Cardiovascular History: pacer and AICD placed 01/08/17 Respiratory History: Reports: SOB Gastrointestinal History: Reports: Diverticulosis, GERD, PUD Other Gastrointestinal History: Gastric ulcer Genitourinary History: Reports: Chronic Renal Insuffiency, Urinary Incontinence Other Genitourinary History: possible cystocele, urinary frequency UNLEAVENED DOUGH MIXER History: Reports: Other (See Below) Other UNLEAVENED DOUGH MIXER History: hysterectomy Musculoskeletal History: Reports: Osteoporosis Neurological History: Reports: None Psychiatric History: Reports: None Endocrine/Metabolic History: Reports: None Hematologic History: Reports: Anemia, Iron Deficiency, Other (See Below) Other Hematologic History: DVT Immunologic History: Reports: None Oncologic (Cancer) History: Reports: None Dermatologic History: Reports: None - Infectious Disease History Infectious Disease History: Reports: Chicken Pox, Measles, Mumps, Shingles - Past Surgical History Head Surgeries/Procedures: Reports: None HEENT Surgical History: Reports: Adenoidectomy, Tonsillectomy Cardiovascular Surgical History: Reports: AICD GI Surgical History: Reports: Colonoscopy, EGD, Other (See Below) Other GI Surgeries/Procedures: Some Hemmorrhoids removed, gastric resection Female Surgical History: Reports: Hysterectomy Endocrine Surgical History: Reports: None Neurological Surgical History: Reports: None Musculoskeletal Surgical History: Reports: Knee Replacement Other Musculoskeletal Surgeries/Procedures:: right total knee replacement Dermatological Surgical History: Reports: None Social & Family History - Family History Family Medical History: Noncontributory Cardiac: Reports: Stent Neurological: Reports: CVA Psychiatric: Reports: Other (See Below) Other Psychiatric Family History: alcoholism Oncologic: Reports: Other (See Below) Other Oncologic Family History: somach - Tobacco Use Smoking Status *Q: Never Smoker Second Hand Smoke Exposure: No - Caffeine Use Caffeine Use: Reports: Coffee Other Caffeine Use: daily Caffeine Use Comment: "i drink 4 cups in the morning and then 2 in afternoon" - Recreational Drug Use Recreational Drug Use: No - Living Situation & Occupation Living situation: Reports: , Alone Occupation: Retired ED ROS GENERAL - Review of Systems Review Of Systems: See Below Constitutional: Reports: Malaise, Weakness, Fatigue. Denies: Fever, Chills, Decreased Appetite, Weight Loss HEENT: Reports: Glasses, Other (Previous cataract extractions) Respiratory: Denies: Shortness of Breath, Wheezing, Pleuritic Chest Pain, Cough , Sputum Cardiovascular: Reports: Blood Pressure Problem, Dyspnea on Exertion ( Chronically), Lightheadedness, Palpitations (Sometimes her heart going a bit fast). Denies: Claudication, Edema (Occasionally), Orthopnea (Controlled with medication) Endocrine: Reports: Fatigue GI/Abdominal: Reports: Other. Denies: Abdominal Pain, Anorexia, Black Stool, Bloody Stool, Constipation, Diarrhea, Decreased Appetite, Difficulty Swallowing : Reports: Frequency, Incontinence Musculoskeletal: Reports: Neck Pain, Shoulder Pain, Back Pain ( previous right total knee replacement ), Joint Pain (Both urge and stress components), Other ( . Left knee.) Skin: Reports: Bruising Neurological: Reports: No Symptoms (Bruises easily because she is on Eliquis.) Psychiatric: Reports: No Symptoms Hematologic/Lymphatic: Reports: No Symptoms Immunologic: Reports: No Symptoms ED EXAM, GENERAL - Physical Exam Exam: See Below Exam Limited By: No Limitations General Appearance: Alert, WD/WN, Anxious (Mildly anxious but overall quite calm.) Eye Exam: Bilateral Eye: Normal Inspection Throat/Mouth: Normal Inspection, Normal Lips, Normal Oropharynx, Other Head: Atraumatic (Recent dental extraction site looks okay), Normocephalic Neck: Normal Inspection, Supple, Non-Tender, Full Range of Motion. No: Carotid Bruit, Lymphadenopathy (L), Lymphadenopathy (R) Respiratory/Chest: Lungs Clear, Normal Breath Sounds (Tachypnea with respiratory rate of 20 with O2 sats of 99% on room air), No Accessory Muscle Use , Chest Non-Tender, Respiratory Distress, Other (Pacemaker defibrillator left upper anterior chest anterior axillary line) Cardiovascular: Normal Peripheral Pulses, Regular Rate, Rhythm, No Edema, No Gallop, No Murmur, No Rub Peripheral Pulses: 2+: Posterior Tibial (L), Posterior Tibial (R), Dorsalis Pedis (L), Dorsalis Pedis (R), 3+: Carotid (L), Carotid (R) GI/Abdominal: Normal Bowel Sounds, Soft, Non-Tender, No Organomegaly, No Abnormal Bruit, No Mass, Pelvis Stable, Other Back Exam: Other (Mild kyphosis thoracic spine). No: CVA Tenderness (L), CVA Tenderness (R) Extremities: Normal Inspection, Non-Tender, No Pedal Edema, Other (Evidence of osteophytic changes in her left knee particularly. 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.) ST-T: Other (T-wave inversion in one aVL lead V2 V5 and V6.) QT: Prolonged (Markedly prolonged) Course - Vital Signs Last Recorded V/S: Last Vital Signs Temp 36.1 C 05/14/18 00:10 Pulse 60 05/14/18 00:10 Resp 20 05/14/18 00:10 BP 148/52 H 05/14/18 00:10 Pulse Ox 99 05/14/18 00:10 - Orders/Labs/Meds Orders: Active Orders 24 hr Category Date Time Status EKG Documentation Completion [RC] STAT Care 05/14/18 00:38 Active Chest 1V Frontal [CR] Stat Exams 05/14/18 00:38 Taken Labs: Laboratory Tests 05/14/18 05/14/18 05/14/18 Range/Units 00:56 00:56 00:56 WBC 9.53 (3.98-10.04) K/mm3 RBC 3.90 L (3.98-5.22) M/mm3 Hgb 12.1 (11.2-15.7) gm/L Hct 36.9 (34.1-44.9) % MCV 94.6 (79.4-94.8) fl MCH 31.0 (25.6-32.2) pg MCHC 32.8 (32.2-35.5) g/dl RDW Std Deviation 47.1 H (36.4-46.3) fL Plt Count 203 (182-369) K/mm3 MPV 10.9 (9.4-12.3) fl Neutrophils % (Manual) 73 H (40-60) % Band Neutrophils % 0 (0-10) % Lymphocytes % (Manual) 14 L (20-40) % Atypical Lymphs % 1 % Monocytes % (Manual) 8 (2-10) % Eosinophils % (Manual) 2 (0.7-5.8) % Basophils % (Manual) 2 H (0.1-1.2) Platelet Estimate Adequate Plt Morphology Comment Normal Poikilocytosis 1+ slight Anisocytosis 1+ slight Microcytosis 1+ slight Macrocytosis 1+ slight Spherocytes Ovalocytes 1+ slight RBC Morph Comment Abnormal PT 10.3 (9.5-12.1) SECONDS INR 0.94 Sodium 139 (136-145) mEq/L Potassium 4.5 (3.5-5.1) mEq/L Chloride 106 (98-107) mEq/L Carbon Dioxide 25 (21-32) mEq/L Anion Gap 12.5 (5-15) BUN 33 H (7-18) mg/dL Creatinine 1.9 H (0.55-1.02) mg/dL Est Cr Clr Drug Dosing 18.05 mL/min Estimated GFR (MDRD) 25 (>60) mL/min BUN/Creatinine Ratio 17.4 (14-18) Glucose 97 (83-115) mg/dL Calcium 9.1 (8.5-10.1) mg/dL Magnesium 2.2 (1.8-2.4) mg/dl Total Bilirubin 0.2 (0.2-1.0) mg/dL AST 13 L (15-37) U/L ALT 13 L (14-59) U/L Alkaline Phosphatase 110 (46-116) U/L CK-MB (CK-2) 1.7 (0-3.6) ng/ml Troponin I < 0.017 (0.00-0.056) ng/mL C-Reactive Protein 1.5 H* (<1.0) mg/dL NT-Pro-B Natriuret Pep (0-450) pg/mL Total Protein 6.5 (6.4-8.2) g/dl Albumin 3.1 L (3.4-5.0) g/dl Globulin 3.4 gm/dL Albumin/Globulin Ratio 0.9 L (1-2) 05/14/18 Range/Units 00:56 WBC (3.98-10.04) K/mm3 RBC (3.98-5.22) M/mm3 Hgb (11.2-15.7) gm/L Hct (34.1-44.9) % MCV (79.4-94.8) fl MCH (25.6-32.2) pg MCHC (32.2-35.5) g/dl RDW Std Deviation (36.4-46.3) fL Plt Count (182-369) K/mm3 MPV (9.4-12.3) fl Neutrophils % (Manual) (40-60) % Band Neutrophils % (0-10) % Lymphocytes % (Manual) (20-40) % Atypical Lymphs % % Monocytes % (Manual) (2-10) % Eosinophils % (Manual) (0.7-5.8) % Basophils % (Manual) (0.1-1.2) Platelet Estimate Plt Morphology Comment Poikilocytosis Anisocytosis Microcytosis Macrocytosis Spherocytes Ovalocytes RBC Morph Comment PT (9.5-12.1) SECONDS INR Sodium (136-145) mEq/L Potassium (3.5-5.1) mEq/L Chloride (98-107) mEq/L Carbon Dioxide (21-32) mEq/L Anion Gap (5-15) BUN (7-18) mg/dL Creatinine (0.55-1.02) mg/dL Est Cr Clr Drug Dosing mL/min Estimated GFR (MDRD) (>60) mL/min BUN/Creatinine Ratio (14-18) Glucose (83-115) mg/dL Calcium (8.5-10.1) mg/dL Magnesium (1.8-2.4) mg/dl Total Bilirubin (0.2-1.0) mg/dL AST (15-37) U/L ALT (14-59) U/L Alkaline Phosphatase (46-116) U/L CK-MB (CK-2) (0-3.6) ng/ml Troponin I (0.00-0.056) ng/mL C-Reactive Protein (<1.0) mg/dL NT-Pro-B Natriuret Pep 1765 H (0-450) pg/mL Total Protein (6.4-8.2) g/dl Albumin (3.4-5.0) g/dl Globulin gm/dL Albumin/Globulin Ratio (1-2) Meds: Medications Discontinued Medications Generic Name Dose Route Start Last Admin Trade Name Freq PRN Reason Stop Dose Admin Sodium Chloride 1,000 mls @ 100 mls/hr 05/14/18 00:45 05/14/18 00:50 Normal Saline IV 100 mls/hr ASDIRECTED CHIKI Administration - Radiology Interpretation Free Text/Narrative:: 83-year-old female presents to the ED per ambulance from [facility]. Patient states she went to bed around 11 and around 11:30 woke up with sudden onset of severe shortness in her left anterior chest that shut down her left leg. She believes her defibrillator pacemaker discharge. It happened previously about 3 years ago and discharged 12 times in a row. Patient was aware that her heart was going to bit faster than normal after the defibrillator went off. She called 911 and [facility] transferred her to [place]. Is and she states she feels well she has no chest pain no shortness of breath but does feel a bit more fatigued than normal. No recent changes in medications although she was off her Eliquis 2.5 mg daily for 2 days for a dental procedure carried out yesterday. Didn't has not required antibiotics for abscess. Restarted the Eliquis yesterday.. Monitor shows that she is 100% atrial paced rhythm at 60/m. Lungs sound clear chest wall is nontender. Benign abdominal examination faster arthritic changes left knee on exam. Will have the different provider pacemaker interrogated. Chest x-ray times one view to be done ECG and routine labs to include cardiac markers. - Re-Assessments/Exams Free Text/Narrative Re-Assessment/Exam: 05/14/18 01:24 chest x-ray done portably reveals moderate cardiomegaly. Visualized portion of the lungs are clear. The fibular pacemaker left upper anterior chest. Wires appear to be attached to the heart in normal position. 05/14/18 01:53 Labs are back white count is 9.53 with 73% neutrophils and no bands reported. Hemoglobin is 12.1 with hematocrit of 36.9. Platelets count is 203,000. PT is 10.3 with an INR of 0.94. Sodium 139 with a potassium of 4.5. Chloride is 106 with a bicarbonate of 25. Anion gap is 12.5 with BUN of 33 and a creatinine 1.9 EGFR is only 25 i.e. stage IV chronic kidney disease. Glucose is 97 with a calcium of 9.1. Magnesium is 2.2. Liver function is normal. Lytic markers show CK-MB of 1.7 and troponin I of less than 0.017. C-reactive protein mildly elevated at 1.5 BNP is 1765. 05/14/18 01:59 will recheck back in her records every time she comes into the hospital her BNP is always greater than 1200. I expect increasing her dose of Lasix would create a further decline in kidney function. She feels well at this point time and therefore I will discharge her home in the care of her daughter who lives in [place] as well. Departure - Departure Time of Disposition: 02:00 Disposition: Home, Self-Care 01 Condition: Fair Clinical Impression: Atypical chest pain, Presence of combination internal cardiac defibrillator ( ICD) and pacemaker, Chronic diastolic congestive heart failure, NYHA class 4 Instructions: Nonspecific Chest Pain, [id number] Referrals: Ko Pretty MD [Primary Care Provider] - Forms: ED Department Discharge Additional Instructions: Evaluation in the emergency department this morning in regards to sudden awakening from sleep with a jolting your chest shooting down her left leg suggestive that her defibrillator had discharged. We interrogated the pacemaker defibrillator in the ED and sent off to [facility] lab for evaluation. The report that I got back indicated that had it had not discharged and that the monitor had not picked up any arrhythmias since last time it discharged. The right central or what awoke you suddenly with chest pain. Test did not reveal any signs of blood clot in the lung or signs of heart attack. All of your labs essentially are unchanged compared to the ones I compare the 2 in December of this year. ECG is unchanged as well. You do have fluid buildup in your lungs which appears to be chronic and unchanged from previous examinations. Therefore at this time no changes to medications are advised. Her personal care physician if any further problems occur of course early return to the ED if you develop any similar type chest pains . - My Orders Last 24 Hours: My Active Orders 05/14/18 00:38 EKG Documentation Completion [RC] STAT Chest 1V Frontal [CR] Stat - Assessment/Plan Last 24 Hours: My Active Orders 05/14/18 00:38 EKG Documentation Completion [RC] STAT Chest 1V Frontal [CR] Stat
--- NOTE | 2018-05-14 07:38 | CR ---
Chest: Portable view of the chest was obtained. Comparison: Prior chest x-ray of 02/15/18. Heart is enlarged. Upper mediastinum is normal. AICD is present. Slight scarring is noted within the lateral left costophrenic angle. Lungs otherwise are clear without acute parenchymal change. Bony structures are grossly intact. Impression: 1. Stable findings as noted above. Nothing acute is appreciated. Diagnostic code #2
== END 2018-05-14 02:24 | disposition home or self-care (01) ==
LOC: JD.ED 00:03
DX: I13.0 Hypertensive heart and chronic kidney disease with heart failure and stage 1 through stage 4 chronic kidney disease, or unspecified chronic kidney disease (principal); I50.32 Chronic diastolic (congestive) heart failure; N18.9 Chronic kidney disease, unspecified; D63.1 Anemia in chronic kidney disease; Z88.5 Allergy status to narcotic agent; Z79.82 Long term (current) use of aspirin; Z95.0 Presence of cardiac pacemaker
CPT/HCPCS: 36415; 71045; 80053; 82553; 83735; 83880; 84484; 85007; 85027; 85610; 86140; 93005; 96360; 99285; J7040; 93010; 99284-25

== ENCOUNTER 2018-11-19 09:02 | Emergency (ER) | payer MEDICARE, OTHER ==
--- NOTE | 2018-11-19 09:24 | EDM.PDOC ---
ED HPI GENERAL MEDICAL PROBLEM <Abdi Ocampo - Last Filed: 11/19/18 11:00> - General Source of Information: Reports: Patient, Family History Limitations: Reports: No Limitations <Jazmyn Eisenberg - Last Filed: 11/19/18 11:46> - General Chief Complaint: Syncope Stated Complaint: PT BLACKED OUT THIS MORNING Time Seen by Provider: 11/19/18 09:22 - History of Present Illness INITIAL COMMENTS - FREE TEXT/NARRATIVE: 83 yo F w/ extensive heart history w/ PM comes in today after "blacking out" this morning around 630am. She has never had this happen before. She called her PCP and he told her to come to the ED for workup. She states she was by the window and next thing she knew she was across the room at the sink. She states she doesn't think she fell-she has no current head, neck, back, or extremity pain or bruising/abrasions. She also c/o slight headache in the back of her head , R arm weakness, chest heaviness (chronic per pt), dizziness, weakness (acute on chronic), SOB (chronic), urinary frequency (chronic). She denies F/C, N/V/D, abdominal pain, cough, GI/ symptoms. No other complaints at this time and states she is "feeling better". She did eat this AM and did take all of her medications except her blood thinner. PCP is Dr. Pretty. (Jazmyn Eisenberg) - Related Data Allergies Allergy/AdvReac Type Severity Reaction Status Date / Time codeine AdvReac Vomiting Verified 11/19/18 09:18 Home Meds: Home Meds Aspirin 81 mg PO DAILY 12/24/16 [History] Metoprolol Succinate [Toprol XL] 25 mg PO BEDTIME 01/21/17 [History] Magnesium Oxide 400 mg PO BID #30 tablet 01/26/17 [Rx] Amiodarone [Cordarone] 200 mg PO DAILY 05/18/17 [History] Isosorbide Mononitrate [Imdur] 30 mg PO DAILY 05/18/17 [History] Losartan [Cozaar] 50 mg PO DAILY 05/18/17 [History] Apixaban [Eliquis] 2.5 mg PO BID 09/10/17 [History] Metoprolol Succinate [Toprol XL 50mg] 50 mg PO DAILY 12/04/17 [History] Ascorbate Calcium [Vitamin C] 1 tab PO DAILY 05/14/18 [History] Cholecalciferol (Vitamin D3) [Vitamin D] 1 tab PO DAILY 05/14/18 [History] Furosemide [Lasix] 40 mg PO DAILY PRN 05/14/18 [History] Past Medical History HEENT History: Reports: Hard of Hearing, Impaired Vision Other HEENT History: has a hearing aid on right, wears glasses, has upper denture Cardiovascular History: Reports: Afib (He is on amiodarone for this. 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: Other (See Below) Other REVERBERATORY FURNACE OPERATOR History: hysterectomy Musculoskeletal History: Reports: Osteoporosis Neurological History: Reports: None Psychiatric History: Reports: None Endocrine/Metabolic History: Reports: None Hematologic History: Reports: Anemia, Iron Deficiency, Other (See Below) Other Hematologic History: DVT Immunologic History: Reports: None Oncologic (Cancer) History: Reports: None Dermatologic History: Reports: None - Infectious Disease History Infectious Disease History: Reports: Chicken Pox, Measles, Mumps, Shingles - Past Surgical History Head Surgeries/Procedures: Reports: None HEENT Surgical History: Reports: Adenoidectomy, Tonsillectomy Cardiovascular Surgical History: Reports: AICD GI Surgical History: Reports: Colonoscopy, EGD, Other (See Below) Other GI Surgeries/Procedures: Some Hemmorrhoids removed, gastric resection Female Surgical History: Reports: Hysterectomy Endocrine Surgical History: Reports: None Neurological Surgical History: Reports: None Musculoskeletal Surgical History: Reports: Knee Replacement Other Musculoskeletal Surgeries/Procedures:: right total knee replacement Dermatological Surgical History: Reports: None <Jazmyn Eisenberg - Last Filed: 11/19/18 11:46> Social & Family History - Family History Family Medical History: Noncontributory Cardiac: Reports: Stent Neurological: Reports: CVA Psychiatric: Reports: Other (See Below) Other Psychiatric Family History: alcoholism Oncologic: Reports: Other (See Below) Other Oncologic Family History: somach - Caffeine Use Caffeine Use: Reports: Coffee Other Caffeine Use: daily Caffeine Use Comment: "i drink 4 cups in the morning and then 2 in afternoon" - Living Situation & Occupation Living situation: Reports: , Alone Occupation: Retired <Jazmyn Eisenberg - Last Filed: 11/19/18 11:46> ED ROS GENERAL - Review of Systems Review Of Systems: See Below Constitutional: Reports: Weakness. Denies: Fever, Chills HEENT: Reports: No Symptoms Respiratory: Reports: Shortness of Breath (chronic). Denies: Cough Cardiovascular: Reports: No Symptoms. Denies: Chest Pain Endocrine: Reports: No Symptoms GI/Abdominal: Reports: No Symptoms. Denies: Abdominal Pain, Diarrhea, Nausea, Vomiting : Reports: No Symptoms Musculoskeletal: Reports: No Symptoms Skin: Reports: No Symptoms Neurological: Reports: Dizziness, Headache, Syncope ("blacked out" but no fall) , Weakness. Denies: Confusion, Numbness, Tingling, Trouble Speaking, Difficulty Walking Psychiatric: Reports: No Symptoms. Denies: Confusion Hematologic/Lymphatic: Reports: Easy Bleeding (on blood thinner) <Jazmyn Eisenberg - Last Filed: 11/19/18 11:46> - Physical Exam Exam Limited By: No Limitations General Appearance: Alert, WD/WN, No Apparent Distress Eye Exam: Bilateral Eye: EOMI, Normal Fundi, Normal Inspection, PERRL Throat/Mouth: Normal Inspection, Normal Lips, Normal Teeth, Normal Gums, Normal Oropharynx, Normal Voice, No Airway Compromise Head Exam: Atraumatic, Normocephalic Neck: Normal Inspection, Supple, Non-Tender, Full Range of Motion Respiratory/Chest: No Respiratory Distress, Lungs Clear, Normal Breath Sounds, No Accessory Muscle Use, Chest Non-Tender Cardiovascular: Normal Peripheral Pulses, Regular Rate, Rhythm, No Edema, No Gallop, No JVD, No Murmur, No Rub Neuro Exam (Abbreviated): Alert, Oriented, CN II-XII Intact, Normal Cognition, Normal Gait, Normal Reflexes, No Motor/Sensory Deficits Extremities: Normal Inspection, Normal Range of Motion, Non-Tender, No Pedal Edema, Normal Capillary Refill Psychiatric: Normal Affect, Normal Mood Skin Exam: Warm, Dry, Intact, Normal Color, No Rash <Abdi Ocampo - Last Filed: 11/19/18 11:00> - Physical Exam Exam: See Below Cardiovascular: Irregularly Irregular Neuro Exam (Abbreviated): Memory Loss Recent Events. No: Confused, Disoriented , Memory Loss Remote Events, Sensory/Motor Deficit Back Exam: Normal Inspection <Jazmyn Eisenberg - Last Filed: 11/19/18 11:46> EKG INTERPRETATION <Abdi Ocampo - Last Filed: 11/19/18 11:00> EKG Date: 11/19/18 Rhythm: Other (atrial paced) Rate (Beats/Min): 60 [place]: LAD-Left [place] Deviation QT: Prolonged <Jazmyn Eisenberg - Last Filed: 11/19/18 11:46> EKG Interpretation Comments: Atrial paced @60bpm, non specific intraventricular conduction, LVH pattern w/ secondary repolarization, consider old inferior wall OH, old anterosetal OH, LAD (-68degrees), QTc prolonged (Jazmyn Eisenberg) Course <Abdi Ocampo - Last Filed: 11/19/18 11:00> <Jazmyn Eisenberg - Last Filed: 11/19/18 11:46> - Vital Signs Last Recorded V/S: Last Vital Signs Temp 97.3 F 11/19/18 09:13 Pulse 60 11/19/18 09:13 Resp 14 11/19/18 09:13 BP 178/60 H 11/19/18 09:13 Pulse Ox 99 11/19/18 09:13 Orthostatic Blood Pressure [ 169/66 Standing] Orthostatic Blood Pressure [ 154/61 Sitting] Orthostatic Blood Pressure [ 135/52 Supine] - Orders/Labs/Meds Orders: Active Orders 24 hr Category Date Time Status EKG Documentation Completion [RC] ASDIRECTED Care 11/19/18 09:19 Active Orthostatic Vital Signs [RC] ASDIRECTED Care 11/19/18 09:20 Active UA W/MICROSCOPIC [URIN] Stat Lab 11/19/18 10:04 Results EKG 12 Lead [EK] Stat Ther 11/19/18 09:19 Ordered Labs: Laboratory Tests 11/19/18 11/19/1819 Range/Units 09:40 09:40 09:40 WBC 9.20 (3.98-10.04) K/mm3 RBC 4.11 (3.98-5.22) M/mm3 Hgb 12.6 (11.2-15.7) gm/L Hct 39.4 (34.1-44.9) % MCV 95.9 H (79.4-94.8) fl MCH 30.7 (25.6-32.2) pg MCHC 32.0 L (32.2-35.5) g/dl RDW Std Deviation 48.5 H (36.4-46.3) fL Plt Count 217 (182-369) K/mm3 MPV 11.2 (9.4-12.3) fl Neut % (Auto) 78.6 H (34.0-71.1) % Lymph % (Auto) 13.9 L (19.3-51.7) % [place] % (Auto) 5.1 (4.7-12.5) % Eos % (Auto) 2.0 (0.7-5.8) Baso % (Auto) 0.3 (0.1-1.2) % Neut # (Auto) 7.23 H (1.56-6.13) K/mm3 Lymph # (Auto) 1.28 (1.18-3.74) K/mm3 [place] # (Auto) 0.47 H (0.24-0.36) K/mm3 Eos # (Auto) 0.18 (0.04-0.36) K/mm3 Baso # (Auto) 0.03 (0.01-0.08) K/mm3 Sodium 142 (136-145) mEq/L Potassium 4.5 (3.5-5.1) mEq/L Chloride 106 (98-107) mEq/L Carbon Dioxide 27 (21-32) mEq/L Anion Gap 13.5 (5-15) BUN 34 H (7-18) mg/dL Creatinine 1.9 H (0.55-1.02) mg/dL Est Cr Clr Drug Dosing 18.05 mL/min Estimated GFR (MDRD) 25 (>60) mL/min BUN/Creatinine Ratio 17.9 (14-18) Glucose 175 H (83-115) mg/dL Calcium 9.3 (8.5-10.1) mg/dL Magnesium 1.9 (1.8-2.4) mg/dl Total Bilirubin 0.3 (0.2-1.0) mg/dL AST 12 L (15-37) U/L ALT 19 (14-59) U/L Alkaline Phosphatase 100 (46-116) U/L Troponin I < 0.017 (0.00-0.056) ng/mL C-Reactive Protein 0.4 (<1.0) mg/dL NT-Pro-B Natriuret Pep 1814 H (0-450) pg/mL Total Protein 6.6 (6.4-8.2) g/dl Albumin 3.1 L (3.4-5.0) g/dl Globulin 3.5 gm/dL Albumin/Globulin Ratio 0.9 L (1-2) Urine Color (Yellow) Urine Appearance (Clear) Urine pH (5.0-8.0) Ur Specific [place] (1.005-1.030) Urine Protein (Negative) Urine Glucose (UA) (Negative) Urine Ketones (Negative) Urine Occult Blood (Negative) Urine Nitrite (Negative) Urine Bilirubin (Negative) Urine Urobilinogen (0.2-1.0) Ur Leukocyte Esterase (Negative) 11/19/18 Range/Units 10:04 WBC (3.98-10.04) K/mm3 RBC (3.98-5.22) M/mm3 Hgb (11.2-15.7) gm/L Hct (34.1-44.9) % MCV (79.4-94.8) fl MCH (25.6-32.2) pg MCHC (32.2-35.5) g/dl RDW Std Deviation (36.4-46.3) fL Plt Count (182-369) K/mm3 MPV (9.4-12.3) fl Neut % (Auto) (34.0-71.1) % Lymph % (Auto) (19.3-51.7) % [place] % (Auto) (4.7-12.5) % Eos % (Auto) (0.7-5.8) Baso % (Auto) (0.1-1.2) % Neut # (Auto) (1.56-6.13) K/mm3 Lymph # (Auto) (1.18-3.74) K/mm3 [place] # (Auto) (0.24-0.36) K/mm3 Eos # (Auto) (0.04-0.36) K/mm3 Baso # (Auto) (0.01-0.08) K/mm3 Sodium (136-145) mEq/L Potassium (3.5-5.1) mEq/L Chloride (98-107) mEq/L Carbon Dioxide (21-32) mEq/L Anion Gap (5-15) BUN (7-18) mg/dL Creatinine (0.55-1.02) mg/dL Est Cr Clr Drug Dosing mL/min Estimated GFR (MDRD) (>60) mL/min BUN/Creatinine Ratio (14-18) Glucose (83-115) mg/dL Calcium (8.5-10.1) mg/dL Magnesium (1.8-2.4) mg/dl Total Bilirubin (0.2-1.0) mg/dL AST (15-37) U/L ALT (14-59) U/L Alkaline Phosphatase (46-116) U/L Troponin I (0.00-0.056) ng/mL C-Reactive Protein (<1.0) mg/dL NT-Pro-B Natriuret Pep (0-450) pg/mL Total Protein (6.4-8.2) g/dl Albumin (3.4-5.0) g/dl Globulin gm/dL Albumin/Globulin Ratio (1-2) Urine Color Other H (Yellow) Urine Appearance Slt cloudy H (Clear) Urine pH 6.5 (5.0-8.0) Ur Specific [place] 1.015 (1.005-1.030) Urine Protein Negative (Negative) Urine Glucose (UA) Negative (Negative) Urine Ketones Negative (Negative) Urine Occult Blood Negative (Negative) Urine Nitrite Negative (Negative) Urine Bilirubin Negative (Negative) Urine Urobilinogen 0.2 (0.2-1.0) Ur Leukocyte Esterase Negative (Negative) - Re-Assessments/Exams Free Text/Narrative Re-Assessment/Exam: 11/19/18 09:23 I have ordered CBC, CMP, CRP, Mag, Troponin, UA CXR and EKG Orthostatic VS 11/19/18 09:[address] Neal and myself: Atrial paced @60bpm, non specific intraventricular conduction, LVH pattern w/ secondary repolarization, consider old inferior wall [place], old anterosetal [place], LAD (-68degrees), QTc prolonged Orthostatic VS positive: Standing 169/66, Supine 135/52 11/19/18 10:03 CBC WNL After talking with patient, she states she "blacked out" and ended up across the room. Doesn't think she fell. Will order a Head CT. 11/19/18 10:[address] reviewed by myself and Dr. Neal- nothing acute seen. Head CT read by Dr. Montano: 1. Senescent change as noted above. 2. Mild mucosal thickening within the right mastoid sinus most likely incidental if patient has no symptoms of mastoiditis. 3. No acute abnormality is appreciated on noncontrast head CT study. 11/19/18 10:52 CBC WNL CMP Glu 175, AST 12, Alb 3.1 Mg WNL at 1.9 CRP WNL at 0.4 Troponin <0.017 UA not impressive for UTI 11/19/18 10:[address] Neal and myself- nothing acute seen. 11/19/18 11:23 BNP elevated at 1814; however has been higher in the past. At this time, her workup has essentially been negative. She is stable enough to send home. Due to her elevated BP, will recommend she add 20mg Lasix daily to her current regimen. Follow up with PCP. (Jazmyn Eisenberg) Departure <Abdi Ocampo - Last Filed: 11/19/18 11:00> - Departure Time of Disposition: 11:26 Condition: Good - Discharge Information *PRESCRIPTION DRUG MONITORING PROGRAM REVIEWED*: Not Applicable *COPY OF PRESCRIPTION DRUG MONITORING REPORT IN PATIENT ELVA: Not Applicable <Jazmyn Eisenberg - Last Filed: 11/19/18 11:46> - Departure Disposition: Home, Self-Care 01 Clinical Impression: CHF exacerbation, Syncope - Discharge Information Instructions: Heart Failure Exacerbation, Syncope, [id number], Heart Failure Eating Plan Referrals: Ko Pretty MD [Primary Care Provider] - Forms: ED Department Discharge Additional Instructions: You were seen in the ED today for a syncopal event this morning where you "blacked out" and ended up on the other side of the room. Your cardiac, pulmonary, infectious and neurological workup were all negative. Head CT did not show anything acute. At this time, the only abnormality found in your labs was that your BNP is elevated at 1814, which means you are likely having CHF exacerbation. Recommend adding 20mg Lasix around 2-3 pm daily and to follow up with your primary care provider within the week. Please return to ED if new or worsening symptoms. - My Orders Last 24 Hours: My Active Orders 11/19/18 09:19 EKG Documentation Completion [RC] ASDIRECTED EKG 12 Lead [EK] Stat 11/19/18 09:20 Orthostatic Vital Signs [RC] ASDIRECTED 11/19/18 10:04 UA W/MICROSCOPIC [URIN] Stat - Assessment/Plan Last 24 Hours: My Active Orders 11/19/18 09:19 EKG Documentation Completion [RC] ASDIRECTED EKG 12 Lead [EK] Stat 11/19/18 09:20 Orthostatic Vital Signs [RC] ASDIRECTED 11/19/18 10:04 UA W/MICROSCOPIC [URIN] Stat
--- NOTE | 2018-11-19 10:32 | CT ---
Head CT Technique: Multiple axial sections were obtained through the brain. Intravenous contrast was not utilized. Comparison: Previous MRI brain dated 05/26/12. Findings: Ventricles along with basal cisterns and sulci over the convexities are mildly prominent. Mild areas of diminished density noted within the periventricular white matter compatible with small vessel ischemic demyelination change. 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 No other abnormal parenchymal densities are seen. No evidence of intracranial hemorrhage. No midline shift or mass effect is seen. Bone window settings were reviewed which show mild mucosal thickening within the right mastoid sinus. Other visualized sinuses are clear. No acute calvarial abnormality is seen. Impression: 1. Senescent change as noted above. 2. Mild mucosal thickening within the right mastoid sinus most likely incidental if patient has no symptoms of mastoiditis. 3. No acute abnormality is appreciated on noncontrast head CT study. Diagnostic code #2
--- NOTE | 2018-11-19 11:16 | CR ---
Chest: Two views of the chest are obtained. Comparison: Prior chest x-ray of 05/14/18. Heart size is slightly enlarged. AICD is present. Lungs are clear with no acute parenchymal change. Bony structures appear osteopenic. Slight degenerative change is scattered within the spine with mild scoliosis. Stable sclerotic area is noted within the proximal right humerus most likely due to incidental bone island. Impression: 1. Findings as noted above. Nothing acute is appreciated. Diagnostic code #2
[2018-11-19 12:10] VITALS: BP 154/64
== END 2018-11-19 12:05 | disposition home or self-care (01) ==
LOC: JD.ED 09:02
DX: R55 Syncope and collapse (principal); I13.0 Hypertensive heart and chronic kidney disease with heart failure and stage 1 through stage 4 chronic kidney disease, or unspecified chronic kidney disease; I50.9 Heart failure, unspecified; N18.9 Chronic kidney disease, unspecified; Z88.5 Allergy status to narcotic agent; Z79.82 Long term (current) use of aspirin; Z79.899 Other long term (current) drug therapy
CPT/HCPCS: 36415; 70450; 70450-26; 71046; 71046-26; 80053; 81001; 83735; 83880; 84484; 85025; 86140; 93005; 93010; 99284; 99285-25

== ENCOUNTER 2018-12-07 02:09 | Emergency (ER) | payer MEDICARE, OTHER ==
[2018-12-07 02:22] VITALS: BP 181/62
[2018-12-07] MEDS ORDERED: Meclizine 12.5 MG Tab PO ONE (02:46)
--- NOTE | 2018-12-07 02:50 | EDM.PDOC ---
ED HPI GENERAL MEDICAL PROBLEM - General Chief Complaint: General Stated Complaint: [facility] Time Seen by Provider: 12/07/18 02:15 Source of Information: Reports: Patient History Limitations: Reports: No Limitations - History of Present Illness INITIAL COMMENTS - FREE TEXT/NARRATIVE: This is an 83-year-old female. She states over the last week she's been having episodes of vertigo. She denies lightheadedness. She states that when she lies down he gets a lot better if she sits up or if she tries to stand up that it seems like it gets worse. At times she gets nauseated but she has not vomited. She has not fallen down due to the vertigo. She says she's had this in the past and her family agree. She denies any recent illnesses no colds no cough no fever no chills. Due to the persistence of the vertigo she comes to the ER this morning. Apparently she tried to get up and go to the bathroom and that's when she experienced vertigo with some nausea so she comes to the ER. - Related Data Allergies Allergy/AdvReac Type Severity Reaction Status Date / Time codeine AdvReac Vomiting Verified 12/07/18 02:22 Home Meds: Home Meds Amiodarone [Cordarone] 200 mg PO DAILY 05/18/17 [History] Isosorbide Mononitrate [Imdur] 30 mg PO DAILY 05/18/17 [History] Losartan [Cozaar] 50 mg PO DAILY 05/18/17 [History] Apixaban [Eliquis] 5 mg PO BID 09/10/17 [History] Metoprolol Succinate [Toprol XL 50mg] 75 mg PO DAILY 12/04/17 [History] Ascorbate Calcium [Vitamin C] 1 tab PO DAILY 05/14/18 [History] Lactobacillus Combination No.4 [Probiotic] 1 cap PO DAILY 12/07/18 [History] Magnesium Oxide 400 mg PO DAILY 12/07/18 [History] Meclizine [Antivert] 25 mg PO Q8H PRN #20 tab.chew 12/07/18 [Rx] Past Medical History HEENT History: Reports: Hard of Hearing, Impaired Vision Other HEENT History: has a hearing aid on right, wears glasses, has upper denture Cardiovascular History: Reports: Afib, Angina, Arrhythmia, Blood Clots/VTE/DVT, Cardiomyopathy, High Cholesterol, Hypertension, Pacemaker, Other (See Below) Other Cardiovascular History: pacer and AICD placed 01/08/17 Respiratory History: Reports: SOB Gastrointestinal History: Reports: Diverticulosis, GERD, PUD Other Gastrointestinal History: Gastric ulcer Genitourinary History: Reports: Chronic Renal Insuffiency, Urinary Incontinence Other Genitourinary History: possible cystocele, urinary frequency RUNNING INSTRUCTOR History: Reports: Other (See Below) Other RUNNING INSTRUCTOR History: hysterectomy Musculoskeletal History: Reports: Osteoporosis Neurological History: Reports: None Psychiatric History: Reports: None Endocrine/Metabolic History: Reports: None Hematologic History: Reports: Anemia, Iron Deficiency, Other (See Below) Other Hematologic History: DVT Immunologic History: Reports: None Oncologic (Cancer) History: Reports: None Dermatologic History: Reports: None - Infectious Disease History Infectious Disease History: Reports: Chicken Pox, Measles, Mumps, Shingles - Past Surgical History Head Surgeries/Procedures: Reports: None HEENT Surgical History: Reports: Adenoidectomy, Tonsillectomy Cardiovascular Surgical History: Reports: AICD GI Surgical History: Reports: Colonoscopy, EGD, Other (See Below) Other GI Surgeries/Procedures: Some Hemmorrhoids removed, gastric resection Female Surgical History: Reports: Hysterectomy Endocrine Surgical History: Reports: None Neurological Surgical History: Reports: None Musculoskeletal Surgical History: Reports: Knee Replacement Other Musculoskeletal Surgeries/Procedures:: right total knee replacement Dermatological Surgical History: Reports: None Social & Family History - Family History Family Medical History: Noncontributory Cardiac: Reports: Stent Neurological: Reports: CVA Psychiatric: Reports: Other (See Below) Other Psychiatric Family History: alcoholism Oncologic: Reports: Other (See Below) Other Oncologic Family History: somach - Tobacco Use Smoking Status *Q: Never Smoker - Caffeine Use Caffeine Use: Reports: Coffee Other Caffeine Use: daily Caffeine Use Comment: "i drink 4 cups in the morning and then 2 in afternoon" - Recreational Drug Use Recreational Drug Use: No - Living Situation & Occupation Living situation: Reports: , Alone Occupation: Retired ED ROS GENERAL - Review of Systems Review Of Systems: See Below Constitutional: Denies: Fever, Chills HEENT: Reports: Vertigo. Denies: Eye Discharge, Rhinitis, Sinus Problem, Vision Change Respiratory: Reports: No Symptoms Cardiovascular: Reports: No Symptoms Endocrine: Reports: No Symptoms GI/Abdominal: Reports: Nausea. Denies: Abdominal Pain, Diarrhea, Vomiting : Reports: No Symptoms Musculoskeletal: Reports: No Symptoms Skin: Reports: No Symptoms Neurological: Reports: Dizziness. Denies: Headache Psychiatric: Reports: No Symptoms Hematologic/Lymphatic: Reports: No Symptoms ED EXAM, GENERAL - Physical Exam Exam: See Below Exam Limited By: No Limitations General Appearance: Alert, WD/WN, No Apparent Distress Eye Exam: Bilateral Eye: Normal Inspection, Other (No noted nystagmus) Ears: Normal External Exam, Normal Canal, Normal TMs Nose: Normal Inspection Throat/Mouth: Normal Inspection, Normal Lips, Normal Voice, No Airway Compromise Head: Normocephalic Neck: Supple. No: Carotid Bruit Respiratory/Chest: No Respiratory Distress, Lungs Clear, Normal Breath Sounds, Other (Pacemaker noted in the left lower anterior chest) Cardiovascular: Regular Rate, Rhythm, No Murmur Back Exam: Full Range of Motion Extremities: Normal Inspection, Normal Range of Motion Neurological: Alert, Oriented Psychiatric: Normal Affect, Normal Mood Skin Exam: Warm, Dry Course - Vital Signs Last Recorded V/S: Last Vital Signs Temp 96.9 F 12/07/18 02:16 Pulse 60 12/07/18 02:16 Resp 19 12/07/18 02:16 BP 181/62 H 12/07/18 02:16 Pulse Ox 98 12/07/18 02:16 - Orders/Labs/Meds Labs: Laboratory Tests 12/07/18 12/07/18 Range/Units 02:57 02:57 WBC 7.74 (3.98-10.04) K/mm3 RBC 3.97 L (3.98-5.22) M/mm3 Hgb 12.4 (11.2-15.7) gm/L Hct 37.8 (34.1-44.9) % MCV 95.2 H (79.4-94.8) fl MCH 31.2 (25.6-32.2) pg MCHC 32.8 (32.2-35.5) g/dl RDW Std Deviation 47.5 H (36.4-46.3) fL Plt Count 184 (182-369) K/mm3 MPV 11.3 (9.4-12.3) fl Neut % (Auto) 67.5 (34.0-71.1) % Lymph % (Auto) 21.2 (19.3-51.7) % [place] % (Auto) 7.4 (4.7-12.5) % Eos % (Auto) 3.4 (0.7-5.8) Baso % (Auto) 0.4 (0.1-1.2) % Neut # (Auto) 5.23 (1.56-6.13) K/mm3 Lymph # (Auto) 1.64 (1.18-3.74) K/mm3 [place] # (Auto) 0.57 H (0.24-0.36) K/mm3 Eos # (Auto) 0.26 (0.04-0.36) K/mm3 Baso # (Auto) 0.03 (0.01-0.08) K/mm3 Sodium 145 (136-145) mEq/L Potassium 4.5 (3.5-5.1) mEq/L Chloride 112 H (98-107) mEq/L Carbon Dioxide 26 (21-32) mEq/L Anion Gap 11.5 (5-15) BUN 41 H (7-18) mg/dL Creatinine 1.9 H (0.55-1.02) mg/dL Est Cr Clr Drug Dosing 18.88 mL/min Estimated GFR (MDRD) 25 (>60) mL/min BUN/Creatinine Ratio 21.6 H (14-18) Glucose 91 (83-115) mg/dL Calcium 9.1 (8.5-10.1) mg/dL Magnesium 2.0 (1.8-2.4) mg/dl Total Bilirubin 0.3 (0.2-1.0) mg/dL AST 14 L (15-37) U/L ALT 18 (14-59) U/L Alkaline Phosphatase 92 (46-116) U/L Total Protein 6.4 (6.4-8.2) g/dl Albumin 3.1 L (3.4-5.0) g/dl Globulin 3.3 gm/dL Albumin/Globulin Ratio 0.9 L (1-2) Meds: Medications Discontinued Medications Generic Name Dose Route Start Last Admin Trade Name Freq PRN Reason Stop Dose Admin Meclizine HCl 25 mg 12/07/18 02:46 12/07/18 02:50 Antivert PO 12/07/18 02:47 25 mg ONETIME ONE Administration - Re-Assessments/Exams Free Text/Narrative Re-Assessment/Exam: 12/07/18 02:48 The patient was seen here about 3 weeks ago due to a syncopal episode and had a full cardiac and CT scan of her head that were all normal. 12/07/18 03:57 I spoke to the patient and the family regarding the blood work. I indicated to her that she does have some mild renal dysfunction and that could be related to her drinking strictly coffee all the time rather than from other fluids. It is known that caffeine at times can make vertigo worse and perhaps S was going on with her. I encouraged her to drink one cup of coffee and then one cup of water or juice for every cup of coffee she drinks. The meclizine seemed to make a difference with her vertigo in the ER. Departure - Departure Time of Disposition: 03:57 Disposition: Home, Self-Care 01 Condition: Good Clinical Impression: Vertigo Labyrinthitis Qualifiers: Laterality: unspecified laterality Qualified Code(s): H83.09 - Labyrinthitis, unspecified ear - Discharge Information *PRESCRIPTION DRUG MONITORING PROGRAM REVIEWED*: Not Applicable *COPY OF PRESCRIPTION DRUG MONITORING REPORT IN PATIENT ELVA: Not Applicable Prescriptions: Meclizine [Antivert] 25 mg PO Q8H PRN #20 tab.chew PRN Reason: Dizziness Instructions: Vertigo, [id number] Referrals: Ko Pretty MD [Primary Care Provider] - Forms: ED Department Discharge Additional Instructions: Use the meclizine as needed for the dizziness or vertigo, try to increase your water or juice intake when compared to your coffee intake, be careful about getting up slowly and if you experience vertigo wait until it goes away before you continue to get up or walk, follow-up with your family doctor this week for recheck, return to the ER if needed
== END 2018-12-07 04:15 | disposition home or self-care (01) ==
LOC: JD.ED 02:09
DX: H83.09 Labyrinthitis, unspecified ear (principal); R42 Dizziness and giddiness; I48.91 Unspecified atrial fibrillation; I12.9 Hypertensive chronic kidney disease with stage 1 through stage 4 chronic kidney disease, or unspecified chronic kidney disease; N18.9 Chronic kidney disease, unspecified; E78.00 Pure hypercholesterolemia, unspecified; Z88.5 Allergy status to narcotic agent; Z95.0 Presence of cardiac pacemaker; Z79.899 Other long term (current) drug therapy; Z79.01 Long term (current) use of anticoagulants
CPT/HCPCS: 36415; 80053; 83735; 85025; 99284; A9270

== ENCOUNTER 2019-05-27 01:58 | Emergency (ER) | payer MEDICARE, OTHER ==
[2019-05-27 02:08] VITALS: BP 161/65; PULSE 73
--- NOTE | 2019-05-27 02:24 | EDM.PDOC ---
ED HPI GENERAL MEDICAL PROBLEM - General Chief Complaint: Respiratory Problem Stated Complaint: cough congestion Time Seen by Provider: 05/27/19 02:19 - History of Present Illness INITIAL COMMENTS - FREE TEXT/NARRATIVE: 84-year-old female comes emergency room with a worsening cough and congestion. Patient has had this for the last 5 or 6 days. And is progressively getting worse cough is now productive she's bringing up some clear but some off color sputum. She's not aware of any fevers or chills. Patient has a significant history of congestive heart failure. This does not feel like when her heart failure ask up her swelling in her extremities does doing pretty good at this time and certainly not get any worse.. Chest Pain Score (Numeric/FACES): 3 - Related Data Allergies Allergy/AdvReac Type Severity Reaction Status Date / Time codeine AdvReac Vomiting Verified 05/27/19 02:07 Home Meds: Home Meds Amiodarone [Cordarone] 200 mg PO DAILY 05/18/17 [History] Losartan [Cozaar] 50 mg PO DAILY 05/18/17 [History] Apixaban [Eliquis] 2.5 mg PO BID 09/10/17 [History] Metoprolol Succinate [Toprol XL 50mg] 75 mg PO DAILY 12/04/17 [History] Ascorbate Calcium [Vitamin C] 1 tab PO DAILY 05/14/18 [History] Lactobacillus Combination No.4 [Probiotic] 1 cap PO DAILY 12/07/18 [History] Magnesium Oxide 400 mg PO DAILY 12/07/18 [History] Doxycycline [Vibramycin] 100 mg PO DAILY #14 tab 05/27/19 [Rx] Past Medical History HEENT History: Reports: Hard of Hearing, Impaired Vision Other HEENT History: has a hearing aid on right, wears glasses, has upper denture Cardiovascular History: Reports: Afib, Angina, Arrhythmia, Blood Clots/VTE/DVT, Cardiomyopathy, High Cholesterol, Hypertension, Pacemaker, Other (See Below) Other Cardiovascular History: pacer and AICD placed 01/08/17 Respiratory History: Reports: Pneumonia, Recurrent, SOB Gastrointestinal History: Reports: Diverticulosis, GERD, PUD Other Gastrointestinal History: Gastric ulcer Genitourinary History: Reports: Chronic Renal Insuffiency, Urinary Incontinence Other Genitourinary History: possible cystocele, urinary frequency VALIDATION ANALYST History: Reports: Other (See Below) Other VALIDATION ANALYST History: hysterectomy Musculoskeletal History: Reports: Osteoporosis Neurological History: Reports: None Psychiatric History: Reports: None Endocrine/Metabolic History: Reports: None Hematologic History: Reports: Anemia, Iron Deficiency, Other (See Below) Other Hematologic History: DVT Immunologic History: Reports: None Oncologic (Cancer) History: Reports: None Dermatologic History: Reports: None - Infectious Disease History Infectious Disease History: Reports: Chicken Pox, Measles, Mumps, Shingles - Past Surgical History Head Surgeries/Procedures: Reports: None HEENT Surgical History: Reports: Adenoidectomy, Tonsillectomy Cardiovascular Surgical History: Reports: AICD GI Surgical History: Reports: Appendectomy, Colonoscopy, EGD, Other (See Below) Other GI Surgeries/Procedures: Some Hemmorrhoids removed, gastric resection Female Surgical History: Reports: Hysterectomy Endocrine Surgical History: Reports: None Neurological Surgical History: Reports: None Musculoskeletal Surgical History: Reports: Knee Replacement Other Musculoskeletal Surgeries/Procedures:: right total knee replacement Dermatological Surgical History: Reports: None Social & Family History - Family History Family Medical History: Noncontributory Cardiac: Reports: Stent Neurological: Reports: CVA Psychiatric: Reports: Other (See Below) Other Psychiatric Family History: alcoholism Oncologic: Reports: Other (See Below) Other Oncologic Family History: somach - Tobacco Use Smoking Status *Q: Never Smoker Second Hand Smoke Exposure: No - Caffeine Use Caffeine Use: Reports: Coffee Other Caffeine Use: daily Caffeine Use Comment: "i drink 4 cups in the morning and then 2 in afternoon" - Recreational Drug Use Recreational Drug Use: No - Living Situation & Occupation Living situation: Reports: , Alone Occupation: Retired ED ROS GENERAL - Review of Systems Review Of Systems: See Below Constitutional: Reports: No Symptoms HEENT: Reports: Rhinitis (This is actually improving) Respiratory: Reports: Cough, Sputum (This is getting worse) Cardiovascular: Denies: Chest Pain, Dyspnea on Exertion, Palpitations Endocrine: Reports: No Symptoms GI/Abdominal: Reports: No Symptoms : Reports: No Symptoms Musculoskeletal: Reports: No Symptoms Skin: Reports: No Symptoms Neurological: Reports: No Symptoms Psychiatric: Reports: No Symptoms ED EXAM, GENERAL - Physical Exam Exam: See Below Exam Limited By: No Limitations General Appearance: Alert, No Apparent Distress Eye Exam: Bilateral Eye: Normal Inspection Ears: Normal External Exam, Other (She wears a hearing aid in the right) Nose: Normal Inspection, Normal Mucosa, No Blood, Other (No significant rhinorrhea). No: Clear Rhinorrhea Throat/Mouth: Normal Inspection, Normal Lips, Normal Gums, Normal Oropharynx, Normal Voice, No Airway Compromise Head: Atraumatic, Normocephalic Neck: Normal Inspection, Supple, Non-Tender, Full Range of Motion. No: Lymphadenopathy (L), Lymphadenopathy (R) Respiratory/Chest: No Respiratory Distress, Lungs Clear, Normal Breath Sounds. No: Respiratory Distress, Crackles, Rales, Rhonchi, Wheezing Cardiovascular: Normal Peripheral Pulses, Regular Rate, Rhythm, No Murmur, Other (Trace pitting edema around the ankles this is doing pretty good for her) . No: No Edema GI/Abdominal: Normal Bowel Sounds, Soft, Non-Tender Rectal (Female) Exam: Normal Exam Back Exam: Normal Inspection. No: CVA Tenderness (L), CVA Tenderness (R) Neurological: Alert, Oriented, Normal Cognition Lymphatic: No Adenopathy EKG INTERPRETATION Rhythm: Other (I believe she is atrial paced this is difficult to see with the baseline artifact) Rate (Beats/Min): 64 Roundup: LAD-Left Roundup Deviation QRS: LBBB ST-T: Other (Normal pattern for left breast block she has Q waves noted in the inferior septal and lateral leads) Comparison: No Change EKG Interpretation Comments: Abnormal EKG Course - Vital Signs Last Recorded V/S: Last Vital Signs Temp 36.8 C 05/27/19 02:04 Pulse 73 05/27/19 02:04 Resp 19 05/27/19 02:04 BP 161/65 H 05/27/19 02:04 Pulse Ox 95 05/27/19 02:04 - Orders/Labs/Meds Orders: Active Orders 24 hr Category Date Time Status EKG Documentation Completion [RC] STAT Care 05/27/19 02:41 Active Chest 2V [CR] Stat Exams 05/27/19 02:07 Taken Labs: Laboratory Tests 05/27/19 05/27/19 05/27/19 Range/Units 02:15 02:15 02:15 WBC 11.09 H (3.98-10.04) K/mm3 RBC 4.00 (3.98-5.22) M/mm3 Hgb 12.8 (11.2-15.7) gm/dl Hct 37.6 (34.1-44.9) % MCV 94.0 (79.4-94.8) fl MCH 32.0 (25.6-32.2) pg MCHC 34.0 (32.2-35.5) g/dl RDW Std Deviation 49.7 H (36.4-46.3) fL Plt Count 177 L (182-369) K/mm3 MPV 11.2 (9.4-12.3) fl Neut % (Auto) 82.5 H (34.0-71.1) % Lymph % (Auto) 8.1 L (19.3-51.7) % Brooke % (Auto) 7.9 (4.7-12.5) % Eos % (Auto) 1.2 (0.7-5.8) Baso % (Auto) 0.3 (0.1-1.2) % Neut # (Auto) 9.15 H (1.56-6.13) K/mm3 Lymph # (Auto) 0.90 L (1.18-3.74) K/mm3 Brooke # (Auto) 0.88 H (0.24-0.36) K/mm3 Eos # (Auto) 0.13 (0.04-0.36) K/mm3 Baso # (Auto) 0.03 (0.01-0.08) K/mm3 Manual Slide Review Abnormal smear Sodium 143 (136-145) mEq/L Potassium 4.1 (3.5-5.1) mEq/L Chloride 109 H (98-107) mEq/L Carbon Dioxide 24 (21-32) mEq/L Anion Gap 14.1 (5-15) BUN 39 H (7-18) mg/dL Creatinine 1.9 H (0.55-1.02) mg/dL Est Cr Clr Drug Dosing 17.74 mL/min Estimated GFR (MDRD) 25 (>60) mL/min BUN/Creatinine Ratio 20.5 H (14-18) Glucose 111 (83-115) mg/dL Calcium 8.9 (8.5-10.1) mg/dL Total Bilirubin 0.4 (0.2-1.0) mg/dL AST 15 (15-37) U/L ALT 16 (14-59) U/L Alkaline Phosphatase 107 (46-116) U/L Troponin I < 0.017 (0.00-0.056) ng/mL NT-Pro-B Natriuret Pep (0-450) pg/mL Total Protein 7.0 (6.4-8.2) g/dl Albumin 3.5 (3.4-5.0) g/dl Globulin 3.5 gm/dL Albumin/Globulin Ratio 1.0 (1-2) 05/27/19 Range/Units 02:15 WBC (3.98-10.04) K/mm3 RBC (3.98-5.22) M/mm3 Hgb (11.2-15.7) gm/dl Hct (34.1-44.9) % MCV (79.4-94.8) fl MCH (25.6-32.2) pg MCHC (32.2-35.5) g/dl RDW Std Deviation (36.4-46.3) fL Plt Count (182-369) K/mm3 MPV (9.4-12.3) fl Neut % (Auto) (34.0-71.1) % Lymph % (Auto) (19.3-51.7) % Brooke % (Auto) (4.7-12.5) % Eos % (Auto) (0.7-5.8) Baso % (Auto) (0.1-1.2) % Neut # (Auto) (1.56-6.13) K/mm3 Lymph # (Auto) (1.18-3.74) K/mm3 Brooke # (Auto) (0.24-0.36) K/mm3 Eos # (Auto) (0.04-0.36) K/mm3 Baso # (Auto) (0.01-0.08) K/mm3 Manual Slide Review Sodium (136-145) mEq/L Potassium (3.5-5.1) mEq/L Chloride (98-107) mEq/L Carbon Dioxide (21-32) mEq/L Anion Gap (5-15) BUN (7-18) mg/dL Creatinine (0.55-1.02) mg/dL Est Cr Clr Drug Dosing mL/min Estimated GFR (MDRD) (>60) mL/min BUN/Creatinine Ratio (14-18) Glucose (83-115) mg/dL Calcium (8.5-10.1) mg/dL Total Bilirubin (0.2-1.0) mg/dL AST (15-37) U/L ALT (14-59) U/L Alkaline Phosphatase (46-116) U/L Troponin I (0.00-0.056) ng/mL NT-Pro-B Natriuret Pep 2127 H (0-450) pg/mL Total Protein (6.4-8.2) g/dl Albumin (3.4-5.0) g/dl Globulin gm/dL Albumin/Globulin Ratio (1-2) Meds: Medications Discontinued Medications Generic Name Dose Route Start Last Admin Trade Name Freq PRN Reason Stop Dose Admin Doxycycline Hyclate 100 mg 05/27/19 03:47 Vibramycin PO 05/27/19 03:48 ONETIME ONE - Re-Assessments/Exams Free Text/Narrative Re-Assessment/Exam: 05/27/19 04:16 Labs reviewed proBNP is elevated at this is typical for where she runs chest x- ray was done which shows no obvious pneumonia, however, I am suspicious with her worsening cough Departure - Departure Time of Disposition: 03:51 Disposition: Home, Self-Care 01 Clinical Impression: Bronchitis - Discharge Information Prescriptions: Doxycycline [Vibramycin] 100 mg PO DAILY #14 tab Instructions: Acute Bronchitis, Adult, [id number] Referrals: Ko Pretty MD [Primary Care Provider] - Forms: ED Department Discharge Additional Instructions: Return to the emergency room with any questions problems worsening symptoms. Follow-up with your regular doctor as needed. You've been started on doxycycline. This is an antibiotic. Take your magnesium several hours before or after taking the doxycycline. - My Orders Last 24 Hours: My Active Orders 05/27/19 02:07 Chest 2V [CR] Stat 05/27/19 02:41 EKG Documentation Completion [RC] STAT - Assessment/Plan Last 24 Hours: My Active Orders 05/27/19 02:07 Chest 2V [CR] Stat 05/27/19 02:41 EKG Documentation Completion [RC] STAT
[2019-05-27] MEDS ORDERED: Doxycycline 100 MG Cap PO ONE (03:47)
--- NOTE | 2019-05-27 07:24 | CR ---
Chest: Two views of the chest were obtained. Comparison: Prior chest x-ray of 11/19/18. Heart size is slightly enlarged. AICD is noted. Lungs are clear with no acute parenchymal change. Scoliosis is noted within the spine with scattered disc space narrowing and endplate spurring. Slight compression deformities are scattered within the spine as well as endplate concavities which appear stable. Sclerotic area is noted within the proximal right humerus which is stable and most likely due to bone island. Impression: 1. Multiple findings as described above. 2. Nothing acute is appreciated when compared to prior exam. Diagnostic code #2
== END 2019-05-27 04:05 | disposition home or self-care (01) ==
LOC: JD.ED 01:58
DX: J40 Bronchitis, not specified as acute or chronic (principal); I50.9 Heart failure, unspecified; N18.9 Chronic kidney disease, unspecified; I82.409 Acute embolism and thrombosis of unspecified deep veins of unspecified lower extremity; Z88.5 Allergy status to narcotic agent; Z79.01 Long term (current) use of anticoagulants
CPT/HCPCS: 36415; 71046; 80053; 83880; 84484; 85025; 93005; 99284; A9270

== ENCOUNTER 2019-10-03 18:21 | Emergency (ER) | payer MEDICARE, OTHER ==
[2019-10-03 18:31] VITALS: BP 181/68; PULSE 65
--- NOTE | 2019-10-03 19:41 | EDM.PDOC ---
ED HPI GENERAL MEDICAL PROBLEM - General Chief Complaint: Respiratory Problem Stated Complaint: RESPIRATORY ISSUES Time Seen by Provider: 10/03/19 18:47 Source of Information: Reports: Patient, Family History Limitations: Reports: No Limitations - History of Present Illness INITIAL COMMENTS - FREE TEXT/NARRATIVE: Patient is an 84-year-old female who presents with her daughter with complaints of a cough, shortness of breath and congestion for 1 week. Patient was seen in the clinic on Saturday. States the chest x-ray and an influenza screen was done at that time both of which were negative. She was advised to take Mucinex. She states on Saturday she did have an albuterol inhaler prescribed to her, however the pharmacist told her she should not use that because it will cause her to go into A. fib. Since that time, her symptoms have not worsened, however they are not better either. She states that this time she feels her there is a rattling in her chest and that her chest feels heavy. She describes her cough as dry and nonproductive. Is had no increase in peripheral edema. She has had chills but no known fever. No nausea vomiting or diarrhea. She has a history of congestive heart failure, but has no chronic lung conditions such as COPD and asthma. Chest Pain Score (Numeric/FACES): 4 - Related Data Allergies Allergy/AdvReac Type Severity Reaction Status Date / Time codeine AdvReac Vomiting Verified 10/03/19 18:27 Home Meds: Home Meds Amiodarone [Cordarone] 200 mg PO DAILY 05/18/17 [History] Losartan [Cozaar] 50 mg PO DAILY 05/18/17 [History] Apixaban [Eliquis] 2.5 mg PO BID 09/10/17 [History] Metoprolol Succinate [Toprol XL 50mg] 50 mg PO DAILY 12/04/17 [History] Ascorbate Calcium [Vitamin C] 1 tab PO DAILY 05/14/18 [History] Lactobacillus Combination No.4 [Probiotic] 1 cap PO DAILY 12/07/18 [History] Magnesium Oxide 400 mg PO DAILY 12/07/18 [History] Cholecalciferol (Vitamin D3) [Vitamin D3] 5,000 unit PO DAILY 10/03/19 [History] Cyanocobalamin (Vitamin B12) [Vitamin B12] 1,000 mcg PO DAILY 10/03/19 [History] Isosorbide Mononitrate [Imdur] 30 mg PO DAILY 10/03/19 [History] Metoprolol Succinate [Toprol Xl] 25 mg PO DAILY 10/03/19 [History] guaiFENesin [Mucinex] 600 mg PO DAILY 10/03/19 [History] predniSONE [Prednisone] 20 mg PO ASDIRECTED #11 tablet 10/03/19 [Rx] Past Medical History HEENT History: Reports: Hard of Hearing, Impaired Vision Other HEENT History: has a hearing aid on right, wears glasses, has upper denture Cardiovascular History: Reports: Afib, Angina, Arrhythmia, Blood Clots/VTE/DVT, Cardiomyopathy, High Cholesterol, Hypertension, Pacemaker, Other (See Below) Other Cardiovascular History: pacer and AICD placed 01/08/17 Respiratory History: Reports: Pneumonia, Recurrent, SOB Gastrointestinal History: Reports: Diverticulosis, GERD, PUD Other Gastrointestinal History: Gastric ulcer Genitourinary History: Reports: Chronic Renal Insuffiency, Urinary Incontinence Other Genitourinary History: possible cystocele, urinary frequency MEDICAL OBSERVER History: Reports: Other (See Below) Other MEDICAL OBSERVER History: hysterectomy Musculoskeletal History: Reports: Osteoporosis Neurological History: Reports: None Psychiatric History: Reports: None Endocrine/Metabolic History: Reports: None Hematologic History: Reports: Anemia, Iron Deficiency, Other (See Below) Other Hematologic History: DVT Immunologic History: Reports: None Oncologic (Cancer) History: Reports: None Dermatologic History: Reports: None - Infectious Disease History Infectious Disease History: Reports: Chicken Pox, Measles, Mumps, Shingles - Past Surgical History Head Surgeries/Procedures: Reports: None HEENT Surgical History: Reports: Adenoidectomy, Tonsillectomy Cardiovascular Surgical History: Reports: AICD GI Surgical History: Reports: Appendectomy, Colonoscopy, EGD, Other (See Below) Other GI Surgeries/Procedures: Some Hemmorrhoids removed, gastric resection Female Surgical History: Reports: Hysterectomy Endocrine Surgical History: Reports: None Neurological Surgical History: Reports: None Musculoskeletal Surgical History: Reports: Knee Replacement Other Musculoskeletal Surgeries/Procedures:: right total knee replacement Dermatological Surgical History: Reports: None Social & Family History - Family History Family Medical History: Noncontributory Cardiac: Reports: Stent Neurological: Reports: CVA Psychiatric: Reports: Other (See Below) Other Psychiatric Family History: alcoholism Oncologic: Reports: Other (See Below) Other Oncologic Family History: somach - Tobacco Use Smoking Status *Q: Never Smoker - Caffeine Use Caffeine Use: Reports: Coffee Other Caffeine Use: daily Caffeine Use Comment: "i drink 4 cups in the morning and then 2 in afternoon" - Recreational Drug Use Recreational Drug Use: No - Living Situation & Occupation Living situation: Reports: , Alone Occupation: Retired ED ROS GENERAL - Review of Systems Review Of Systems: Comprehensive ROS is negative, except as noted in HPI. ED EXAM, GENERAL - Physical Exam Exam: See Below Exam Limited By: No Limitations General Appearance: Alert, WD/WN, No Apparent Distress Respiratory/Chest: No Respiratory Distress, Normal Breath Sounds, No Accessory Muscle Use, Chest Non-Tender, Other (Faint wheeze at the end of expiration). No : Crackles, Rales, Rhonchi Cardiovascular: Normal Peripheral Pulses, Regular Rate, Rhythm, No Edema, No Gallop, No JVD, No Murmur, No Rub GI/Abdominal: Normal Bowel Sounds, Soft, Non-Tender, No Organomegaly, No Distention, No Abnormal Bruit, No Mass Extremities: Normal Inspection, Normal Range of Motion, Non-Tender, Normal Capillary Refill, No Pedal Edema Neurological: Alert, Oriented, CN II-XII Intact, Normal Cognition, Normal Gait, Normal Reflexes, No Motor/Sensory Deficits Psychiatric: Normal Affect, Normal Mood Skin Exam: Warm, Dry, Intact, Normal Color, No Rash Course - Vital Signs Last Recorded V/S: Last Vital Signs Temp 97.6 F 10/03/19 18:28 Pulse 65 10/03/19 18:28 Resp 20 10/03/19 18:28 BP 181/68 H 10/03/19 18:28 Pulse Ox 99 10/03/19 18:28 - Orders/Labs/Meds Labs: Laboratory Tests 10/03/19 10/03/19 10/03/19 Range/Units 19:25 19:25 19:25 WBC 8.65 (3.98-10.04) K/mm3 RBC 3.90 L (3.98-5.22) M/mm3 Hgb 12.1 (11.2-15.7) gm/dl Hct 37.8 (34.1-44.9) % MCV 96.9 H (79.4-94.8) fl MCH 31.0 (25.6-32.2) pg MCHC 32.0 L (32.2-35.5) g/dl RDW Std Deviation 48.4 H (36.4-46.3) fL Plt Count 244 (182-369) K/mm3 MPV 11.1 (9.4-12.3) fl Neut % (Auto) 67.2 (34.0-71.1) % Lymph % (Auto) 22.0 (19.3-51.7) % [place] % (Auto) 7.5 (4.7-12.5) % Eos % (Auto) 2.8 (0.7-5.8) Baso % (Auto) 0.3 (0.1-1.2) % Neut # (Auto) 5.81 (1.56-6.13) K/mm3 Lymph # (Auto) 1.90 (1.18-3.74) K/mm3 [place] # (Auto) 0.65 H (0.24-0.36) K/mm3 Eos # (Auto) 0.24 (0.04-0.36) K/mm3 Baso # (Auto) 0.03 (0.01-0.08) K/mm3 Sodium 145 (136-145) mEq/L Potassium 5.5 H (3.5-5.1) mEq/L Chloride 109 H (98-107) mEq/L Carbon Dioxide 26 (21-32) mEq/L Anion Gap 15.5 H (5-15) BUN 35 H (7-18) mg/dL Creatinine 1.9 H (0.55-1.02) mg/dL Est Cr Clr Drug Dosing 17.74 mL/min Estimated GFR (MDRD) 25 (>60) mL/min BUN/Creatinine Ratio 18.4 H (14-18) Glucose 98 (83-115) mg/dL Calcium 9.1 (8.5-10.1) mg/dL Total Bilirubin 0.3 (0.2-1.0) mg/dL AST 8 L (15-37) U/L ALT 19 (14-59) U/L Alkaline Phosphatase 111 (46-116) U/L NT-Pro-B Natriuret Pep 3221 H (0-450) pg/mL Total Protein 6.8 (6.4-8.2) g/dl Albumin 3.3 L (3.4-5.0) g/dl Globulin 3.5 gm/dL Albumin/Globulin Ratio 0.9 L (1-2) Meds: Medications Discontinued Medications Generic Name Dose Route Start Last Admin Trade Name Mona PRN Reason Stop Dose Admin Prednisone 20 mg 10/03/19 20:50 10/03/19 21:07 Prednisone PO 10/03/19 20:51 20 mg ONETIME ONE Administration - Re-Assessments/Exams Free Text/Narrative Re-Assessment/Exam: 10/03/19 20:47 Chest x-ray was negative for any infiltrates or signs of pulmonary vascular congestion. Hematology shows a potassium of 5.5. Anion gap 15.5 BUN 35 creatinine 1.9, BNP 3221. Patient has chronic kidney disease and her average creatinine is 1.9 so this is normal for her. Discussed with her that I would like her to decrease her oral potassium intake. She is not on a supplement however she does eat a lot of potassium rich foods. Also encouraged her to slightly increase her fluid intake. Recommended she follow-up with her primary care provider later next week to have her labs rechecked. With regard to her cough, I will start her on prednisone for acute bronchitis. Discharge instructions as documented. Departure - Departure Time of Disposition: 20:53 Disposition: Home, Self-Care 01 Condition: Fair Clinical Impression: Acute bronchitis Qualifiers: Bronchitis organism: unspecified organism Qualified Code(s): J20.9 - Acute bronchitis, unspecified - Discharge Information *PRESCRIPTION DRUG MONITORING PROGRAM REVIEWED*: No *COPY OF PRESCRIPTION DRUG MONITORING REPORT IN PATIENT ELVA: No Prescriptions: predniSONE [Prednisone] 20 mg PO ASDIRECTED #11 tablet Instructions: Acute Bronchitis, Adult, [id number] Referrals: Ko Pretty MD [Primary Care Provider] - Forms: ED Department Discharge Additional Instructions: You were seen in the emergency department today for a cough for the last week. Your work-up included a chest x-ray as well as blood work. Chest x-ray was negative for any signs of pneumonia or fluid overload. Your blood work was negative for any signs of infection, however your potassium was elevated at 5.5. As we discussed, I would recommend that you decrease your intake of potassium rich foods and increase your fluid intake over the next couple days. Recommend that you follow-up in the clinic later next week to have your blood work rechecked. With regard to your cough, we have started you on a regimen of prednisone to help decrease the inflammation in your bronchi. Take this medication as prescribed. If you should experience any worsening symptoms, please not hesitate to return to the emergency department. Sepsis Event Note - Evaluation Sepsis Screening Result: No Definite Risk - Focused Exam Vital Signs: Vital Signs Temp Pulse Resp BP Pulse Ox 10/03/19 18:28 97.6 F 65 20 181/68 H 99 Date Exam was Performed: 10/03/19 Time Exam was Performed: 21:42
--- NOTE | 2019-10-03 20:48 | CR ---
Chest: 2 views of the chest were obtained. Comparison: Prior chest x-ray of 05/27/19. Heart is enlarged. AICD is noted. Minimal linear scarring or atelectasis is noted within the right base. Lungs otherwise are clear. Mild scoliosis is noted within the spine with kyphosis. Scattered degenerative change within the spine with osteopenia. Mild compression deformities are scattered within the spine which appear to be stable. Calcified lymph note is seen within the right axillary region which is stable. Impression: 1. Findings as described above. 2. Nothing acute is identified. Diagnostic code #2 Study was dictated in [place] Standard Time
[2019-10-03] MEDS ORDERED: predniSONE 20 MG Tab PO ONE (20:50)
== END 2019-10-03 21:05 | disposition home or self-care (01) ==
LOC: JD.ED 18:21
DX: J20.9 Acute bronchitis, unspecified (principal); I48.91 Unspecified atrial fibrillation; Z86.718 Personal history of other venous thrombosis and embolism; K21.9 Gastro-esophageal reflux disease without esophagitis; N18.9 Chronic kidney disease, unspecified; Z88.5 Allergy status to narcotic agent; Z79.01 Long term (current) use of anticoagulants; Z79.899 Other long term (current) drug therapy
CPT/HCPCS: 36415; 71046; 80053; 83880; 85025; 99285; A9270; 99283

== ENCOUNTER 2019-11-18 20:24 | Emergency (ER) | payer MEDICARE, OTHER ==
[2019-11-18] MEDS ORDERED: Sodium Chloride 0.9% 10 ML Syringe FLUSH PRN (20:35)
[2019-11-18] MEDS ORDERED: Metoclopramide 10 MG/2 ML SDV IVPUSH ONE (20:35)
--- NOTE | 2019-11-18 20:41 | EDM.PDOC ---
ED HPI GENERAL MEDICAL PROBLEM - General Chief Complaint: Trauma Stated Complaint: [facility] Time Seen by Provider: 11/18/19 20:30 Source of Information: Reports: Patient, EMS History Limitations: Reports: No Limitations - History of Present Illness INITIAL COMMENTS - FREE TEXT/NARRATIVE: The patient presents by [facility] for a fall. The patient says she ate some soup tonight and after that she had some stomach cramps, diarrhea, nausea and vomiting. She then fell. She was confused with EMS got there and she was not sure how or why she was on the floor. She is on eliquis. She has no headache or neck pain. She did have some chest pain earlier but that is gone now. She is still nauseated. She did get some zofran 4mg IV by EMS. She has no fever, chills, cough, dysuria or hematuria. She has no arm or leg pain. Onset: Sudden Duration: Hour(s): Location: Reports: Chest Quality: Reports: Sharp Severity: Moderate Improves with: Reports: None Worsens with: Reports: None Associated Symptoms: Reports: Chest Pain, Nausea/Vomiting. Denies: Cough, Fever /Chills, Headaches, Shortness of Breath Abdomen Pain Score (Numeric/FACES): 5 - Related Data Allergies Allergy/AdvReac Type Severity Reaction Status Date / Time codeine AdvReac Vomiting Verified 11/18/19 20:36 Home Meds: Home Meds Amiodarone [Cordarone] 200 mg PO DAILY 05/18/17 [History] Losartan [Cozaar] 50 mg PO DAILY 05/18/17 [History] Apixaban [Eliquis] 2.5 mg PO BID 09/10/17 [History] Metoprolol Succinate [Toprol XL 50mg] 50 mg PO DAILY 12/04/17 [History] Lactobacillus Combination No.4 [Probiotic] 1 cap PO DAILY 12/07/18 [History] Magnesium Oxide 400 mg PO DAILY 12/07/18 [History] Isosorbide Mononitrate [Imdur] 30 mg PO DAILY 10/03/19 [History] Metoprolol Succinate [Toprol Xl] 25 mg PO DAILY 10/03/19 [History] Furosemide [Lasix] 40 mg PO DAILY 11/18/19 [History] Past Medical History HEENT History: Reports: Hard of Hearing, Impaired Vision Other HEENT History: has a hearing aid on right, wears glasses, has upper denture Cardiovascular History: Reports: Afib, Angina, Arrhythmia, Blood Clots/VTE/DVT, Cardiomyopathy, High Cholesterol, Hypertension, Pacemaker, Other (See Below) Other Cardiovascular History: pacer and AICD placed 01/08/17 Respiratory History: Reports: Pneumonia, Recurrent, SOB Gastrointestinal History: Reports: Diverticulosis, GERD, PUD Other Gastrointestinal History: Gastric ulcer Genitourinary History: Reports: Chronic Renal Insuffiency, Urinary Incontinence Other Genitourinary History: possible cystocele, urinary frequency RN PSYCH History: Reports: Other (See Below) Other RN PSYCH History: hysterectomy Musculoskeletal History: Reports: Osteoporosis Neurological History: Reports: None Psychiatric History: Reports: None Endocrine/Metabolic History: Reports: None Hematologic History: Reports: Anemia, Iron Deficiency, Other (See Below) Other Hematologic History: DVT Immunologic History: Reports: None Oncologic (Cancer) History: Reports: None Dermatologic History: Reports: None - Infectious Disease History Infectious Disease History: Reports: Chicken Pox, Measles, Mumps, Shingles - Past Surgical History Head Surgeries/Procedures: Reports: None HEENT Surgical History: Reports: Adenoidectomy, Tonsillectomy Cardiovascular Surgical History: Reports: AICD GI Surgical History: Reports: Appendectomy, Colonoscopy, EGD, Other (See Below) Other GI Surgeries/Procedures: Some Hemmorrhoids removed, gastric resection Female Surgical History: Reports: Hysterectomy Endocrine Surgical History: Reports: None Neurological Surgical History: Reports: None Musculoskeletal Surgical History: Reports: Knee Replacement Other Musculoskeletal Surgeries/Procedures:: right total knee replacement Dermatological Surgical History: Reports: None Social & Family History - Family History Family Medical History: Noncontributory Cardiac: Reports: Stent Neurological: Reports: CVA Psychiatric: Reports: Other (See Below) Other Psychiatric Family History: alcoholism Oncologic: Reports: Other (See Below) Other Oncologic Family History: somach - Caffeine Use Caffeine Use: Reports: Coffee Other Caffeine Use: daily Caffeine Use Comment: "i drink 4 cups in the morning and then 2 in afternoon" - Living Situation & Occupation Living situation: Reports: , Alone Occupation: Retired Review of Systems - Review of Systems Review Of Systems: See Below Constitutional: Reports: No Symptoms Eyes: Reports: No Symptoms Ears: Reports: No Symptoms Nose: Reports: No Symptoms Mouth/Throat: Reports: No Symptoms Respiratory: Reports: No Symptoms Cardiovascular: Reports: Chest Pain GI/Abdominal: Reports: Abdominal Pain, Diarrhea, Nausea, Vomiting Genitourinary: Reports: No Symptoms Musculoskeletal: Reports: No Symptoms Skin: Reports: No Symptoms ED EXAM, GENERAL - Physical Exam Exam: See Below Exam Limited By: No Limitations General Appearance: Alert, No Apparent Distress Ears: Normal External Exam Nose: Normal Inspection Head: Atraumatic, Normocephalic Neck: Normal Inspection, Supple, Non-Tender Respiratory/Chest: No Respiratory Distress, Lungs Clear, Normal Breath Sounds Cardiovascular: Regular Rate, Rhythm, No Edema, No Murmur GI/Abdominal: Soft, No Organomegaly, No Mass, Tender (Mild upper abdominal tenderness) Back Exam: Normal Inspection Extremities: Normal Inspection Neurological: Alert, Oriented, No Motor/Sensory Deficits EKG INTERPRETATION EKG Date: 11/18/19 Time: 20:42 Rhythm: NSR Rate (Beats/Min): 69 [address]: LAD-Left New Roads Deviation P-Wave: Present QRS: Wide ST-T: Normal QT: Normal EKG Interpretation Comments: Q waves in the anterolateral leads. No change from prior. Course - Vital Signs Last Recorded V/S: Last Vital Signs Temp 98.1 F 11/18/19 20:31 Pulse 73 11/18/19 20:31 Resp 19 11/18/19 20:31 BP 169/62 H 11/18/19 20:31 Pulse Ox 97 11/18/19 20:31 - Orders/Labs/Meds Orders: Active Orders 24 hr Category Date Time Status Cardiac Monitoring [RC] . DIRECTED Care 11/18/19 20:35 Active EKG Documentation Completion [RC] STAT Care 11/18/19 20:36 Active Peripheral IV Care [RC] . DIRECTED Care 11/18/19 20:36 Active Sodium Chloride 0.9% [Saline Flush] Med 11/18/19 20:35 Active 10 ml FLUSH ASDIRECTED PRN ED Antiemetic Medication Reflex [OM.PC] Stat Oth 11/18/19 20:35 Ordered Peripheral IV Insertion Adult [OM.PC] Stat Oth 11/18/19 20:35 Ordered Medication Orders Sodium Chloride (Saline Flush) 10 ml FLUSH ASDIRECTED PRN PRN Reason: Keep Vein Open Last Admin: 11/18/19 20:45 Dose: 10 ml Labs: Laboratory Tests 11/18/19 11/18/19 11/18/19 Range/Units 20:58 21:17 21:17 WBC 16.77 H (3.98-10.04) K/mm3 RBC 4.07 (3.98-5.22) M/mm3 Hgb 12.7 (11.2-15.7) gm/dl Hct 38.9 (34.1-44.9) % MCV 95.6 H (79.4-94.8) fl MCH 31.2 (25.6-32.2) pg MCHC 32.6 (32.2-35.5) g/dl RDW Std Deviation 50.1 H (36.4-46.3) fL Plt Count 212 (182-369) K/mm3 MPV 11.3 (9.4-12.3) fl Neut % (Auto) 88.9 H (34.0-71.1) % Lymph % (Auto) 5.6 L (19.3-51.7) % [place] % (Auto) 4.7 (4.7-12.5) % Eos % (Auto) 0.4 L (0.7-5.8) Baso % (Auto) 0.2 (0.1-1.2) % Neut # (Auto) 14.92 H (1.56-6.13) K/mm3 Lymph # (Auto) 0.94 L (1.18-3.74) K/mm3 [place] # (Auto) 0.78 H (0.24-0.36) K/mm3 Eos # (Auto) 0.07 (0.04-0.36) K/mm3 Baso # (Auto) 0.03 (0.01-0.08) K/mm3 Manual Slide Review Abnormal smear Sodium 146 H (136-145) mEq/L Potassium 4.5 (3.5-5.1) mEq/L Chloride 112 H (98-107) mEq/L Carbon Dioxide 21 (21-32) mEq/L Anion Gap 17.5 H (5-15) BUN 44 H (7-18) mg/dL Creatinine 2.1 H (0.55-1.02) mg/dL Est Cr Clr Drug Dosing 16.79 mL/min Estimated GFR (MDRD) 22 (>60) mL/min BUN/Creatinine Ratio 21.0 H (14-18) Glucose 123 H (83-115) mg/dL Calcium 8.9 (8.5-10.1) mg/dL Total Bilirubin 0.3 (0.2-1.0) mg/dL AST 4 L (15-37) U/L ALT 16 (14-59) U/L Alkaline Phosphatase 148 H (46-116) U/L Troponin I < 0.017 (0.00-0.056) ng/mL Total Protein 6.9 (6.4-8.2) g/dl Albumin 3.4 (3.4-5.0) g/dl Globulin 3.5 gm/dL Albumin/Globulin Ratio 1.0 (1-2) Lipase 159 (73-393) U/L Urine Color Yellow (Yellow) Urine Appearance Clear (Clear) Urine pH 6.0 (5.0-8.0) Ur Specific [place] > or = 1.030 (1.005-1.030) Urine Protein Negative (Negative) Urine Glucose (UA) Negative (Negative) Urine Ketones Negative (Negative) Urine Occult Blood Negative (Negative) Urine Nitrite Negative (Negative) Urine Bilirubin Negative (Negative) Urine Urobilinogen 0.2 (0.2-1.0) Ur Leukocyte Esterase Negative (Negative) Urine RBC 0-5 (0-5) /hpf Urine WBC 0-5 (0-5) /hpf Ur Squamous Epith Cells 10-20 H (0-5) /hpf Urine Bacteria Moderate H (FEW) /hpf Urine Mucus Moderate H (FEW) /hpf Meds: Medications Generic Name Dose Route Start Last Admin Trade Name Freq PRN Reason Stop Dose Admin Sodium Chloride 10 ml 11/18/19 20:35 11/18/19 20:45 Saline Flush FLUSH 10 ml ASDIRECTED PRN Administration Keep Vein Open Discontinued Medications Generic Name Dose Route Start Last Admin Trade Name Freq PRN Reason Stop Dose Admin Sodium Chloride 500 mls @ 1,000 mls/hr 11/18/19 21:55 11/18/19 22:03 Normal Saline IV 11/18/19 22:24 1,000 mls/hr .BOLUS ONE Administration Metoclopramide HCl 10 mg 11/18/19 20:35 11/18/19 20:45 Reglan IVPUSH 11/18/19 20:36 10 mg ONETIME ONE Administration - Re-Assessments/Exams Free Text/Narrative Re-Assessment/Exam: 11/18/19 20:40 I ordered an IV saline lock, reglan 10mg IV, EKG, CT of her head, CXR, labs and a UA. 11/18/19 21:59 Her EKG shows nothing acute. Her CT looks good. Her CXR shows mild cardiomegaly and nothing acute. Her WBC was elevated at 16.77. Her Na was elevated at 146. Her anion gap is elevated at 17.5. Her creatinine is elevated at 2.1. Her baseline when she has been here is 1.9. Her GFR is low at 22. Her glucose is 123. Her troponin is negative. Her lipase is normal. She is dry so I ordered a 500ml bolus. I cannot explain her high WBC and she has upper abdominal pain. I will need to do a CT of her abdomen and pelvis. I cannot use IV contrast because her creatinine is high. Her daughter says last time she had oral contrast she did not tolerate that very well. I will do the CT without any contrast. 11/18/19 22:[address] shows multiple nonacute-appearing findings. No etiology is seen for the given clinical symptoms. Nodular density within the right lung base. This is not appreciated on previous studies. Follow-up study could be considered in 9 months to see if this persists. This would occur in August 2020. She feels better. I will discharge her home. Departure - Departure Time of Disposition: 22:40 Disposition: Home, Self-Care 01 Condition: Good Clinical Impression: Atypical chest pain, Gastroenteritis, Renal insufficiency, Dehydration, Pulmonary nodule Syncope Qualifiers: Syncope type: vasovagal syncope Qualified Code(s): R55 - Syncope and collapse - Discharge Information *PRESCRIPTION DRUG MONITORING PROGRAM REVIEWED*: Not Applicable *COPY OF PRESCRIPTION DRUG MONITORING REPORT IN PATIENT ELVA: Not Applicable Referrals: Ko Pretty MD [Primary Care Provider] - Forms: ED Department Discharge Additional Instructions: Take your medication as prescribed. Drink plenty of fluids. Take the zofran every 6 hours as needed for nausea and vomiting. Please return if you are worse. There was a nodule on your CT in your chest. See your doctor and have a repeat CT done in 9 months. Sepsis Event Note - Evaluation Sepsis Screening Result: No Definite Risk - Focused Exam Vital Signs: Vital Signs Temp Pulse Resp BP Pulse Ox 11/18/19 20:31 98.1 F 73 19 169/62 H 97 Date Exam was Performed: 11/18/19 Time Exam was Performed: 22:38 - My Orders Last 24 Hours: My Active Orders 11/18/19 20:35 Cardiac Monitoring [RC] . DIRECTED Sodium Chloride 0.9% [Saline Flush] 10 ml FLUSH ASDIRECTED PRN ED Antiemetic Medication Reflex [OM.PC] Stat Peripheral IV Insertion Adult [OM.PC] Stat 11/18/19 20:36 EKG Documentation Completion [RC] STAT Peripheral IV Care [RC] . DIRECTED - Assessment/Plan Last 24 Hours: My Active Orders 11/18/19 20:35 Cardiac Monitoring [RC] . DIRECTED Sodium Chloride 0.9% [Saline Flush] 10 ml FLUSH ASDIRECTED PRN ED Antiemetic Medication Reflex [OM.PC] Stat Peripheral IV Insertion Adult [OM.PC] Stat 11/18/19 20:36 EKG Documentation Completion [RC] STAT Peripheral IV Care [RC] . DIRECTED
--- NOTE | 2019-11-18 21:23 | CR ---
Chest: 2 views of the chest were obtained. Comparison: Prior chest x-ray of 10/03/19. Heart is enlarged. AICD is present. Lungs are clear no acute parenchymal change. Bony structures are osteopenic. Mild compression deformities are noted within the spine which appear old. Sclerotic lesion is noted within the right proximal humerus which is stable from older study believed to represent a bone island. Mild scoliosis is also seen. Impression: 1. Mild cardiomegaly. 2. Other findings as noted above. 3. Nothing acute is identified. Diagnostic code #2 Study was dictated in MDT
--- NOTE | 2019-11-18 21:23 | CT ---
Head CT Technique: Multiple axial sections through the brain were obtained. Intravenous contrast was not utilized. Comparison: Prior head CT study of 11/19/18. Findings: Ventricles along with basal cisterns and sulci over the convexities are mildly prominent. Diminished density is noted within portions of the periventricular and subcortical white matter. 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 Mild small vessel ischemic demyelination is noted within portions of the yahaira. No other abnormal parenchymal densities are seen. No evidence of intracranial hemorrhage. No midline shift or mass effect is appreciated. Bone window settings were reviewed. Mucosal thickening is noted within portions of the right mastoid sinus which have increased in prominence from previous exam. Left mastoid sinus is clear. Visualized paranasal sinuses are clear. No acute calvarial abnormality is appreciated. Impression: 1. Increased mucosal thickening within the right maxillary sinus from prior study. Please correlate that patient has no symptoms of mastoiditis. 2. Stable senescent change as described above. 3. No acute intracranial abnormality is appreciated. Diagnostic code #3 Study was dictated in MDT
[2019-11-18] MEDS ORDERED: Sodium Chloride 0.9% 500 ML IV ONE (21:55)
--- NOTE | 2019-11-18 22:25 | CT ---
CT abdomen and pelvis Technique: Multiple axial sections were obtained. Intravenous and oral contrast not utilized. Comparison: Previous CT abdomen and pelvis exam of 01/21/17. Findings: Nodular type density is seen within the right lung base measuring about 7 mm. This is not appreciated on previous CT abdomen or pelvis exam. This is also not seen in previous chest CT study performed on 04/02 717. No acute abnormality is otherwise seen within the visualized lung bases. Noncontrast appearance of the liver shows no focal abnormality. Spleen appears normal. Moderate sized hiatal hernia is noted. Heart is enlarged. Nodule is noted within the left adrenal gland. This nodule shows low density center and is believed to be stable from prior exam. Small renal cyst is noted within the right kidney. Kidneys show no abnormal calcifications. No ureteral dilatation or ureteral stone is seen. Pancreas appears normal. Several small calcified gallstones are seen within the gallbladder which are noted on previous exam. Slight atherosclerotic calcification is noted within the aorta and iliac vessels without aneurysm. No retroperitoneal adenopathy or mesenteric abnormalities are seen. Diverticuli are seen within the sigmoid and descending colon. No inflammatory change of diverticulitis is seen on this exam. No pelvic mass or adenopathy is appreciated. Appendix not visualized with certainty. Bone window settings were reviewed which shows mild scattered degenerative change with no acute osseous finding being seen. Impression: 1. Multiple nonacute-appearing findings as noted above. 2. No etiology is seen for the given clinical symptoms. 3. Nodular density within the right lung base. This is not appreciated on previous studies. Follow-up study could be considered in 9 months to see if this persists. This would occur in August 2020. Diagnostic code #3 Study was dictated in MDT
[2019-11-18 23:08] VITALS: BP 131/46; PULSE 66
== END 2019-11-18 22:55 | disposition home or self-care (01) ==
LOC: JD.ED 20:24
DX: K52.9 Noninfective gastroenteritis and colitis, unspecified (principal); R55 Syncope and collapse; E86.0 Dehydration; R07.89 Other chest pain; R91.1 Solitary pulmonary nodule; I12.9 Hypertensive chronic kidney disease with stage 1 through stage 4 chronic kidney disease, or unspecified chronic kidney disease; N18.9 Chronic kidney disease, unspecified; I48.91 Unspecified atrial fibrillation; D63.1 Anemia in chronic kidney disease; E78.00 Pure hypercholesterolemia, unspecified; Z79.899 Other long term (current) drug therapy; Z88.5 Allergy status to narcotic agent; W19.XXXA Unspecified fall, initial encounter
CPT/HCPCS: 36415; 70450; 71046; 74176; 80053; 81001; 83690; 84484; 85025; 93005; 96361; 96374; 99285; J2765; J7030; 93010; 99284

== ENCOUNTER 2020-07-01 05:50 | Emergency (ER) | payer MEDICARE, OTHER ==
[2020-07-01 06:03] VITALS: PULSE 60
--- NOTE | 2020-07-01 06:43 | EDM.PDOC ---
<Keyshawn Nolasco Linda - Last Filed: 07/01/20 07:55> ED HPI GENERAL MEDICAL PROBLEM - General Chief Complaint: General Stated Complaint: [facility] Time Seen by Provider: 07/01/20 06:11 Source of Information: Reports: Patient History Limitations: Reports: No Limitations - History of Present Illness INITIAL COMMENTS - FREE TEXT/NARRATIVE: Mrs. Townsend is a very pleasant 85-year-old woman who now presents to the ED by EMS for 2 days of generalized lethargy, vertigo with associated nausea, and increased urinary frequency without dysuria. No associated fever, constipation, or diarrhea. No recent chest pain, palpitations, dyspnea, or cough. Here in the ED, the patient's initial BP is found to be mildly elevated at 158/64, otherwise, she is hemodynamically stable, afebrile, saturating 99% on room air. Prior to 2 days ago, the patient denies having a recent fever, chills, sore throat, ear pain, nasal or sinus congestion, cough, dyspnea, chest pain, palpitations, nausea, vomiting, constipation, diarrhea, abdominal pain, urinary symptoms, recent weight gain or weight loss, recent bloody bowel movements or black bowel movements, recent joint aches, headaches, or rashes. The patient's PCP is Dr. Ko Pretty. Her blasting cap assembler is Dr. Roz Lopez. Her EP Tie Layer is Dr. Victor Hugo Velazquez. She has not been given an influenza vaccine this season, but agreed to receive one here today. - Related Data Allergies Allergy/AdvReac Type Severity Reaction Status Date / Time codeine AdvReac Vomiting Verified 07/01/20 06:03 Home Meds: Home Meds Amiodarone [Cordarone] 200 mg PO DAILY 05/18/17 [History] Losartan [Cozaar] 50 mg PO DAILY 05/18/17 [History] Apixaban [Eliquis] 2.5 mg PO BID 09/10/17 [History] Metoprolol Succinate [Toprol XL 50mg] 50 mg PO DAILY 12/04/17 [History] Lactobacillus Combination No.4 [Probiotic] 1 cap PO DAILY 12/07/18 [History] Magnesium Oxide 400 mg PO DAILY 12/07/18 [History] Isosorbide Mononitrate [Imdur] 30 mg PO DAILY 10/03/19 [History] Metoprolol Succinate [Toprol Xl] 25 mg PO DAILY 10/03/19 [History] Furosemide [Lasix] 40 mg PO ASDIRECTED PRN 11/18/19 [History] Meclizine [Antivert] 25 mg PO Q6H PRN #30 tab 07/01/20 [Rx] Past Medical History HEENT History: Reports: Hard of Hearing (right hearing aid), Impaired Vision (wears glasses), Other (See Below) (Upper denture) Cardiovascular History: Reports: Afib, Blood Clots/VTE/DVT (DVT folowing Rt TKA, 2014), Cardiomyopathy, High Cholesterol (untreated), Hypertension, Other (See Below) (LBBB) Respiratory History: Reports: Other (See Below) (BOOP 2010) Gastrointestinal History: Reports: Diverticulosis, GERD, PUD Genitourinary History: Reports: Chronic Renal Insuffiency, Urinary Incontinence Musculoskeletal History: Reports: Osteoporosis, Other (See Below) (Polyarthritis and polymyalgia rheumatica) - Infectious Disease History Infectious Disease History: Reports: Chicken Pox, Measles, Mumps, Shingles - Past Surgical History HEENT Surgical History: Reports: Adenoidectomy, Cataract Surgery (bilateral), Tonsillectomy Cardiovascular Surgical History: Reports: AICD (01/08/2017), Other (See Below) (coronary angiogram 01/28/14 -> clean) GI Surgical History: Reports: Appendectomy, Colonoscopy, EGD, Other (See Below) (Peptic ulcer surgery. Hemorrhoidectomy.) Female Surgical History: Reports: Hysterectomy Musculoskeletal Surgical History: Reports: Knee Replacement (right, 02/07/2015) Social & Family History - Tobacco Use Tobacco Use Status *Q: Never Tobacco User Second Hand Smoke Exposure: No - Caffeine Use Caffeine Use: Reports: Coffee Other Caffeine Use: daily Caffeine Use Comment: "i drink 4 cups in the morning and then 2 in afternoon" - Alcohol Use Alcohol Use History: No - Recreational Drug Use Recreational Drug Use: No - Living Situation & Occupation Living situation: Reports: , Alone Occupation: Retired ED ROS GENERAL - Review of Systems Review Of Systems: Comprehensive ROS is negative, except as noted in HPI. ED EXAM, DIZZINESS - Physical Exam Exam: See Below Exam Limited By: No Limitations General Appearance: Alert, WD/WN, No Apparent Distress Eye Exam: Bilateral Eye: EOMI, Other (s/p cataract surgery) Ears: Normal External Exam, Normal Canal, Hearing Grossly Normal, Normal TMs Nose: Normal Inspection, Normal Mucosa, No Blood Throat/Mouth: Normal Inspection, Normal Lips, Normal Teeth, Normal Gums, Normal Oropharynx, Normal Voice, No Airway Compromise Head Exam: Atraumatic, Normocephalic Neck: Normal Inspection, Supple, Non-Tender, Full Range of Motion Respiratory/Chest: No Respiratory Distress, Lungs Clear, Normal Breath Sounds, No Accessory Muscle Use Cardiovascular: Normal Peripheral Pulses, Regular Rate, Rhythm, No Edema, No Gallop, No JVD, No Murmur, No Rub GI/Abdominal: Normal Bowel Sounds, Soft, Non-Tender, No Organomegaly, No Distention, No Abnormal Bruit, No Mass Neurological: Alert, Normal Dorsiflexion, CN II-XII Intact, Normal Plantar Flexion, No Motor/Sensory Deficits, Oriented x 3, Other (Hurley-Hallpike maneuver d id not induce either symptoms of vertigo or nystagmus, bilaterally) Back Exam: Normal Inspection, Full Range of Motion, NT Extremities: Normal Inspection, Normal Range of Motion, No Pedal Edema, Normal Capillary Refill Psychiatric: Normal Affect Skin Exam: Warm, Dry, Intact, Normal Color, No Rash #1 Interpretation EKG Date: 07/01/20 Time: 06:40 Rhythm: Other (Atrially paced) Rate (Beats/Min): 60 QRS: LBBB Comparison: Change From Previous EKG (Atrial pacing new since 11/18/2019; the LBBB is old) Course - Re-Assessments/Exams Free Text/Narrative Re-Assessment/Exam: 07/01/20 06:39 As above, the patient has had generalized lethargy, vertigo, with associated nausea, and urinary frequency without dysuria since 06/29/2020. Her physical exam is unremarkable, her neurologic examination is completely normal, and I was unable to induce either vertigo or nystagmus on bilateral Hurley-Hallpike maneuvers - her vertigo has resolved at present. I have ordered a work-up that includes orthostatics, blood work, a urinalysis, and an ECG. 07/01/20 07:26 The patient is not orthostatic. 07/01/20 07:[address] Mccartney, and care of the patient turned over to him at this time, for change of shift. Departure - Departure Disposition: Home, Self-Care 01 Clinical Impression: Vertigo - Discharge Information *PRESCRIPTION DRUG MONITORING PROGRAM REVIEWED*: Not Applicable *COPY OF PRESCRIPTION DRUG MONITORING REPORT IN PATIENT ELVA: Not Applicable Prescriptions: Meclizine [Antivert] 25 mg PO Q6H PRN #30 tab PRN Reason: Dizziness Referrals: Ko Pretty MD [Primary Care Provider] - Victor Hugo Velazquez [Ordering Only Provider] - Roz Lopez MD [Ordering Only Provider] - Forms: ED Department Discharge Additional Instructions: Go home and rest. Take the antivert as needed for dizziness. Take your other medicines as prescribed. Follow up with your doctor. Please return if you are worse. Sepsis Event Note (ED) - Evaluation Sepsis Screening Result: No Definite Risk <Marc Mccartney - Last Filed: 07/01/20 08:38> Course - Vital Signs Last Recorded V/S: Last Vital Signs Temp 97.0 F 07/01/20 05:58 Pulse 60 07/01/20 05:58 Resp 18 07/01/20 05:58 BP 158/64 H 07/01/20 05:58 Pulse Ox 99 07/01/20 05:58 Orthostatic Blood Pressure [ 175/68 Standing] Orthostatic Blood Pressure [ 136/60 Supine] - Orders/Labs/Meds Orders: Active Orders 24 hr Category Date Time Status EKG Documentation Completion [RC] STAT Care 07/01/20 06:35 Active Influenza Vaccine Charge [RC] .DISCHARGE Care 07/01/20 07:20 Active Orthostatic Vital Signs [RC] STAT Care 07/01/20 06:35 Active Urinary Catheter Assessment [RC] ASDIRECTED Care 07/01/20 06:53 Active Urinary Catheter Insertion [Insert Urinary Catheter] [ Care 07/01/20 07:00 Ordered OM.PC] Q24H Labs: Laboratory Tests 07/01/20 07/01/20 07/01/20 Range/Units 06:52 07:10 07:10 WBC 7.42 (3.98-10.04) K/mm3 RBC 4.40 (3.98-5.22) M/mm3 Hgb 13.6 (11.2-15.7) gm/dl Hct 41.3 (34.1-44.9) % MCV 93.9 (79.4-94.8) fl MCH 30.9 (25.6-32.2) pg MCHC 32.9 (32.2-35.5) g/dl RDW Std Deviation 46.5 H (36.4-46.3) fL Plt Count 201 (182-369) K/mm3 MPV 11.0 (9.4-12.3) fl Neutrophils % (Manual) 74 H (40-60) % Band Neutrophils % 0 (0-10) % Lymphocytes % (Manual) 18 L (20-40) % Atypical Lymphs % 0 % Monocytes % (Manual) 5 (2-10) % Eosinophils % (Manual) 3 (0.7-5.8) % Basophils % (Manual) 0 L (0.1-1.2) Platelet Estimate Adequate RBC Morph Comment Normal D-Dimer, Quantitative (0.19-0.50) mg/L Sodium 141 (136-145) mEq/L Potassium 4.1 (3.5-5.1) mEq/L Chloride 107 (98-107) mEq/L Carbon Dioxide 24 (21-32) mEq/L Anion Gap 14.1 (5-15) BUN 29 H (7-18) mg/dL Creatinine 1.7 H (0.55-1.02) mg/dL Est Cr Clr Drug Dosing 19.48 mL/min Estimated GFR (MDRD) 29 (>60) mL/min BUN/Creatinine Ratio 17.1 (14-18) Glucose 91 (83-115) mg/dL Calcium 9.1 (8.5-10.1) mg/dL Magnesium 2.0 (1.8-2.4) mg/dl Total Bilirubin 0.4 (0.2-1.0) mg/dL AST 15 (15-37) U/L ALT 12 L (14-59) U/L Alkaline Phosphatase 109 (46-116) U/L Troponin I < 0.017 (0.00-0.056) ng/mL Total Protein 6.5 (6.4-8.2) g/dl Albumin 3.2 L (3.4-5.0) g/dl Globulin 3.3 gm/dL Albumin/Globulin Ratio 1.0 (1-2) Urine Color Light yellow (Yellow) Urine Appearance Clear (Clear) Urine pH 5.0 (5.0-8.0) Ur Specific [place] 1.015 (1.005-1.030) Urine Protein Negative (Negative) Urine Glucose (UA) Negative (Negative) Urine Ketones Negative (Negative) Urine Occult Blood Negative (Negative) Urine Nitrite Negative (Negative) Urine Bilirubin Negative (Negative) Urine Urobilinogen 0.2 (0.2-1.0) Ur Leukocyte Esterase Negative (Negative) Urine RBC 0-5 (0-5) /hpf Urine WBC 0-5 (0-5) /hpf Ur Squamous Epith Cells 0-5 (0-5) /hpf Amorphous Sediment Few H (NOT SEEN) /hpf Urine Bacteria Few (FEW) /hpf Urine Mucus Not seen (FEW) /hpf 07/01/20 Range/Units 07:10 WBC (3.98-10.04) K/mm3 RBC (3.98-5.22) M/mm3 Hgb (11.2-15.7) gm/dl Hct (34.1-44.9) % MCV (79.4-94.8) fl MCH (25.6-32.2) pg MCHC (32.2-35.5) g/dl RDW Std Deviation (36.4-46.3) fL Plt Count (182-369) K/mm3 MPV (9.4-12.3) fl Neutrophils % (Manual) (40-60) % Band Neutrophils % (0-10) % Lymphocytes % (Manual) (20-40) % Atypical Lymphs % % Monocytes % (Manual) (2-10) % Eosinophils % (Manual) (0.7-5.8) % Basophils % (Manual) (0.1-1.2) Platelet Estimate RBC Morph Comment D-Dimer, Quantitative 0.52 H (0.19-0.50) mg/L Sodium (136-145) mEq/L Potassium (3.5-5.1) mEq/L Chloride (98-107) mEq/L Carbon Dioxide (21-32) mEq/L Anion Gap (5-15) BUN (7-18) mg/dL Creatinine (0.55-1.02) mg/dL Est Cr Clr Drug Dosing mL/min Estimated GFR (MDRD) (>60) mL/min BUN/Creatinine Ratio (14-18) Glucose (83-115) mg/dL Calcium (8.5-10.1) mg/dL Magnesium (1.8-2.4) mg/dl Total Bilirubin (0.2-1.0) mg/dL AST (15-37) U/L ALT (14-59) U/L Alkaline Phosphatase (46-116) U/L Troponin I (0.00-0.056) ng/mL Total Protein (6.4-8.2) g/dl Albumin (3.4-5.0) g/dl Globulin gm/dL Albumin/Globulin Ratio (1-2) Urine Color (Yellow) Urine Appearance (Clear) Urine pH (5.0-8.0) Ur Specific [place] (1.005-1.030) Urine Protein (Negative) Urine Glucose (UA) (Negative) Urine Ketones (Negative) Urine Occult Blood (Negative) Urine Nitrite (Negative) Urine Bilirubin (Negative) Urine Urobilinogen (0.2-1.0) Ur Leukocyte Esterase (Negative) Urine RBC (0-5) /hpf Urine WBC (0-5) /hpf Ur Squamous Epith Cells (0-5) /hpf Amorphous Sediment (NOT SEEN) /hpf Urine Bacteria (FEW) /hpf Urine Mucus (FEW) /hpf Meds: Medications Discontinued Medications Generic Name Dose Route Start Last Admin Trade Name Juanq PRN Reason Stop Dose Admin Influenza Virus Vaccine 240 mcg 07/01/20 07:30 07/01/20 07:56 Fluzone High-Dose Quad 2020-21 IM 07/01/20 07:31 240 mcg .ONCE ONE Administration - Re-Assessments/Exams Free Text/Narrative Re-Assessment/Exam: 07/01/20 08:[address] Nolasco. The patient's CBC looks good. Her creatinine is elevated at 1.7. Her UA shows no UTI. 07/01/20 08:34 Her troponin is negative. 07/01/20 08:36 She feels much better. I feel this was vertigo. I will give her some antivert for at home. Departure - Departure Time of Disposition: 08:40 Condition: Good Sepsis Event Note (ED) - Focused Exam Vital Signs: Vital Signs Temp Pulse Resp BP Pulse Ox 07/01/20 05:58 97.0 F 60 18 158/64 H 99
[2020-07-01] MEDS ORDERED: FLU Vacc QV2020-21(65YR UP)/PF 240 MCG/0.7 ML Syringe IM ONE (07:30)
[2020-07-01 09:24] VITALS: BP 132/70
== END 2020-07-01 08:50 | disposition home or self-care (01) ==
LOC: JD.ED 05:50
DX: R42 Dizziness and giddiness (principal); I48.91 Unspecified atrial fibrillation; I12.9 Hypertensive chronic kidney disease with stage 1 through stage 4 chronic kidney disease, or unspecified chronic kidney disease; N18.9 Chronic kidney disease, unspecified; I44.7 Left bundle-branch block, unspecified; Z23 Encounter for immunization; Z88.5 Allergy status to narcotic agent; Z79.01 Long term (current) use of anticoagulants; Z79.899 Other long term (current) drug therapy
CPT/HCPCS: 36415; 80053; 81001; 83735; 84484; 85007; 85027; 85379; 90662; 93005; 99284; G0008; 93010; 99283

== ENCOUNTER 2020-08-14 12:03 | Emergency (ER) | payer MEDICARE, OTHER ==
--- NOTE | 2020-08-14 12:35 | EDM.PDOC ---
ED HPI GENERAL MEDICAL PROBLEM - General Chief Complaint: Skin Complaint Stated Complaint: FELL 5 DAYS AGO FACIAL BRUSING Time Seen by Provider: 08/14/20 12:23 Source of Information: Reports: Patient, RN Notes Reviewed History Limitations: Reports: No Limitations - History of Present Illness INITIAL COMMENTS - FREE TEXT/NARRATIVE: Patient is an 85-year-old female who presents to the ED for the evaluation of her fall. She notes that she had a fall at home roughly 5 days ago this last Saturday. She was walking her dog, when her feet became entangled with the leash and she fell onto her left forehead. There is some bruising to her scalp line, and it has increased to around her eye, and eyelid, and she became concerned as she is on Eliquis for atrial fibrillation. She is not having any pain in her facial bones, any blurred vision or double vision. She is not having any headache. Again she just became concerned since the bruising on the face seems to be worsening she wanted to make sure that nothing else was wrong. She has had no fevers or chills, cough or shortness of breath, nausea/vomiting/diarrhea. Patient's primary care provider is Dr. Pretty. Patient thinks she may have been passed out for a minimal amount of time initially after the fall, and she also notes that she has issues with her knees where they do not been due to surgery, so she had to pull herself over to the pickup, and dragged herself up off the ground from the pickup. Right Frontal Headache Pain Score (Numeric/FACES): 1 - Related Data Allergies Allergy/AdvReac Type Severity Reaction Status Date / Time codeine AdvReac Vomiting Verified 07/01/20 06:03 Home Meds: Home Meds Amiodarone [Cordarone] 200 mg PO DAILY 05/18/17 [History] Losartan [Cozaar] 50 mg PO DAILY 05/18/17 [History] Apixaban [Eliquis] 2.5 mg PO BID 09/10/17 [History] Metoprolol Succinate [Toprol XL 50mg] 50 mg PO DAILY 12/04/17 [History] Magnesium Oxide 400 mg PO DAILY 12/07/18 [History] Isosorbide Mononitrate [Imdur] 30 mg PO DAILY 10/03/19 [History] Metoprolol Succinate [Toprol Xl] 25 mg PO DAILY 10/03/19 [History] Meclizine [Antivert] 25 mg PO Q6H PRN #30 tab 07/01/20 [Rx] Metoprolol Succinate [Toprol XL 50mg] 50 mg PO DAILY 08/14/20 [History] Metoprolol Succinate [Toprol XL] 25 mg PO BEDTIME 08/14/20 [History] Past Medical History HEENT History: Reports: Hard of Hearing, Impaired Vision, Other (See Below) Other HEENT History: has a hearing aid on right, wears glasses, has upper denture Cardiovascular History: Reports: Afib, Blood Clots/VTE/DVT, Cardiomyopathy, High Cholesterol, Hypertension, Other (See Below) Other Cardiovascular History: pacer and AICD placed 01/08/17 Respiratory History: Reports: Other (See Below) Gastrointestinal History: Reports: Diverticulosis, GERD, PUD Other Gastrointestinal History: Gastric ulcer Genitourinary History: Reports: Chronic Renal Insuffiency, Urinary Incontinence Other Genitourinary History: possible cystocele, urinary frequency RAIL SWITCH OPERATOR History: Reports: Other (See Below) Other RAIL SWITCH OPERATOR History: hysterectomy Musculoskeletal History: Reports: Osteoporosis, Other (See Below) Neurological History: Reports: None Psychiatric History: Reports: None Endocrine/Metabolic History: Reports: None Hematologic History: Reports: Anemia, Iron Deficiency Other Hematologic History: DVT Immunologic History: Reports: None Oncologic (Cancer) History: Reports: None Dermatologic History: Reports: None - Infectious Disease History Infectious Disease History: Reports: Chicken Pox, Measles, Mumps, Shingles - Past Surgical History Head Surgeries/Procedures: Reports: None HEENT Surgical History: Reports: Adenoidectomy, Cataract Surgery, Tonsillectomy Cardiovascular Surgical History: Reports: AICD, Other (See Below) GI Surgical History: Reports: Appendectomy, Colonoscopy, EGD, Other (See Below) Other GI Surgeries/Procedures: Some Hemmorrhoids removed, gastric resection Female Surgical History: Reports: Hysterectomy Endocrine Surgical History: Reports: None Neurological Surgical History: Reports: None Musculoskeletal Surgical History: Reports: Knee Replacement Other Musculoskeletal Surgeries/Procedures:: right total knee replacement Dermatological Surgical History: Reports: None Social & Family History - Family History Family Medical History: No Pertinent Family History Cardiac: Reports: Stent Neurological: Reports: CVA Psychiatric: Reports: Other (See Below) Other Psychiatric Family History: alcoholism Oncologic: Reports: Other (See Below) Other Oncologic Family History: somach - Tobacco Use Tobacco Use Status *Q: Never Tobacco User - Caffeine Use Caffeine Use: Reports: Coffee Other Caffeine Use: daily Caffeine Use Comment: "i drink 4 cups in the morning and then 2 in afternoon" - Recreational Drug Use Recreational Drug Use: No - Living Situation & Occupation Living situation: Reports: , Alone Occupation: Retired ED ROS GENERAL - Review of Systems Review Of Systems: Comprehensive ROS is negative, except as noted in HPI. ED EXAM, SKIN/RASH Exam: See Below Exam Limited By: No Limitations General Appearance: Alert, WD/WN, No Apparent Distress Eye Exam: Left Eye: Periorbital Changes (there is some ecchymosis noted to upper eyelid and below the eye), Bilateral Eye: EOMI, Normal Inspection, PERRL Ears: Normal External Exam, Normal Canal, Hearing Grossly Normal, Normal TMs Nose: Normal Inspection, Normal Mucosa, No Blood Head: Normocephalic, Other (there is some ecchymosis to left scalp line) Respiratory/Chest: No Respiratory Distress, Lungs Clear, Normal Breath Sounds, No Accessory Muscle Use, Chest Non-Tender Cardiovascular: Normal Peripheral Pulses, Regular Rate, Rhythm, No Edema Extremities: Normal Inspection, Normal Capillary Refill Neurological: Alert, Oriented, Normal Cognition, No Motor/Sensory Deficits Psychiatric: Normal Affect, Normal Mood Skin: Warm, Dry, Intact, No Rash, Ecchymosis (noted on eye and head assessment) Course - Vital Signs Last Recorded V/S: Last Vital Signs Temp 96.9 F 08/14/20 13:54 Pulse 61 08/14/20 13:54 Resp 16 08/14/20 13:54 BP 187/66 H 08/14/20 13:54 Pulse Ox 100 08/14/20 13:54 - Orders/Labs/Meds Labs: Laboratory Tests 08/14/20 Range/Units 13:45 Influenza Type A RNA Negative (NEGATIVE) Influenza Type B RNA Negative (NEGATIVE) SARS-CoV-2 RNA ([facility]) Negative (NEGATIVE) - Re-Assessments/Exams Free Text/Narrative Re-Assessment/Exam: 08/14/20 12:36 Patient presents to the ED for her facial injuries. For today's purposes as she is on Eliquis we will get a quick head CT to rule out any sort of head bleed, all other areas look like superficial bruising and should heal. 08/14/20 13:27 CT demonstrates a 5.5mm area of concern in the frontal white matter which is suspicious for a small parenchymal hemorrhage from infarct. I did review the CT with Dr. Nolasco as well. I am in contact with neurosurgery, Dr. Grimm recommends stopping the Eliquis, for 2 weeks, and the patient should be admitted for a second CT scan tomorrow morning to track progress of the bleed. He does note that it is very deep, and they would be doing more damage if they want to try to fix it. At this time I requested to talk to their hospitalist, Dr. Shaikh, and they ultimately accept for transfer to their facility. COVID-19 swab will be done for today's purposes for admission to the hospital. 08/14/20 14:50 After a discussion with the patient, and the patient's son, patient will be t ransferred to [place] via private vehicle due to her stable vital signs and stable neurological exam. I was told by Dr. Nolasco that this should not be considered a traumatic brain bleed d/t the patient's mechanism of injury. 08/14/20 15:01 COVID swab is negative. Departure - Departure Time of Disposition: 14:00 Disposition: DC/Tfer to Acute Hospital 02 Condition: Good Clinical Impression: Facial injury Qualifiers: Encounter type: initial encounter Qualified Code(s): S09.93XA - Unspecified injury of face, initial encounter Fall as cause of accidental injury at home as place of occurrence Qualifiers: Encounter type: initial encounter Qualified Code(s): W19.XXXA - Unspecified fall, initial encounter Cerebral parenchymal hemorrhage Qualifiers: Intracerebral hemorrhage etiology: nontraumatic Cerebral hemorrhage location: other cerebral location Laterality: right Qualified Code(s): I61.8 - Other nontraumatic intracerebral hemorrhage - Discharge Information *PRESCRIPTION DRUG MONITORING PROGRAM REVIEWED*: No *COPY OF PRESCRIPTION DRUG MONITORING REPORT IN PATIENT ELVA: No Instructions: Intracerebral Hemorrhage Referrals: Ko Pretty MD [Primary Care Provider] - Forms: ED Department Discharge Additional Instructions: You were evaluated in the ER today for your facial injuries and fall. Head CT was done at today's visit, and demonstrates a small area of bleeding within your right frontal white matter, that is concerning. This means you will need observation to [place] in [place], to make sure that your symptoms are getting better as expected and a repeat head CT in the morning. Dr. Shaikh was gracious enough to accept you in transfer. You will need to go there directly after discharge from the hospital, to be admitted for observation. The bruising on your face is all superficial and will heal with time. Due to you being on Eliquis, it may get a little bit worse before it gets better but should resolve. Sepsis Event Note (ED) - Evaluation Sepsis Screening Result: No Definite Risk - Focused Exam Vital Signs: Vital Signs Temp Pulse Resp BP Pulse Ox 08/14/20 13:54 96.9 F 61 16 187/66 H 100 08/14/20 12:16 97.4 F 63 16 182/61 H 99
--- NOTE | 2020-08-14 13:19 | CT ---
Head CT Technique: Multiple axial sections to the brain were obtained. Intravenous contrast was not utilized. Reconstructed coronal and sagittal images were obtained. Comparison: Prior head CT study of 11/18/19. Findings: Ventricles along with basal cisterns and sulci over the convexities are mildly prominent. There is diminished density noted within the periventricular white matter compatible with small vessel ischemic demyelination change. There is a small area of hemorrhage within the right posterior frontal white matter measuring about 5.5 mm. This hemorrhage appears to be next to a small corticall low-density area making the possibility of a small 1.1 cm infarct with possible adjacent hemorrhage. No other abnormal areas of hemorrhage are seen. Bone window settings were reviewed. The visualized paranasal sinuses and mastoid sinuses show nothing acute. No acute calvarial abnormality is appreciated. Impression: 1. Small acute parenchymal hemorrhage within the posterior right frontal white matter measuring around 5.5 mm which is suspicious for a small parenchymal hemorrhage from infarct. 2. Other senescent change as described above. Diagnostic code #5
[2020-08-14 13:55] VITALS: BP 187/66; PULSE 61
[2020-08-14 14:41] LABS: CORONAVIRUS COVID-19 NAA NEGATIVE (NEGATIVE)
== END 2020-08-14 15:30 ==
LOC: JD.ED 12:03
DX: S00.12XA Contusion of left eyelid and periocular area, initial encounter (principal); S00.03XA Contusion of scalp, initial encounter; I61.8 Other nontraumatic intracerebral hemorrhage; I48.91 Unspecified atrial fibrillation; E78.00 Pure hypercholesterolemia, unspecified; I12.9 Hypertensive chronic kidney disease with stage 1 through stage 4 chronic kidney disease, or unspecified chronic kidney disease; N18.9 Chronic kidney disease, unspecified; Z79.01 Long term (current) use of anticoagulants; Z79.899 Other long term (current) drug therapy; Z86.718 Personal history of other venous thrombosis and embolism; Z88.5 Allergy status to narcotic agent; W18.30XA Fall on same level, unspecified, initial encounter; Y92.009 Unspecified place in unspecified non-institutional (private) residence as the place of occurrence of the external cause
CPT/HCPCS: 0240U; 70450; 99284

== ENCOUNTER 2020-12-30 22:53 | Emergency (ER) | payer MEDICARE, OTHER ==
[2020-12-30 23:17] VITALS: BP 187/64; PULSE 60
[2020-12-30] MEDS ORDERED: Aspirin 81 MG Tab.Chew PO ONE (23:34)
--- NOTE | 2020-12-31 01:14 | EDM.PDOC ---
ED HPI GENERAL MEDICAL PROBLEM - General Chief Complaint: Chest Pain Stated Complaint: SOB/HIGH BP/CHEST PAIN Time Seen by Provider: 12/30/20 23:10 Source of Information: Reports: Patient, RN Notes Reviewed - History of Present Illness INITIAL COMMENTS - FREE TEXT/NARRATIVE: 85 yr old female had some chest discomfort prior to going to bed last evening. That resolved and she was able to go to sleep. She awakened sometime later and felt short of breath. Now on arrival to ED feels much better. Hx of Htn, CAC, has a pacer. No recent cough, fever or chills. Chest Pain Score (Numeric/FACES): 5 - Related Data Allergies Allergy/AdvReac Type Severity Reaction Status Date / Time codeine AdvReac Vomiting Verified 07/01/20 06:03 Home Meds: Home Meds Amiodarone [Cordarone] 200 mg PO DAILY 05/18/17 [History] Losartan [Cozaar] 50 mg PO DAILY 05/18/17 [History] Apixaban [Eliquis] 2.5 mg PO BID 09/10/17 [History] Metoprolol Succinate [Toprol XL 50mg] 50 mg PO DAILY 12/04/17 [History] Magnesium Oxide 400 mg PO DAILY 12/07/18 [History] Isosorbide Mononitrate [Imdur] 30 mg PO DAILY 10/03/19 [History] Metoprolol Succinate [Toprol Xl] 25 mg PO DAILY 10/03/19 [History] Meclizine [Antivert] 25 mg PO Q6H PRN #30 tab 07/01/20 [Rx] Metoprolol Succinate [Toprol XL 50mg] 50 mg PO DAILY 08/14/20 [History] Metoprolol Succinate [Toprol XL] 25 mg PO BEDTIME 08/14/20 [History] Past Medical History HEENT History: Reports: Hard of Hearing, Impaired Vision, Other (See Below) Other HEENT History: has a hearing aid on right, wears glasses, has upper denture Cardiovascular History: Reports: Afib, Blood Clots/VTE/DVT, Cardiomyopathy, High Cholesterol, Hypertension, Other (See Below) Other Cardiovascular History: pacer and AICD placed 01/08/17 Respiratory History: Reports: Other (See Below) Gastrointestinal History: Reports: Diverticulosis, GERD, PUD Other Gastrointestinal History: Gastric ulcer Genitourinary History: Reports: Chronic Renal Insuffiency, Urinary Incontinence Other Genitourinary History: possible cystocele, urinary frequency SNOW REMOVER History: Reports: Other (See Below) Other SNOW REMOVER History: hysterectomy Musculoskeletal History: Reports: Osteoporosis, Other (See Below) Neurological History: Reports: None Psychiatric History: Reports: None Endocrine/Metabolic History: Reports: None Hematologic History: Reports: Anemia, Iron Deficiency Other Hematologic History: DVT Immunologic History: Reports: None Oncologic (Cancer) History: Reports: None Dermatologic History: Reports: None - Infectious Disease History Infectious Disease History: Reports: Chicken Pox, Measles, Mumps, Shingles - Past Surgical History Head Surgeries/Procedures: Reports: None HEENT Surgical History: Reports: Adenoidectomy, Cataract Surgery, Tonsillectomy Cardiovascular Surgical History: Reports: AICD, Other (See Below) GI Surgical History: Reports: Appendectomy, Colonoscopy, EGD, Other (See Below) Other GI Surgeries/Procedures: Some Hemmorrhoids removed, gastric resection Female Surgical History: Reports: Hysterectomy Endocrine Surgical History: Reports: None Neurological Surgical History: Reports: None Musculoskeletal Surgical History: Reports: Knee Replacement Other Musculoskeletal Surgeries/Procedures:: right total knee replacement Dermatological Surgical History: Reports: None Social & Family History - Family History Family Medical History: No Pertinent Family History Cardiac: Reports: Stent Neurological: Reports: CVA Psychiatric: Reports: Other (See Below) Other Psychiatric Family History: alcoholism Oncologic: Reports: Other (See Below) Other Oncologic Family History: somach - Tobacco Use Tobacco Use Status *Q: Never Tobacco User - Caffeine Use Caffeine Use: Reports: Coffee Other Caffeine Use: daily Caffeine Use Comment: "i drink 4 cups in the morning and then 2 in afternoon" - Recreational Drug Use Recreational Drug Use: No - Living Situation & Occupation Living situation: Reports: , Alone Occupation: Retired ED ROS GENERAL - Review of Systems Review Of Systems: See Below Constitutional: Denies: Fever, Chills, Diaphoresis HEENT: Reports: No Symptoms Respiratory: Reports: Shortness of Breath. Denies: Cough Cardiovascular: Reports: Chest Pain GI/Abdominal: Denies: Abdominal Pain, Nausea, Vomiting Musculoskeletal: Denies: Shoulder Pain, Arm Pain, Back Pain Skin: Reports: No Symptoms Neurological: Reports: No Symptoms ED EXAM, GENERAL - Physical Exam Exam: See Below General Appearance: Alert, No Apparent Distress Throat/Mouth: Normal Inspection Head: Atraumatic Neck: Supple Respiratory/Chest: No Respiratory Distress, Lungs Clear, Normal Breath Sounds, Other (mild tenderness L sternal border) Cardiovascular: Regular Rate, Rhythm GI/Abdominal: Soft, Non-Tender. No: Guarding Back Exam: No: CVA Tenderness (L), CVA Tenderness (R) Extremities: Normal Inspection. No: Pedal Edema, Leg Pain, Increased Warmth, Re dness Neurological: Alert, No Motor/Sensory Deficits Skin Exam: Warm, Dry, Normal Color #1 Interpretation EKG Date: 12/30/20 Rhythm: Other (atrial paced rythm) QRS: Other (IVCD, q waves inf leads) Course - Vital Signs Last Recorded V/S: Last Vital Signs Temp 96.5 F L 12/30/20 23:15 Pulse 60 12/30/20 23:15 Resp 20 12/30/20 23:15 BP 187/64 H 12/30/20 23:15 Pulse Ox 100 12/30/20 23:15 - Orders/Labs/Meds Orders: Active Orders 24 hr Category Date Time Status Chest 1V Frontal [CR] Stat Exams 12/30/20 23:32 Taken Labs: Laboratory Tests 12/30/20 12/30/20 12/30/20 Range/Units 23:51 23:51 23:51 WBC 7.98 (3.98-10.04) K/mm3 RBC 4.05 (3.98-5.22) M/mm3 Hgb 12.6 (11.2-15.7) gm/dl Hct 38.8 (34.1-44.9) % MCV 95.8 H (79.4-94.8) fl MCH 31.1 (25.6-32.2) pg MCHC 32.5 (32.2-35.5) g/dl RDW Std Deviation 49.3 H (36.4-46.3) fL Plt Count 192 (182-369) K/mm3 MPV 11.0 (9.4-12.3) fl Neut % (Auto) 64.5 (34.0-71.1) % Lymph % (Auto) 24.1 (19.3-51.7) % Logan % (Auto) 8.9 (4.7-12.5) % Eos % (Auto) 1.9 (0.7-5.8) Baso % (Auto) 0.5 (0.1-1.2) % Neut # (Auto) 5.15 (1.56-6.13) K/mm3 Lymph # (Auto) 1.92 (1.18-3.74) K/mm3 Logan # (Auto) 0.71 H (0.24-0.36) K/mm3 Eos # (Auto) 0.15 (0.04-0.36) K/mm3 Baso # (Auto) 0.04 (0.01-0.08) K/mm3 Sodium 145 (136-145) mEq/L Potassium 4.5 (3.5-5.1) mEq/L Chloride 111 H (98-107) mEq/L Carbon Dioxide 24 (21-32) mEq/L Anion Gap 14.5 (5-15) BUN 41 H (7-18) mg/dL Creatinine 2.0 H (0.55-1.02) mg/dL Est Cr Clr Drug Dosing 16.56 mL/min Estimated GFR (MDRD) 24 (>60) mL/min BUN/Creatinine Ratio 20.5 H (14-18) Glucose 93 (70-99) mg/dL Calcium 9.0 (8.5-10.1) mg/dL Total Bilirubin 0.3 (0.2-1.0) mg/dL AST 16 (15-37) U/L ALT 22 (14-59) U/L Alkaline Phosphatase 113 (46-116) U/L Troponin I (0.00-0.056) ng/mL NT-Pro-B Natriuret Pep 3875 H (0-450) pg/mL Total Protein 6.7 (6.4-8.2) g/dl Albumin 3.2 L (3.4-5.0) g/dl Globulin 3.5 gm/dL Albumin/Globulin Ratio 0.9 L (1-2) 12/30/20 Range/Units 23:51 WBC (3.98-10.04) K/mm3 RBC (3.98-5.22) M/mm3 Hgb (11.2-15.7) gm/dl Hct (34.1-44.9) % MCV (79.4-94.8) fl MCH (25.6-32.2) pg MCHC (32.2-35.5) g/dl RDW Std Deviation (36.4-46.3) fL Plt Count (182-369) K/mm3 MPV (9.4-12.3) fl Neut % (Auto) (34.0-71.1) % Lymph % (Auto) (19.3-51.7) % Logan % (Auto) (4.7-12.5) % Eos % (Auto) (0.7-5.8) Baso % (Auto) (0.1-1.2) % Neut # (Auto) (1.56-6.13) K/mm3 Lymph # (Auto) (1.18-3.74) K/mm3 Logan # (Auto) (0.24-0.36) K/mm3 Eos # (Auto) (0.04-0.36) K/mm3 Baso # (Auto) (0.01-0.08) K/mm3 Sodium (136-145) mEq/L Potassium (3.5-5.1) mEq/L Chloride (98-107) mEq/L Carbon Dioxide (21-32) mEq/L Anion Gap (5-15) BUN (7-18) mg/dL Creatinine (0.55-1.02) mg/dL Est Cr Clr Drug Dosing mL/min Estimated GFR (MDRD) (>60) mL/min BUN/Creatinine Ratio (14-18) Glucose (70-99) mg/dL Calcium (8.5-10.1) mg/dL Total Bilirubin (0.2-1.0) mg/dL AST (15-37) U/L ALT (14-59) U/L Alkaline Phosphatase (46-116) U/L Troponin I < 0.017 (0.00-0.056) ng/mL NT-Pro-B Natriuret Pep (0-450) pg/mL Total Protein (6.4-8.2) g/dl Albumin (3.4-5.0) g/dl Globulin gm/dL Albumin/Globulin Ratio (1-2) Meds: Medications Discontinued Medications Generic Name Dose Route Start Last Admin Trade Name Freq PRN Reason Stop Dose Admin Aspirin 81 mg 12/30/20 23:34 12/31/20 00:06 Aspirin 81 Mg Tab.Chew PO 12/30/20 23:35 81 mg ONETIME ONE Administration - Re-Assessments/Exams Free Text/Narrative Re-Assessment/Exam: 12/31/20 02:26 CXR nl, trop., other labs normal. Has been resting comfortably while here in the ED. Continued paced rythm, no ectopy. Discharge instr. as documented. Departure - Departure Time of Disposition: 01:12 Disposition: Home, Self-Care 01 Condition: Fair Clinical Impression: Atypical chest pain, Chest wall pain Instructions: Chest Wall Pain, [id number], Nonspecific Chest Pain, Adult, E asy-to-Read Referrals: Ko Pretty MD [Primary Care Provider] - Forms: ED Department Discharge Additional Instructions: Alternate ice pack and heat to anterior chest if having further discomfort. You also can take tylenol 2 or 3 times daily if needed. Your heart and lungs have checked out well this evening. Follow up clinic as needed. Return to ED as needed if symptoms worsening in any way. Sepsis Event Note (ED) - Evaluation Sepsis Screening Result: No Definite Risk - Focused Exam Vital Signs: Vital Signs Temp Pulse Resp BP Pulse Ox 12/30/20 23:15 96.5 F L 60 20 187/64 H 100 - My Orders Last 24 Hours: My Active Orders 12/30/20 23:32 Chest 1V Frontal [CR] Stat - Assessment/Plan Last 24 Hours: My Active Orders 12/30/20 23:32 Chest 1V Frontal [CR] Stat
--- NOTE | 2020-12-31 07:50 | CR ---
Chest: Portable view of the chest was obtained. Comparison: Prior chest x-ray of 11/18/19. Heart is enlarged. Upper mediastinum is within normal limits. AICD is present. Small linear scar is seen within the lateral left costophrenic angle. Lungs otherwise are clear with no acute parenchymal change. Slight scoliosis is noted within the spine. Bony structures are osteopenic. Impression: 1. Cardiomegaly with AICD. 2. Nothing acute is appreciated. Diagnostic code #2
== END 2020-12-31 01:26 | disposition home or self-care (01) ==
LOC: JD.ED 22:53
DX: R07.89 Other chest pain (principal); I48.91 Unspecified atrial fibrillation; I12.9 Hypertensive chronic kidney disease with stage 1 through stage 4 chronic kidney disease, or unspecified chronic kidney disease; N18.9 Chronic kidney disease, unspecified; Z79.01 Long term (current) use of anticoagulants; Z79.899 Other long term (current) drug therapy; Z88.5 Allergy status to narcotic agent; Z86.718 Personal history of other venous thrombosis and embolism; R06.02 Shortness of breath
CPT/HCPCS: 36415; 71045; 80053; 83880; 84484; 85025; 93005; 99285; A9270; 99284

== ENCOUNTER 2021-03-07 17:50 | Emergency (ER) | payer MEDICARE, OTHER ==
[2021-03-07 18:18] VITALS: BP 192/70; PULSE 60
--- NOTE | 2021-03-07 19:13 | CT ---
Head CT Technique: Multiple axial sections of the brain were obtained. Intravenous contrast was not utilized. Reconstructed coronal and sagittal images were obtained. Comparison: Prior head CT study of 08/14/20. Findings: Small area of increased density is identified within the posterior right frontal lobe measuring approximately 5 mm. This finding is similar to prior study and presumably represents a low density calcification and is likely benign since it is stable. Ventricles along with basal cisterns and sulci over the convexities are mildly prominent. Mild diminished density is noted within the periventricular white matter which is felt compatible with small vessel ischemic demyelination change. Calcification is noted within the carotid siphon. No other areas of abnormal hemorrhage are seen. No midline shift or mass-effect is appreciated. Bone window settings were reviewed which show mucosal thickening within the inferior left mastoid sinus which is an interval change from prior study. Visualized paranasal sinuses show nothing acute. No acute calvarial finding is seen. Impression: 1. Mucosal thickening within the inferior right mastoid sinus. This is an interval change from prior study. Please correlate if patient has any symptoms to suggest mastoiditis. 2. Senescent change as noted above. 3. Small area of increased density within the posterior right frontal region which appears stable from prior head CT study most likely representing a low density calcification which is benign. 4. No acute intracranial abnormality is seen. Diagnostic code #2
--- NOTE | 2021-03-07 19:21 | CR ---
Chest: 2 views of the chest were obtained. Comparison: Prior chest x-ray of 12/30/20. Heart is slightly enlarged. Upper mediastinum is normal. AICD is present. Lungs are clear with no acute parenchymal change. Bony structures are osteopenic. Mild degenerative change is seen within the spine with mild scattered compression deformities. Slight scoliosis is also noted. Impression: 1. Findings as described above. 2. Nothing acute is seen on 2 view chest x-ray. Diagnostic code #2
--- NOTE | 2021-03-07 19:30 | EDM.PDOC ---
ED HPI GENERAL MEDICAL PROBLEM - General Chief Complaint: Syncope Stated Complaint: [facility] Time Seen by Provider: 03/07/21 18:08 Source of Information: Reports: Patient, RN Notes Reviewed History Limitations: Reports: No Limitations - History of Present Illness INITIAL COMMENTS - FREE TEXT/NARRATIVE: Patient is an 85-year-old female presenting to the emergency department via [facility] for evaluation with regards to vertigo symptoms. She reports that upon waking this morning, she was experiencing the sensation of the room spinning. It was quite significant throughout the morning. She laid down for a while and it did improve but is still present somewhat if she moves around. She also states that she has been having left-sided, stabbing chest pains off and on for quite some time. She has not had any so far today, but did have some last evening. Denies any significant shortness of breath. She has not fallen or had any recent head injuries. She does have a history of vertigo previously treated with meclizine. She reports she does have some at home but she did not use it. Denies any nausea or vomiting. - Related Data Allergies Allergy/AdvReac Type Severity Reaction Status Date / Time codeine AdvReac Vomiting Verified 03/07/21 18:18 Home Meds: Home Meds Amiodarone [Cordarone] 200 mg PO DAILY 05/18/17 [History] Losartan [Cozaar] 50 mg PO DAILY 05/18/17 [History] Apixaban [Eliquis] 2.5 mg PO BID 09/10/17 [History] Magnesium Oxide 400 mg PO DAILY 12/07/18 [History] Isosorbide Mononitrate [Imdur] 30 mg PO DAILY 10/03/19 [History] Metoprolol Succinate [Toprol XL 50mg] 50 mg PO BID 08/14/20 [History] Furosemide 40 mg PO DAILY PRN 03/07/21 [History] L Acidophil/B Lactis/B Longum [Florajen Digest 15 B Cell Cap] 1 cap PO DAILY 03/07/21 [History] Linaclotide [Linzess] 1 cap PO DAILY PRN 03/07/21 [History] Past Medical History HEENT History: Reports: Hard of Hearing, Impaired Vision, Other (See Below) Other HEENT History: has a hearing aid on right, wears glasses, has upper denture Cardiovascular History: Reports: Afib, Blood Clots/VTE/DVT, Cardiomyopathy, High Cholesterol, Hypertension, Other (See Below) Other Cardiovascular History: pacer and AICD placed 01/08/17 Respiratory History: Reports: Other (See Below) Gastrointestinal History: Reports: Diverticulosis, GERD, PUD Other Gastrointestinal History: Gastric ulcer Genitourinary History: Reports: Chronic Renal Insuffiency, Urinary Incontinence Other Genitourinary History: possible cystocele, urinary frequency SITE MEDICAL DIRECTOR History: Reports: Other (See Below) Other SITE MEDICAL DIRECTOR History: hysterectomy Musculoskeletal History: Reports: Osteoporosis, Other (See Below) Neurological History: Reports: None Psychiatric History: Reports: None Endocrine/Metabolic History: Reports: None Hematologic History: Reports: Anemia, Iron Deficiency Other Hematologic History: DVT Immunologic History: Reports: None Oncologic (Cancer) History: Reports: None Dermatologic History: Reports: None - Infectious Disease History Infectious Disease History: Reports: Chicken Pox, Measles, Mumps, Shingles - Past Surgical History Head Surgeries/Procedures: Reports: None HEENT Surgical History: Reports: Adenoidectomy, Cataract Surgery, Tonsillectomy Cardiovascular Surgical History: Reports: AICD, Other (See Below) GI Surgical History: Reports: Appendectomy, Colonoscopy, EGD, Other (See Below) Other GI Surgeries/Procedures: Some Hemmorrhoids removed, gastric resection Female Surgical History: Reports: Hysterectomy Endocrine Surgical History: Reports: None Neurological Surgical History: Reports: None Musculoskeletal Surgical History: Reports: Knee Replacement Other Musculoskeletal Surgeries/Procedures:: right total knee replacement Dermatological Surgical History: Reports: None Social & Family History - Family History Family Medical History: No Pertinent Family History Cardiac: Reports: Stent Neurological: Reports: CVA Psychiatric: Reports: Other (See Below) Other Psychiatric Family History: alcoholism Oncologic: Reports: Other (See Below) Other Oncologic Family History: stomach - Tobacco Use Tobacco Use Status *Q: Never Tobacco User Second Hand Smoke Exposure: Yes - Caffeine Use Caffeine Use: Reports: Coffee Other Caffeine Use: daily Caffeine Use Comment: "i drink 4 cups in the morning and then 2 in afternoon" - Recreational Drug Use Recreational Drug Use: No - Living Situation & Occupation Living situation: Reports: , Alone Occupation: Retired ED ROS GENERAL - Review of Systems Review Of Systems: See Below Constitutional: Reports: No Symptoms. Denies: Fever, Chills HEENT: Reports: Vertigo Respiratory: Reports: No Symptoms. Denies: Shortness of Breath, Cough Cardiovascular: Reports: Chest Pain. Denies: Dyspnea on Exertion, Lightheadedness, Syncope Endocrine: Reports: No Symptoms GI/Abdominal: Reports: No Symptoms : Reports: No Symptoms Musculoskeletal: Reports: No Symptoms Skin: Reports: No Symptoms Neurological: Reports: No Symptoms Psychiatric: Reports: No Symptoms Hematologic/Lymphatic: Reports: No Symptoms Immunologic: Reports: No Symptoms ED EXAM, DIZZINESS - Physical Exam Exam: See Below General Appearance: Alert, WD/WN, No Apparent Distress Eye Exam: Bilateral Eye: Normal Inspection, Other (No visible nystagmus with head turning or position changes.) Ears: Normal External Exam, Normal Canal, Hearing Grossly Normal, Normal TMs Head Exam: Atraumatic, Normocephalic Vertigo: worsens with head to L, worsens with head to R, reproducible (With position changes) Respiratory/Chest: No Respiratory Distress, Lungs Clear, Normal Breath Sounds, No Accessory Muscle Use, Chest Non-Tender Cardiovascular: Normal Peripheral Pulses, Regular Rate, Rhythm, No Edema, No Gallop, No JVD, No Murmur, No Rub GI/Abdominal: Normal Bowel Sounds, Soft, Non-Tender, No Organomegaly, No Distention, No Abnormal Bruit, No Mass Neurological: Alert, Normal Mood/Affect, Normal Dorsiflexion, CN II-XII Intact, Normal Plantar Flexion, Normal Reflexes, No Motor/Sensory Deficits, Oriented x 3 Psychiatric: Normal Affect, Normal Mood Skin Exam: Warm, Dry, Intact, Normal Color, No Rash #1 Interpretation EKG Date: 03/07/21 Time: 18:21 Rhythm: NSR (atrial paced) Rate (Beats/Min): 60 [place]: LAD-Left [place] Deviation P-Wave: Present QRS: Wide ST-T: Normal QT: Prolonged EKG Interpretation Comments: Atrial paced rhythm at 60/min Nonspecific intraventricular conduction delay Left ventricular with strain/repolarization abnormality Q waves 2, 3, aVF-old inferior wall VT T wave inversion 1 and aVL-consider ischemia Left axis deviation QTC mildly prolonged Unchanged from EKG on December 30, [address] Val SORTO Course - Vital Signs Last Recorded V/S: Last Vital Signs Temp 97.5 F 03/07/21 18:12 Pulse 60 03/07/21 18:12 Resp 20 03/07/21 18:12 BP 192/70 H 03/07/21 18:12 Pulse Ox 100 03/07/21 18:12 - Orders/Labs/Meds Orders: Active Orders 24 hr Category Date Time Status EKG Documentation Completion [RC] STAT Care 03/07/21 18:37 Active Labs: Laboratory Tests 03/07/21 03/07/21 Range/Units 19:15 19:15 WBC 8.27 (3.98-10.04) K/mm3 RBC 3.88 L (3.98-5.22) M/mm3 Hgb 12.2 (11.2-15.7) gm/dl Hct 37.5 (34.1-44.9) % MCV 96.6 H (79.4-94.8) fl MCH 31.4 (25.6-32.2) pg MCHC 32.5 (32.2-35.5) g/dl RDW Std Deviation 52.3 H (36.4-46.3) fL Plt Count 196 (182-369) K/mm3 MPV 11.2 (9.4-12.3) fl Neut % (Auto) 67.0 (34.0-71.1) % Lymph % (Auto) 22.5 (19.3-51.7) % [place] % (Auto) 7.6 (4.7-12.5) % Eos % (Auto) 2.3 (0.7-5.8) Baso % (Auto) 0.4 (0.1-1.2) % Neut # (Auto) 5.54 (1.56-6.13) K/mm3 Lymph # (Auto) 1.86 (1.18-3.74) K/mm3 [place] # (Auto) 0.63 H (0.24-0.36) K/mm3 Eos # (Auto) 0.19 (0.04-0.36) K/mm3 Baso # (Auto) 0.03 (0.01-0.08) K/mm3 Sodium 147 H (136-145) mEq/L Potassium 4.4 (3.5-5.1) mEq/L Chloride 112 H (98-107) mEq/L Carbon Dioxide 24 (21-32) mEq/L Anion Gap 15.4 H (5-15) BUN 41 H (7-18) mg/dL Creatinine 2.2 H (0.55-1.02) mg/dL Est Cr Clr Drug Dosing 15.06 mL/min Estimated GFR (MDRD) 21 (>60) mL/min BUN/Creatinine Ratio 18.6 H (14-18) Glucose 98 (70-99) mg/dL Calcium 9.1 (8.5-10.1) mg/dL Total Bilirubin 0.3 (0.2-1.0) mg/dL AST 9 L (15-37) U/L ALT 15 (14-59) U/L Alkaline Phosphatase 122 H (46-116) U/L Troponin I < 0.017 (0.00-0.056) ng/mL Total Protein 7.0 (6.4-8.2) g/dl Albumin 3.4 (3.4-5.0) g/dl Globulin 3.6 gm/dL Albumin/Globulin Ratio 0.9 L (1-2) Meds: Medications Discontinued Medications Generic Name Dose Route Start Last Admin Trade Name Freq PRN Reason Stop Dose Admin Meclizine HCl 25 mg 03/07/21 18:38 03/07/21 19:20 Meclizine 25 Mg Tab.Chew PO 03/07/21 18:39 25 mg ONETIME ONE Administration - Re-Assessments/Exams Free Text/Narrative Re-Assessment/Exam: Patient is a 85-year-old female presenting to the emergency department for evaluation with regards to vertigo symptoms. Symptoms began this morning. They have gradually improve throughout the day but are still present with position changes. She is had no nausea or vomiting with these. Exam is overall unremarkable. She does report some intermittent left-sided chest pains, however none have been present today. I have ordered blood work, EKG, chest x-ray, head CT, and 25 mg of meclizine. 03/07/21 19:58 Hematology significant for sodium slightly elevated 147, chloride 112, BUN 41, creatinine 2.2. Patient has a history of chronic kidney disease. Troponin is undetectable. Chest x-ray and head CT showed no acute abnormalities. EKG shows no changes from December. Patient states that her symptoms of essentially resolved after the meclizine. We will discharge her home. Discharge instructions as documented. Departure - Departure Time of Disposition: 19:58 Disposition: Home, Self-Care 01 Condition: Good Clinical Impression: Vertigo - Discharge Information *PRESCRIPTION DRUG MONITORING PROGRAM REVIEWED*: No *COPY OF PRESCRIPTION DRUG MONITORING REPORT IN PATIENT ELVA: No Instructions: Vertigo, [id number] Referrals: Ko Pretty MD [Primary Care Provider] - Forms: ED Department Discharge Additional Instructions: You were seen in the emergency department today for vertigo symptoms as well as intermittent chest pains which you experienced yesterday. Work-up included blood work, EKG, chest x-ray, head CT. These results were found to be normal. While in the ER, you received meclizine which did improve your symptoms. Recommend that you go home and rest. You may use the meclizine that you have at home as prescribed for return of vertigo symptoms. If this becomes an ongoing issue, you may follow-up with audiology for evaluation and treatment of vertigo. Return to ER for any new or worsening symptoms. Sepsis Event Note (ED) - Evaluation Sepsis Screening Result: No Definite Risk - Focused Exam Vital Signs: Vital Signs Temp Pulse Resp BP Pulse Ox 03/07/21 18:12 97.5 F 60 20 192/70 H 100 - My Orders Last 24 Hours: My Active Orders 03/07/21 18:37 EKG Documentation Completion [RC] STAT - Assessment/Plan Last 24 Hours: My Active Orders 03/07/21 18:37 EKG Documentation Completion [RC] STAT
== END 2021-03-07 20:20 | disposition home or self-care (01) ==
LOC: JD.ED 17:50
DX: R42 Dizziness and giddiness (principal); I48.91 Unspecified atrial fibrillation; E78.00 Pure hypercholesterolemia, unspecified; I11.9 Hypertensive heart disease without heart failure; I12.9 Hypertensive chronic kidney disease with stage 1 through stage 4 chronic kidney disease, or unspecified chronic kidney disease; N18.9 Chronic kidney disease, unspecified; Z88.5 Allergy status to narcotic agent; Z79.01 Long term (current) use of anticoagulants; Z79.899 Other long term (current) drug therapy
CPT/HCPCS: 36415; 70450; 71046; 80053; 84484; 85025; 93005; 99285; A9270; 93010; 99284

== ENCOUNTER 2022-02-16 19:15 | Emergency (ER) | payer MEDICARE, OTHER ==
[2022-02-16] MEDS ORDERED: Aspirin 81 MG Tab.Chew PO ONE (19:38)
[2022-02-16] MEDS ORDERED: Sodium Chloride 0.9% 10 ML Syringe FLUSH PRN (19:38)
[2022-02-16 19:44] VITALS: BP 185/62; PULSE 64
[2022-02-16 20:19] LABS: ESTIMATED GFR 23 mL/min (>60)
== END 2022-02-16 21:15 | disposition home or self-care (01) ==
LOC: JD.ED 19:15
DX: R07.89 Other chest pain (principal); I48.91 Unspecified atrial fibrillation; E78.00 Pure hypercholesterolemia, unspecified; I12.9 Hypertensive chronic kidney disease with stage 1 through stage 4 chronic kidney disease, or unspecified chronic kidney disease; N18.9 Chronic kidney disease, unspecified; D63.1 Anemia in chronic kidney disease; K21.9 Gastro-esophageal reflux disease without esophagitis; Z88.5 Allergy status to narcotic agent; Z79.01 Long term (current) use of anticoagulants; Z79.899 Other long term (current) drug therapy
CPT/HCPCS: 36415; 71045; 80053; 84484; 85025; 93005; 99285; A9270; J3490

== ENCOUNTER 2022-07-24 19:13 | Emergency (ER) | payer MEDICARE, OTHER ==
[2022-07-24 19:42] VITALS: PULSE 60
[2022-07-24 22:09] VITALS: BP 166/84
== END 2022-07-24 21:55 | disposition home or self-care (01) ==
LOC: JD.ED 19:13
DX: J06.9 Acute upper respiratory infection, unspecified (principal); I12.9 Hypertensive chronic kidney disease with stage 1 through stage 4 chronic kidney disease, or unspecified chronic kidney disease; N18.9 Chronic kidney disease, unspecified; I48.91 Unspecified atrial fibrillation; I25.2 Old myocardial infarction; M81.0 Age-related osteoporosis without current pathological fracture; Z88.5 Allergy status to narcotic agent; Z79.01 Long term (current) use of anticoagulants; Z79.82 Long term (current) use of aspirin; Z79.899 Other long term (current) drug therapy; Z20.822 Contact with and (suspected) exposure to COVID-19
CPT/HCPCS: 71045; 99283; U0002

== ENCOUNTER 2022-07-26 19:12 | Emergency (ER) | payer MEDICARE, OTHER ==
[2022-07-26 19:34] VITALS: BP 186/64; PULSE 70
[2022-07-26] MEDS ORDERED: Albuterol/Ipratropium 3.0-0.5 MG/3 ML Neb Soln NEB ONE (20:05)
[2022-07-26 20:48] LABS: CORONAVIRUS COVID-19 NAA NEGATIVE (NEGATIVE)
== END 2022-07-26 21:53 | disposition home or self-care (01) ==
LOC: JD.ED 19:12
DX: R05.9 Cough, unspecified (principal); R06.02 Shortness of breath; R06.2 Wheezing; B97.4 Respiratory syncytial virus as the cause of diseases classified elsewhere; I44.7 Left bundle-branch block, unspecified; I48.91 Unspecified atrial fibrillation; I25.2 Old myocardial infarction; I12.9 Hypertensive chronic kidney disease with stage 1 through stage 4 chronic kidney disease, or unspecified chronic kidney disease; N18.9 Chronic kidney disease, unspecified; Z88.5 Allergy status to narcotic agent; Z79.01 Long term (current) use of anticoagulants; Z79.82 Long term (current) use of aspirin; Z79.899 Other long term (current) drug therapy; Z20.822 Contact with and (suspected) exposure to COVID-19
CPT/HCPCS: 0241U; 36415; 71046; 80053; 83880; 85025; 86140; 93005; 94640; 99285; J7620-GY

== ENCOUNTER 2022-07-29 16:17 | Inpatient (IN) | payer MEDICARE, OTHER ==
[2022-07-29 17:13] LABS: ESTIMATED GFR 25 mL/min (>60)
[2022-07-29] MEDS ORDERED: Sodium Chloride 0.9% 10 ML Syringe FLUSH PRN (17:37)
[2022-07-29] MEDS ORDERED: Heparin Sodium 5,000 Units/ML Vial SUBCUT SCH (17:45)
[2022-07-29] MEDS ORDERED: Docusate Sodium 100 MG Cap PO PRN (18:07)
[2022-07-29] MEDS ORDERED: Ondansetron 4 MG/2 ML SDV IV PRN (18:07)
[2022-07-29] MEDS ORDERED: Ondansetron 4 MG Tab.DIS PO PRN (18:07)
[2022-07-29] MEDS ORDERED: Metoprolol Succinate 50 MG Tab.ER PO SCH (18:15)
[2022-07-29 20:37] LABS: CORONAVIRUS COVID-19 NAA NEGATIVE (NEGATIVE)
[2022-07-29] MEDS: Losartan 50 MG Tab PO SCH (21:46)
[2022-07-29] MEDS: Apixaban 2.5 MG Tab PO SCH ×2 (21:48→22:52)
[2022-07-29] MEDS: methylPREDNISolone Sodium Succinate 40 MG/1 ML SDV IVPUSH SCH (21:49)
[2022-07-29] MEDS: Ascorbic Acid 500 MG Tab PO SCH (21:54)
[2022-07-29] MEDS: Zinc Sulfate 220 MG Cap PO SCH (21:54)
[2022-07-30] MEDS ORDERED: diphenhydrAMINE 50 MG/ML SDV IVPUSH ONE (02:30)
[2022-07-30] MEDS: methylPREDNISolone Sodium Succinate 40 MG/1 ML SDV IVPUSH SCH ×3 (03:53→18:33)
[2022-07-30] MEDS ORDERED: Metoprolol Succinate 50 MG Tab.ER PO SCH (09:00)
[2022-07-30] MEDS: Zinc Sulfate 220 MG Cap PO SCH (09:13)
[2022-07-30] MEDS: Ascorbic Acid 500 MG Tab PO SCH (09:13)
[2022-07-30] MEDS: Losartan 50 MG Tab PO SCH ×2 (09:13→20:28)
[2022-07-30] MEDS: Apixaban 2.5 MG Tab PO SCH ×2 (09:13→20:31)
[2022-07-30] MEDS: Isosorbide Mononitrate 30 MG Tab.ER PO SCH (09:13)
[2022-07-30] MEDS: Aspirin 81 MG Tab.Chew PO SCH ×2 (09:13→09:18)
[2022-07-30] MEDS: Amiodarone 200 MG Tab PO SCH (09:13)
[2022-07-30] MEDS: Metoprolol Succinate 50 MG Tab.ER PO SCH (09:14)
[2022-07-30] MEDS: Albuterol/Ipratropium 3.0-0.5 MG/3 ML Neb Soln NEB PRN ×2 (10:12→18:22)
[2022-07-30] MEDS ORDERED: Polyethylene Glycol 3350 Powder 17 GM Packet PO PRN (10:18)
[2022-07-30] MEDS ORDERED: Magnesium Oxide 400 MG Tab PO SCH (10:30)
[2022-07-30] MEDS ORDERED: guaiFENesin/Dextromethorphan 100-10 MG/5 ML Soln 5 ML Cup PO ONE (10:30)
[2022-07-30] MEDS: guaiFENesin/Dextromethorphan 100-10 MG/5 ML Soln 5 ML Cup PO SCH ×2 (14:20→20:32)
[2022-07-30] MEDS: Metoprolol Succinate 25 MG Tab.ER PO SCH (20:31)
[2022-07-31] MEDS: Acetaminophen 325 MG Tab PO PRN (02:06)
[2022-07-31] MEDS: methylPREDNISolone Sodium Succinate 40 MG/1 ML SDV IVPUSH SCH (02:06)
[2022-07-31] MEDS: guaiFENesin/Dextromethorphan 100-10 MG/5 ML Soln 5 ML Cup PO SCH ×3 (06:15→20:15)
[2022-07-31] MEDS: Metoprolol Succinate 50 MG Tab.ER PO SCH (09:09)
[2022-07-31] MEDS: Ascorbic Acid 500 MG Tab PO SCH (09:09)
[2022-07-31] MEDS: Losartan 50 MG Tab PO SCH ×2 (09:10→20:16)
[2022-07-31] MEDS: Amiodarone 200 MG Tab PO SCH (09:10)
[2022-07-31] MEDS: Apixaban 2.5 MG Tab PO SCH ×2 (09:10→20:16)
[2022-07-31] MEDS: Zinc Sulfate 220 MG Cap PO SCH (09:11)
[2022-07-31] MEDS: Isosorbide Mononitrate 30 MG Tab.ER PO SCH (09:11)
[2022-07-31] MEDS: Albuterol/Ipratropium 3.0-0.5 MG/3 ML Neb Soln NEB PRN ×3 (10:08→20:11)
[2022-07-31] MEDS: Metoprolol Succinate 25 MG Tab.ER PO SCH (20:15)
[2022-08-01] MEDS: Acetaminophen 325 MG Tab PO PRN (00:18)
[2022-08-01] MEDS: guaiFENesin/Dextromethorphan 100-10 MG/5 ML Soln 5 ML Cup PO SCH ×3 (07:59→21:05)
[2022-08-01] MEDS: Apixaban 2.5 MG Tab PO SCH ×2 (07:59→21:04)
[2022-08-01] MEDS: predniSONE 20 MG Tab PO SCH (07:59)
[2022-08-01] MEDS: Zinc Sulfate 220 MG Cap PO SCH (07:59)
[2022-08-01] MEDS: Ascorbic Acid 500 MG Tab PO SCH (08:00)
[2022-08-01] MEDS: Metoprolol Succinate 50 MG Tab.ER PO SCH (08:00)
[2022-08-01] MEDS: Losartan 50 MG Tab PO SCH ×2 (08:03→21:03)
[2022-08-01] MEDS: Isosorbide Mononitrate 30 MG Tab.ER PO SCH (08:03)
[2022-08-01] MEDS: Amiodarone 200 MG Tab PO SCH (08:03)
[2022-08-01] MEDS ORDERED: Lactated Ringers 1,000 ML IV SCH (08:30)
[2022-08-01] MEDS: Metoprolol Succinate 25 MG Tab.ER PO SCH (21:04)
[2022-08-02] MEDS: guaiFENesin/Dextromethorphan 100-10 MG/5 ML Soln 5 ML Cup PO SCH ×3 (06:55→20:35)
[2022-08-02] MEDS: predniSONE 20 MG Tab PO SCH (06:55)
[2022-08-02] MEDS: Losartan 50 MG Tab PO SCH ×2 (08:48→20:30)
[2022-08-02] MEDS: Metoprolol Succinate 50 MG Tab.ER PO SCH (08:49)
[2022-08-02] MEDS: Apixaban 2.5 MG Tab PO SCH ×2 (08:52→20:34)
[2022-08-02] MEDS: Ascorbic Acid 500 MG Tab PO SCH (08:52)
[2022-08-02] MEDS: Zinc Sulfate 220 MG Cap PO SCH (08:52)
[2022-08-02] MEDS: Amiodarone 200 MG Tab PO SCH (08:52)
[2022-08-02] MEDS: Isosorbide Mononitrate 30 MG Tab.ER PO SCH (08:52)
[2022-08-02] MEDS: Acetaminophen 325 MG Tab PO PRN (20:33)
[2022-08-02] MEDS: Metoprolol Succinate 25 MG Tab.ER PO SCH (20:34)
[2022-08-03] MEDS: guaiFENesin/Dextromethorphan 100-10 MG/5 ML Soln 5 ML Cup PO SCH (06:00)
[2022-08-03] MEDS: predniSONE 20 MG Tab PO SCH (06:00)
[2022-08-03] MEDS: Losartan 50 MG Tab PO SCH (08:10)
[2022-08-03] MEDS: Ascorbic Acid 500 MG Tab PO SCH (08:13)
[2022-08-03] MEDS: Amiodarone 200 MG Tab PO SCH (08:13)
[2022-08-03] MEDS: Apixaban 2.5 MG Tab PO SCH (08:13)
[2022-08-03] MEDS: Isosorbide Mononitrate 30 MG Tab.ER PO SCH (08:13)
[2022-08-03] MEDS: Zinc Sulfate 220 MG Cap PO SCH (08:14)
[2022-08-03] MEDS: Metoprolol Succinate 50 MG Tab.ER PO SCH (08:14)
[2022-08-03 08:20] VITALS: BP 134/100; PULSE 65
[2022-08-04] MEDS ORDERED: predniSONE 20 MG Tab PO SCH (07:00)
== END 2022-08-03 16:07 | disposition home or self-care (01) | DRG 189 ==
LOC: JD.ED 16:17 → JD.MS 17:37
PROVIDERS: ADMIT Hospitalist; ATTEND Hospitalist
DX: J12.1 Respiratory syncytial virus pneumonia (principal); R09.02 Hypoxemia; I50.9 Heart failure, unspecified; J96.01 Acute respiratory failure with hypoxia; J21.0 Acute bronchiolitis due to respiratory syncytial virus; N18.4 Chronic kidney disease, stage 4 (severe); I13.0 Hypertensive heart and chronic kidney disease with heart failure and stage 1 through stage 4 chronic kidney disease, or unspecified chronic kidney disease; I42.9 Cardiomyopathy, unspecified; I50.32 Chronic diastolic (congestive) heart failure; N18.9 Chronic kidney disease, unspecified; Z86.16 Personal history of COVID-19; I48.91 Unspecified atrial fibrillation; H54.7 Unspecified visual loss; H91.90 Unspecified hearing loss, unspecified ear; E78.00 Pure hypercholesterolemia, unspecified; K21.9 Gastro-esophageal reflux disease without esophagitis; Z20.822 Contact with and (suspected) exposure to COVID-19; R32 Unspecified urinary incontinence; M81.0 Age-related osteoporosis without current pathological fracture; D64.9 Anemia, unspecified; E61.1 Iron deficiency; Z96.651 Presence of right artificial knee joint; Z86.19 Personal history of other infectious and parasitic diseases; Z98.49 Cataract extraction status, unspecified eye; Z79.899 Other long term (current) drug therapy; Z95.0 Presence of cardiac pacemaker; Z78.9 Other specified health status; Z79.01 Long term (current) use of anticoagulants; Z79.82 Long term (current) use of aspirin; I25.2 Old myocardial infarction; Z86.718 Personal history of other venous thrombosis and embolism; Z95.810 Presence of automatic (implantable) cardiac defibrillator; Z87.11 Personal history of peptic ulcer disease; Z90.710 Acquired absence of both cervix and uterus; Z88.5 Allergy status to narcotic agent; Z79.52 Long term (current) use of systemic steroids; Z97.4 Presence of external hearing-aid; Z90.89 Acquired absence of other organs; Z90.49 Acquired absence of other specified parts of digestive tract
CPT/HCPCS: 0241U; 36415; 71045; 80048; 80053; 81001; 82947; 83605; 83735; 83880; 84484; 85025; 85379; 85610; 85730; 87040; 93005; 94640; 94667; 94668; 94761; 94762; 97116; 97162; 97166; 99285; A9270-GY; J2405; J2920; J7120; J7512; J7620-GY

== ENCOUNTER 2022-10-30 20:58 | Emergency (ER) | payer MEDICARE, OTHER ==
[2022-10-30 23:26] VITALS: BP 143/57; PULSE 88
== END 2022-10-30 23:25 | disposition home or self-care (01) ==
LOC: JD.ED 20:58
DX: R05.1 Acute cough (principal); I48.91 Unspecified atrial fibrillation; I25.2 Old myocardial infarction; K21.9 Gastro-esophageal reflux disease without esophagitis; I12.9 Hypertensive chronic kidney disease with stage 1 through stage 4 chronic kidney disease, or unspecified chronic kidney disease; N18.9 Chronic kidney disease, unspecified; Z79.01 Long term (current) use of anticoagulants; Z79.82 Long term (current) use of aspirin; Z79.899 Other long term (current) drug therapy; Z88.5 Allergy status to narcotic agent
CPT/HCPCS: 36415; 71046; 71046-26; 80048; 85025; 99283; 99284

== ENCOUNTER 2023-05-07 17:34 | Inpatient (IN) | payer MEDICARE, OTHER ==
[2023-05-07] MEDS ORDERED: Sodium Chloride 0.9% 1,000 ML IV SCH (19:00)
[2023-05-07] MEDS ORDERED: cefTRIAXone 2 GM in Sodium Chloride 0.9% 100 ML IV ONE (19:00)
[2023-05-07 19:39] LABS: LACTIC ACID 0.9 mmol/L (0.4-2.0)
[2023-05-07 19:40] LABS: APPEARANCE,URINE CLOUDY (Clear); BILIRUBIN,URINE 1+ (Negative); COLOR,URINE DARK YELLOW (Yellow); GLUCOSE,URINE NEGATIVE (Negative); KETONES,URINE NEGATIVE (Negative); LEUKOCYTE ESTERASE,URINE 3+ (Negative); NITRITE,URINE NEGATIVE (Negative); OCCULT BLOOD,URINE 3+ (Negative); PROTEIN,URINE 3+ (Negative); UROBILINOGEN,URINE 0.2 (0.2-1.0)
[2023-05-07 19:55] LABS: BACTERIA,URINE MODERATE /hpf (FEW); MUCUS,URINE FEW /hpf (FEW); RBC,URINE >100 /hpf (0-5); SQUAMOUS EPITHELIAL CELLS,UR 0-5 /hpf (0-5); WBC,URINE 40-50 /hpf (0-5)
[2023-05-07] MEDS ORDERED: Acetaminophen 325 MG Tab PO PRN (19:57)
[2023-05-07] MEDS ORDERED: Ondansetron 4 MG/2 ML SDV IV PRN (19:57)
[2023-05-07] MEDS ORDERED: Metoprolol Succinate 50 MG Tab.ER PO SCH (20:15)
[2023-05-07] MEDS: Apixaban 2.5 MG Tab PO SCH (21:54)
[2023-05-07] MEDS: Metoprolol Succinate 25 MG Tab.ER PO SCH (23:58)
[2023-05-08 05:52] LABS: HEMATOCRIT 33.2 % (37.0-47.0); HEMOGLOBIN 11.2 gm/dl (12.0-16.0); MEAN CORPUSCULAR HEMOGLOBIN 31.6 pg (28.0-32.0); MEAN CORPUSCULAR HGB CONC 33.7 g/dl (32.0-36.0); MEAN CORPUSCULAR VOLUME 93.8 fl (83.0-99.0); MEAN PLATELET VOLUME 11.7 fl (9.4-12.3); PLATELET COUNT,PLT 158 K/mm3 (150-400); RED BLOOD CELL COUNT 3.54 M/mm3 (4.10-5.30); WHITE BLOOD CELL COUNT,WBC 13.45 K/mm3 (3.9-11.3)
[2023-05-08 06:04] LABS: A/G RATIO 0.7 (1-2); ALBUMIN 2.3 g/dl (3.4-5.0); ANION GAP 15.5 (5-15); BILIRUBIN TOTAL 0.4 mg/dL (0.2-1.0); CALCIUM 8.9 mg/dL (8.5-10.1); EST CRCL DRUG DOSING (CG) 15.67 mL/min; POTASSIUM,K 3.5 mEq/L (3.5-5.1); PROTEIN TOTAL,TP 5.8 g/dl (6.4-8.2)
[2023-05-08 06:17] LABS: C-REACTIVE PROTEIN 23.9 mg/dL (<1.0)
[2023-05-08] MEDS ORDERED: Apixaban 2.5 MG Tab PO SCH (09:00)
[2023-05-08] MEDS: Isosorbide Mononitrate 30 MG Tab.ER PO SCH (09:04)
[2023-05-08] MEDS: Apixaban 2.5 MG Tab PO SCH ×2 (09:04→20:12)
[2023-05-08] MEDS: Metoprolol Succinate 50 MG Tab.ER PO SCH (09:04)
[2023-05-08] MEDS: Amiodarone 200 MG Tab PO SCH (09:04)
[2023-05-08] MEDS: cefTRIAXone 2 GM in Sodium Chloride 0.9% 100 ML IV SCH (20:09)
[2023-05-08] MEDS: Metoprolol Succinate 25 MG Tab.ER PO SCH (20:12)
[2023-05-09 05:53] LABS: HEMATOCRIT 35.4 % (37.0-47.0); MEAN CORPUSCULAR HEMOGLOBIN 31.3 pg (28.0-32.0); MEAN CORPUSCULAR HGB CONC 33.9 g/dl (32.0-36.0); MEAN CORPUSCULAR VOLUME 92.2 fl (83.0-99.0); MEAN PLATELET VOLUME 11.5 fl (9.4-12.3); PLATELET COUNT,PLT 155 K/mm3 (150-400); RED BLOOD CELL COUNT 3.84 M/mm3 (4.10-5.30); WHITE BLOOD CELL COUNT,WBC 13.43 K/mm3 (3.9-11.3)
[2023-05-09 06:03] LABS: A/G RATIO 0.6 (1-2); ALBUMIN 2.3 g/dl (3.4-5.0); ANION GAP 16.9 (5-15); BILIRUBIN TOTAL 0.3 mg/dL (0.2-1.0); BUN/CREATININE RATIO 19.5 (14-18); CALCIUM 9.1 mg/dL (8.5-10.1); EST CRCL DRUG DOSING (CG) 15.67 mL/min; POTASSIUM,K 3.9 mEq/L (3.5-5.1); PROTEIN TOTAL,TP 6.3 g/dl (6.4-8.2)
[2023-05-09 06:29] LABS: C-REACTIVE PROTEIN 25.2 mg/dL (<1.0)
[2023-05-09] MEDS: Metoprolol Succinate 50 MG Tab.ER PO SCH (08:29)
[2023-05-09] MEDS: Isosorbide Mononitrate 30 MG Tab.ER PO SCH (08:30)
[2023-05-09] MEDS: Amiodarone 200 MG Tab PO SCH (08:30)
[2023-05-09] MEDS: Apixaban 2.5 MG Tab PO SCH ×2 (08:30→20:13)
[2023-05-09] MEDS: Losartan 50 MG Tab PO SCH ×2 (08:55→20:12)
[2023-05-09] MEDS: cefTRIAXone 2 GM in Sodium Chloride 0.9% 100 ML IV SCH (20:09)
[2023-05-09] MEDS: Metoprolol Succinate 25 MG Tab.ER PO SCH (20:12)
[2023-05-10 06:36] LABS: HEMATOCRIT 33.1 % (37.0-47.0); HEMOGLOBIN 11.4 gm/dl (12.0-16.0); MEAN CORPUSCULAR HEMOGLOBIN 31.6 pg (28.0-32.0); MEAN CORPUSCULAR HGB CONC 34.4 g/dl (32.0-36.0); MEAN CORPUSCULAR VOLUME 91.7 fl (83.0-99.0); MEAN PLATELET VOLUME 11.3 fl (9.4-12.3); PLATELET COUNT,PLT 190 K/mm3 (150-400); RED BLOOD CELL COUNT 3.61 M/mm3 (4.10-5.30)
[2023-05-10 07:01] LABS: A/G RATIO 0.6 (1-2); ALBUMIN 2.1 g/dl (3.4-5.0); ANION GAP 12.7 (5-15); BILIRUBIN TOTAL 0.3 mg/dL (0.2-1.0); BUN/CREATININE RATIO 18.3 (14-18); CALCIUM 8.9 mg/dL (8.5-10.1); CREATININE 1.8 mg/dL (0.55-1.02); EST CRCL DRUG DOSING (CG) 17.41 mL/min; POTASSIUM,K 3.7 mEq/L (3.5-5.1); PROTEIN TOTAL,TP 5.9 g/dl (6.4-8.2)
[2023-05-10 07:27] LABS: C-REACTIVE PROTEIN 22.8 mg/dL (<1.0)
[2023-05-10] MEDS: Metoprolol Succinate 50 MG Tab.ER PO SCH (07:59)
[2023-05-10] MEDS: Amiodarone 200 MG Tab PO SCH (07:59)
[2023-05-10] MEDS: Losartan 50 MG Tab PO SCH (07:59)
[2023-05-10] MEDS: Apixaban 2.5 MG Tab PO SCH (07:59)
[2023-05-10] MEDS: Isosorbide Mononitrate 30 MG Tab.ER PO SCH (07:59)
[2023-05-10 08:01] VITALS: BP 128/52; PULSE 62
== END 2023-05-10 10:01 | disposition home or self-care (01) | DRG 690 ==
LOC: JD.ED 17:34 → JD.MS 19:02
PROVIDERS: ADMIT Internal Medicine; ATTEND Internal Medicine
DX: N12 Tubulo-interstitial nephritis, not specified as acute or chronic (principal); I13.0 Hypertensive heart and chronic kidney disease with heart failure and stage 1 through stage 4 chronic kidney disease, or unspecified chronic kidney disease; I50.22 Chronic systolic (congestive) heart failure; N39.0 Urinary tract infection, site not specified; N18.4 Chronic kidney disease, stage 4 (severe); I25.10 Atherosclerotic heart disease of native coronary artery without angina pectoris; I48.0 Paroxysmal atrial fibrillation; I48.91 Unspecified atrial fibrillation; H91.90 Unspecified hearing loss, unspecified ear; I10 Essential (primary) hypertension; I25.2 Old myocardial infarction; M81.0 Age-related osteoporosis without current pathological fracture; D50.9 Iron deficiency anemia, unspecified; R41.0 Disorientation, unspecified; Z97.4 Presence of external hearing-aid; Z90.710 Acquired absence of both cervix and uterus; Z87.11 Personal history of peptic ulcer disease; Z98.890 Other specified postprocedural states; Z98.49 Cataract extraction status, unspecified eye; Z90.49 Acquired absence of other specified parts of digestive tract; Z96.651 Presence of right artificial knee joint; E78.00 Pure hypercholesterolemia, unspecified; Z88.5 Allergy status to narcotic agent; Z79.82 Long term (current) use of aspirin; K21.9 Gastro-esophageal reflux disease without esophagitis; Z95.810 Presence of automatic (implantable) cardiac defibrillator; Z79.01 Long term (current) use of anticoagulants; Z79.899 Other long term (current) drug therapy; Z95.0 Presence of cardiac pacemaker; Z86.718 Personal history of other venous thrombosis and embolism
CPT/HCPCS: 36415; 80053; 81001; 83605; 85027; 86140; 87040; 87086; 87088; 87186; 97116-GP; 97162-GP; 99284; 99285; A9270-GY; J0696; J3490; J7030

== ENCOUNTER 2024-04-02 19:43 | Emergency (ER) | payer MEDICARE, OTHER ==
[2024-04-02 20:36] LABS: BASOPHILS ABSOLUTE AUTO 0.1 K/mm3 (0.0-0.2); BASOPHILS PERCENT AUTO 0.6 % (0.0-1.0); EOSINOPHILS ABSOLUTE AUTO 0.1 K/mm3 (0.0-0.4); EOSINOPHILS PERCENT AUTO 1.5 % (0.0-6.0); HEMATOCRIT 39.9 % (37.0-47.0); HEMOGLOBIN 13.1 gm/dl (12.0-16.0); IMMATURE GRAN ABSOLUTE AUTO 0.03 K/mm3 (0.00-0.05); IMMATURE GRAN PERCENT AUTO 0.3 % (0.0-0.4); LYMPHOCYTES ABSOLUTE AUTO 2.2 K/mm3 (1.0-4.8); LYMPHOCYTES PERCENT AUTO 24.2 % (24.0-44.0); MEAN CORPUSCULAR HEMOGLOBIN 30.8 pg (28.0-32.0); MEAN CORPUSCULAR HGB CONC 32.8 g/dl (32.0-36.0); MEAN CORPUSCULAR VOLUME 93.7 fl (83.0-99.0); MEAN PLATELET VOLUME 11.4 fl (9.4-12.3); MONOCYTES ABSOLUTE AUTO 0.7 K/mm3 (0.0-0.8); MONOCYTES PERCENT AUTO 7.5 % (0.0-8.0); NEUTROPHILS PERCENT AUTO 65.9 % (41.0-71.0); PLATELET COUNT,PLT 228 K/mm3 (150-400); RED BLOOD CELL COUNT 4.26 M/mm3 (4.10-5.30); WHITE BLOOD CELL COUNT,WBC 9.04 K/mm3 (3.9-11.3)
[2024-04-02 20:45] LABS: ALBUMIN 3.5 g/dl (3.4-5.0); ANION GAP 15.2 (5-15); BILIRUBIN TOTAL 0.4 mg/dL (0.2-1.0); CALCIUM 9.3 mg/dL (8.5-10.1); EST CRCL DRUG DOSING (CG) 13.92 mL/min; POTASSIUM,K 4.2 mEq/L (3.5-5.1)
[2024-04-02 22:48] VITALS: BP 140/85; PULSE 70
== END 2024-04-02 22:48 | disposition home or self-care (01) ==
LOC: JD.ED 19:43
DX: K62.5 Hemorrhage of anus and rectum (principal); K52.9 Noninfective gastroenteritis and colitis, unspecified; K21.9 Gastro-esophageal reflux disease without esophagitis; I50.9 Heart failure, unspecified; N18.9 Chronic kidney disease, unspecified; I48.91 Unspecified atrial fibrillation; Z90.710 Acquired absence of both cervix and uterus; Z88.5 Allergy status to narcotic agent; Z79.899 Other long term (current) drug therapy; Z79.01 Long term (current) use of anticoagulants
CPT/HCPCS: 36415; 80053; 83690; 85025; 99283; 99284

== ENCOUNTER 2024-06-03 18:12 | Emergency (ER) | payer MEDICARE, OTHER ==
[2024-06-03 19:02] LABS: HEMATOCRIT 35.1 % (37.0-47.0); HEMOGLOBIN 11.7 gm/dl (12.0-16.0); RED BLOOD CELL COUNT 3.78 M/mm3 (4.10-5.30); WHITE BLOOD CELL COUNT,WBC 8.63 K/mm3 (3.9-11.3)
[2024-06-03 19:03] LABS: BASOPHILS ABSOLUTE AUTO 0.1 K/mm3 (0.0-0.2); BASOPHILS PERCENT AUTO 0.8 % (0.0-1.0); EOSINOPHILS ABSOLUTE AUTO 0.2 K/mm3 (0.0-0.4); EOSINOPHILS PERCENT AUTO 1.9 % (0.0-6.0); IMMATURE GRAN ABSOLUTE AUTO 0.03 K/mm3 (0.00-0.05); IMMATURE GRAN PERCENT AUTO 0.3 % (0.0-0.4); LYMPHOCYTES ABSOLUTE AUTO 1.9 K/mm3 (1.0-4.8); LYMPHOCYTES PERCENT AUTO 22.4 % (24.0-44.0); MEAN CORPUSCULAR HGB CONC 33.3 g/dl (32.0-36.0); MEAN CORPUSCULAR VOLUME 92.9 fl (83.0-99.0); MEAN PLATELET VOLUME 10.4 fl (9.4-12.3); MONOCYTES ABSOLUTE AUTO 0.7 K/mm3 (0.0-0.8); MONOCYTES PERCENT AUTO 7.9 % (0.0-8.0); NEUTROPHILS ABSOLUTE AUTO 5.8 K/mm3 (1.8-7.7); NEUTROPHILS PERCENT AUTO 66.7 % (41.0-71.0); PLATELET COUNT,PLT 198 K/mm3 (150-400)
[2024-06-03 19:19] LABS: APPEARANCE,URINE CLEAR (Clear); BILIRUBIN,URINE NEGATIVE (Negative); COLOR,URINE YELLOW (Yellow); GLUCOSE,URINE NEGATIVE (Negative); KETONES,URINE NEGATIVE (Negative); LEUKOCYTE ESTERASE,URINE 2+ (Negative); NITRITE,URINE NEGATIVE (Negative); OCCULT BLOOD,URINE NEGATIVE (Negative); PROTEIN,URINE NEGATIVE (Negative); UROBILINOGEN,URINE 0.2 (0.2-1.0)
[2024-06-03 19:28] LABS: ANION GAP 15.8 (5-15); POTASSIUM,K 4.8 mEq/L (3.5-5.1)
[2024-06-03 19:29] LABS: BILIRUBIN TOTAL 0.5 mg/dL (0.2-1.0); CALCIUM 8.7 mg/dL (8.5-10.1); EST CRCL DRUG DOSING (CG) 15.38 mL/min
[2024-06-03 19:46] LABS: BACTERIA,URINE MANY /hpf (FEW); HYALINE CASTS,URINE 0-5 /lpf (0-5); MUCUS,URINE NOT SEEN /hpf (FEW); RBC,URINE 0-5 /hpf (0-5); SQUAMOUS EPITHELIAL CELLS,UR 0-5 /hpf (0-5); WBC,URINE 30-40 /hpf (0-5)
[2024-06-03] MEDS: cefTRIAXone 1 GM in Sodium Chloride 0.9% 100 ML IV ONE (20:42)
[2024-06-03] MEDS: Sodium Chloride 0.9% 10 ML Syringe FLUSH PRN (20:44)
[2024-06-03 21:22] VITALS: BP 162/67; PULSE 60
== END 2024-06-03 21:19 | disposition home or self-care (01) ==
LOC: JD.ED 18:12
DX: N39.0 Urinary tract infection, site not specified (principal); I13.0 Hypertensive heart and chronic kidney disease with heart failure and stage 1 through stage 4 chronic kidney disease, or unspecified chronic kidney disease; I50.9 Heart failure, unspecified; N18.9 Chronic kidney disease, unspecified; I48.91 Unspecified atrial fibrillation; Z95.0 Presence of cardiac pacemaker; Z79.01 Long term (current) use of anticoagulants; Z79.899 Other long term (current) drug therapy; Z88.5 Allergy status to narcotic agent
CPT/HCPCS: 36415; 80053; 81001; 83690; 83735; 84484; 85025; 87086; 87088; 87186; 93005; 96365; 99284; J0696; J3490

== ENCOUNTER 2024-06-22 09:48 | Emergency (ER) | payer MEDICARE, OTHER ==
[2024-06-22 10:04] VITALS: BP 172/67; PULSE 61
[2024-06-22 10:56] LABS: BASOPHILS PERCENT AUTO 0.5 % (0.0-1.0); EOSINOPHILS ABSOLUTE AUTO 0.1 K/mm3 (0.0-0.4); EOSINOPHILS PERCENT AUTO 1.8 % (0.0-6.0); HEMATOCRIT 34.9 % (37.0-47.0); HEMOGLOBIN 11.7 gm/dl (12.0-16.0); IMMATURE GRAN ABSOLUTE AUTO 0.01 K/mm3 (0.00-0.05); IMMATURE GRAN PERCENT AUTO 0.2 % (0.0-0.4); LYMPHOCYTES ABSOLUTE AUTO 1.3 K/mm3 (1.0-4.8); LYMPHOCYTES PERCENT AUTO 21.3 % (24.0-44.0); MEAN CORPUSCULAR HEMOGLOBIN 30.8 pg (28.0-32.0); MEAN CORPUSCULAR HGB CONC 33.5 g/dl (32.0-36.0); MEAN CORPUSCULAR VOLUME 91.8 fl (83.0-99.0); MEAN PLATELET VOLUME 10.6 fl (9.4-12.3); MONOCYTES ABSOLUTE AUTO 0.7 K/mm3 (0.0-0.8); MONOCYTES PERCENT AUTO 10.4 % (0.0-8.0); NEUTROPHILS ABSOLUTE AUTO 4.1 K/mm3 (1.8-7.7); NEUTROPHILS PERCENT AUTO 65.8 % (41.0-71.0); PLATELET COUNT,PLT 172 K/mm3 (150-400); WHITE BLOOD CELL COUNT,WBC 6.28 K/mm3 (3.9-11.3)
[2024-06-22 11:20] LABS: APPEARANCE,URINE CLEAR (Clear); BILIRUBIN,URINE NEGATIVE (Negative); COLOR,URINE YELLOW (Yellow); GLUCOSE,URINE NEGATIVE (Negative); KETONES,URINE NEGATIVE (Negative); LEUKOCYTE ESTERASE,URINE NEGATIVE (Negative); NITRITE,URINE NEGATIVE (Negative); OCCULT BLOOD,URINE NEGATIVE (Negative); PROTEIN,URINE NEGATIVE (Negative); UROBILINOGEN,URINE 0.2 (0.2-1.0)
[2024-06-22 11:27] LABS: ANION GAP 11.9 (5-15); BILIRUBIN TOTAL 0.4 mg/dL (0.2-1.0); BUN/CREATININE RATIO 16.1 (14-18); CREATININE 1.8 mg/dL (0.55-1.02); EST CRCL DRUG DOSING (CG) 17.09 mL/min; POTASSIUM,K 3.9 mEq/L (3.5-5.1); PROTEIN TOTAL,TP 6.1 g/dl (6.4-8.2); TSH 0.282 uIU/mL (0.358-3.74)
[2024-06-24 10:47] LABS: THYROXINE, TOTAL T4 8.31 ug/dL (4.50-11.70)
== END 2024-06-22 13:45 | disposition home or self-care (01) ==
LOC: JD.ED 09:48
DX: R53.1 Weakness (principal); R42 Dizziness and giddiness; I13.0 Hypertensive heart and chronic kidney disease with heart failure and stage 1 through stage 4 chronic kidney disease, or unspecified chronic kidney disease; I50.9 Heart failure, unspecified; I12.9 Hypertensive chronic kidney disease with stage 1 through stage 4 chronic kidney disease, or unspecified chronic kidney disease; I48.91 Unspecified atrial fibrillation; Z95.0 Presence of cardiac pacemaker; Z79.01 Long term (current) use of anticoagulants; Z79.899 Other long term (current) drug therapy; Z88.5 Allergy status to narcotic agent
CPT/HCPCS: 36415; 71045; 71045-26; 80053; 81003; 83735; 84436; 84439; 84443; 84481; 84484; 85025; 93005; 99285

== ENCOUNTER 2024-07-17 22:38 | Emergency (ER) | payer MEDICARE, OTHER ==
[2024-07-17] MEDS ORDERED: Sodium Chloride 0.9% 10 ML Syringe FLUSH PRN (22:57)
[2024-07-17 23:25] LABS: BASOPHILS PERCENT AUTO 0.1 % (0.0-1.0); EOSINOPHILS PERCENT AUTO 0.1 % (0.0-6.0); HEMATOCRIT 42.3 % (37.0-47.0); HEMOGLOBIN 13.6 gm/dl (12.0-16.0); IMMATURE GRAN ABSOLUTE AUTO 0.05 K/mm3 (0.00-0.05); IMMATURE GRAN PERCENT AUTO 0.3 % (0.0-0.4); LYMPHOCYTES ABSOLUTE AUTO 0.9 K/mm3 (1.0-4.8); LYMPHOCYTES PERCENT AUTO 5.9 % (24.0-44.0); MEAN CORPUSCULAR HEMOGLOBIN 31.1 pg (28.0-32.0); MEAN CORPUSCULAR HGB CONC 32.2 g/dl (32.0-36.0); MEAN CORPUSCULAR VOLUME 96.6 fl (83.0-99.0); MONOCYTES ABSOLUTE AUTO 0.7 K/mm3 (0.0-0.8); MONOCYTES PERCENT AUTO 4.4 % (0.0-8.0); NEUTROPHILS ABSOLUTE AUTO 13.7 K/mm3 (1.8-7.7); NEUTROPHILS PERCENT AUTO 89.2 % (41.0-71.0); PLATELET COUNT,PLT 276 K/mm3 (150-400); RED BLOOD CELL COUNT 4.38 M/mm3 (4.10-5.30); WHITE BLOOD CELL COUNT,WBC 15.38 K/mm3 (3.9-11.3)
[2024-07-17 23:49] LABS: LACTIC ACID 1.2 mmol/L (0.4-2.0)
[2024-07-17 23:50] LABS: ALANINE AMINOTRANSFERASE,ALT 24 U/L (14-59); ALBUMIN 3.2 g/dl (3.4-5.0); ALKALINE PHOSPHATASE 123 U/L (46-116); ANION GAP 16.2 (5-15); ASPARTATE AMNIOTRANSFERASE,AST 19 U/L (15-37); BILIRUBIN TOTAL 0.3 mg/dL (0.2-1.0); BLOOD UREA NITROGEN,BUN 29 mg/dL (7-18); BUN/CREATININE RATIO 12.6 (14-18); CALCIUM 8.9 mg/dL (8.5-10.1); CARBON DIOXIDE,CO2 19 mEq/L (21-32); CHLORIDE,CL 110 mEq/L (98-107); CREATININE 2.3 mg/dL (0.55-1.02); ESTIMATED GFR 20 mL/min (>60); GLUCOSE RANDOM 146 mg/dL (70-99); POTASSIUM,K 4.2 mEq/L (3.5-5.1); PROTEIN TOTAL,TP 6.5 g/dl (6.4-8.2); SODIUM,NA 141 mEq/L (136-145); TROPONIN I HIGH SENSITIVITY 13 pg/mL (<=51)
[2024-07-18 00:26] LABS: APPEARANCE,URINE CLEAR (Clear); BILIRUBIN,URINE NEGATIVE (Negative); COLOR,URINE YELLOW (Yellow); GLUCOSE,URINE NEGATIVE (Negative); KETONES,URINE NEGATIVE (Negative); LEUKOCYTE ESTERASE,URINE NEGATIVE (Negative); NITRITE,URINE NEGATIVE (Negative); OCCULT BLOOD,URINE NEGATIVE (Negative); PROTEIN,URINE TRACE (Negative); UROBILINOGEN,URINE 0.2 (0.2-1.0)
[2024-07-18 00:31] LABS: BACTERIA,URINE FEW /hpf (FEW); MUCUS,URINE NOT SEEN /hpf (FEW); RBC,URINE NOT SEEN /hpf (0-5); SQUAMOUS EPITHELIAL CELLS,UR 0-5 /hpf (0-5); WBC,URINE 0-5 /hpf (0-5)
[2024-07-18 05:30] VITALS: BP 112/67; PULSE 62
== END 2024-07-18 04:25 | disposition home or self-care (01) ==
LOC: JD.ED 22:38
DX: R55 Syncope and collapse (principal); R19.7 Diarrhea, unspecified; I48.91 Unspecified atrial fibrillation; I13.0 Hypertensive heart and chronic kidney disease with heart failure and stage 1 through stage 4 chronic kidney disease, or unspecified chronic kidney disease; I50.9 Heart failure, unspecified; N18.9 Chronic kidney disease, unspecified; Z90.89 Acquired absence of other organs; Z88.5 Allergy status to narcotic agent; Z79.01 Long term (current) use of anticoagulants; Z79.899 Other long term (current) drug therapy
CPT/HCPCS: 36415; 80053; 81001; 83605; 84484; 85025; 87040; 87428; 93005; 99284; C1758

== ENCOUNTER 2024-07-26 14:41 | Inpatient (IN) | payer MEDICARE, OTHER ==
[2024-07-26] MEDS: Iopamidol 755 Mg/ML 100 ML Bottle IVPUSH ONE (15:05)
[2024-07-26 15:13] LABS: BASOPHILS PERCENT AUTO 0.2 % (0.0-1.0); EOSINOPHILS ABSOLUTE AUTO 0.1 K/mm3 (0.0-0.4); EOSINOPHILS PERCENT AUTO 0.9 % (0.0-6.0); HEMATOCRIT 40.8 % (37.0-47.0); HEMOGLOBIN 13.7 gm/dl (12.0-16.0); IMMATURE GRAN ABSOLUTE AUTO 0.04 K/mm3 (0.00-0.05); IMMATURE GRAN PERCENT AUTO 0.7 % (0.0-0.4); LYMPHOCYTES ABSOLUTE AUTO 0.9 K/mm3 (1.0-4.8); LYMPHOCYTES PERCENT AUTO 15.5 % (24.0-44.0); MEAN CORPUSCULAR HEMOGLOBIN 31.1 pg (28.0-32.0); MEAN CORPUSCULAR HGB CONC 33.6 g/dl (32.0-36.0); MEAN CORPUSCULAR VOLUME 92.5 fl (83.0-99.0); MEAN PLATELET VOLUME 10.5 fl (9.4-12.3); MONOCYTES ABSOLUTE AUTO 0.1 K/mm3 (0.0-0.8); MONOCYTES PERCENT AUTO 2.2 % (0.0-8.0); NEUTROPHILS ABSOLUTE AUTO 4.4 K/mm3 (1.8-7.7); NEUTROPHILS PERCENT AUTO 80.5 % (41.0-71.0); PLATELET COUNT,PLT 201 K/mm3 (150-400); RED BLOOD CELL COUNT 4.41 M/mm3 (4.10-5.30); WHITE BLOOD CELL COUNT,WBC 5.48 K/mm3 (3.9-11.3)
[2024-07-26] MEDS ORDERED: Sodium Chloride 0.9% 100 ML IV SCH (15:15)
[2024-07-26 15:31] LABS: INR 0.99; PROTHROMBIN TIME 10.5 SECONDS (9.7-12.0)
[2024-07-26 15:32] LABS: PTT,PARTIAL THROMBOPLSTIN TIME 24.8 SECONDS (21.7-31.4)
[2024-07-26 15:38] LABS: ALANINE AMINOTRANSFERASE,ALT 18 U/L (14-59); ALBUMIN 3.3 g/dl (3.4-5.0); ALKALINE PHOSPHATASE 118 U/L (46-116); ASPARTATE AMNIOTRANSFERASE,AST 15 U/L (15-37); BILIRUBIN TOTAL 0.5 mg/dL (0.2-1.0); BLOOD UREA NITROGEN,BUN 20 mg/dL (7-18); BUN/CREATININE RATIO 11.8 (14-18); CALCIUM 8.8 mg/dL (8.5-10.1); CARBON DIOXIDE,CO2 21 mEq/L (21-32); CHLORIDE,CL 100 mEq/L (98-107); CREATININE 1.7 mg/dL (0.55-1.02); ESTIMATED GFR 29 mL/min (>60); GLUCOSE RANDOM 106 mg/dL (70-99); PROTEIN TOTAL,TP 6.6 g/dl (6.4-8.2); SODIUM,NA 132 mEq/L (136-145); TROPONIN I HIGH SENSITIVITY 13 pg/mL (<=51)
[2024-07-26 15:54] LABS: APPEARANCE,URINE CLEAR (Clear); BILIRUBIN,URINE NEGATIVE (Negative); COLOR,URINE YELLOW (Yellow); GLUCOSE,URINE NEGATIVE (Negative); KETONES,URINE NEGATIVE (Negative); LEUKOCYTE ESTERASE,URINE NEGATIVE (Negative); NITRITE,URINE NEGATIVE (Negative); OCCULT BLOOD,URINE NEGATIVE (Negative); PROTEIN,URINE NEGATIVE (Negative); UROBILINOGEN,URINE 0.2 (0.2-1.0)
[2024-07-26] MEDS: Ondansetron 4 MG/2 ML SDV IVPUSH ONE (17:16)
[2024-07-26] MEDS ORDERED: Labetalol 100 MG/20 ML MDV IVPUSH PRN (18:59)
[2024-07-26] MEDS ORDERED: hydrALAZINE 20 MG/ML SDV IVPUSH PRN (18:59)
[2024-07-26] MEDS ORDERED: Naloxone 0.4 MG/ML SDV IVPUSH PRN (19:04)
[2024-07-26] MEDS ORDERED: LORazepam 2 MG/ML SDV IV PRN (19:04)
[2024-07-26] MEDS ORDERED: Sennosides/Docusate Sodium 50-8.6 MG Tab PO PRN (19:04)
[2024-07-26] MEDS ORDERED: Acetaminophen 325 MG Tab PO PRN (19:04)
[2024-07-26] MEDS ORDERED: Melatonin 3 MG Tab PO PRN (19:04)
[2024-07-26] MEDS ORDERED: Morphine 2 MG/ML SYRINGE IVPUSH PRN (19:04)
[2024-07-26] MEDS: Apixaban 2.5 MG Tab PO SCH (21:26)
[2024-07-27 06:08] LABS: BASOPHILS PERCENT AUTO 0.4 % (0.0-1.0); EOSINOPHILS ABSOLUTE AUTO 0.3 K/mm3 (0.0-0.4); EOSINOPHILS PERCENT AUTO 4.4 % (0.0-6.0); HEMATOCRIT 33.9 % (37.0-47.0); IMMATURE GRAN ABSOLUTE AUTO 0.03 K/mm3 (0.00-0.05); IMMATURE GRAN PERCENT AUTO 0.4 % (0.0-0.4); LYMPHOCYTES ABSOLUTE AUTO 1.2 K/mm3 (1.0-4.8); LYMPHOCYTES PERCENT AUTO 16.1 % (24.0-44.0); MEAN CORPUSCULAR HEMOGLOBIN 31.4 pg (28.0-32.0); MEAN CORPUSCULAR HGB CONC 33.9 g/dl (32.0-36.0); MEAN CORPUSCULAR VOLUME 92.6 fl (83.0-99.0); MEAN PLATELET VOLUME 10.6 fl (9.4-12.3); MONOCYTES ABSOLUTE AUTO 0.7 K/mm3 (0.0-0.8); MONOCYTES PERCENT AUTO 8.9 % (0.0-8.0); NEUTROPHILS ABSOLUTE AUTO 5.1 K/mm3 (1.8-7.7); NEUTROPHILS PERCENT AUTO 69.8 % (41.0-71.0); PLATELET COUNT,PLT 194 K/mm3 (150-400); RED BLOOD CELL COUNT 3.66 M/mm3 (4.10-5.30); WHITE BLOOD CELL COUNT,WBC 7.27 K/mm3 (3.9-11.3)
[2024-07-27 06:11] LABS: HEMOGLOBIN 11.5 gm/dl (12.0-16.0)
[2024-07-27 06:43] LABS: ALBUMIN 2.7 g/dl (3.4-5.0); ANION GAP 16.4 (5-15); BILIRUBIN TOTAL 0.4 mg/dL (0.2-1.0); BUN/CREATININE RATIO 16.1 (14-18); CALCIUM 8.3 mg/dL (8.5-10.1); CREATININE 1.8 mg/dL (0.55-1.02); EST CRCL DRUG DOSING (CG) 17.87 mL/min; MAGNESIUM 1.9 mg/dL (1.8-2.4); POTASSIUM,K 3.4 mEq/L (3.5-5.1); PROTEIN TOTAL,TP 5.5 g/dl (6.4-8.2); TSH 0.249 uIU/mL (0.358-3.74)
[2024-07-27 07:07] LABS: T4 FREE 1.48 ng/dL (0.76-1.46)
[2024-07-27] MEDS: Amiodarone 200 MG Tab PO SCH (11:39)
[2024-07-27] MEDS: Aspirin 81 MG Tab.EC PO SCH (15:14)
[2024-07-27] MEDS: atorvaSTATin 40 MG Tab PO SCH (20:44)
[2024-07-27] MEDS: Cyanocobalamin (Vitamin B12) 1,000 MCG/ML SDV IM ONE (20:44)
[2024-07-28 04:36] LABS: BASOPHILS PERCENT AUTO 0.4 % (0.0-1.0); EOSINOPHILS ABSOLUTE AUTO 0.5 K/mm3 (0.0-0.4); EOSINOPHILS PERCENT AUTO 6.3 % (0.0-6.0); HEMATOCRIT 33.8 % (37.0-47.0); HEMOGLOBIN 11.5 gm/dl (12.0-16.0); IMMATURE GRAN ABSOLUTE AUTO 0.02 K/mm3 (0.00-0.05); IMMATURE GRAN PERCENT AUTO 0.3 % (0.0-0.4); LYMPHOCYTES ABSOLUTE AUTO 1.5 K/mm3 (1.0-4.8); LYMPHOCYTES PERCENT AUTO 20.3 % (24.0-44.0); MEAN CORPUSCULAR HEMOGLOBIN 31.5 pg (28.0-32.0); MEAN CORPUSCULAR VOLUME 92.6 fl (83.0-99.0); MEAN PLATELET VOLUME 10.7 fl (9.4-12.3); MONOCYTES ABSOLUTE AUTO 0.6 K/mm3 (0.0-0.8); MONOCYTES PERCENT AUTO 7.9 % (0.0-8.0); NEUTROPHILS ABSOLUTE AUTO 4.9 K/mm3 (1.8-7.7); NEUTROPHILS PERCENT AUTO 64.8 % (41.0-71.0); PLATELET COUNT,PLT 168 K/mm3 (150-400); RED BLOOD CELL COUNT 3.65 M/mm3 (4.10-5.30)
[2024-07-28 04:59] LABS: A/G RATIO 0.9 (1-2); ALBUMIN 2.6 g/dl (3.4-5.0); ANION GAP 12.7 (5-15); BILIRUBIN TOTAL 0.4 mg/dL (0.2-1.0); BUN/CREATININE RATIO 15.3 (14-18); CALCIUM 8.4 mg/dL (8.5-10.1); CREATININE 1.7 mg/dL (0.55-1.02); EST CRCL DRUG DOSING (CG) 18.92 mL/min; POTASSIUM,K 3.7 mEq/L (3.5-5.1); PROTEIN TOTAL,TP 5.5 g/dl (6.4-8.2)
[2024-07-28] MEDS: Metoprolol Succinate 50 MG Tab.ER PO SCH (09:11)
[2024-07-28] MEDS ORDERED: Acetaminophen 325 MG Tab PO PRN (15:01)
[2024-07-28] MEDS ORDERED: Furosemide 20 MG Tab PO PRN (16:32)
[2024-07-28 16:56] VITALS: BP 156/64; PULSE 81
[2024-07-28] MEDS ORDERED: Metoprolol Succinate 25 MG Tab.ER PO SCH (21:00)
[2024-07-30 04:42] LABS: VITAMIN D 1,25 44.9 pg/mL (19.9-79.3)
== END 2024-07-28 20:19 | disposition home or self-care (01) | DRG 312 ==
LOC: JD.ED 14:41 → JD.MS 19:04
PROVIDERS: ADMIT Student in an Organized Health Care Education/Training Program; ATTEND Student in an Organized Health Care Education/Training Program
DX: R55 Syncope and collapse (principal); R41.82 Altered mental status, unspecified; E87.1 Hypo-osmolality and hyponatremia; N18.4 Chronic kidney disease, stage 4 (severe); I13.0 Hypertensive heart and chronic kidney disease with heart failure and stage 1 through stage 4 chronic kidney disease, or unspecified chronic kidney disease; Z66 Do not resuscitate; H91.90 Unspecified hearing loss, unspecified ear; H54.7 Unspecified visual loss; I48.91 Unspecified atrial fibrillation; E78.00 Pure hypercholesterolemia, unspecified; M81.0 Age-related osteoporosis without current pathological fracture; R79.89 Other specified abnormal findings of blood chemistry; Z96.659 Presence of unspecified artificial knee joint; E53.8 Deficiency of other specified B group vitamins; E05.90 Thyrotoxicosis, unspecified without thyrotoxic crisis or storm; I50.9 Heart failure, unspecified; N18.9 Chronic kidney disease, unspecified; Z79.52 Long term (current) use of systemic steroids; Z79.01 Long term (current) use of anticoagulants; Z95.0 Presence of cardiac pacemaker; Z90.89 Acquired absence of other organs; Z98.49 Cataract extraction status, unspecified eye; Z90.710 Acquired absence of both cervix and uterus; Z98.890 Other specified postprocedural states; Z79.899 Other long term (current) drug therapy; Z88.5 Allergy status to narcotic agent
CPT/HCPCS: 36415; 70450; 70496; 70498; 71045; 80053; 81003; 82947; 84484; 85025; 85610; 85730; 93005; C1758; J2405; Q9967; 80061; 82607; 82652; 83735; 84100; 84439; 84443; 93010; 93306; 97110-GP; 97116-GP; 97163-GP; 99291; A9270-GY; J3420

== ENCOUNTER 2024-12-24 12:45 | Inpatient (IN) | payer MEDICARE, OTHER ==
[2024-12-24] MEDS: Sodium Chloride 0.9% 10 ML Syringe FLUSH PRN (13:18)
[2024-12-24] MEDS: Sodium Chloride 0.9% 500 ML IV ONE (13:18)
[2024-12-24 13:50] LABS: BASOPHILS PERCENT AUTO 0.3 % (0.0-1.0); EOSINOPHILS PERCENT AUTO 0.1 % (0.0-6.0); HEMATOCRIT 40.3 % (37.0-47.0); HEMOGLOBIN 13.4 gm/dl (12.0-16.0); IMMATURE GRAN ABSOLUTE AUTO 0.05 K/mm3 (0.00-0.05); IMMATURE GRAN PERCENT AUTO 0.4 % (0.0-0.4); LYMPHOCYTES ABSOLUTE AUTO 0.2 K/mm3 (1.0-4.8); LYMPHOCYTES PERCENT AUTO 1.7 % (24.0-44.0); MEAN CORPUSCULAR HEMOGLOBIN 31.1 pg (28.0-32.0); MEAN CORPUSCULAR HGB CONC 33.3 g/dl (32.0-36.0); MEAN CORPUSCULAR VOLUME 93.5 fl (83.0-99.0); MEAN PLATELET VOLUME 10.6 fl (9.4-12.3); MONOCYTES ABSOLUTE AUTO 0.6 K/mm3 (0.0-0.8); MONOCYTES PERCENT AUTO 4.3 % (0.0-8.0); NEUTROPHILS ABSOLUTE AUTO 12.8 K/mm3 (1.8-7.7); NEUTROPHILS PERCENT AUTO 93.2 % (41.0-71.0); PLATELET COUNT,PLT 204 K/mm3 (150-400); RED BLOOD CELL COUNT 4.31 M/mm3 (4.10-5.30); WHITE BLOOD CELL COUNT,WBC 13.69 K/mm3 (3.9-11.3)
[2024-12-24 14:13] LABS: SLIDE REVIEW ABNORMAL SMEAR
[2024-12-24 14:22] LABS: A/G RATIO 0.9 (1-2); ALANINE AMINOTRANSFERASE,ALT 24 U/L (14-59); ALKALINE PHOSPHATASE 107 U/L (46-116); ANION GAP 13.5 (5-15); ASPARTATE AMNIOTRANSFERASE,AST 24 U/L (15-37); BILIRUBIN TOTAL 0.5 mg/dL (0.2-1.0); BLOOD UREA NITROGEN,BUN 41 mg/dL (7-18); BUN/CREATININE RATIO 18.6 (14-18); CALCIUM 8.6 mg/dL (8.5-10.1); CARBON DIOXIDE,CO2 20 mEq/L (21-32); CHLORIDE,CL 105 mEq/L (98-107); CREATINE KINASE,CK 49 U/L (26-192); CREATININE 2.2 mg/dL (0.55-1.02); ESTIMATED GFR 21 mL/min (>60); GLUCOSE RANDOM 126 mg/dL (70-99); LIPASE 32 U/L (16-77); POTASSIUM,K 4.5 mEq/L (3.5-5.1); PROTEIN TOTAL,TP 6.3 g/dl (6.4-8.2); SODIUM,NA 134 mEq/L (136-145); TROPONIN I HIGH SENSITIVITY 11 pg/mL (<=51); TSH 0.907 uIU/mL (0.358-3.74)
[2024-12-24 15:59] LABS: APPEARANCE,URINE SLT CLOUDY (Clear); BILIRUBIN,URINE NEGATIVE (Negative); COLOR,URINE YELLOW (Yellow); GLUCOSE,URINE NEGATIVE (Negative); KETONES,URINE NEGATIVE (Negative); LEUKOCYTE ESTERASE,URINE 3+ (Negative); NITRITE,URINE POSITIVE (Negative); OCCULT BLOOD,URINE 1+ (Negative); PROTEIN,URINE 1+ (Negative); UROBILINOGEN,URINE 0.2 (0.2-1.0)
[2024-12-24 16:07] LABS: BACTERIA,URINE MANY /hpf (FEW); MUCUS,URINE FEW /hpf (FEW); WBC,URINE >100 /hpf (0-5)
[2024-12-24 16:56] LABS: BARBITURATE SCREEN,URINE NEGATIVE (CUTOFF=200); BENZODIAZEPINES SCREEN,URINE NEGATIVE (CUTOFF=150); BUPRENORPHINE SCREEN,URINE NEGATIVE (CUTOFF=10); METHADONE SCREEN, URINE NEGATIVE (CUTOFF=200); METHAMPHETAMINES SCREEN, URINE NEGATIVE (CUTOFF=500); OXYCODONE SCREEN,URINE NEGATIVE (CUT0FF=100); THC SCREEN,URINE 20 NG/ML NEGATIVE (CUTOFF=50)
[2024-12-24 16:58] LABS: AMPHETAMINES SCREEN, URINE NEGATIVE (CUTOFF=500)
[2024-12-24] MEDS ORDERED: Ondansetron 4 MG/2 ML SDV IV PRN (18:00)
[2024-12-24] MEDS ORDERED: Acetaminophen 325 MG Tab PO PRN (18:00)
[2024-12-24] MEDS: Apixaban 2.5 MG Tab PO SCH (20:07)
[2024-12-25 04:50] LABS: HEMATOCRIT 36.4 % (37.0-47.0); HEMOGLOBIN 12.2 gm/dl (12.0-16.0); MEAN CORPUSCULAR HEMOGLOBIN 30.7 pg (28.0-32.0); MEAN CORPUSCULAR HGB CONC 33.5 g/dl (32.0-36.0); MEAN CORPUSCULAR VOLUME 91.7 fl (83.0-99.0); MEAN PLATELET VOLUME 10.1 fl (9.4-12.3); PLATELET COUNT,PLT 155 K/mm3 (150-400); RED BLOOD CELL COUNT 3.97 M/mm3 (4.10-5.30); WHITE BLOOD CELL COUNT,WBC 8.93 K/mm3 (3.9-11.3)
[2024-12-25 05:27] LABS: A/G RATIO 0.8 (1-2); ALBUMIN 2.6 g/dl (3.4-5.0); BILIRUBIN TOTAL 0.4 mg/dL (0.2-1.0); BUN/CREATININE RATIO 22.4 (14-18); CALCIUM 8.6 mg/dL (8.5-10.1); CREATININE 2.1 mg/dL (0.55-1.02); EST CRCL DRUG DOSING (CG) 14.65 mL/min; PROTEIN TOTAL,TP 5.8 g/dl (6.4-8.2)
[2024-12-25] MEDS: cefTRIAXone 2 GM Vial IVPUSH SCH (08:18)
[2024-12-25] MEDS: Isosorbide Mononitrate 30 MG Tab.ER PO SCH (08:18)
[2024-12-25] MEDS: Amiodarone 200 MG Tab PO SCH (08:18)
[2024-12-25] MEDS: Metoprolol Succinate 50 MG Tab.ER PO SCH (09:38)
[2024-12-25] MEDS: atorvaSTATin 40 MG Tab PO SCH (21:42)
[2024-12-25] MEDS: Metoprolol Succinate 25 MG Tab.ER PO SCH (21:42)
[2024-12-26 06:10] LABS: HEMATOCRIT 35.2 % (37.0-47.0); HEMOGLOBIN 11.6 gm/dl (12.0-16.0); MEAN CORPUSCULAR HEMOGLOBIN 30.8 pg (28.0-32.0); MEAN CORPUSCULAR VOLUME 93.4 fl (83.0-99.0); MEAN PLATELET VOLUME 10.2 fl (9.4-12.3); PLATELET COUNT,PLT 152 K/mm3 (150-400); RED BLOOD CELL COUNT 3.77 M/mm3 (4.10-5.30); WHITE BLOOD CELL COUNT,WBC 6.16 K/mm3 (3.9-11.3)
[2024-12-26 06:53] LABS: A/G RATIO 0.8 (1-2); ALBUMIN 2.5 g/dl (3.4-5.0); BILIRUBIN TOTAL 0.2 mg/dL (0.2-1.0); BUN/CREATININE RATIO 23.3 (14-18); CALCIUM 8.7 mg/dL (8.5-10.1); CREATININE 2.1 mg/dL (0.55-1.02); EST CRCL DRUG DOSING (CG) 14.65 mL/min; PROTEIN TOTAL,TP 5.6 g/dl (6.4-8.2)
[2024-12-27 06:28] LABS: ANION GAP 14.9 (5-15); BUN/CREATININE RATIO 18.3 (14-18); C-REACTIVE PROTEIN 3.16 mg/dL (<0.30); CALCIUM 9.3 mg/dL (8.5-10.1); CREATININE 2.3 mg/dL (0.55-1.02); EST CRCL DRUG DOSING (CG) 13.37 mL/min; MAGNESIUM 2.2 mg/dL (1.8-2.4); PHOSPHORUS 3.2 mg/dL (2.6-4.7); POTASSIUM,K 3.9 mEq/L (3.5-5.1)
[2024-12-27] MEDS: Metoprolol Succinate 25 MG Tab.ER PO SCH (08:36)
[2024-12-27] MEDS: cefTRIAXone 1 GM Vial IVPUSH SCH (08:36)
[2024-12-27] MEDS ORDERED: Sennosides/Docusate Sodium 50-8.6 MG Tab PO PRN (10:21)
[2024-12-27] MEDS: Meropenem 500 MG in Sodium Chloride 0.9% 100 ML IV SCH (10:51)
[2024-12-27] MEDS: Lactated Ringers 1,000 ML IV SCH (11:26)
[2024-12-27] MEDS: QUEtiapine 25 MG Tab PO SCH (20:24)
[2024-12-28] MEDS ORDERED: LORazepam 2 MG/ML SDV IVPUSH PRN (07:08)
[2024-12-28] MEDS: Metoprolol Succinate 25 MG Tab.ER PO SCH (09:00)
[2024-12-28 11:18] LABS: BASOPHILS PERCENT AUTO 0.4 % (0.0-1.0); EOSINOPHILS ABSOLUTE AUTO 0.1 K/mm3 (0.0-0.4); EOSINOPHILS PERCENT AUTO 1.5 % (0.0-6.0); HEMATOCRIT 37.1 % (37.0-47.0); HEMOGLOBIN 12.2 gm/dl (12.0-16.0); IMMATURE GRAN ABSOLUTE AUTO 0.03 K/mm3 (0.00-0.05); IMMATURE GRAN PERCENT AUTO 0.4 % (0.0-0.4); LYMPHOCYTES ABSOLUTE AUTO 1.4 K/mm3 (1.0-4.8); LYMPHOCYTES PERCENT AUTO 20.8 % (24.0-44.0); MEAN CORPUSCULAR HEMOGLOBIN 31.2 pg (28.0-32.0); MEAN CORPUSCULAR HGB CONC 32.9 g/dl (32.0-36.0); MEAN CORPUSCULAR VOLUME 94.9 fl (83.0-99.0); MEAN PLATELET VOLUME 10.5 fl (9.4-12.3); MONOCYTES ABSOLUTE AUTO 0.5 K/mm3 (0.0-0.8); MONOCYTES PERCENT AUTO 7.2 % (0.0-8.0); NEUTROPHILS ABSOLUTE AUTO 4.7 K/mm3 (1.8-7.7); NEUTROPHILS PERCENT AUTO 69.7 % (41.0-71.0); PLATELET COUNT,PLT 190 K/mm3 (150-400); RED BLOOD CELL COUNT 3.91 M/mm3 (4.10-5.30); WHITE BLOOD CELL COUNT,WBC 6.69 K/mm3 (3.9-11.3)
[2024-12-28 11:59] LABS: ANION GAP 14.3 (5-15); BUN/CREATININE RATIO 15.5 (14-18); C-REACTIVE PROTEIN 1.28 mg/dL (<0.30); CALCIUM 9.1 mg/dL (8.5-10.1); CREATININE 2.2 mg/dL (0.55-1.02); EST CRCL DRUG DOSING (CG) 13.98 mL/min; POTASSIUM,K 4.3 mEq/L (3.5-5.1)
[2024-12-28] MEDS ORDERED: LORazepam 1 MG Tab PO PRN (12:47)
[2024-12-28] MEDS ORDERED: Levofloxacin 750 MG Tab PO SCH (13:00)
[2024-12-28] MEDS: cefTRIAXone 1 GM Vial IVPUSH SCH (13:11)
[2024-12-28] MEDS ORDERED: QUEtiapine 25 MG Tab PO SCH (21:00)
[2024-12-29 09:28] VITALS: BP 156/65; PULSE 62
== END 2024-12-29 12:56 | disposition home or self-care (01) | DRG 948 ==
LOC: JD.ED 12:45 → JD.MS 14:33
PROVIDERS: ADMIT Internal Medicine; ATTEND Student in an Organized Health Care Education/Training Program
DX: R41.0 Disorientation, unspecified (principal); Z88.8 Allergy status to other drugs, medicaments and biological substances; N39.0 Urinary tract infection, site not specified; I12.9 Hypertensive chronic kidney disease with stage 1 through stage 4 chronic kidney disease, or unspecified chronic kidney disease; I13.0 Hypertensive heart and chronic kidney disease with heart failure and stage 1 through stage 4 chronic kidney disease, or unspecified chronic kidney disease; N18.9 Chronic kidney disease, unspecified; I50.32 Chronic diastolic (congestive) heart failure; Z16.29 Resistance to other single specified antibiotic; F03.94 Unspecified dementia, unspecified severity, with anxiety; R40.4 Transient alteration of awareness; Z66 Do not resuscitate; I48.91 Unspecified atrial fibrillation; H91.90 Unspecified hearing loss, unspecified ear; H54.7 Unspecified visual loss; E78.00 Pure hypercholesterolemia, unspecified; M81.0 Age-related osteoporosis without current pathological fracture; N18.32 Chronic kidney disease, stage 3b; I25.10 Atherosclerotic heart disease of native coronary artery without angina pectoris; B96.20 Unspecified Escherichia coli [E. coli] as the cause of diseases classified elsewhere; Z96.659 Presence of unspecified artificial knee joint; Z88.5 Allergy status to narcotic agent; Z79.899 Other long term (current) drug therapy; Z79.52 Long term (current) use of systemic steroids; Z79.01 Long term (current) use of anticoagulants; Z87.11 Personal history of peptic ulcer disease; Z98.49 Cataract extraction status, unspecified eye; Z90.89 Acquired absence of other organs; Z90.710 Acquired absence of both cervix and uterus; Z86.73 Personal history of transient ischemic attack (TIA), and cerebral infarction without residual deficits; Z95.0 Presence of cardiac pacemaker
CPT/HCPCS: 36415; 70450; 71045; 80053; 80307; 82550; 83605; 83690; 83735; 84443; 84484; 85025; 93005; 96360; 99285; J7030; 80048; 80306; 81001; 84100; 85027; 86140; 87086; 87088; 87186; 93010; 93306; 97110-GP; 97116-GP; 97161-GP; 97530-GP; 99232; 99239; A9270-GY; J0696; J2185; J7120

== ENCOUNTER 2025-02-28 19:55 | Emergency (ER) | payer MEDICARE, OTHER ==
[2025-02-28] MEDS ORDERED: Sodium Chloride 0.9% 10 ML Syringe FLUSH PRN (20:16)
[2025-02-28 20:24] LABS: BASOPHILS ABSOLUTE AUTO 0.0 K/mm3 (0.0-0.2); BASOPHILS PERCENT AUTO 0.4 % (0.0-1.0); EOSINOPHILS ABSOLUTE AUTO 0.2 K/mm3 (0.0-0.4); EOSINOPHILS PERCENT AUTO 1.8 % (0.0-6.0); IMMATURE GRAN ABSOLUTE AUTO 0.03 K/mm3 (0.00-0.05); IMMATURE GRAN PERCENT AUTO 0.3 % (0.0-0.4); LYMPHOCYTES ABSOLUTE AUTO 1.6 K/mm3 (1.0-4.8); LYMPHOCYTES PERCENT AUTO 17.3 % (24.0-44.0); MEAN PLATELET VOLUME 10.6 fl (9.4-12.3); MONOCYTES ABSOLUTE AUTO 0.8 K/mm3 (0.0-0.8); MONOCYTES PERCENT AUTO 8.4 % (0.0-8.0); NEUTROPHILS ABSOLUTE AUTO 6.5 K/mm3 (1.8-7.7); NEUTROPHILS PERCENT AUTO 71.8 % (41.0-71.0); NRBC ABSOLUTE 0.00 (0.00-0.02); NRBC PERCENT 0.0 % (0.0-0.2); PLATELET COUNT,PLT 183 K/mm3 (150-400); RED BLOOD CELL COUNT 4.02 M/mm3 (4.10-5.30); WHITE BLOOD CELL COUNT,WBC 8.98 K/mm3 (3.9-11.3)
[2025-02-28 20:26] LABS: APPEARANCE,URINE CLEAR (Clear); GLUCOSE,URINE NEGATIVE (Negative); OCCULT BLOOD,URINE NEGATIVE (Negative)
[2025-02-28 20:53] LABS: A/G RATIO 0.9 (1-2); ALANINE AMINOTRANSFERASE,ALT 19.0 U/L (14-59); ASPARTATE AMNIOTRANSFERASE,AST 14.0 U/L (15-37); BILIRUBIN TOTAL 0.3 mg/dL (0.2-1.0); BLOOD UREA NITROGEN,BUN 37.0 mg/dL (7-18); CARBON DIOXIDE,CO2 24.0 mEq/L (21-32); CHLORIDE,CL 103.0 mEq/L (98-107); CREATININE 1.8 mg/dL (0.55-1.02); EST CRCL DRUG DOSING (CG) 17.09 mL/min; ESTIMATED GFR 27.0 mL/min (>60); GLUCOSE RANDOM 92.0 mg/dL (70-99); POTASSIUM,K 4.5 mEq/L (3.5-5.1); PROTEIN TOTAL,TP 6.7 g/dl (6.4-8.2); SODIUM,NA 135.0 mEq/L (136-145); TSH 0.483 uIU/mL (0.358-3.74)
[2025-02-28 20:57] LABS: SQUAMOUS EPITHELIAL CELLS,UR 0-5 /hpf (0-5)
[2025-02-28 22:08] VITALS: BP 159/59; PULSE 61
== END 2025-02-28 22:00 | disposition home or self-care (01) ==
LOC: JD.ED 19:55
DX: F41.0 Panic disorder [episodic paroxysmal anxiety] (principal); R41.3 Other amnesia; I13.0 Hypertensive heart and chronic kidney disease with heart failure and stage 1 through stage 4 chronic kidney disease, or unspecified chronic kidney disease; I50.9 Heart failure, unspecified; N18.9 Chronic kidney disease, unspecified; E78.00 Pure hypercholesterolemia, unspecified; Z88.8 Allergy status to other drugs, medicaments and biological substances; Z79.899 Other long term (current) drug therapy; Z90.710 Acquired absence of both cervix and uterus
CPT/HCPCS: 36415; 80053; 81001; 84443; 85025; 99284; 99285

== ENCOUNTER 2025-05-28 19:43 | Emergency (ER) | payer MEDICARE, OTHER ==
[2025-05-28] MEDS ORDERED: Sodium Chloride 0.9% 10 ML Syringe FLUSH PRN (20:09)
[2025-05-28 20:24] LABS: BASOPHILS ABSOLUTE AUTO 0.0 K/mm3 (0.0-0.2); BASOPHILS PERCENT AUTO 0.6 % (0.0-1.0); EOSINOPHILS ABSOLUTE AUTO 0.1 K/mm3 (0.0-0.4); EOSINOPHILS PERCENT AUTO 1.4 % (0.0-6.0); IMMATURE GRAN ABSOLUTE AUTO 0.03 K/mm3 (0.00-0.05); IMMATURE GRAN PERCENT AUTO 0.4 % (0.0-0.4); LYMPHOCYTES ABSOLUTE AUTO 1.6 K/mm3 (1.0-4.8); LYMPHOCYTES PERCENT AUTO 22.2 % (24.0-44.0); MEAN PLATELET VOLUME 10.6 fl (9.4-12.3); MONOCYTES ABSOLUTE AUTO 0.6 K/mm3 (0.0-0.8); MONOCYTES PERCENT AUTO 8.2 % (0.0-8.0); NEUTROPHILS ABSOLUTE AUTO 4.7 K/mm3 (1.8-7.7); NEUTROPHILS PERCENT AUTO 67.2 % (41.0-71.0); NRBC ABSOLUTE 0.00 (0.00-0.02); NRBC PERCENT 0.0 % (0.0-0.2); PLATELET COUNT,PLT 187 K/mm3 (150-400); RED BLOOD CELL COUNT 3.91 M/mm3 (4.10-5.30); WHITE BLOOD CELL COUNT,WBC 6.98 K/mm3 (3.9-11.3)
[2025-05-28 20:25] VITALS: BP 122/77; PULSE 61
[2025-05-28 20:40] LABS: APPEARANCE,URINE CLEAR (Clear); GLUCOSE,URINE NEGATIVE (Negative); OCCULT BLOOD,URINE TRACE-INTACT (Negative)
[2025-05-28 20:48] LABS: A/G RATIO 0.9 (1-2); ALANINE AMINOTRANSFERASE,ALT 20 U/L (14-59); ASPARTATE AMNIOTRANSFERASE,AST 17 U/L (15-37); BILIRUBIN TOTAL 0.3 mg/dL (0.2-1.0); BLOOD UREA NITROGEN,BUN 30 mg/dL (7-18); CARBON DIOXIDE,CO2 24 mEq/L (21-32); CHLORIDE,CL 98 mEq/L (98-107); CREATININE 1.9 mg/dL (0.55-1.02); ESTIMATED GFR 25 mL/min (>60); GLUCOSE RANDOM 98 mg/dL (70-99); POTASSIUM,K 4.7 mEq/L (3.5-5.1); PROTEIN TOTAL,TP 6.4 g/dl (6.4-8.2); SODIUM,NA 129 mEq/L (136-145); TSH 0.604 uIU/mL (0.358-3.74)
[2025-05-28 20:49] LABS: SQUAMOUS EPITHELIAL CELLS,UR 0-5 /hpf (0-5)
[2025-05-28] MEDS: cefTRIAXone 1 GM in Water For Injection, Sterile 10 ML IVPUSH ONE (22:18)
== END 2025-05-28 22:45 | disposition home or self-care (01) ==
LOC: JD.ED 19:43
DX: N39.0 Urinary tract infection, site not specified (principal); E87.1 Hypo-osmolality and hyponatremia; R91.1 Solitary pulmonary nodule; R79.89 Other specified abnormal findings of blood chemistry; I13.0 Hypertensive heart and chronic kidney disease with heart failure and stage 1 through stage 4 chronic kidney disease, or unspecified chronic kidney disease; I50.9 Heart failure, unspecified; N18.9 Chronic kidney disease, unspecified; I48.91 Unspecified atrial fibrillation; E78.00 Pure hypercholesterolemia, unspecified; Z88.5 Allergy status to narcotic agent; Z79.01 Long term (current) use of anticoagulants; Z79.899 Other long term (current) drug therapy; Z95.0 Presence of cardiac pacemaker; Z86.73 Personal history of transient ischemic attack (TIA), and cerebral infarction without residual deficits
CPT/HCPCS: 36415; 71045; 74176; 80053; 81001; 83690; 84443; 85025; 87086; 87088; 87186; 93005; 96361; 96374; 99285; A9270; J0696; J7030; 93010; 99284

== ENCOUNTER 2025-05-29 19:35 | Inpatient (IN) | payer MEDICARE, OTHER ==
[2025-05-29] MEDS ORDERED: Sodium Chloride 0.9% 10 ML Syringe FLUSH PRN ×3 (19:39→20:31)
[2025-05-29 20:02] LABS: BASOPHILS ABSOLUTE AUTO 0.1 K/mm3 (0.0-0.2); BASOPHILS PERCENT AUTO 0.6 % (0.0-1.0); EOSINOPHILS ABSOLUTE AUTO 0.1 K/mm3 (0.0-0.4); EOSINOPHILS PERCENT AUTO 1.4 % (0.0-6.0); IMMATURE GRAN ABSOLUTE AUTO 0.04 K/mm3 (0.00-0.05); IMMATURE GRAN PERCENT AUTO 0.5 % (0.0-0.4); LYMPHOCYTES ABSOLUTE AUTO 1.5 K/mm3 (1.0-4.8); LYMPHOCYTES PERCENT AUTO 17.2 % (24.0-44.0); MEAN PLATELET VOLUME 10.0 fl (9.4-12.3); MONOCYTES ABSOLUTE AUTO 0.8 K/mm3 (0.0-0.8); MONOCYTES PERCENT AUTO 8.9 % (0.0-8.0); NEUTROPHILS ABSOLUTE AUTO 6.2 K/mm3 (1.8-7.7); NEUTROPHILS PERCENT AUTO 71.4 % (41.0-71.0); NRBC ABSOLUTE 0.00 (0.00-0.02); NRBC PERCENT 0.0 % (0.0-0.2); PLATELET COUNT,PLT 210 K/mm3 (150-400); RED BLOOD CELL COUNT 4.21 M/mm3 (4.10-5.30); WHITE BLOOD CELL COUNT,WBC 8.61 K/mm3 (3.9-11.3)
[2025-05-29] MEDS: Iopamidol 755 Mg/ML 100 ML Bottle IVPUSH ONE (20:11)
[2025-05-29] MEDS: Sodium Chloride 0.9% 10 ML Syringe FLUSH PRN (20:11)
[2025-05-29 20:21] LABS: INR 0.95
[2025-05-29 20:22] LABS: PTT,PARTIAL THROMBOPLSTIN TIME 25.4 SECONDS (21.7-31.4)
[2025-05-29 20:27] LABS: LACTIC ACID 1.1 mmol/L (0.4-2.0)
[2025-05-29 20:37] LABS: A/G RATIO 0.9 (1-2); ALANINE AMINOTRANSFERASE,ALT 17 U/L (14-59); ASPARTATE AMNIOTRANSFERASE,AST 16 U/L (15-37); BILIRUBIN TOTAL 0.3 mg/dL (0.2-1.0); BLOOD UREA NITROGEN,BUN 25 mg/dL (7-18); CARBON DIOXIDE,CO2 26 mEq/L (21-32); CHLORIDE,CL 94 mEq/L (98-107); CREATININE 1.8 mg/dL (0.55-1.02); ESTIMATED GFR 27 mL/min (>60); GLUCOSE RANDOM 109 mg/dL (70-99); POTASSIUM,K 5.2 mEq/L (3.5-5.1); PROTEIN TOTAL,TP 6.8 g/dl (6.4-8.2); SODIUM,NA 127 mEq/L (136-145); TROPONIN I HIGH SENSITIVITY 12 pg/mL (<=51)
[2025-05-29 20:46] LABS: CREATINE KINASE,CK 55.0 U/L (26-192); TSH 0.623 uIU/mL (0.358-3.74)
[2025-05-29 20:47] LABS: ETHANOL BLOOD MEDICAL 0.0 gm% (0.00)
[2025-05-29 20:59] LABS: APPEARANCE,URINE CLEAR (Clear); GLUCOSE,URINE NEGATIVE (Negative); OCCULT BLOOD,URINE TRACE-LYSED (Negative)
[2025-05-29 21:06] LABS: SQUAMOUS EPITHELIAL CELLS,UR 0-5 /hpf (0-5)
[2025-05-29 21:10] LABS: BUPRENORPHINE SCREEN,URINE NEGATIVE (CUTOFF=10); METHADONE SCREEN, URINE NEGATIVE (CUTOFF=200); METHAMPHETAMINES SCREEN, URINE NEGATIVE (CUTOFF=500); OXYCODONE SCREEN,URINE NEGATIVE (CUT0FF=100); THC SCREEN,URINE 20 NG/ML NEGATIVE (CUTOFF=50)
[2025-05-29 21:13] LABS: AMPHETAMINES SCREEN, URINE NEGATIVE (CUTOFF=500)
[2025-05-30] MEDS: cefTRIAXone 1 GM in Water For Injection, Sterile 10 ML IVPUSH ONE (00:17)
[2025-05-30 06:13] LABS: BASOPHILS ABSOLUTE AUTO 0.1 K/mm3 (0.0-0.2); BASOPHILS PERCENT AUTO 0.6 % (0.0-1.0); EOSINOPHILS ABSOLUTE AUTO 0.1 K/mm3 (0.0-0.4); EOSINOPHILS PERCENT AUTO 0.6 % (0.0-6.0); IMMATURE GRAN ABSOLUTE AUTO 0.04 K/mm3 (0.00-0.05); IMMATURE GRAN PERCENT AUTO 0.5 % (0.0-0.4); LYMPHOCYTES ABSOLUTE AUTO 0.6 K/mm3 (1.0-4.8); LYMPHOCYTES PERCENT AUTO 7.4 % (24.0-44.0); MEAN PLATELET VOLUME 10.4 fl (9.4-12.3); MONOCYTES ABSOLUTE AUTO 0.7 K/mm3 (0.0-0.8); MONOCYTES PERCENT AUTO 8.3 % (0.0-8.0); NEUTROPHILS ABSOLUTE AUTO 6.9 K/mm3 (1.8-7.7); NEUTROPHILS PERCENT AUTO 82.6 % (41.0-71.0); NRBC ABSOLUTE 0.00 (0.00-0.02); NRBC PERCENT 0.0 % (0.0-0.2); PLATELET COUNT,PLT 213 K/mm3 (150-400); RED BLOOD CELL COUNT 4.19 M/mm3 (4.10-5.30); WHITE BLOOD CELL COUNT,WBC 8.29 K/mm3 (3.9-11.3)
[2025-05-30 06:42] LABS: A/G RATIO 0.9 (1-2); ALANINE AMINOTRANSFERASE,ALT 19.0 U/L (14-59); ASPARTATE AMNIOTRANSFERASE,AST 14.0 U/L (15-37); BILIRUBIN TOTAL 0.4 mg/dL (0.2-1.0); BLOOD UREA NITROGEN,BUN 23.0 mg/dL (7-18); CARBON DIOXIDE,CO2 25.0 mEq/L (21-32); CHLORIDE,CL 102.0 mEq/L (98-107); CREATININE 1.7 mg/dL (0.55-1.02); EST CRCL DRUG DOSING (CG) 18.56 mL/min; ESTIMATED GFR 28.0 mL/min (>60); GLUCOSE RANDOM 90.0 mg/dL (70-99); PHOSPHORUS 3.8 mg/dL (2.6-4.7); POTASSIUM,K 4.4 mEq/L (3.5-5.1); PROTEIN TOTAL,TP 6.2 g/dl (6.4-8.2); SODIUM,NA 135.0 mEq/L (136-145)
[2025-05-30] MEDS: cefTRIAXone 1 GM in Water For Injection, Sterile 10 ML IVPUSH SCH (23:12)
[2025-06-01 05:03] LABS: BLOOD UREA NITROGEN,BUN 30.0 mg/dL (7-18); CARBON DIOXIDE,CO2 25.0 mEq/L (21-32); CHLORIDE,CL 109.0 mEq/L (98-107); CREATININE 1.9 mg/dL (0.55-1.02); EST CRCL DRUG DOSING (CG) 16.6 mL/min; ESTIMATED GFR 25.0 mL/min (>60); GLUCOSE RANDOM 84.0 mg/dL (70-99); POTASSIUM,K 4.3 mEq/L (3.5-5.1); SODIUM,NA 141.0 mEq/L (136-145)
[2025-06-02 09:10] VITALS: PULSE 61
[2025-06-02 12:35] VITALS: BP 122/57
[2025-06-02] MEDS: cefTRIAXone 1 GM in Water For Injection, Sterile 10 ML IVPUSH ONE (12:44)
== END 2025-06-02 13:00 | DRG 689 ==
LOC: JD.ED 19:35 → JD.ICU 05-30 00:26 → JD.MS 05-30 11:03
PROVIDERS: ADMIT Family Medicine; ATTEND Internal Medicine
DX: M54.9 Dorsalgia, unspecified (principal); N39.0 Urinary tract infection, site not specified; G93.41 Metabolic encephalopathy; F05 Delirium due to known physiological condition; I12.9 Hypertensive chronic kidney disease with stage 1 through stage 4 chronic kidney disease, or unspecified chronic kidney disease; I13.0 Hypertensive heart and chronic kidney disease with heart failure and stage 1 through stage 4 chronic kidney disease, or unspecified chronic kidney disease; E87.1 Hypo-osmolality and hyponatremia; Z88.8 Allergy status to other drugs, medicaments and biological substances; N18.4 Chronic kidney disease, stage 4 (severe); Z66 Do not resuscitate; I48.91 Unspecified atrial fibrillation; E78.00 Pure hypercholesterolemia, unspecified; H26.9 Unspecified cataract; H91.90 Unspecified hearing loss, unspecified ear; H54.7 Unspecified visual loss; I50.9 Heart failure, unspecified; M81.0 Age-related osteoporosis without current pathological fracture; G30.9 Alzheimer's disease, unspecified; F02.80 Dementia in other diseases classified elsewhere, unspecified severity, without behavioral disturbance, psychotic disturbance, mood disturbance, and anxiety; Z96.659 Presence of unspecified artificial knee joint; B96.29 Other Escherichia coli [E. coli] as the cause of diseases classified elsewhere; E86.0 Dehydration; E87.5 Hyperkalemia; E87.8 Other disorders of electrolyte and fluid balance, not elsewhere classified; K57.30 Diverticulosis of large intestine without perforation or abscess without bleeding; R26.89 Other abnormalities of gait and mobility; K80.20 Calculus of gallbladder without cholecystitis without obstruction; E04.1 Nontoxic single thyroid nodule; Z87.01 Personal history of pneumonia (recurrent); Z88.5 Allergy status to narcotic agent; Z79.899 Other long term (current) drug therapy; Z95.810 Presence of automatic (implantable) cardiac defibrillator; Z79.1 Long term (current) use of non-steroidal anti-inflammatories (NSAID); Z79.01 Long term (current) use of anticoagulants; Z98.49 Cataract extraction status, unspecified eye; Z90.89 Acquired absence of other organs; Z90.710 Acquired absence of both cervix and uterus
CPT/HCPCS: 36415; 70450; 70496; 70498; 71260; 72125; 74177; 80053; 80179; 80306; 80307; 81001; 82140; 82550; 82947; 83605; 83690; 83735; 83880; 84443; 84484; 85025; 85610; 85730; 87040 ×2; 87086; 87088; 87186; 87428; 93005; 96360; 96361; 99285; J0696; J7030 ×2; Q9967; 80048; 84100; 93010; 97110-GP; 97112-GP; 97116-GP; 97162-GP; 99284; A9270-GY

== ENCOUNTER 2025-06-03 08:23 | Emergency (ER) | payer MEDICARE, OTHER ==
[2025-06-03] MEDS ORDERED: Sodium Chloride 0.9% 10 ML Syringe FLUSH PRN (08:30)
[2025-06-03 08:44] LABS: BASOPHILS ABSOLUTE AUTO 0.1 K/mm3 (0.0-0.2); BASOPHILS PERCENT AUTO 0.8 % (0.0-1.0); EOSINOPHILS ABSOLUTE AUTO 0.2 K/mm3 (0.0-0.4); EOSINOPHILS PERCENT AUTO 2.5 % (0.0-6.0); IMMATURE GRAN ABSOLUTE AUTO 0.03 K/mm3 (0.00-0.05); IMMATURE GRAN PERCENT AUTO 0.4 % (0.0-0.4); LYMPHOCYTES ABSOLUTE AUTO 1.2 K/mm3 (1.0-4.8); LYMPHOCYTES PERCENT AUTO 16.3 % (24.0-44.0); MEAN PLATELET VOLUME 10.3 fl (9.4-12.3); MONOCYTES ABSOLUTE AUTO 0.6 K/mm3 (0.0-0.8); MONOCYTES PERCENT AUTO 7.8 % (0.0-8.0); NEUTROPHILS ABSOLUTE AUTO 5.5 K/mm3 (1.8-7.7); NEUTROPHILS PERCENT AUTO 72.2 % (41.0-71.0); NRBC ABSOLUTE 0.00 (0.00-0.02); NRBC PERCENT 0.0 % (0.0-0.2); PLATELET COUNT,PLT 231 K/mm3 (150-400); RED BLOOD CELL COUNT 4.47 M/mm3 (4.10-5.30); WHITE BLOOD CELL COUNT,WBC 7.59 K/mm3 (3.9-11.3)
[2025-06-03 09:05] LABS: A/G RATIO 0.8 (1-2); ALANINE AMINOTRANSFERASE,ALT 22 U/L (14-59); ASPARTATE AMNIOTRANSFERASE,AST 15 U/L (15-37); BILIRUBIN TOTAL 0.4 mg/dL (0.2-1.0); BLOOD UREA NITROGEN,BUN 35 mg/dL (7-18); CARBON DIOXIDE,CO2 26 mEq/L (21-32); CHLORIDE,CL 106 mEq/L (98-107); CREATININE 2.2 mg/dL (0.55-1.02); ESTIMATED GFR 21 mL/min (>60); GLUCOSE RANDOM 99 mg/dL (70-99); POTASSIUM,K 4.6 mEq/L (3.5-5.1); PROTEIN TOTAL,TP 6.8 g/dl (6.4-8.2); SODIUM,NA 143 mEq/L (136-145); TROPONIN I HIGH SENSITIVITY 22 pg/mL (<=51)
[2025-06-03] MEDS: Lactated Ringers 1,000 ML IV ONE (09:31)
[2025-06-03 12:41] VITALS: BP 158/49; PULSE 66
== END 2025-06-03 12:47 ==
LOC: JD.ED 08:25
DX: S00.81XA Abrasion of other part of head, initial encounter (principal); N28.9 Disorder of kidney and ureter, unspecified; N30.00 Acute cystitis without hematuria; I11.0 Hypertensive heart disease with heart failure; I50.9 Heart failure, unspecified; I48.91 Unspecified atrial fibrillation; Z79.01 Long term (current) use of anticoagulants; Z79.899 Other long term (current) drug therapy; Z90.710 Acquired absence of both cervix and uterus; W01.198A Fall on same level from slipping, tripping and stumbling with subsequent striking against other object, initial encounter
CPT/HCPCS: 36415; 70450; 71045; 72125; 80053; 83735; 84484; 85025; 93005; 96360; 99284; A9270; J7120; 93010